=== PATIENT | female | born 1945 | race Caucasian/White ===

== ENCOUNTER 2019-07-25 13:19 | Outpatient (CLI) | payer MEDICARE, SELFPAY ==
--- NOTE | ~2019-07-25 | MR_ITS ---
EXAMINATION: MR renal wo/w con DATE: 07/25/2019 14:32 INDICATION: Left kidney mass. TECHNIQUE: Magnetic resonance imaging (MRI) of the abdomen was performed without and with 10 mL Multi Mili intravenous contrast. Sequences included coronal T2-weighted FS FSE, coronal and axial FIESTA F S, coronal LAVA-flex, axial LAVA, axial T2-weighted FSE, axial T1-weighted dual-echo FSPGR, axial STI R FSE, and axial DWI. Postcontrast sequences included coronal LAVA-flex and a time course of axial LA VA. COMPARISON: CT abdomen and pelvis 01/09/2019 FINDINGS: Again seen are airspace opacities in the lower lobes and right middle lobe, consistent with chronic i nfection. There is a 2.4 cm cyst in the liver. The gallbladder, spleen, pancreas, and adrenal glands are normal. There are simple cysts in the kidneys measuring up to 8 mm on the left. There is a 12 mm hemorrhagic cyst in left kidney. There are no dilated loops of bowel. There are no pathologically enl arged lymph nodes. There is no free intraperitoneal fluid. There is lumbar levoscoliosis and severe s pondylosis. IMPRESSION: 1. 12 mm hemorrhagic cyst in left kidney correlating with the CT abnormality. 2. Chronic airspace opacities in the lower lobes and right middle lobe of the lungs, consistent with chronic infection. Reviewed, dictated and finalized at location A. IMPRESSION: 1. 12 mm hemorrhagic cyst in left kidney correlating with the CT abnormality. 2. Chronic airspace opacities in the lower lobes and right middle lobe of the l ungs, consistent with chronic infection.
[2019-07-25 13:58] LABS: Estimated Glomerular Filt Rate > 60
== END 2019-07-25 13:20 | disposition home or self-care (01) ==
PROVIDERS: PCP Family Medicine; Visit Provider Family Medicine
DX: N28.89 Other specified disorders of kidney and ureter (principal); N28.1 Cyst of kidney, acquired; R91.8 Other nonspecific abnormal finding of lung field
CPT/HCPCS: 36415; 74183; A9577

== ENCOUNTER 2019-10-07 14:13 | Emergency (ER) | payer MEDICARE, SELFPAY ==
--- NOTE | ~2019-10-07 | CT_ITS ---
EXAMINATION: CTA brain carotid DATE: 10/07/2019 17:52 INDICATION: Headache and dizziness. Tinnitus. TECHNIQUE: Computed tomographic angiography (CTA) of the head was performed without and with 100 mL O mnipaque-350 intravenous contrast. CTA of the neck was performed with intravenous contrast. Automated exposure control and iterative reconstruction technique were employed. The dose-length product was 1 481.11 mGy-cm. Maximum intensity projection and volume rendered 3D-reconstructions were created by lyndon todd technologist on a separate workstation. COMPARISON: Head CT 03/09/2016 FINDINGS: HEAD CTA: There are scattered areas of low attenuation in the cerebral white matter. There is chronic encephalomalacia in left frontotemporal region. There is chronic encephalomalacia in right frontal l obe. There are changes of left-sided craniotomy with a aneurysm clip in the area of left posterior co mmunicating artery. The orbits are normal. There is mucosal thickening in the paranasal sinuses. Ther e is thickening and sclerosis of the buckley of the maxillary sinuses, consistent with chronic sinusiti s. The mastoid air cells are normal. Left vertebral artery is dominant. There is no significant steno sis of basilar artery or the posterior cerebral arteries. There is no significant stenosis of the int racranial internal carotid arteries or anterior or middle cerebral arteries. Anterior communicating a rtery is normal. Right posterior communicating artery is normal. There is no aneurysm. NECK CTA: There is mild scarring at the lung apices. There is a 3 mm nodule in right thyroid lobe, li airam not clinically significant. There are no pathologically enlarged lymph nodes. There is no signif icant stenosis of the vertebral arteries. There is plaque in the proximal internal carotid arteries. There is 0% stenosis of the proximal right internal carotid artery relative to normal distal artery l umen diameter (NASCET criteria). There is 0% stenosis of the proximal left internal carotid artery re lative to normal distal artery lumen diameter. There is severe cervical spondylosis. IMPRESSION: 1. Stable moderate nonspecific cerebral white matter disease, which likely represents chronic small v essel ischemic disease. 2. Chronic encephalomalacia in left frontotemporal region and right frontal lobe. 3. No aneurysm or significant intracranial arterial stenosis. 4. 0% stenosis of the proximal internal carotid arteries relative to normal distal artery lumen diame ters (NASCET criteria). Reviewed, dictated and finalized at location A. IMPRESSION: 1. Stable moderate nonspecific cerebral white matter disease, which likely repr esents chronic small vessel ischemic disease. 2. Chronic encephalomalacia in left frontotemporal region and right frontal lob e. 3. No aneurysm or significant intracranial arterial stenosis. 4. 0% stenosis of the proximal internal carotid arteries relative to normal dis simin artery lumen diameters (NASCET criteria).
--- NOTE | ~2019-10-07 | XR_ITS ---
XR chest 2V 10/07/2019 14:55 Indication: Weakness, fainting heart and fatigue Procedure: 2 view chest Comparison: 07/04/2018 Findings: There is chronic bilateral lower lobe airspace consolidation. Heart size normal. There is s coliosis. The lungs are hyperinflated which is consistent with, but not diagnostic of chronic obstruc tive pulmonary disease. Impression: 1: Chronic bilateral lower lobe airspace disease. Differential diagnosis includes atelectasis, fibros is, chronic edema and atypical pneumonia. Reviewed, dictated and finalized at location B. Impression: 1: Chronic bilateral lower lobe airspace disease. Differential diagnosis includ es atelectasis, fibrosis, chronic edema and atypical pneumonia.
[2019-10-07 14:17] VITALS: BP 137/60; PULSE 119; RESP 18; TEMP 37.3; O2SAT 98
--- NOTE | 2019-10-07 14:23 | ECG_ITS ---
Measurements Intervals [place] Rate: 125 P: 67 UT: 140 QRS: 39 QRSD: 85 T: 53 QT: 281 QTc: 406 Interpretive Statements SINUS TACHYCARDIA BORDERLINE ST ABNORMALITY- ANTEROLATERAL LEADS BASELINE ARTIFACT- I, III, AVR, AVL, AVF, V1-V3 ABNORMAL ECG Electronically Signed On 10-07-2019 15:35:20 CDT by Benito Perera D.O.
[2019-10-07 14:35] LABS: Basophils Absolute Auto 0.1 K/mm3 (0.0-0.1); Basophils Percent Auto 1.1 % (0.2-1.2); Eosinophils Absolute Auto 0.1 K/mm3 (0-0.3); Eosinophils Percent Auto 1.2 % (0-4.4); Hematocrit 41.8 % (37.0-47.0); Hemoglobin 13.6 g/dL (12.0-15.0); Immature Granulocyte Absolute 0.04 K/mm3 (0.00-0.031); Immature Granulocyte Percent A 0.4 % (0-0.5); Lymphocytes Percent Auto 30.5 % (18.3-44.2); Mean Corpuscular HGB Conc 32.5 g/dl (32-36); Mean Corpuscular Hemoglobin 30.4 pg (26-34); Mean Corpuscular Volume 93.5 fl (80-100); Mean Platelet Volume 8.6 fl (7.4-10.4); Monocytes Absolute Auto 1.1 K/mm3 (0.1-0.6); Monocytes Percent Auto 12.1 % (2.6-8.5); Neutrophils Percent Auto 54.7 % (45.5-73.1); Platelet Count Result 437 k/mm3 (150-375); Red Blood Count 4.47 M/mm3 (4.2-5.4); Red Cell Distribution Width 13.2 % (11.5-14.5); White Blood Count 9.2 K/mm3 (4.5-10.0)
[2019-10-07 14:47] LABS: Alanine Aminotransferase 36 U/L (4-35); Albumin Level 4.3 g/dL (3.5-5.1); Alkaline Phosphatase 123 U/L (38-126); Aspartate Amino Transferase 36 U/L (14-36); Bilirubin,Total 0.2 mg/dL (0.2-1.3); Blood Urea Nitrogen 30 mg/dL (7-17); Calcium 9.2 mg/dL (8.4-10.2); Carbon Dioxide 28 mmol/L (22-30); Chloride 99 mmol/L (98-107); Estimated CRCL calculation 48 ml/min; Estimated Glomerular Filt Rate > 60; Glucose 109 mg/dL (65-105); Potassium 4.3 mmol/L (3.4-5.0); Sodium 137 mmol/L (137-145)
--- NOTE | 2019-10-07 16:46 | ED.GENADULT ---
HPI - General Adult General Chief complaint: Weakness Stated complaint: palpitations Time Seen by Provider: 10/07/19 15:45 History of Present Illness HPI narrative: Patient is a 74 y/o female complaining moderate generalized weakness for 1 week. There is no alleviating or exacerbating factor. She also had an episode of dizziness/light-headedness 1 week ago. She feel whooshing sound when she turns her head. She denies any fever, chill, chest pain or abdominal pain. She is able to move all 4 extremities without difficulty. She was seen by PCP earlier today and sent to ED for further evaluation. Related Data Home Medications Medication Instructions Recorded Confirmed sumatriptan succinate 100 mg tablet See Rx Instructions .ROUTE .COMPLEX 04/02/19 10/07/19 albuterol sulfate 90 mcg/actuation 2 inhalation INHALATION Q4-6H PRN 04/03/19 10/07/19 aerosol inhaler gm amitriptyline 10 mg tablet 10 mg PO .daily at bedtime tablet 04/03/19 10/07/19 cetirizine 10 mg tablet 5 mg PO DAILY PRN 04/03/19 10/07/19 multivitamin 1 cap PO DAILY 04/03/19 10/07/19 polyethylene glycol 3350 17 17 gm PO DAILY 04/03/19 10/07/19 gram/dose oral powder amoxicillin 250 mg-potassium 1 tablet PO BID tablet 07/30/19 10/07/19 clavulanate 125 mg tablet cyclobenzaprine 5 mg tablet 5 mg PO TID PRN 07/30/19 10/07/19 fluticasone propionate 50 1 spray NASAL DAILY PRN 07/30/19 10/07/19 mcg/actuation nasal spray,suspension brexpiprazole 2 mg tablet 2 mg PO DAILY 09/05/19 10/07/19 Allergies Allergy/AdvReac Type Severity Reaction Status Date / Time levofloxacin Allergy Mild Muscle Verified 10/07/19 15:42 Spasms ciprofloxacin Allergy Unknown reaction Verified 10/07/19 15:42 clarithromycin Allergy Unknown reaction Verified 10/07/19 15:42 codeine Allergy Unknown reaction Verified 10/07/19 15:42 Review of Systems Constitutional: Constitutional: Denies chills, Denies fever(s), Reports headache(s) and Reports weakness Eyes: Eyes: Denies blurry vision ENT: Denies headache(s) and Denies neck pain Cardiovascular: Cardiovascular: Denies chest pain and Denies dyspnea Respiratory: Respiratory: Denies cough and Denies dyspnea Gastrointestinal: Gastrointestinal: Denies abdominal pain, Denies diarrhea, Denies nausea and Denies vomiting Genitourinary: Genitourinary: Denies hematuria and Denies dysuria Musculoskeletal: Musculoskeletal: Denies back pain and Denies neck pain Neurologic: Denies headache(s) and Denies weakness PMFSH Past Medical History Medical History Advance care planning Anxiety disorder, unspecified Bronchiectasis Depression Encounter for counseling regarding immunization Essential (primary) hypertension History of fractured rib Iron deficiency Lumbar spondylosis Macular degeneration Macular degeneration, age related (~2015) Migraines Osteoporosis Vitamin D deficiency, unspecified Surgical History Surgical History H/O cerebral aneurysm repair H/O right wrist surgery Family History Family History Mother Acute myocardial infarction Cerebrovascular accident Social History Social History Smoking status: Former smoker Second hand tobacco smoke exposure: No Smoking end date: 03/27/88 Alcohol intake: current Substance use: never Gender identity (if verbalized by the patient): Female Exam Const: General: no acute distress and well developed Orientation/consciousness: oriented to person, oriented to place, oriented to time and patient oriented x3 HENMT: Head: normocephalic Ears: external ears normal General nose exam: Normal external nose present Eyes: General: appearance normal, both eyes and all related structures Conjunctivae: conjunctivae normal Neck: Neck: normal visual inspection and full ROM Monie
[2019-10-07 17:00] VITALS: BP 168/94; PULSE 121; RESP 18; O2SAT 96
[2019-10-07 17:06] LABS: Add Urine Microscopic? YES; Appearance Urine Clear (Clear); Bilirubin Urine Negative (Negative); Blood Urine Negative (Negative); Color Urine Straw (Yellow); Glucose Urine UA Negative (Negative); Ketones Urine Negative (Negative); Leukocyte Esterase Ur Negative LEU/UL (Negative); Mucus Urine Rare /lpf; Nitrate Urine Negative (Negative); Protein Urine Negative (Negative); Specific Grav Ur 1.017 (1.001-1.035); Squamous Epithelial Cell Urine Rare /hpf (Few); Urobilinogen Urine Negative mg/dL (<2.0); WBC Urine 0-3 /hpf
[2019-10-07 19:06] VITALS: BP 155/71; PULSE 121; RESP 19; O2SAT 97
--- NOTE | 2019-10-07 19:18 | PC.NURSE ---
assumed care of pt from EDILMA Luke.
[2019-10-07 19:46] LABS: Troponin I < 0.012 ng/mL (0.000-0.034)
[2019-10-07 20:18] VITALS: BP 128/80; PULSE 88; RESP 20; TEMP 36.6; O2SAT 99
== END 2019-10-07 20:19 | disposition home or self-care (01) ==
PROVIDERS: Emergency Medicine; Emergency Provider Emergency Medicine; PCP Family Medicine
DX: R53.1 Weakness (principal); R00.0 Tachycardia, unspecified; Z87.891 Personal history of nicotine dependence; F41.9 Anxiety disorder, unspecified; F32.9 Major depressive disorder, single episode, unspecified; I10 Essential (primary) hypertension
CPT/HCPCS: 36415; 70496; 70498; 71046; 80053; 81001; 84443; 84484; 85025; 93005; 99284; Q9967

== ENCOUNTER 2019-10-18 09:14 | Outpatient (CLI) | payer MEDICARE, SELFPAY ==
--- NOTE | 2019-10-22 07:45 | WPDHOLTEREM ---
Holter/Event Monitor Holter/Event Monitor Date of procedure: 10/18/19 Procedure Type: 48 hour holter monitor Indications: Tachycardia Conclusion: 1. 48 hour holter monitor on 10/18/19. 2. Predominant rhythm is sinus rhythm. HR range 72-143 bpm; average HR 101 bpm. 3. There are 420 premature supraventricular complexes and 5 supraventricular couplets. There are 3 short runs of atrial tachycardia, fastest at 171 bpm and longest is 4 beats. 4. There are 220 premature ventricular complexes. No ventricular tachycardia. 5. No sinoatrial or atrioventricular blocks. No significant pauses greater than 2 seconds. 6. Patient reports episodes of lightheadedness and headaches which demonstrate sinus rhythm, HR range 85-133 bpm.
== END 2019-10-18 09:15 | disposition home or self-care (01) ==
PROVIDERS: Visit Provider Internal Medicine Cardiovascular Disease
DX: R00.0 Tachycardia, unspecified (principal)
CPT/HCPCS: 93225; 93226

== ENCOUNTER 2019-10-21 08:33 | Outpatient (CLI) | payer MEDICARE, SELFPAY ==
[2019-10-21 09:13] LABS: Cholesterol 174 mg/dL (0-200); HDL Direct 46 mg/dL; Triglycerides 93 mg/dL (<150)
[2019-10-21 09:23] LABS: LDL Cholesterol Direct 106 mg/dL
== END 2019-10-21 08:34 | disposition home or self-care (01) ==
LOC: ANHLAB 08:40
PROVIDERS: Visit Provider Internal Medicine Cardiovascular Disease
DX: I10 Essential (primary) hypertension (principal)
CPT/HCPCS: 36415; 80061

== ENCOUNTER 2019-11-05 14:29 | Outpatient (CLI) | payer MEDICARE, SELFPAY ==
--- NOTE | ~2019-11-05 | MM_ITS ---
EXAMINATION: MM screening [facility] BI w mera HISTORY: Screening TECHNIQUE: Craniocaudal and mediolateral oblique 3-D tomosynthesis images were obtained and synthetic 2-D images were generated. CAD analysis was submitted and interpreted. COMPARISON: Comparison to multiple prior studies sequentially, with oldest reviewed study dated 02/24. BREAST PARENCHYMAL COMPOSITION: Breast composed of scattered areas of fibroglandular density. FINDINGS: There is no evidence of suspicious mass, calcification, or architectural distortion to sugg est malignancy in either breast. There has been no suspicious interval change. IMPRESSION: 1. No mammographic evidence of malignancy. 2. Recommend routine screening mammography in one year. BI-RADS Category 1: Negative Reviewed, dictated and finalized at location A.
== END 2019-11-05 14:30 | disposition home or self-care (01) ==
PROVIDERS: PCP Family Medicine; Visit Provider Obstetrics & Gynecology
DX: Z12.31 Encounter for screening mammogram for malignant neoplasm of breast (principal)
CPT/HCPCS: 77063; 77067

== ENCOUNTER 2019-11-24 12:47 | Outpatient (CLI) | payer MEDICARE, SELFPAY ==
--- NOTE | ~2019-11-24 | MR_ITS ---
EXAMINATION: MR brain IAC wo/w con DATE: 11/24/2019 14:26 INDICATION: Dizziness and lightheadedness. TECHNIQUE: Magnetic resonance imaging (MRI) of the brain, brainstem, and internal auditory canals was performed without and with 9 mL MultiHance intravenous contrast. Sequences included sagittal and axi al T1-weighted FSE, axial diffusion-weighted FS EPI, axial T2*-weighted GRE, axial T2-weighted FLAIR Propeller, axial T2-weighted Propeller, small moucz-lq-krht coronal FIESTA, small pmwnu-oj-rnvy coron al T1-weighted FSE, and small orbwi-hv-hrpn axial T1-weighted SPGR. Postcontrast sequences included a xial T1-weighted FSE, small bcyph-wt-qmia coronal T1-weighted FSE, and small upkpl-uz-wula axial T1-w eighted SPGR. Apparent diffusion coefficient (ADC) maps were created. COMPARISON: Head CTA 10/07/2019 FINDINGS: There is an aneurysm clip in left suprasellar cistern. There are changes of left-sided cran iotomy. There is chronic encephalomalacia in left frontotemporal region. There is an old ventriculost ritika tract in right frontal lobe with chronic encephalomalacia. There are scattered areas of nonspecif ic increased T2-weighted signal intensity in the cerebral white matter. There is a prominent perivasc ular space in the right basal ganglia. There is no intracranial hemorrhage, acute infarction, or abno rmal intracranial mass lesion. The ventricles are normal in size. The orbits are normal. There is muc osal thickening in the paranasal sinuses. IMPRESSION: 1. Chronic encephalomalacia in the left frontotemporal region and right frontal lobe. 2. Moderate nonspecific cerebral white matter disease, which likely represents chronic small vessel i schemic disease. Reviewed, dictated and finalized at location A. IMPRESSION: 1. Chronic encephalomalacia in the left frontotemporal region and right frontal lobe. 2. Moderate nonspecific cerebral white matter disease, which likely represents chronic small vessel ischemic disease.
[2019-11-24 13:35] LABS: Estimated Glomerular Filt Rate > 60
== END 2019-11-24 12:48 | disposition home or self-care (01) ==
PROVIDERS: PCP Family Medicine; Visit Provider Otolaryngology
DX: R42 Dizziness and giddiness (principal); R93.0 Abnormal findings on diagnostic imaging of skull and head, not elsewhere classified
CPT/HCPCS: 70553; A9577

== ENCOUNTER 2020-02-13 13:36 | Outpatient (CLI) | payer MEDICARE, SELFPAY ==
--- NOTE | 2020-02-13 15:00 | NEURO_ITS ---
Impression: # Complains of paresthesia of legs. # Normal motor and sensory nerve conduction study including F-waves. # Normal needle/EMG exam without any fibs, myotonia or cramps. # Clinical correlation recommended. Nerve Conduction Studies Anti Sensory Summary Table Stim Site NR Peak (ms) P-T Amp (?V) Site1 Site2 Delta-P (ms) Dist (cm) Nick (m/s) Left Sup Fibular Anti Sensory (Ant Lat Mall) 14 cm 3.9 7.9 14 cm Ant Lat Mall 3.9 16.0 41 Right Sup Fibular Anti Sensory (Ant Lat Mall) 14 cm 3.7 8.7 14 cm Ant Lat Mall 3.7 16.0 43 Left Sural Anti Sensory (Lat Mall) Calf 3.8 9.7 Calf Lat Mall 3.8 16.0 42 Right Sural Anti Sensory (Lat Mall) Calf 3.5 16.4 Calf Lat Mall 3.5 16.0 46 Motor Summary Table Stim Site NR Onset (ms) O-P Amp (mV) Site1 Site2 Delta-0 (ms) Dist (cm) Nick (m/s) Left Peroneal Motor (Vastus Med) Ankle 4.5 1.9 Popit Ankle 8.4 38.0 45 Popit 12.9 1.5 Right Peroneal Motor (Vastus Med) Ankle 4.1 2.4 Popit Ankle 9.2 38.0 41 Popit 13.3 1.6 Left Tibial Motor (Abd Alvarado Brev) Ankle 4.5 9.1 Knee Ankle 10.0 41.0 41 Knee 14.5 6.3 Right Tibial Motor (Abd Alvarado Brev) Ankle 4.8 7.1 Knee Ankle 9.5 41.0 43 Knee 14.3 4.7 F Wave Studies NR F-Lat (ms) L-R F-Lat (ms) Left Peroneal (Mrkrs) (EDB) 52.54 0.36 Right Peroneal (Mrkrs) (EDB) 52.19 0.36 Left Tibial (Mrkrs) (Abd Hallucis) 53.02 0.44 Right Tibial (Mrkrs) (Abd Hallucis) 52.58 0.44 EMG Side Muscle Nerve Root Ins Act Fibs Amp Dur Recrt Comment Right AntTibialis Dp Br Fibular L4-5 Nml Nml Nml Nml Nml Right Gastroc Tibial S1-2 Nml Nml Nml Nml Nml Right Fibularis Long Sup Br Fibular L5-S1 Nml Nml Nml Nml Nml Right Flex Dig Long Tibial L5-S2 Nml Nml Nml Nml Nml Right Ext Dig Brev Dp Br Fibular L5, S1 Nml Nml Nml Nml Nml Left AntTibialis Dp Br Fibular L4-5 Nml Nml Nml Nml Nml Left Gastroc Tibial S1-2 Nml Nml Nml Nml Nml Left Fibularis Long Sup Br Fibular L5-S1 Nml Nml Nml Nml Nml Left Flex Dig Long Tibial L5-S2 Nml Nml Nml Nml Nml Left Ext Dig Brev Dp Br Fibular L5, S1 Nml Nml Nml Nml Nml MTDD
== END 2020-02-13 13:37 | disposition home or self-care (01) ==
LOC: ANHNEURO 13:38
PROVIDERS: PCP Family Medicine; Visit Provider Psychiatry & Neurology Neurology
DX: R20.2 Paresthesia of skin (principal)
CPT/HCPCS: 95886; 95910

== ENCOUNTER 2020-02-19 14:18 | Outpatient (CLI) | payer MEDICARE, SELFPAY ==
--- NOTE | ~2020-02-19 | CT_ITS ---
EXAMINATION:CT chest high resolution wo id DATE: 02/19/2020 14:42 INDICATION: Bronchiectasis, uncomplicated. TECHNIQUE: Computed tomography (CT) of the chest was performed without intravenous contrast. Automate d exposure control and iterative reconstruction technique were employed. The dose-length product (DLP ) was 131.46 mGy-cm. COMPARISON: Chest CT 05/07/2010, CT abdomen and pelvis 01/09/2019, chest CT 08/13/2019, neck CT 10/07/19 FINDINGS: There is symmetric scarring at the lung apices. There is bronchiectasis in the inferior ciera gs. There is mucous plugging in all lobes with a lower lung predominance. There are airspace opacitie s in the lower lobes and right middle lobe with volume loss. There are tree-in-bud opacities and cent rilobular nodules in all lobes with a lower lung predominance, which is present to some degree on mul tiple previous CTs. There is a 7 mm nodule in right upper lobe, new from 10/07/19. A calcified left heidi ng nodule is consistent with old granulomatous disease. No pleural effusion. There is a tracheal dive rticulum in the superior mediastinum. There is mild mediastinal lymphadenopathy. There are old healed right rib fractures. There is thoracolumbar dextroscoliosis and severe spondylosis. IMPRESSION: 1. Chronic diffuse lung disease with a lower lung predominance, consistent with chronic pneumonia. 2. Chronic mild mesenteric lymphadenopathy, likely reactive. Reviewed, dictated and finalized at location A. SCIENTIST
== END 2020-02-19 14:19 | disposition home or self-care (01) ==
PROVIDERS: PCP Family Medicine; Visit Provider Internal Medicine Critical Care Medicine
DX: J47.9 Bronchiectasis, uncomplicated (principal); R91.8 Other nonspecific abnormal finding of lung field; R59.0 Localized enlarged lymph nodes
CPT/HCPCS: 71250

== ENCOUNTER 2020-03-19 13:30 | Outpatient (CLI) | payer MEDICARE, SELFPAY ==
--- NOTE | 2020-03-23 12:12 | WPDPFTINT ---
PFT Interpretation PFT Interpretation: Full pulmonary function testing 03/19/2020 -abnormal. 1. Mild obstruction is seen in the slight reduction of FEV1 relative to FVC. Following inhaled bronchodilator, there is little objective change. 2. Maximal mid-expiratory flows appear reduced disproportionately. 3. TLC and other lung volume measurements appear satisfactory. 4. Diffusing capacity appears satisfactory. In summary, this data suggests very mild airway obstruction, especially of the small airways . Abhijeet Edouard MD MSc FACP FCCP
--- NOTE | 2020-03-23 12:19 | WPDSIXMINUTE ---
Six Minute Walk 6 minutes walk 03/19/2020 Patient walked 13 laps with total distance 396.24m. SaO2 remained at or above 93%. Abhijeet Stephenson MD MSc FACP FCCP
== END 2020-03-19 13:31 | disposition home or self-care (01) ==
PROVIDERS: PCP Family Medicine; Visit Provider Internal Medicine Critical Care Medicine
DX: J47.9 Bronchiectasis, uncomplicated (principal)
CPT/HCPCS: 94060; 94726; 94729

== ENCOUNTER → 2020-07-31 11:10 | Outpatient (CLI) | payer MEDICARE, SELFPAY ==
--- NOTE | ~2020-07-31 | XR_ITS ---
EXAMINATION: XR hand LT min 3V, XR wrist LT min 3V DATE: 07/31/2020 11:26 INDICATION: Left hand and wrist pain post fall 4 days prior TECHNIQUE: 1. Posteroanterior, ulnar deviation, oblique, and lateral views of the left wrist were obtained. 2. Dorsal palmar, oblique and lateral views of the left hand were obtained. COMPARISON: None. FINDINGS: Nondisplaced transverse fracture of the distal left radial metaphysis with mild dorsal impaction resu lting in 5 degrees dorsal tilt of the distal articular surface. No evident intra-articular extension. No other fractures identified. Otherwise normal alignment of the left hand and wrist. 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 Mild osteoarthritis at a few of the interphalangeal joints. Diffuse o steopenia. Mild soft tissue swelling about the left wrist. IMPRESSION: 1. Mild dorsal impaction of a nondisplaced extra articular fracture of the distal left radial metaphy sis. Reviewed, dictated and finalized at location A. IMPRESSION: 1. Mild dorsal impaction of a nondisplaced extra articular fracture of the dist al left radial metaphysis.
== END ==
PROVIDERS: PCP Nurse Practitioner; Visit Provider Nurse Practitioner
DX: S52.552A Other extraarticular fracture of lower end of left radius, initial encounter for closed fracture (principal); X58.XXXA Exposure to other specified factors, initial encounter
CPT/HCPCS: 73110; 73130

== ENCOUNTER → 2020-09-15 10:09 | Outpatient (CLI) | payer MEDICARE, SELFPAY ==
--- NOTE | ~2020-09-15 | XR_ITS ---
XR ankle RT min 3V 09/15/2020 10:20 INDICATION: Right ankle pain PROCEDURE: 4 views right ankle COMPARISON: No prior studies for comparison. FINDINGS: Fracture, dislocation or subluxation is not identified. Small degenerative calcaneal and th mickey findings at the plantar surface. Ankle mortise intact. Talar dome within normal limits. The soft tissues appear within normal limits. No foreign bodies are identified. IMPRESSION: 1: NO ACUTE BONE OR JOINT ABNORMALITY IDENTIFIED. Reviewed, dictated and finalized at location B.
== END ==
PROVIDERS: PCP Nurse Practitioner; Visit Provider Nurse Practitioner
DX: M25.471 Effusion, right ankle (principal)
CPT/HCPCS: 73610

== ENCOUNTER → 2020-10-20 17:46 | Outpatient (CLI) | payer MEDICARE, SELFPAY ==
--- NOTE | ~2020-10-20 | DEXA_ITS ---
Bone Density Report Name: Bebe Rosas Age: 75 Sex: Female Ethnicity: White Date of : 1945 Indication: postmenopausal; screening for osteoporosis; height loss; Referring Provider: Sadaf Elaine Study: Bone densitometry was performed. Exam Date: October 20, 2020 Accession number: [id number] Bone Density: Region BMD T-score Z-score Classification AP Spine (L1, L2) 0.816 -1.5 0.9 Osteopenia Femoral Neck (Left) 0.531 -2.9 -0.7 Osteoporosis Total Hip (Left) 0.599 -2.8 -0.9 Osteoporosis Femoral Neck (Right) 0.584 -2.4 -0.2 Osteopenia Total Hip (Right) 0.600 -2.8 -0.9 Osteoporosis Total Hip Mean 0.600 -2.8 -0.9 Osteoporosis World Health Organization criteria for BMD impression classify patients as: Normal (T-score at or above -1.0), Osteopenia (T-score between -1.0 and -2.5), or Osteoporosis (T-score at or below -2.5). 10-year Fracture Risk: FRAX not reported because: Some T-score for Spine Total or Hip Total or Femoral Neck at or below -2.5 Clinical Information Provided by Patient: Has used the following medications: Vitamin D, Calcium Patient maximum height was 66 Menopause Age: 50 No regular weight bearing exercise Drinks caffeinated beverages Onset of menses at age 11 Number of children 1 Impression: The patient has osteoporosis, based on the Left Femoral Neck T-score. Discussion: INCREASED RISK OF FRACTURE. BONE DENSITY IS UNDESIRABLY LOW AT ONE OR MORE SKELETAL SITES, CONSISTENT WITH POSTMENOPAUSAL OSTEOPOROSIS. This patient's lowest T-score meets the World Health Organization's (WHO) criteria for osteoporosis at one or more sites (T-score -2.5 or below). In untreated patients, the risk of osteoporotic fracture increases approximately two-fold for each 1.0 SD decrease in T-score. Low bone density is not the only risk factor for fracture; also consider factors such as patient's age, frailty or poor health, risk of falling, risk of injury, previous osteoporotic fracture, family history of osteoporosis, cigarette smoking, low body weight, etc. Not everyone with low bone mineral density has osteoporosis; osteomalacia and other metabolic bone disorders should also be considered. Patients who have osteoporosis should be evaluated for specific diseases and conditions (secondary causes) that may cause or contribute to bone loss. The [employer]ocrinologists (AACE) and National Osteoporosis Foundation (NOF) recommend pharmacologic intervention for all postmenopausal women whose T-score is in this range. The patient should follow a healthful lifestyle (good nutrition with adequate calcium and vitamin D, and appropriate weight-bearing exercise). Follow-Up: Consider a repeat BMD and Vertebral Fracture Assessment (VFA) exam in 2 years or sooner if medically necessary, to reassess this pa
== END ==
PROVIDERS: PCP Family Medicine; Visit Provider Nurse Practitioner
DX: M81.0 Age-related osteoporosis without current pathological fracture (principal); M85.88 Other specified disorders of bone density and structure, other site; M85.851 Other specified disorders of bone density and structure, right thigh
CPT/HCPCS: 77080

== ENCOUNTER 2020-11-06 14:27 | Outpatient (CLI) | payer MEDICARE, SELFPAY ==
--- NOTE | ~2020-11-06 | MM_ITS ---
EXAMINATION: MM screening rcistin BI w mera HISTORY: Screening TECHNIQUE: Craniocaudal and mediolateral oblique 3-D tomosynthesis images were obtained and synthetic 2-D images were generated. CAD analysis was submitted and interpreted. COMPARISON: Comparison to multiple prior studies sequentially, with oldest reviewed study dated 04/2014. BREAST PARENCHYMAL COMPOSITION: The breasts are heterogeneously dense, which may obscure small masses . FINDINGS: There is no evidence of suspicious mass, calcification, or architectural distortion to sugg est malignancy in either breast. There has been no suspicious interval change. IMPRESSION: 1. No mammographic evidence of malignancy. 2. Recommend routine screening mammography in one year. BI-RADS Category 1: Negative Reviewed, dictated and finalized at location A.
== END 2020-11-06 14:28 | disposition home or self-care (01) ==
LOC: ANHIMG 14:28
PROVIDERS: PCP Family Medicine; Visit Provider Obstetrics & Gynecology
DX: Z12.31 Encounter for screening mammogram for malignant neoplasm of breast (principal)
CPT/HCPCS: 77063; 77067

== ENCOUNTER 2020-11-06 14:29 | Outpatient (CLI) | payer MEDICARE, SELFPAY ==
--- NOTE | ~2020-11-06 | CT_ITS ---
EXAMINATION: CT diagnostic chest wo con DATE: 11/06/2020 15:13 INDICATION: R91.8 - Other nonspecific abnormal finding of lung field TECHNIQUE: Computed tomography (CT) of the chest was performed without intravenous contrast. Addition al 3D reconstructions utilizing coronal maximum intensity projection (MIP) were performed. Automated exposure control and iterative reconstruction technique were employed. The dose-length product was 58 .87 mGy-cm. COMPARISON: 02/19/2020 FINDINGS: Chronic moderate biapical pleural-parenchymal scarring. Diffuse bronchiectasis with mild dilation of the bronchi throughout both lungs and with progressively increasing basilar predominant bronchial wal l thickening along with scattered mucous plugging in the mid and lower lungs. No significant interval change in consolidation with associated volume loss in the right middle and bilateral lower lobes, l eft greater than right consistent with atelectasis. Relatively stable appearance of diffuse tree-in-b ud pattern and multiple tiny centrilobular nodules most prominent in the bilateral lower lobes and an terior segment of the right upper lobe. The larger ill-defined 7 mm nodule in the right upper lobe wh ich was new on the most recent prior study has resolved consistent with an infectious/inflammatory et iology. Small calcified nodules in the lingula consistent with old granulomatous disease. No pulmonar y edema or pleural effusion. Heart size is normal. Thoracic aorta is normal in caliber. Unchanged lik tona reactive mild mediastinal lymphadenopathy. Small tracheal diverticulum along the right posterior wall of the trachea near the thoracic inlet. Thoracic dextroscoliosis with mild to moderate thoracic and severe lower cervical and upper lumbar spondylosis. Partially visualized at least 2.6 similar hep atic cyst. IMPRESSION: 1. No significant interval change in chronic diffuse lung disease with lower lung predominance consis tent with chronic pneumonia including atypical pneumonia such as Mycobacterium avium intracellular (M AI). 2. Unchanged mild likely reactive mesenteric lymphadenopathy. Reviewed, dictated and finalized at location A. IMPRESSION: 1. No significant interval change in chronic diffuse lung disease with lower heidi ng predominance consistent with chronic pneumonia including atypical pneumonia such as Mycobacterium avium intracellular (JESSICA). 2. Unchanged mild likely reactive mesenteric lymphadenopathy.
== END 2020-11-06 14:30 | disposition home or self-care (01) ==
LOC: ANHIMG 14:31
PROVIDERS: PCP Family Medicine; Visit Provider Internal Medicine Pulmonary Disease
DX: Z12.31 Encounter for screening mammogram for malignant neoplasm of breast (principal); R91.8 Other nonspecific abnormal finding of lung field
CPT/HCPCS: 71250; 77063; 77067

== ENCOUNTER 2020-11-16 07:53 | Outpatient (RCR) | payer MEDICARE, SELFPAY ==
[2020-11-16 08:54] LABS: Immunoglobulin A 506 mg/dL (70-400); Immunoglobulin G 1694 mg/dL (700-1600); Immunoglobulin M 46 mg/dL (40-230)
[2020-11-20 22:17] LABS: Immunoglobulin E 98 kU/L (<=114)
== END 2021-02-14 23:59 | disposition home or self-care (01) ==
LOC: ANHLAB 07:53
PROVIDERS: PCP Family Medicine; Visit Provider Internal Medicine Pulmonary Disease
DX: J47.9 Bronchiectasis, uncomplicated (principal)
CPT/HCPCS: 36415; 82784; 82785; 87015; 87116; 87206

== ENCOUNTER 2020-11-18 10:07 | Outpatient (CLI) | payer MEDICARE, SELFPAY | END 2020-11-18 10:08 | disposition home or self-care (01) | PROVIDERS: PCP Family Medicine; Visit Provider Internal Medicine Pulmonary Disease | DX: J47.9 Bronchiectasis, uncomplicated (principal) | CPT/HCPCS: 87015; 87116; 87206 ==

== ENCOUNTER 2020-11-23 12:44 | Outpatient (CLI) | payer MEDICARE, SELFPAY ==
[2020-11-26 11:30] LABS: NIL 0.03 IU/mL; Quantiferon TB Plus, 1T NEGATIVE (NEGATIVE); TB1-NIL <0.00 IU/mL; TB2-NIL <0.00 IU/mL
== END 2020-11-23 12:45 | disposition home or self-care (01) ==
PROVIDERS: PCP Family Medicine; Visit Provider Internal Medicine Pulmonary Disease
DX: J47.9 Bronchiectasis, uncomplicated (principal); A31.0 Pulmonary mycobacterial infection
CPT/HCPCS: 36415; 86480; 87015; 87116; 87206

== ENCOUNTER 2021-01-22 14:07 | Outpatient (CLI) | payer MEDICARE, SELFPAY | END 2021-01-22 14:08 | disposition home or self-care (01) | PROVIDERS: PCP Family Medicine; Visit Provider Internal Medicine Pulmonary Disease | DX: J47.9 Bronchiectasis, uncomplicated (principal) | CPT/HCPCS: 87015; 87116; 87206 ==

== ENCOUNTER 2021-03-09 13:28 | Outpatient (CLI) | payer MEDICARE, SELFPAY | END 2021-03-09 13:29 | disposition home or self-care (01) | PROVIDERS: PCP Family Medicine; Visit Provider Internal Medicine Pulmonary Disease | DX: J47.9 Bronchiectasis, uncomplicated (principal) | CPT/HCPCS: 87070; 87077; 87186; 87205 ==

== ENCOUNTER → 2021-07-06 13:12 | Outpatient (CLI) | payer OTHER, SELFPAY ==
--- NOTE | ~2021-07-06 | MR_ITS ---
EXAMINATION: MR lumbar spine wo con EXAM DATE: 07/06/2021 13:50 INDICATION: M54.50 - Low back pain, unspecified . TECHNIQUE: Multi-sequential, multiplanar MR images of the lumbar spine were obtained without contrast . Sagittal T1, T2, T2 fat saturation images. Axial T2 weighted images. Comparison is made to prior examination from 01/25/2018. FINDINGS: Moderate to severe disc disease from L1 through L5. There is 4 mm retrolisthesis L1 on L2 a nd L2 on L3. There is 5 mm retrolisthesis L3 on L4. 4 mm retrolisthesis L4 on L5. The conus medullari s terminates at the L1/2 level and has normal signal intensity and morphology. Mild diffuse loss of lumbar vertebral body heights. No spondylolysis suspected. Moderate thoracolumbar scoliosis, levoscol iosis of the lumbar spine. Paraspinal soft tissue is unremarkable. Level by level evaluation: T12-L1: There is a mild diffuse disc bulge. Facet arthropathy: Mild. Neural foraminal stenosis: No stenosis. Central canal stenosis: No stenosis. L1-L2: There is a mild to moderate diffuse disc bulge. Facet arthropathy: Mild. Neural foraminal stenosis: No stenosis. Central canal stenosis: No stenosis. L2-L3: There is a moderate diffuse disc bulge. Facet arthropathy: Moderate. Neural foraminal stenosis: Mild to moderate right. Central canal stenosis: Mild. L3-L4: There is a mild to moderate diffuse disc bulge. Facet arthropathy: Mild to moderate. Neural foraminal stenosis: Moderate right. Central canal stenosis: Mild. L4-L5: There is a mild to moderate diffuse disc bulge. Facet arthropathy: Mild to moderate right, mild left. Neural foraminal stenosis: Mild to moderate right, mild left. Central canal stenosis: Mild. L5-S1: Disc does not extend beyond the endplate margin. Facet arthropathy: Mild to moderate left. Neural foraminal stenosis: Mild to moderate left. Central canal stenosis: Mild. Mild progression spondylosis compared to 2018. IMPRESSION: 1. Moderate to severe disc disease L1-L5. 2. Thoracolumbar scoliosis. Reviewed, dictated and finalized at location B.
== END ==
PROVIDERS: PCP Family Medicine; Visit Provider Nurse Practitioner
DX: M47.27 Other spondylosis with radiculopathy, lumbosacral region (principal); M48.07 Spinal stenosis, lumbosacral region; M47.25 Other spondylosis with radiculopathy, thoracolumbar region; M48.05 Spinal stenosis, thoracolumbar region
CPT/HCPCS: 72148

== ENCOUNTER 2021-08-13 14:03 | Emergency (ER) | payer OTHER, SELFPAY ==
--- NOTE | ~2021-08-13 | XR_ITS ---
EXAMINATION: XR lumbar spine 2-3V DATE: 08/13/2021 14:30 INDICATION: Low back pain. Fall. TECHNIQUE: 3 views of lumbar spine were obtained. COMPARISON: Lumbar spine radiographs 03/28/2018 FINDINGS: There is 22 degrees levoscoliosis of lumbar spine. There is 5 mm retrolisthesis of L1 on L2 , 8 mm retrolisthesis of L2 on L3, and 5 mm retrolisthesis of L3 on L4. Vertebral body heights are no rmal. There is severely decreased disc height from L1-L2 through L4-L5 and mildly decreased disc heig ht at L5-S1 with endplate remodeling. There is multilevel mild to moderate facet joint osteoarthritis . IMPRESSION: 1. Severe lumbar spondylosis. 2. Lumbar levoscoliosis. Reviewed, dictated and finalized at location A.
--- NOTE | ~2021-08-13 | XR_ITS ---
EXAMINATION: [id number] DATE: 08/13/2021 14:30 INDICATION: Left posterior rib pain. Fall. TECHNIQUE: A frontal view of the chest and 2 views on 3 radiographs of the left ribs were obtained. COMPARISON: Chest 2 views 10/07/2019, chest CT 02/19/2020 FINDINGS: There is mild scarring at the lung apices. There are airspace opacities at the lung bases. There is a small left pleural effusion. No pneumothorax. The heart size is normal. IMPRESSION: 1. No rib fracture. 2. Stable airspace opacities at the lung bases, consistent with atelectasis/scarring versus pneumonia . 3. Small left pleural effusion. 4. Stable mild scarring at the lung apices. Reviewed, dictated and finalized at location A. IMPRESSION: 1. No rib fracture. 2. Stable airspace opacities at the lung bases, consistent with atelectasis/sca rring versus pneumonia. 3. Small left pleural effusion. 4. Stable mild scarring at the lung apices.
[2021-08-13 14:12] VITALS: BP 144/70; PULSE 112; RESP 16; O2SAT 99
--- NOTE | 2021-08-13 14:17 | ED.BACK ---
HPI - Back Pain/Injury General Chief Complaint: Back Pain/Injury Stated Complaint: fall/back injury Time Seen by Provider: 08/13/21 14:30 Source: patient Mode of arrival: ambulatory Limitations: no limitations History of Present Illness HPI Narrative: 76-year-old female presented for complaint of left lower back pain after fall this morning. She states around 0600 she slipped on her cat's vomit, landing on her buttocks in the puddle and striking the left lower back on the corner of a wall. She denies hitting her head or loss of consciousness. She denies any neck pain. Endorses a history of bulging disks for which she receives injections. She is ambulatory with out complaints of numbness, tingling, weakness to the lower extremities. States pain is minimal but worse with ambulation. She took half of a cyclobenzaprine for pain. Related Data Home Medications Medication Instructions Recorded Confirmed polyethylene glycol 3350 17 17 gm PO DAILY 04/03/19 07/09/21 gram/dose oral powder escitalopram oxalate 20 mg tablet 20 mg PO DAILY 11/14/19 07/09/21 acetaminophen 500 mg tablet 500 mg PO Q6H PRN 08/04/20 07/09/21 ascorbate calcium (vitamin C) 500 500 mg PO DAILY 08/04/20 07/09/21 mg tablet cyclosporine 0.05 % eye drops in a 1 drp EACH EYE Q12H 08/04/20 07/09/21 dropperette vit C 250 mg-vit E 200 unit-zinc tablet PO 08/04/20 07/09/21 12.5 mg-mass spectroscopist 1 mg-lut-zeax chew tablet cholecalciferol (vitamin D3) 10 2,000 unit PO DAILY cap 03/08/21 07/09/21 mcg (400 unit) capsule alprazolam 0.25 mg PO PRN PRN 08/13/21 08/13/21 Allergies Allergy/AdvReac Type Severity Reaction Status Date / Time levofloxacin Allergy Mild Muscle Verified 08/13/21 14:18 Spasms ciprofloxacin Allergy Unknown reaction Verified 08/13/21 14:18 clarithromycin Allergy Unknown reaction Verified 08/13/21 14:18 codeine Allergy Unknown reaction Verified 08/13/21 14:18 Review of Systems Review of Systems: CONSTITUTIONAL: Denies body aches, fever, chills, or sweats. EYES: Denies visual changes, redness, or discharge. ENT: Denies rhinorrhea, congestion, sore throat, or otalgia. CARDIOVASCULAR: Denies chest pain, palpitations, or edema. RESPIRATORY: Denies cough or dyspnea. GASTROINTESTINAL: Denies abdominal pain, nausea, vomiting, or diarrhea. GENITOURINARY: Denies dysuria or hematuria. SKIN: Denies rash, itching, or wounds. MUSCULOSKELETAL: Denies back pain, joint pain, or myalgia. NEUROLOGIC: Denies headache, numbness, tingling, or weakness. PSYCH: Denies depression or anxiety. All systems reviewed & are unremarkable except as noted in HPI and below PMFSH Past Medical History Medical History Anxiety disorder, unspecified Bronchiectasis Chronic low back pain Cyst of left kidney Depression Fracture of distal end of left radius 07/2020 History of fractured rib Iron deficiency Liver cyst Lumbar spondylosis Macular degeneration, age related (~2015) Migraines Multiple nodules of lung Osteoarthritis Osteoporosis Tachycardia Vitamin D deficiency, unspecified Surgical History Surgical History H/O cerebral aneurysm repair (~03/28/08) H/O right wrist surgery (~08/2003) Family History Family History Mother Acute myocardial infarction Cerebrovascular accident Social History Social History Smoking packs per day: 1 Smoking cigarettes per day: 20.0 Years smoked: 5 Smoking pack-years: 5.00 Smoking status: Never smoker Second hand tobacco smoke exposure: Yes Smoking end date: 03/27/91 Alcohol intake: current Substance use: never Gender identity (if verbalized by the patient): Female Comments At time of signature, I have reviewed and agree with nursing past medical, surgical, social and family hi
== END 2021-08-13 14:55 | disposition home or self-care (01) ==
PROVIDERS: Emergency Provider Nurse Practitioner Family; PCP Family Medicine
DX: S30.0XXA Contusion of lower back and pelvis, initial encounter (principal); W01.0XXA Fall on same level from slipping, tripping and stumbling without subsequent striking against object, initial encounter; F41.9 Anxiety disorder, unspecified; F32.A Depression, unspecified; M47.816 Spondylosis without myelopathy or radiculopathy, lumbar region; H35.30 Unspecified macular degeneration; M19.90 Unspecified osteoarthritis, unspecified site; M81.0 Age-related osteoporosis without current pathological fracture; E55.9 Vitamin D deficiency, unspecified
CPT/HCPCS: 71101; 72100; 99214; G0463

== ENCOUNTER → 2021-10-14 09:39 | Outpatient (CLI) | payer SELFPAY ==
--- NOTE | ~2021-10-14 | CT_ITS ---
EXAMINATION:CT chest high resolution wo de DATE: 10/14/2021 09:56 INDICATION: Lung nodule. Bronchiectasis. TECHNIQUE: Computed tomography (CT) of the chest was performed without intravenous contrast. Automate d exposure control and iterative reconstruction technique were employed. The dose-length product (DLP ) was 124.42 mGy-cm. COMPARISON: Chest CT 11/06/2020 FINDINGS: There is mild bronchiectasis in the lungs with a lower lung predominance. There is bronchia l wall thickening and mucous plugging in the inferior lungs. There is mild scarring at the lung apice s. There are centrilobular nodules and tree-in-bud opacities in all lobes with a lower lung predomina nce. There are airspace opacities in right middle lobe and the lower lobes with volume loss of right middle lobe. No pleural effusion. The heart size is normal. No pericardial effusion. There is chronic mild mediastinal lymphadenopathy, likely reactive. There is thoracic dextroscoliosis and moderate sp ondylosis. There is severe lumbar spondylosis. IMPRESSION: 1. Stable diffuse lung disease with a lower lung predominance, consistent with chronic pneumonia. 2. Stable mild mediastinal lymphadenopathy, likely reactive. Reviewed, dictated and finalized at location A.
== END ==
PROVIDERS: PCP Family Medicine; Visit Provider Internal Medicine Pulmonary Disease
DX: J47.9 Bronchiectasis, uncomplicated (principal); R91.8 Other nonspecific abnormal finding of lung field
CPT/HCPCS: 71250

== ENCOUNTER → 2021-11-05 18:02 | Outpatient (CLI) | payer OTHER, SELFPAY ==
--- NOTE | ~2021-11-05 | XR_ITS ---
XR chest 2V 11/05/2021 18:15 Indication: Bronchiectasis Procedure: 2 view chest Comparison: Comparison to multiple prior studies sequentially, with oldest reviewed study dated 05/13. Findings: There is bilateral lower lobe airspace disease. There is bronchiectasis of the right lower lobe. Heart size normal. No edema. Small pleural effusions. No pneumothorax. There is chronic apical pleural thickening/scarring. Impression: 1: Chronic bibasilar airspace disease which may represent atelectasis/scarring and/or atypical pneumo homero. 2: Right lower lobe bronchiectasis. Reviewed, dictated and finalized at location A. Impression: 1: Chronic bibasilar airspace disease which may represent atelectasis/scarring and/or atypical pneumonia. 2: Right lower lobe bronchiectasis.
== END ==
DX: J47.9 Bronchiectasis, uncomplicated (principal); R91.8 Other nonspecific abnormal finding of lung field
CPT/HCPCS: 71046

== ENCOUNTER 2021-12-17 14:36 | Outpatient (CLI) | payer OTHER, SELFPAY ==
--- NOTE | ~2021-12-17 | MM_ITS ---
EXAMINATION: MM screening [facility] BI w mera HISTORY: Screening mammogram TECHNIQUE: Craniocaudal and mediolateral oblique 3-D tomosynthesis images were obtained and synthetic 2-D images were generated. CAD analysis was submitted and interpreted. COMPARISON: 11/06/2020, 11/05/2019, 08/29/2018 BREAST PARENCHYMAL COMPOSITION: The breasts are heterogeneously dense, which may obscure small masses . FINDINGS: RIGHT BREAST: There is a possible mass in the middle third of the slightly inner right breast. LEFT BREAST: There is no suspicious mass, calcification, or architectural distortion to suggest malig rajeev. There has been no significant interval change. IMPRESSION: 1. Possible right breast mass. 2. Additional mammographic views and possible breast ultrasound are recommended. BI-RADS Category 0: Incomplete: Needs additional imaging evaluation. Reviewed, dictated and finalized at location A. IMPRESSION: 1. Possible right breast mass. 2. Additional mammographic views and possible breast ultrasound are recommended . BI-RADS Category 0: Incomplete: Needs additional imaging evaluation.
== END 2021-12-17 14:37 | disposition home or self-care (01) ==
LOC: ANHIMG 14:38
PROVIDERS: PCP Family Medicine; Visit Provider Obstetrics & Gynecology
DX: Z12.31 Encounter for screening mammogram for malignant neoplasm of breast (principal); R92.8 Other abnormal and inconclusive findings on diagnostic imaging of breast
CPT/HCPCS: 77063; 77067

== ENCOUNTER → 2021-12-24 14:53 | Outpatient (CLI) | payer OTHER, SELFPAY ==
--- NOTE | ~2021-12-24 | XR_ITS ---
XR knee RT 2V 12/24/2021 15:08 Indication: Right knee pain Procedure: 2 views right knee Comparison: 11/21/2014 Findings: No fracture or traumatic malalignment. No significant joint space narrowing. No joint effus ion. Osteopenia. Impression: 1: No significant bone or joint abnormality. Reviewed, dictated and finalized at location B. Impression: 1: No significant bone or joint abnormality.
== END ==
PROVIDERS: PCP Nurse Practitioner Family; Visit Provider Nurse Practitioner Family
DX: S89.91XA Unspecified injury of right lower leg, initial encounter (principal)
CPT/HCPCS: 73560

== ENCOUNTER 2021-12-31 12:02 | Outpatient (CLI) | payer OTHER, SELFPAY ==
--- NOTE | ~2021-12-31 | MMUS_ITS ---
EXAMINATION: MM diagnostic cristin RT w mera, US breast RT limited HISTORY: Possible right breast mass on screening mammogram TECHNIQUE: Additional 3-D tomosynthesis images of the right breast were performed and synthetic 2-D i mages were generated. CAD analysis was submitted and interpreted. High resolution limited right breas t ultrasound was performed. COMPARISON: 12/17/2021, 11/06/2020, 11/05/2019 FINDINGS: MAMMOGRAPHIC FINDINGS: There is a return to baseline fibroglandular appearance with spot compression of the right breast in the area questioned on screening mammogram. ULTRASOUND: There is no evidence of focal abnormal solid or cystic mass in the vicinity of the mammographic findi ng in question. IMPRESSION: 1. No mammographic or sonographic evidence of malignancy. 2. Recommend routine screening mammography in one year. BI-RADS Category 1: Negative Reviewed, dictated and finalized at location A. IMPRESSION: 1. No mammographic or sonographic evidence of malignancy. 2. Recommend routine screening mammography in one year. BI-RADS Category 1: Negative
== END 2021-12-31 12:03 | disposition home or self-care (01) ==
PROVIDERS: PCP Nurse Practitioner Family; Visit Provider Nurse Practitioner
DX: R92.8 Other abnormal and inconclusive findings on diagnostic imaging of breast (principal)
CPT/HCPCS: 76641; 76642; 77061; 77065; G0279

== ENCOUNTER 2022-02-15 08:50 | Outpatient (CLI) | payer OTHER, SELFPAY ==
[2022-02-15 19:34] LABS: Basophils Absolute Auto 0.2 K/mm3 (0.0-0.1); Basophils Percent Auto 2.9 % (0.2-1.2); Eosinophils Absolute Auto 0.3 K/mm3 (0-0.3); Eosinophils Percent Auto 5.9 % (0-4.4); Hematocrit 38.5 % (37.0-47.0); Hemoglobin 12.1 g/dL (12.0-15.0); Immature Granulocyte Absolute 0.01 K/mm3 (0.00-0.031); Immature Granulocyte Percent A 0.2 % (0-0.5); Lymphocytes Absolute Auto 1.72 K/mm3 (0.9-3.2); Lymphocytes Percent Auto 30.8 % (18.3-44.2); Mean Corpuscular HGB Conc 31.4 g/dl (32-36); Mean Corpuscular Hemoglobin 29.3 pg (26-34); Mean Corpuscular Volume 93.2 fl (80-100); Mean Platelet Volume 9.8 fl (7.4-10.4); Monocytes Absolute Auto 0.5 K/mm3 (0.1-0.6); Neutrophils Absolute Auto 2.9 K/mm3 (1.3-6.7); Neutrophils Percent Auto 51.2 % (45.5-73.1); Platelet Count Result 347 k/mm3 (150-375); Red Blood Count 4.13 M/mm3 (4.2-5.4); Red Cell Distribution Width 12.7 % (11.5-14.5); White Blood Count 5.6 K/mm3 (4.5-10.0)
[2022-02-15 20:09] LABS: Alanine Aminotransferase 19 U/L (6-35); Albumin Level 4.4 g/dL (3.5-5.1); Alkaline Phosphatase 98 U/L (38-126); Anion Gap 8 mmol/L (8-16); Aspartate Amino Transferase 41 U/L (14-36); Bilirubin,Total 0.4 mg/dL (0.2-1.3); Blood Urea Nitrogen 24 mg/dL (7-17); CRP 0.6 mg/dL (<1.0); Carbon Dioxide 31 mmol/L (22-30); Chloride 102 mmol/L (98-107); Cholesterol 209 mg/dL (0-200); Estimated Glomerular Filt Rate > 60; Glucose 82 mg/dL (65-110); HDL Direct 66 mg/dL; Potassium 4.2 mmol/L (3.4-5.0); Sodium 141 mmol/L (137-145); Triglycerides 51 mg/dL (<150)
[2022-02-15 20:31] LABS: Vitamin D 25 Hydroxy 40.1 ng/mL
[2022-02-15 20:38] LABS: Erythrocyte Sedimentation Rate 37 mm/hr (0-20)
[2022-02-15 21:03] LABS: Rheumatoid Factor < 12.0 IU/ML (<12)
[2022-02-15 22:03] LABS: LDL Cholesterol Direct 103 mg/dL
[2022-02-20 13:40] LABS: Anti Cyclic Citrullinated Pept <16 Units (<20)
== END 2022-02-15 08:51 | disposition home or self-care (01) ==
PROVIDERS: PCP Nurse Practitioner Family; Visit Provider Family Medicine
DX: Z00.00 Encounter for general adult medical examination without abnormal findings (principal); F32.9 Major depressive disorder, single episode, unspecified; F41.9 Anxiety disorder, unspecified; R03.0 Elevated blood-pressure reading, without diagnosis of hypertension; Z13.29 Encounter for screening for other suspected endocrine disorder; E55.9 Vitamin D deficiency, unspecified; M25.50 Pain in unspecified joint; I10 Essential (primary) hypertension; E53.8 Deficiency of other specified B group vitamins; Z13.220 Encounter for screening for lipoid disorders
CPT/HCPCS: 36415; 80053; 80061; 82306; 82607; 84443; 85025; 85652; 86038; 86140; 86200; 86430

== ENCOUNTER 2022-05-09 08:44 | Observation (INO) | payer OTHER, SELFPAY ==
[2022-05-09] VITALS (17 sets, daily range): BP systolic 114–143; BP diastolic 48–104; PULSE 69–122; RESP 12–19; TEMP 36.3–37.1; O2SAT 94–100; BMI 17.6
--- NOTE | 2022-05-09 | ECHO_ITS ---
Patient Info Name: Bebe Rosas Age: 77 years : 1945 Gender: Female Ht: 63 in Wt: 125 lbs BSA: 1.59 m2 HR: 75 bpm BP: 117 / 59 mmHg Technical Quality: Good Exam Date: 05/09/2022 1:41 PM Exam Location: [facility] Pulmonary Patient Status: Outpatient Admit Date: 05/09/2022 Staff Ordering Physician: Benito Perera DO Gate Supervisor: Beti Fonseca RDCS Attending Provider: Katherine Rick DO Referring Physician: Trever SEBASTIAN; Exam Type: CA echo doppler color flow Study Info Indications - PAT Complete two-dimensional, color flow and Doppler transthoracic echocardiogram is performed. Summary 1. Complete two-dimensional, color flow and Doppler transthoracic echocardiogram is performed. 2. Left ventricular chamber dimension is normal. 3. Left ventricular systolic function is normal, estimated at 60-65%. 4. The left ventricular diastolic function is grade I diastolic dysfunction. 5. E/e' 13 is mildly elevated. 6. Global longitudinal strain is abnormal at -13.7%. 7. Left atrial chamber dimension is mildly enlarged. 8. The mitral valve has moderately calcified annulus. 9. There is mild mitral valve regurgitation. 10. There is mild tricuspid valve regurgitation. 11. No pulmonary hypertension, estimated pulmonary arterial systolic pressure is 33 mmHg. Left Ventricle E/e' 13 is mildly elevated. Global longitudinal strain is abnormal at -13.7%. Left ventricular chamber dimension is normal. Left ventricular systolic function is normal, estimated at 60-65%. The left ventricular diastolic function is grade I diastolic dysfunction. Right Ventricle Right ventricular chamber dimension is normal. Right ventricular systolic function is normal. Left Atria Left atrial chamber dimension is mildly enlarged. Right Atria Right atrial chamber dimension is normal. Aortic Valve The aortic valve is trileaflet. There is no aortic valve stenosis. There is no aortic valve regurgitation. Pulmonic Valve There is no pulmonic regurgitation. Mitral Valve The mitral valve has moderately calcified annulus. There is no mitral valve stenosis. There is mild mitral valve regurgitation. Tricuspid Valve There is mild tricuspid valve regurgitation. No pulmonary hypertension, estimated pulmonary arterial systolic pressure is 33 mmHg. Pericardium/Pleural There is no pericardial effusion. Inferior Vena Cava Normal inferior vena cava with >50% collapse upon inspiration consistent with normal right atrial pressure, 5 mmHg. Aorta The aortic root size at the sinus of Valsalva is normal. Left Ventricular Outflow Tract Name Value Normal LVOT 2D LVOT Diameter 1.9 cm LVOT Doppler LVOT Peak Gradient 3 mmHg LVOT Mean Gradient 2 mmHg LVOT VTI 17 cm LVOT VTI/AV VTI Ratio 0.8 LVOT Stroke Volume 47 ml LVOT CO 3.5 l/min LVOT CI 2.2 l/min/m2 Pulmonic Valve
--- NOTE | ~2022-05-09 | XR_ITS ---
Portable chest x-ray Comparison: 11/05/2021 Clinical History: Weakness, palpitations Findings: Probable COPD. No acute consolidation or definite pleural effusion. Cardiomediastinal héctor houette is stable. Bones and soft tissues are unremarkable. Impression: COPD. No acute airspace abnormality evident. Reviewed, dictated and finalized at [facility]. COVER INSTALLER Impression: COPD. No acute airspace abnormality evident.
--- NOTE | 2022-05-09 08:48 | ECG_ITS ---
Measurements Intervals [place] Rate: 122 P: AR: 0 QRS: 53 QRSD: 86 T: 65 QT: 311 QTc: 444 Interpretive Statements SINUS TACHYCARDIA WITH PACS ABNORMAL RHYTHM ECG COMPARED TO ECG 10/07/2019 14:26:24 ATRIAL ECTOPIC ACTIVITY IS NOTED Electronically Signed On 05-09-2022 12:12:04 WHITTLING ROOM OPERATOR by Isaac Ballard M.D.
[2022-05-09 09:18] LABS: Basophils Absolute Auto 0.2 K/mm3 (0.0-0.1); Basophils Percent Auto 1.7 % (0.2-1.2); Eosinophils Absolute Auto 0.2 K/mm3 (0-0.3); Eosinophils Percent Auto 1.6 % (0-4.4); Hematocrit 37.7 % (37.0-47.0); Hemoglobin 12.6 g/dL (12.0-15.0); Immature Granulocyte Absolute 0.07 K/mm3 (0.00-0.031); Immature Granulocyte Percent A 0.8 % (0-0.5); Lymphocytes Absolute Auto 1.16 K/mm3 (0.9-3.2); Lymphocytes Percent Auto 12.6 % (18.3-44.2); Mean Corpuscular HGB Conc 33.4 g/dl (32-36); Mean Corpuscular Hemoglobin 29.8 pg (26-34); Mean Corpuscular Volume 89.1 fl (80-100); Mean Platelet Volume 9.3 fl (7.4-10.4); Monocytes Absolute Auto 0.8 K/mm3 (0.1-0.6); Monocytes Percent Auto 9.1 % (2.6-8.5); Neutrophils Absolute Auto 6.8 K/mm3 (1.3-6.7); Neutrophils Percent Auto 74.2 % (45.5-73.1); Platelet Count Result 276 k/mm3 (150-375); Red Blood Count 4.23 M/mm3 (4.2-5.4); Red Cell Distribution Width 12.4 % (11.5-14.5); White Blood Count 9.2 K/mm3 (4.5-10.0)
--- NOTE | 2022-05-09 09:18 | ED.GENADULT ---
HPI - General Adult General Chief complaint: Arrhythmia/Palpitations Stated complaint: chest pain Time Seen by Provider: 05/09/22 08:51 History of Present Illness HPI narrative: 77-year-old female presented to the emergency department for evaluation of heart palpitations over the last few days. Patient states had a dose of Dupixent on Monday and on Monday she began having intermittent heart palpitations. Patient states approximate 3 weeks ago she had a loading dose of this medication had no issues. Patient states that over the last few days she has had intermittent episodes where she has associated lightheaded and dizziness. Patient denies any associated chest pain or shortness of breath. Patient does report a family history of coronary disease but denies any prior history of AL. Patient does follow-up with Dr. Perera. Patient did have a cardiac work-up approximately 3 years ago and had a negative Holter monitor at that time. Related Data Home Medications Medication Instructions Recorded Confirmed polyethylene glycol 3350 17 17 gm PO DAILY 04/03/19 05/09/22 gram/dose oral powder (Miralax) escitalopram oxalate 20 mg tablet 20 mg PO DAILY 11/14/19 05/09/22 (Lexapro) acetaminophen 500 mg tablet 500 mg PO Q6H PRN Pain 08/04/20 05/09/22 ascorbate calcium (vitamin C) 500 500 mg PO 3XW 08/04/20 05/09/22 mg tablet cyclosporine 0.05 % eye drops in a 1 drp EACH EYE Q12H 08/04/20 05/09/22 dropperette (Restasis) vit C 250 mg-vit E 200 unit-zinc 1 tablet PO Q12H 08/04/20 05/09/22 12.5 mg-millinery copyist 1 mg-lut-zeax chew tablet (ICaps AREDS2 (copper citrate)) cholecalciferol (vitamin D3) 10 2,000 unit PO 4XW 03/08/21 05/09/22 mcg (400 unit) capsule alprazolam 0.25 mg tablet 0.25 mg PO DAILY PRN Anxiety 08/13/21 05/09/22 albuterol sulfate 90 mcg/actuation 2 puff inhalation Q4-6H PRN 05/09/22 05/09/22 aerosol inhaler Shortness Of Breath biotin 1 mg capsule 1 mg PO BID 05/09/22 05/09/22 cetirizine 10 mg tablet (Zyrtec) 10 mg PO DAILY 05/09/22 05/09/22 dupilumab 300 mg/2 mL subcutaneous 300 mg subcut [id number] 05/09/22 05/09/22 pen injector (Dupixent) triamcinolone acetonide 0.1 % 1 applic topical DAILY PRN Itching 05/09/22 05/09/22 topical ointment Allergies Allergy/AdvReac Type Severity Reaction Status Date / Time levofloxacin Allergy Mild Muscle Verified 05/09/22 09:03 Spasms ciprofloxacin Allergy Unknown Itching Verified 05/09/22 09:03 clarithromycin Allergy Unknown Itching Verified 05/09/22 09:03 codeine Allergy Unknown Hives Verified 05/09/22 09:03 Review of Systems Review of Systems: CONSTITUTIONAL: Denies fever, chills, or sweats. EYES: Denies visual changes, redness, or discharge. ENT: Denies rhinorrhea, congestion, sore throat, or otalgia. CARDIOVASCULAR: See HPI RESPIRATORY: Denies cough or dyspnea. GASTROINTESTINAL: Denies abdominal pain, nausea, vomiting, or diarrhea. GENITOURINARY: Denies dysuria or hematuria. SKIN: Denies rash or itching. MUSCULOSKELETAL: Denies back pain, joint pain, or myalgia. NEUROLOGIC: Denies headache, numbness, or weakness. [facility] Past Medical History Medical History (Updated 05/09/22 @ 18:36 by Bradford Rajput MD) Anxiety disorder, unspecified Bronchiectasis Chronic low back pain COPD (chronic obstructive pulmonary disease) Cyst of left kidney Depression Eczema Fracture of distal end of left radius 07/2020 History of fractured rib Iron deficiency Liver cyst Lumbar spondylosis Macular degeneration, age related (~2015) Migraines Multiple nodules of lung Osteoarthritis Osteoporosis Tachycardia Vitamin D deficiency, unspecified Surgical History Surgical History (Updated 05/09/22 @ 14:01 by Rhonda Rivero NP) H/O cataract extraction H/O cerebral aneurysm repair (~03/28/08) H/O right wrist surgery (~08/2003) History of ear surgery History of tonsillectomy S/P ORIF (open reduction internal fixation) fracture Right wrist with hardware removed later and lef
[2022-05-09] MEDS: dilTIAZem HCl INJ 25 MG/5 ML VIAL 10 MG IV PUSH (09:25)
[2022-05-09 09:29] LABS: INR 1.1
[2022-05-09] MEDS: dilTIAZem 100 MG/100 ML 100 MG/100 ML BAG IV CONT (09:29)
[2022-05-09 09:30] LABS: Partial Thromboplastin Time 25.7 SECONDS (22.3-36.8)
[2022-05-09 09:31] LABS: Alanine Aminotransferase 18 U/L (6-35); Alkaline Phosphatase 91 U/L (38-126); Anion Gap 7 mmol/L (8-16); Aspartate Amino Transferase 26 U/L (14-36); Bilirubin,Total 0.5 mg/dL (0.2-1.3); Blood Urea Nitrogen 17 mg/dL (7-17); Calcium 8.5 mg/dL (8.4-10.2); Carbon Dioxide 26 mmol/L (22-30); Chloride 103 mmol/L (98-107); Estimated CRCL calculation 53 ml/min; Estimated Glomerular Filt Rate > 60; Glucose 131 mg/dL (65-110); Lipase 80 U/L (23-300); Potassium 3.5 mmol/L (3.4-5.0); Sodium 136 mmol/L (137-145)
[2022-05-09 09:43] LABS: Troponin I 0.019 ng/mL (0.000-0.034)
--- NOTE | 2022-05-09 09:49 | ECG_ITS ---
Measurements Intervals [place] Rate: 101 P: 42 MN: 146 QRS: 28 QRSD: 89 T: 64 QT: 328 QTc: 427 Interpretive Statements SINUS TACHYCARDIA ABNORMAL RHYTHM ECG COMPARED TO ECG 05/09/2022 08:54:38 PACS ARE NOT SEEN CURRENTLY Electronically Signed On 05-09-2022 12:14:33 BIOFUELS ENGINEERING MANAGER by Isaac Ballard M.D.
--- NOTE | 2022-05-09 10:02 | PC.NURSE ---
pt in SVT on monitor in the 180's. AIDE Rajput at bedside. pt able to bear down and HR now 106 sinus tachycardia.
[2022-05-09 10:14] LABS: Influenza A QL RT-PCR Negative (Negative); Influenza B QL RT-PCR Negative (Negative); RSV RNA, RT-PCR Negative (Negative); SARS-CoV-2 RNA PCR Negative
--- NOTE | 2022-05-09 11:56 | PM.CNCAR ---
Assessment and Plan Assessment and plan (1) PAT (paroxysmal atrial tachycardia): Code(s): I47.1 - Supraventricular tachycardia Status: Acute (2) PAF (paroxysmal atrial fibrillation): Code(s): I48.0 - Paroxysmal atrial fibrillation Status: Acute Assessment and Plan: On Diltiazem drip for rate control. Start Sotalol 80 mg PO every 12 hours. Check EKG 1-2 hours after each dose to monitor QT interval. Obtain echo. Anticipate 2 nights stay. History of Present Illness History of Present Illness Consult date/time: 05/09/22 11:56 Reason For Visit: Atrial Fib/SVT Narrative: 77 yr old woman who is my regular cardiology patient presents to ER for lightheadedness and palpitations. She has a history of family history of CAD (her father in his 60's), bronchiectasis/pseudomonas, PAT. States in last 1-2 days she had intermittent palpitations and lightheadedness. She came in to ER and on monitor she had SVT, and with a cough she went into PAF at 120 bpm, and currently in sinus rhythm at 95 bpm. She is under a lot of stress/anxiety.? She is doing better drinking 5 glasses of water a day.? Reports ENGLISH walking up a flight of stairs or walking leisurely at 1/2 mile.? Denies chest pain, sob, orthopnea, PND, edema. She did not tolerate Metoprolol or Diltiazem to slow her HR due to worsening dizziness on them. CARDIOVASCULAR PROCEDURES ECHO/MUGA: Echo (EF 65-70%, grade I diastolic dysfunction (E/E'? 11), mod MAC, mild M, mild-mod TR, RVSP 41 mmHg.) - 12/20/2017 ELECTROPHYSIOLOGY: 10/18/19 Holter: Sinus rhythm, HR range 72-143 bpm; average 101; 420 PAC's, 3 atrial tachycardia, fastest at 171 bpm and longest 4 beats; 22 PVC's. 10/07/19 EKG: Sinus tachycardia at 125 bpm, borderline ST abnormality in anterolateral leads EKG (Sinus rhythm, borderline st abnormality- inferior leads.) - 10/31/2017 STRESS TESTS: 11/06/20 CT chest: Chronic diffuse lung disease c/w chronic pneumonia or atypical pneumonia. 03/19/20 PFT: Mild obstruction. 11/25/19 MRI brain: Chronic small vessel ischemic disease. 10/07/19 CTA neck: No ICA stenosis. CXR on 10/07/19: Chronic bilateral lower lobe airspace disease. SEH (Negative for ischemia; exercised for 3 min, 32 seconds.) - 12/14/2017 Review of Systems Review of Systems: All systems reviewed & are unremarkable except as noted in HPI and below Cardiovascular: Cardiovascular: Reports as per HPI, Denies chest pain and Reports irregular heart rhythm Respiratory: Respiratory: Reports as per HPI and Reports dyspnea on exertion Gastrointestinal: Gastrointestinal: Reports as per HPI and Denies abdominal pain Genitourinary: Genitourinary: Reports as per HPI and Denies dysuria Musculoskeletal: Musculoskeletal: Reports as per HPI Neurologic: Reports as per HPI, Reports dizziness and Denies syncope [facility] Past Medical History Medical History Anxiety disorder, unspecified Bronchiectasis Chronic low back pain Cyst of left kidney Depression Fracture of distal end of left radius 07/2020 History of fractured rib Iron deficiency Liver cyst Lumbar spondylosis Macular degeneration, age related (~2015) Migraines Multiple nodules of lung Osteoarthritis Osteoporosis Tachycardia Vitamin D deficiency, unspecified Surgical History Surgical History H/O cerebral aneurysm repair (~03/28/08) H/O right wrist surgery (~08/2003) Family History Family History Mother Acute myocardial infarction Cerebrovascular accident Social History Social History Smoking packs per day: 1 Smoking cigarettes per day: 20.0 Years smoked: 5 Smoking pack-years: 5.00 Smoking status: Former smoker Second hand tobacco smoke exposure: Yes Smoking end date: 03/27/91 Alcohol intake: current Alcoho
[2022-05-09 12:06] LABS: Troponin I 0.014 ng/mL (0.000-0.034)
[2022-05-09] MEDS: SOTALOL HCL 80 MG TABLET PO ×2 (12:22→23:32)
--- NOTE | 2022-05-09 12:35 | PM.IMHP ---
H&P: HPI History of Present Illness Date/Time: 05/09/22 12:35 Chief Complaint: Palpitation Narrative: This is a 77-year-old female patient who has had a history of diastolic dysfunction and tachycardia in the past. The patient stated that she started having palpitations last night. She started Dupixent on Monday and she thought that maybe this medication had caused her to have palpitations. The patient previously had an injection 3 weeks ago and had no issues. The patient has also had intermittent lightheadedness and dizziness. She denied any chest pain or any fever chills. 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 Perera. On the initial exam in ER patient was found to be in AFib with RVR. The patient had symptoms of heart palpitations and it was noticed that her heart rate jumped up to 180s. She also had some lightheadedness with this. She was found to have narrow complex tachycardia. The patient was asked to do the Valsalva maneuver by coughing and this brought her heart rate down in the 1 teens. Cardiology has been consulted. The patient was on Cardizem drip. The patient also received a loading dose of sotalol. She is now in sinus rhythm. No further symptoms. She was found to be negative for influenza A/B RSV and COVID. The patient is being admitted to observation on the date of service of 05/09/2022 Review of Systems Review of Systems: See HPI All systems reviewed & are unremarkable except as noted in HPI and below Constitutional: Constitutional: Reports as per HPI and Reports no additional constitutional complaints Eyes: Eyes: Reports as per HPI and Reports no additional eye complaints ENT: Reports system reviewed and no additional complaints, except as documented and Reports Normal hearing present Cardiovascular: Cardiovascular: Reports no additional cardiovascular complaints Respiratory: Respiratory: Reports no additional respiratory complaints and Reports no additional respiratory complaints Gastrointestinal: Gastrointestinal: Reports as per HPI and Reports no additional gastrointestinal complaints Musculoskeletal: Musculoskeletal: Reports no additional musculoskeletal complaints Integumentary/Breasts: Skin/Breast: Reports system reviewed and no additional complaints, except as docu and Reports as per HPI Neurologic: Reports system reviewed and no additional complaints, except as documented, Reports as per HPI and Reports Normal hearing present Psychiatric: Psychiatric: Reports no additional psychiatric complaints and Reports as per HPI Endocrine: Endocrine: Reports no additional endocrine complaints Hematologic/Lymphatic: Hematologic/Lymphatic: Reports no additional hematologic/lymphatic complaints Allergic/Immunologic: Allergic/Immunologic: Reports no additional allergic/immunologic complaints [facility] Past Medical History Medical History (Updated 05/09/22 @ 14:26 by Rhonda Rivero NP) Anxiety disorder, unspecified Bronchiectasis Chronic low back pain COPD (chronic obstructive pulmonary disease) Cyst of left kidney Depression Eczema Fracture of distal end of left radius 07/2020 History of fractured rib Iron deficiency Liver cyst Lumbar spondylosis Macular degeneration, age related (~2015) Migraines Multiple nodules of lung Osteoarthritis Osteoporosis Tachycardia Vitamin D deficiency, unspecified Surgical History Surgical History (Updated 05/09/22 @ 14:01 by Rhonda Rivero NP) H/O cataract extraction H/O cerebral aneurysm repair (~03/28/08) H/O right wrist surgery (~08/2003) History of ear surgery History of tonsillectomy S/P ORIF (open reduction internal fixation) fracture Right wrist with hardware removed later and left ankle Family History Family History Mother Acute myocardial infarction Cerebrovascular accident Social History Social History (Updated 05/09/22 @ 14:16 by Rhonda Rivero NP) Social History: The patient is a
--- NOTE | 2022-05-09 14:16 | ECG_ITS ---
Measurements Intervals [place] Rate: 83 P: 64 DC: 173 QRS: 46 QRSD: 88 T: 71 QT: 408 QTc: 480 Interpretive Statements SINUS RHYTHM COMPARED TO ECG 05/09/2022 09:54:42 SINUS RHYTHM NOW PRESENT Electronically Signed On 05-10-2022 11:24:19 TUTORING CLINICIAN by Kirsten Quezada M.D.
[2022-05-09 15:18] LABS: Troponin I 0.015 ng/mL (0.000-0.034)
--- NOTE | 2022-05-09 15:27 | ADMGEN ---
This patient, Bebe Rosas, was admitted to IMU Room 206-01. Patient/family oriented to hospital policies and general routines including ID bracelet, bed and alarms, visiting hours, pain management, procedures, bathroom and other care routines, personal items, smoking policy, room service/diet, and visiting hours. Information on how to activate the Rapid Response Team has been discussed. Patient/Family are encouraged to report perceived risks to care and to ask questions if they do not understand what they are told or what they should do.
[2022-05-09] MEDS: SUMAtriptan SUCCINATE 25 MG TABLET 100 MG PO (18:02)
[2022-05-10] VITALS (16 sets, daily range): BP systolic 99–119; BP diastolic 54–83; PULSE 74–92; RESP 14–18; TEMP 36.2–37; O2SAT 96–100; BMI 17.6
[2022-05-10] MEDS: cycloSPORINE 0.4 ML OPHTH SOLUTION 1 DROP EACH EYE ×3 (00:27→20:53)
--- NOTE | 2022-05-10 00:30 | ECG_ITS ---
Measurements Intervals [place] Rate: 79 P: 54 [place]: 165 QRS: 48 QRSD: 94 T: 68 QT: 389 QTc: 448 Interpretive Statements SINUS RHYTHM COMPARED TO ECG 05/09/2022 14:29:47 NO SIGNIFICANT CHANGES Electronically Signed On 05-10-2022 16:18:10 FRAME STRIPPER AND CRUSHER by Alejandro Menendez M.D.
[2022-05-10 05:28] LABS: Basophils Absolute Auto 0.2 K/mm3 (0.0-0.1); Basophils Percent Auto 2.8 % (0.2-1.2); Eosinophils Absolute Auto 0.5 K/mm3 (0-0.3); Hematocrit 36.8 % (37.0-47.0); Hemoglobin 12.3 g/dL (12.0-15.0); Immature Granulocyte Absolute 0.04 K/mm3 (0.00-0.031); Immature Granulocyte Percent A 0.5 % (0-0.5); Lymphocytes Absolute Auto 1.63 K/mm3 (0.9-3.2); Lymphocytes Percent Auto 20.9 % (18.3-44.2); Mean Corpuscular HGB Conc 33.4 g/dl (32-36); Mean Corpuscular Hemoglobin 30.1 pg (26-34); Mean Corpuscular Volume 90.2 fl (80-100); Mean Platelet Volume 9.2 fl (7.4-10.4); Monocytes Absolute Auto 0.9 K/mm3 (0.1-0.6); Monocytes Percent Auto 11.1 % (2.6-8.5); Neutrophils Absolute Auto 4.6 K/mm3 (1.3-6.7); Neutrophils Percent Auto 58.7 % (45.5-73.1); Platelet Count Result 298 k/mm3 (150-375); Red Blood Count 4.08 M/mm3 (4.2-5.4); Red Cell Distribution Width 12.4 % (11.5-14.5); White Blood Count 7.8 K/mm3 (4.5-10.0)
[2022-05-10 05:39] LABS: Alanine Aminotransferase 16 U/L (6-35); Albumin Level 3.8 g/dL (3.5-5.1); Alkaline Phosphatase 82 U/L (38-126); Anion Gap 5 mmol/L (8-16); Aspartate Amino Transferase 27 U/L (14-36); Bilirubin,Total 0.5 mg/dL (0.2-1.3); Blood Urea Nitrogen 16 mg/dL (7-17); Calcium 8.3 mg/dL (8.4-10.2); Carbon Dioxide 27 mmol/L (22-30); Chloride 101 mmol/L (98-107); Estimated CRCL calculation 50 ml/min; Estimated Glomerular Filt Rate > 60; Glucose 103 mg/dL (65-110); Magnesium 2.2 mg/dL (1.6-2.3); Potassium 3.6 mmol/L (3.4-5.0); Sodium 133 mmol/L (137-145)
--- NOTE | 2022-05-10 07:53 | PM.PNCARD ---
Progress Note: A&P Assessment and Plan (1) PAT (paroxysmal atrial tachycardia): Code(s): I47.1 - Supraventricular tachycardia Status: Acute Assessment and Plan: No evidence of atrial fibrillation on EKG on telemetry. Sounds like she had PAT/SVT in ER that converted to sinus tachycardia with PAC's. Started Sotalol 80 mg PO every 12 hours on 05/09/22. Check EKG 1-2 hours after each dose to monitor QT interval. 05/09/22 Echo shows normal EF, grade I diastolic dysfunction (E/e' 13), mild MR/TR. Anticipate 1 more night stay. Subjective Date/time seen: 05/10/22 07:53 Interval history: Denies any more palpitations since admission. No chest pain or sob. Exam Const: General: cooperative, healthy appearing and comfortable Orientation/consciousness: oriented to person, oriented to place and oriented to time Resp: Auscultation: crackles, no rales, no rhonchi, no wheezes and diminished lung sounds Cardio: Rate: regular rate Rhythm: regular rhythm Heart sounds: no murmurs Peripheral pulses: dorsalis pedis present Neuro: General: oriented to person, oriented to place and oriented to time Extrem: Right lower extremity: no edema Left lower extremity: no edema Objective Data Vital Signs Vital Signs: Vital Signs - 24 hr 05/09/22 08:48 05/09/22 09:29 05/09/22 09:32 Temperature 98.8 F Pulse Rate 118 H 112 H 104 H Respiratory Rate 18 19 Blood Pressure 117/104 H 121/73 121/73 Pulse Oximetry 99 98 Oxygen Delivery Room Air 05/09/22 09:43 05/09/22 08:55 05/09/22 09:47 Temperature Pulse Rate 108 H 122 H 105 H Respiratory Rate 12 Blood Pressure 114/97 H Pulse Oximetry 98 Oxygen Delivery 05/09/22 11:05 05/09/22 12:22 05/09/22 13:13 Temperature 98.4 F Pulse Rate 97 97 92 Respiratory Rate 18 16 Blood Pressure 117/59 L 124/66 Pulse Oximetry 97 98 Oxygen Delivery 05/09/22 15:46 05/09/22 16:00 05/09/22 14:00 Temperature 98.2 F Pulse Rate 69 84 Respiratory Rate 16 Blood Pressure 126/48 L Pulse Oximetry 94 Oxygen Delivery Room Air 05/09/22 16:00 05/09/22 16:00 05/09/22 18:00 Temperature Pulse Rate 78 79 Respiratory Rate Blood Pressure Pulse Oximetry Oxygen Delivery Room Air 05/09/22 20:00 05/09/22 20:00 05/09/22 20:00 Temperature 97.8 F Pulse Rate 80 76 Respiratory Rate 16 Blood Pressure 127/58 L Pulse Oximetry 98 Oxygen Delivery Room Air 05/09/22 23:07 05/09/22 23:32 05/10/22 00:00 Temperature 97.3 F L Pulse Rate 87 83 Respiratory Rate 18 Blood Pressure 143/65 H Pulse Oximetry 100 Oxygen Delivery Room Air 05/09/22 22:00 05/10/22 00:00 05/10/22 02:00 Temperature Pulse Rate 80 80 77 Respiratory Rate Blood Pressure Pulse Oximetry Oxygen Delivery 05/10/22 04:00 05/10/22 04:00 05/10/22 04:00 Temperature 97.9 F Pulse Rate 75 74 Respiratory Rate 18 Blood Pressure 119/54 L Pulse Oximetry 97 Oxygen Delivery Room Air 05/10/22 06:00 05/09/22 18:03 Temperature 98.2 F Pulse Rate 78 69 Respiratory Rate Blood Pressure 126/48 L Pulse Oximetry 94 Oxygen Delivery Intake/Output Intake/Output: Intake & Output 05/07/22 05/08/22 05/09/22 05/10/22 23:59 23:59 23:59 23:59 Intake Total 240 Output Total 700 Balance -460 Meds/Results Medications: Active Medications Generic Name Dose Route Start Last Admin Trade Name Freq PRN Reason Stop Dose Admin Acetaminophen 500 mg 05/09/22 21:00 Acetaminophen 500 Mg Tablet PO Q6H PRN Pain Rated 1-3 Albuterol 2 puff 05/09/22 21:00 Albuterol Sulfate (*Sp) Aerosol 1 Puff INHALATION Q4-6H PRN Shortness Of Breath Alendronate Sodium 70 mg 05/22/22 06:30 Alendronate Sodium 70 Mg Tablet PO Galeana@0630 TATY Alprazolam 0.25 mg 05/09/22 21:00 Alprazolam (*Crx) 0.25 Mg Tablet PO DAILY PRN Anxiety Ascorbic Acid 500 mg 05/11/22 09:00 Ascorbic Acid
[2022-05-10] MEDS: CHOLECALCIFEROL 1,000 UNITS TABLET 2000 UNITS PO (09:50)
[2022-05-10] MEDS: ESCITALOPRAM OXALATE 10 MG TABLET 20 MG PO (09:50)
[2022-05-10] MEDS: FERROUS SULFATE 324 MG TABLET PO (09:51)
[2022-05-10] MEDS: ENOXAPARIN 40 MG/0.4 ML SYRINGE SUB-Q (09:51)
[2022-05-10] MEDS: LORATADINE 10 MG TABLET PO (09:52)
[2022-05-10] MEDS: SOTALOL HCL 80 MG TABLET PO ×2 (09:53→20:53)
[2022-05-10] MEDS: TRIAMCINOLONE ACET 0.1% OINT 15 GM TUBE 1 APPLIC TOPICAL (10:57)
--- NOTE | 2022-05-10 12:00 | ECG_ITS ---
Measurements Intervals [place] Rate: 74 P: 53 [place]: 159 QRS: 43 QRSD: 94 T: 64 QT: 421 QTc: 467 Interpretive Statements SINUS RHYTHM NONSPECIFIC T-WAVE CHANGES ANTERIORLY COMPARED TO ECG 05/10/2022 00:34:41 THE ANTERIOR T-WAVE CHANGES ARE NEW Electronically Signed On 05-10-2022 16:28:43 RESIDENTIAL AIDE by Kirsten Quezada M.D.
--- NOTE | 2022-05-10 15:39 | PM.IMPN ---
Progress Note: A&P Assessment and Plan (1) PAF (paroxysmal atrial fibrillation): Code(s): I48.0 - Paroxysmal atrial fibrillation Status: Acute Assessment and Plan: Initially on a Cardizem drip, converted to normal sinus rhythm, not clear afib--likely PAT/SVT, now being loaded with sotalol, anticipate discharge home tomorrow Her Temo Vasc score 4 however the patient has a history of aneurysmal cerebral clips and I did not start any anticoagulation on the patient. Further recommendation per Cardiology for anticoagulation. Echo from May 09 showed an EF of 60-65% with grade 1 diastolic dysfunction, no pulmonary hypertension or significant valvular abnormalities noted (2) Depression: Qualifiers: Depression Type: unspecified Qualified Code(s): F32.9 - Major depressive disorder, single episode, unspecified Code(s): F32.9 - Major depressive disorder, single episode, unspecified Status: Acute Assessment and Plan: Continue with Lexapro (3) Anxiety disorder, unspecified: Qualifiers: Anxiety disorder type: unspecified anxiety disorder Qualified Code(s): F41.9 - Anxiety disorder, unspecified Code(s): F41.9 - Anxiety disorder, unspecified Status: Acute Assessment and Plan: Continue with alprazolam (4) Macular degeneration, age related: Onset Date: ~2015 Code(s): H35.30 - Unspecified macular degeneration Status: Acute Assessment and Plan: The patient stated that she has had laser treatments and takes eyedrops. (5) Eczema: Code(s): L30.9 - Dermatitis, unspecified Status: Acute Assessment and Plan: The patient stated that she takes Dupixent injection (6) Osteoporosis: Qualifiers: Osteoporosis type: unspecified Presence of current pathological fracture: without current pathological fracture Qualified Code(s): M81.0 - Age-related osteoporosis without current pathological fracture Code(s): M81.0 - Age-related osteoporosis without current pathological fracture Status: Acute Assessment and Plan: Continue with Fosamax (7) COPD (chronic obstructive pulmonary disease): Code(s): J44.9 - Chronic obstructive pulmonary disease, unspecified Status: Acute Assessment and Plan: Continue with home inhalers. Plan DVT prophylaxis with SCDs GI prophylaxis not indicated Code status full code Subjective Date/time seen: 05/10/22 15:39 Interval history: No overnight events noted. No chest pain or shortness of breath. No nausea, vomiting or diarrhea. No fevers or chills. No more palpitations. Patient is eager to go home. Review of Systems Review of Systems: 12 point review of systems was assessed and was negative except as noted in the HPI Exam Narrative: General: No acute distress, alert and oriented per baseline HEENT: Atraumatic, normocephalic, mucous membranes moist CV: Regular rate and rhythm, S1, S2 Lungs: Clear to auscultation bilaterally, no rales or crackles noted, no wheezes, good air entry Abdomen: Soft, nontender, nondistended Extremities: Normal to inspection Skin: No rashes noted, no lesions or wounds seen Psych: Euthymic, normal affect Objective Data Vital Signs Vital Signs: Vital Signs - 24 hr 05/09/22 15:46 05/09/22 16:00 05/09/22 16:00 Temperature 98.2 F Pulse Rate 69 Respiratory Rate 16 Blood Pressure 126/48 L Pulse Oximetry 94 Oxygen Delivery Room Air Room Air 05/09/22 16:00 05/09/22 18:00 05/09/22 20:00 Temperature 97.8 F Pulse Rate 78 79 80 Respiratory Rate 16 Blood Pressure 127/58 L Pulse Oximetry 98 Oxygen Delivery 05/09/22 20:00 05/09/22 20:00 05/09/22 23:07 Temperature 97.3 F L Pulse Rate 76 87 Respiratory Rate 18 Blood Pressure 143/65 H Pulse Oximetry 100 Oxygen Delivery Room Air 05/09/22 23:32 05/10/22 00:00 05/09/22 22
--- NOTE | 2022-05-10 23:07 | ECG_ITS ---
Measurements Intervals [place] Rate: 79 P: 47 [place]: 156 QRS: 46 QRSD: 93 T: 61 QT: 380 QTc: 438 Interpretive Statements SINUS RHYTHM COMPARED TO ECG 05/10/2022 13:04:56 NO SIGNIFICANT CHANGES Electronically Signed On 05-11-2022 12:53:44 COMBATANT DIVER QUALIFIED by Kirsten Quezada M.D.
[2022-05-11] VITALS (9 sets, daily range): BP systolic 116–137; BP diastolic 49–63; PULSE 71–91; RESP 12–20; TEMP 36.3–36.8; O2SAT 96–98
--- NOTE | 2022-05-11 08:00 | PM.PNCARD ---
Progress Note: A&P Assessment and Plan (1) PAT (paroxysmal atrial tachycardia): Code(s): I47.1 - Supraventricular tachycardia Status: Acute Assessment and Plan: No evidence of atrial fibrillation on EKG on telemetry. Sounds like she had PAT/SVT in ER that converted to sinus tachycardia with PAC's. Started Sotalol 80 mg PO every 12 hours on 05/09/22. Check EKG 1-2 hours after each dose to monitor QT interval. 05/09/22 Echo shows normal EF, grade I diastolic dysfunction (E/e' 13), mild MR/TR. May d/c home from cardiology standpoint and f/u with me in 1 week. Continue Sotalol 80 mg PO every 12 hours. Subjective Date/time seen: 05/11/22 08:00 Interval history: Denies any more palpitations since admission. No chest pain or sob. Exam Const: General: cooperative, healthy appearing and comfortable Orientation/consciousness: oriented to person, oriented to place and oriented to time Resp: Auscultation: no rales, no wheezes and diminished lung sounds Cardio: Rate: regular rate Rhythm: regular rhythm Heart sounds: no murmurs Peripheral pulses: dorsalis pedis present Neuro: General: oriented to person, oriented to place and oriented to time Extrem: Right lower extremity: no edema Left lower extremity: no edema Objective Data Vital Signs Vital Signs: Vital Signs - 24 hr 05/10/22 09:53 05/10/22 12:00 05/10/22 10:00 Temperature 97.1 F L Pulse Rate 79 76 92 Respiratory Rate 14 Blood Pressure 103/82 Pulse Oximetry 98 Oxygen Delivery 05/10/22 12:00 05/10/22 16:00 05/10/22 12:00 Temperature 98 F Pulse Rate 77 74 Respiratory Rate 14 Blood Pressure 99/83 L Pulse Oximetry 98 Oxygen Delivery Room Air 05/10/22 14:00 05/10/22 16:00 05/10/22 18:00 Temperature Pulse Rate 81 87 80 Respiratory Rate Blood Pressure Pulse Oximetry Oxygen Delivery 05/10/22 16:00 05/10/22 20:00 05/10/22 20:53 Temperature 98.6 F Pulse Rate 82 86 Respiratory Rate 18 Blood Pressure 108/56 L Pulse Oximetry 96 Oxygen Delivery Room Air 05/10/22 23:26 05/10/22 20:00 05/10/22 22:00 Temperature Pulse Rate 79 77 75 Respiratory Rate Blood Pressure Pulse Oximetry Oxygen Delivery 05/11/22 00:00 05/11/22 00:00 05/11/22 02:00 Temperature 97.4 F L Pulse Rate 79 91 77 Respiratory Rate 20 Blood Pressure 137/61 Pulse Oximetry 98 Oxygen Delivery 05/11/22 03:24 05/11/22 03:37 Temperature 98.3 F Pulse Rate 86 78 Respiratory Rate 20 Blood Pressure 120/58 L Pulse Oximetry 98 Oxygen Delivery Intake/Output Intake/Output: Intake & Output 05/08/22 05/09/22 05/10/22 05/11/22 23:59 23:59 23:59 23:59 Intake Total 240 1150 Output Total 700 250 Balance -460 900 Meds/Results Medications: Active Medications Generic Name Dose Route Start Last Admin Trade Name Freq PRN Reason Stop Dose Admin Acetaminophen 500 mg 05/09/22 21:00 Acetaminophen 500 Mg Tablet PO Q6H PRN Pain Rated 1-3 Albuterol 2 puff 05/09/22 21:00 Albuterol Sulfate (*Sp) Aerosol 1 Puff INHALATION Q4-6H PRN Shortness Of Breath Alendronate Sodium 70 mg 05/22/22 06:30 Alendronate Sodium 70 Mg Tablet PO Galeana@0630 [facility] Alprazolam 0.25 mg 05/09/22 21:00 Alprazolam (*Crx) 0.25 Mg Tablet PO DAILY PRN Anxiety Ascorbic Acid 500 mg 05/11/22 09:00 Ascorbic Acid 500 Mg Tablet PO MoWeFr@0900 TATY Cyclosporine 1 drop 05/09/22 21:00 05/10/22 20:53 Cyclosporine 0.4 Ml Ophth Solution EACH EYE 1 drop Q12H TATY Administration Enoxaparin Sodium 40 mg 05/10/22 09:00 05/10/22 09:51 Enoxaparin 40 Mg/0.4 Ml Syringe SUB-Q 40 mg DAILY TATY Administration Escitalopram Oxalate 20 mg 05/10/22 09:00 05/10/22 09:50 Escitalopram Oxalate 10 Mg Tablet PO 20 mg DAILY TATY Administration Ferrous Sulfate 324 mg 05/10/22 09:00 05/10/22 09:51 Ferrous Sulfate 324 Mg Tablet PO 32
[2022-05-11] MEDS: FERROUS SULFATE 324 MG TABLET PO (08:29)
[2022-05-11] MEDS: ESCITALOPRAM OXALATE 10 MG TABLET 20 MG PO (08:30)
[2022-05-11] MEDS: ASCORBIC ACID 500 MG TABLET PO (08:30)
[2022-05-11] MEDS: SOTALOL HCL 80 MG TABLET PO (08:30)
[2022-05-11] MEDS: cycloSPORINE 0.4 ML OPHTH SOLUTION 1 DROP EACH EYE (08:31)
[2022-05-11] MEDS: LORATADINE 10 MG TABLET PO (08:31)
--- NOTE | 2022-05-11 08:37 | PC.NURSE ---
patient refuses lovenox this morning. Educated on purpose of injection and risks associated with not taking. Patient verbalized understanding.
--- NOTE | 2022-05-11 10:39 | ECG_ITS ---
Measurements Intervals [place] Rate: 72 P: 57 [place]: 161 QRS: 41 QRSD: 93 T: 54 QT: 402 QTc: 442 Interpretive Statements SINUS RHYTHM COMPARED TO ECG 05/10/2022 23:15:08 NO SIGNIFICANT CHANGES Electronically Signed On 05-11-2022 15:29:46 WATCH TECHNICIAN by Alejandro Menendez M.D.
--- NOTE | 2022-05-11 13:59 | PM.DS ---
DS: Admitting Diagnosis Discharge Date 05/11/22 Admitting Diagnosis Palpitation DS: Discharge Diagnosis Discharge Diagnosis (1) PAF (paroxysmal atrial fibrillation): Code(s): I48.0 - Paroxysmal atrial fibrillation Status: Acute (2) Depression: Qualifiers: Depression Type: unspecified Qualified Code(s): F32.9 - Major depressive disorder, single episode, unspecified Code(s): F32.9 - Major depressive disorder, single episode, unspecified Status: Acute (3) Anxiety disorder, unspecified: Qualifiers: Anxiety disorder type: unspecified anxiety disorder Qualified Code(s): F41.9 - Anxiety disorder, unspecified Code(s): F41.9 - Anxiety disorder, unspecified Status: Acute (4) Macular degeneration, age related: Onset Date: Code(s): H35.30 - Unspecified macular degeneration Status: Acute (5) Eczema: Code(s): L30.9 - Dermatitis, unspecified Status: Acute (6) Osteoporosis: Qualifiers: Osteoporosis type: unspecified Presence of current pathological fracture: without current pathological fracture Qualified Code(s): M81.0 - Age-related osteoporosis without current pathological fracture Code(s): M81.0 - Age-related osteoporosis without current pathological fracture Status: Acute (7) COPD (chronic obstructive pulmonary disease): Code(s): J44.9 - Chronic obstructive pulmonary disease, unspecified Status: Acute DS: Summary Hospital Course Reason for hospitalization: 77yo female with hx of diastolic dysfunction here for palpitations. Please see H&P for details. Hospital Course: The patient was having palpitations the night before admission.?Her field map technician is Dr. Perera.? On the initial exam in ER patient was found to be in AFib with RVR vs SVT.? The patient had symptoms of heart palpitations and it was noticed that her heart rate increased to 180s.? She also had some lightheadedness with this.? She was found to have narrow complex tachycardia.? The patient was asked to do the Valsalva maneuver by coughing and this brought her heart rate down in the 110 range. EKG showing sinus tachycardia with PACs.? Cardiology was consulted.? The patient was placed on a Cardizem drip.? The patient also received a loading dose of sotalol.? No anticoagulation since may be SVT. Her [id number] was 3 (female, age). She converted to normal sinus rhythm.? No further symptoms.? She was found to be negative for influenza A/B RSV and COVID.? The patient was admitted to IMU. CXR was clear. Labs unrevealing. Troponin negative. TSH normal. Echo showing EF 60-65% with Grade I diastolic dysfunction. She was monitored on telemetry while on Sotalol. No issues occured., She overall did well and was able to be discharged home on 05/11/22 Status at Discharge Cognitive/behavioral status at discharge: stable Time Spent with Patient Time attestation: Total time spent providing and/or coordinating discharge services:35 minutes Time spent: Greater than 30 minutes Exam Narrative: AF 116/49 83 12 96% ra Gen - NARD Chest - scattered inspiratory and expiratory rhonchi CV - RRR S1/S2. Tele showing no significant dysrhythmias Abd - Soft, NT/ND, Positive BS Ext - No pedal edema Psych - Nml mood and affect Skin - Warm and dry Discharge Plan Discharge Attending physician on discharge: Bryan Mesa Consulting providers: Benito Perera Discharging Clinician: Bryan Mesa Anticipated Discharge Date/Time: 05/11/22 14:07 Patient Disposition: Home, Self-Care Activity: no straining and as tolerated Diet: regular Discharge Instructions: Take precautions to avoid falls. Rise slowly from a lying or sitting position. Pause before standing or walking. Contact your doctor or call 911 and come to the Emergency Room if you have recurrent palpitations or other worrisome symptoms. Follow-up with your primary car
== END 2022-05-11 15:18 | disposition home or self-care (01) ==
LOC: ANHED 09:47 → ANHIMU 12:27
PROVIDERS: Nurse Practitioner; Admitting Provider Student in an Organized Health Care Education/Training Program; Emergency Provider Emergency Medicine; PCP Nurse Practitioner Family; Visit Provider Internal Medicine
DX: I47.1 Supraventricular tachycardia (principal); I48.0 Paroxysmal atrial fibrillation; R00.2 Palpitations; R42 Dizziness and giddiness; I25.10 Atherosclerotic heart disease of native coronary artery without angina pectoris; R06.02 Shortness of breath; F41.9 Anxiety disorder, unspecified; G89.29 Other chronic pain; M54.50 Low back pain, unspecified; J44.9 Chronic obstructive pulmonary disease, unspecified; Z20.822 Contact with and (suspected) exposure to COVID-19; F32.9 Major depressive disorder, single episode, unspecified; L30.9 Dermatitis, unspecified; M47.816 Spondylosis without myelopathy or radiculopathy, lumbar region; H35.30 Unspecified macular degeneration; M81.0 Age-related osteoporosis without current pathological fracture; I11.9 Hypertensive heart disease without heart failure; I08.1 Rheumatic disorders of both mitral and tricuspid valves; G43.909 Migraine, unspecified, not intractable, without status migrainosus; M19.90 Unspecified osteoarthritis, unspecified site; F10.90 Alcohol use, unspecified, uncomplicated; R94.31 Abnormal electrocardiogram [ECG] [EKG]; R91.8 Other nonspecific abnormal finding of lung field; E55.9 Vitamin D deficiency, unspecified; Z87.891 Personal history of nicotine dependence; Z79.1 Long term (current) use of non-steroidal anti-inflammatories (NSAID); Z79.51 Long term (current) use of inhaled steroids; Z79.52 Long term (current) use of systemic steroids; Z79.899 Other long term (current) drug therapy
CPT/HCPCS: 36415; 71045; 80053; 83690; 83735; 84443; 84484; 85025; 85610; 85730; 87637; 93005; 93306; 96372; 96374; 99285; A9270; G0378; J1650

== ENCOUNTER 2022-05-19 10:35 | Emergency (ER) | payer OTHER, SELFPAY ==
[2022-05-19 10:52] VITALS: BP 140/61; PULSE 75; RESP 16; TEMP 36.4; O2SAT 97
--- NOTE | 2022-05-19 11:02 | ED.GENADULT ---
HPI - General Adult General Chief complaint: Urogenital-Female Stated complaint: lower back pain, urine test, flu test Time Seen by Provider: 05/19/22 11:03 Source: patient and RN notes reviewed Mode of arrival: ambulatory Limitations: no limitations History of Present Illness HPI narrative: 77-year-old female presented for complaint of ?not feeling well? for about 5 days. She endorses feeling fatigued and increased chronic lower back pain as well as fever between 99-101 degrees. Also reports an increasing nonproductive cough for which she is already taking Augmentin, and endorses dx bronchiectasis. Three days ago she was seen in the emergency room for elevated heart rate, Dx paroxysmal afib; she was admitted and has been compliant with sotalol since discharge. She denies significant change in her fatigue since diagnosis or starting the medication. She tested negative for covid in the ER and again yesterday at home. She wants to make sure she doesn't have flu. She denies shortness of breath, wheezing, chest pain, palpitations, nausea, vomiting, diarrhea. She has not taking anything else for symptoms. Related Data Home Medications Medication Instructions Recorded Confirmed polyethylene glycol 3350 17 17 gm PO DAILY 04/03/19 05/19/22 gram/dose oral powder (Miralax) escitalopram oxalate 20 mg tablet 20 mg PO DAILY 11/14/19 05/19/22 (Lexapro) acetaminophen 500 mg tablet 500 mg PO Q6H PRN Pain 08/04/20 05/19/22 ascorbate calcium (vitamin C) 500 500 mg PO 3XW 08/04/20 05/19/22 mg tablet cyclosporine 0.05 % eye drops in a 1 drp EACH EYE Q12H 08/04/20 05/19/22 dropperette (Restasis) vit C 250 mg-vit E 200 unit-zinc 1 tablet PO Q12H 08/04/20 05/19/22 12.5 mg-stroboscope operator 1 mg-lut-zeax chew tablet (ICaps AREDS2 (copper citrate)) cholecalciferol (vitamin D3) 10 2,000 unit PO 4XW 03/08/21 05/19/22 mcg (400 unit) capsule alprazolam 0.25 mg tablet 0.25 mg PO DAILY PRN Anxiety 08/13/21 05/19/22 biotin 1 mg capsule 1 mg PO BID 05/09/22 05/19/22 cetirizine 10 mg tablet (Zyrtec) 10 mg PO DAILY 05/09/22 05/19/22 dupilumab 300 mg/2 mL subcutaneous 300 mg subcut [id number] 05/09/22 05/19/22 pen injector (Dupixent) ferrous sulfate 325 mg (65 mg 325 mg PO DAILY 05/09/22 05/19/22 iron) tablet triamcinolone acetonide 0.1 % 1 applic topical DAILY PRN Itching 05/09/22 05/19/22 topical ointment amoxicillin 875 mg-potassium tablet 05/19/22 clavulanate 125 mg tablet Allergies Allergy/AdvReac Type Severity Reaction Status Date / Time levofloxacin Allergy Mild Muscle Verified 05/19/22 11:00 Spasms ciprofloxacin Allergy Unknown Itching Verified 05/19/22 11:00 clarithromycin Allergy Unknown Itching Verified 05/19/22 11:00 codeine Allergy Unknown Hives Verified 05/19/22 11:00 Review of Systems Review of Systems: CONSTITUTIONAL: reports malaise, fever EYES: Denies visual changes, redness, or discharge ENT: Denies rhinorrhea, congestion, sinus pain, otalgia, sore throat CARDIOVASCULAR: Denies chest pain, palpitations, edema RESPIRATORY: Reports cough Denies dyspnea GASTROINTESTINAL: Denies abdominal pain, nausea, vomiting, diarrhea SKIN: Denies rash or itching MUSCULOSKELETAL: Endorses low back pain NEUROLOGIC: Denies headache PMFSH Past Medical History Medical History Anxiety disorder, unspecified Bronchiectasis Chronic low back pain COPD (chronic obstructive pulmonary disease) Cyst of left kidney Depression Eczema Fracture of distal end of left radius 07/2020 History of fractured rib Iron deficiency Liver cyst Lumbar spondylosis Macular degeneration, age related (~2015) Migraines Multiple nodules of lung Osteoarthritis Osteoporosis Tachycardia Vitamin D deficiency, unspecified Surgical History Surgical History H/O cataract extraction H/O cerebral aneurysm repair (~03/28/08) H/O right wrist thomas
== END 2022-05-19 11:37 | disposition home or self-care (01) ==
PROVIDERS: Emergency Provider Nurse Practitioner Family; PCP Family Medicine
DX: R53.83 Other fatigue (principal); I48.0 Paroxysmal atrial fibrillation; Z87.891 Personal history of nicotine dependence; J44.9 Chronic obstructive pulmonary disease, unspecified; M19.90 Unspecified osteoarthritis, unspecified site; M81.0 Age-related osteoporosis without current pathological fracture; F41.9 Anxiety disorder, unspecified; F32.A Depression, unspecified; E55.9 Vitamin D deficiency, unspecified; D50.9 Iron deficiency anemia, unspecified; M47.816 Spondylosis without myelopathy or radiculopathy, lumbar region; H35.30 Unspecified macular degeneration
CPT/HCPCS: 81003; 87804; 99213; G0463

== ENCOUNTER 2022-06-11 12:14 | Outpatient (CLI) | payer OTHER, SELFPAY ==
--- NOTE | ~2022-06-11 | MR_ITS ---
MRI of the lumbar spine Clinical History: Chronic pain Technique: Axial T2-weighted images, and sagittal T1-weighted, T2-weighted, and T2 fat-sat images wer e acquired. COMPARISON: 07/06/2021 Findings: There is no acute fracture in the lumbar spine. Osseous alignment appears similar to prior exam. Minimal grade 1 retrolisthesis of L1 over L2 is present. 3 mm retrolisthesis of L2 over L3 pres ent. 6 mm retrolisthesis of L3 over L4 present. Probable minimal grade 1 retrolisthesis of L4 over L5 present. There is advanced degenerative disc narrowing throughout the lumbar spine. No suspicious radha ne marrow signal abnormality seen. At L1-L2, there is mild disc bulge and minimal facet arthropathy. No spinal canal stenosis. There is probable moderate bilateral neural foraminal narrowing. At L2-L3, there is disc osteophyte complex and moderate facet arthropathy. There is right lateral rec ess stenosis. There is moderate to severe right neural foraminal narrowing. Left neural foramen proba nadine preserved. At L4-L5, there is disc bulge and facet arthropathy. No spinal canal stenosis. There is severe right neural foraminal narrowing. Left neural foramen preserved. At L4-L5, there is disc bulge and facet arthropathy. No sheila spinal canal stenosis. There is moderat e right neural foraminal narrowing. Left neural foramen preserved. At L5-S1, there is disc bulge and minimal facet arthropathy. No spinal canal stenosis. No definite ne ural foraminal narrowing. Paravertebral soft tissues are unremarkable. Impression: Moderate degenerative spondylosis, as detailed above, similar to prior exam. Multiple retrolistheses in the lumbar spine, with osseous alignment is essentially stable from prior exam. Reviewed, dictated and finalized at [facility]. Impression: Moderate degenerative spondylosis, as detailed above, similar to prior exam. Multiple retrolistheses in the lumbar spine, with osseous alignment is essentia lly stable from prior exam.
== END 2022-06-11 12:15 | disposition home or self-care (01) ==
PROVIDERS: PCP Family Medicine; Visit Provider Nurse Practitioner Family
DX: M47.816 Spondylosis without myelopathy or radiculopathy, lumbar region (principal)
CPT/HCPCS: 72148

== ENCOUNTER → 2022-06-20 13:38 | Outpatient (CLI) | payer OTHER, SELFPAY ==
--- NOTE | ~2022-06-20 | XR_ITS ---
Clinical Indication: Cough PA and lateral views of the chest: Comparison: 05/09/2022 Findings: Suspected minimal pleural effusions with bibasilar pulmonary/atelectatic change. There is u nderlying probable COPD or other bibasilar chronic interstitial disease.. Cardiomediastinal silhouet te is within normal limits. Bones and soft tissues are unremarkable. Impression: COPD and/or other bibasilar chronic interstitial disease. Suspected superimposed minimal pleural effusions and possible minimal bibasilar pulmonary edema. Reviewed, dictated and finalized at location [facility]. Impression: COPD and/or other bibasilar chronic interstitial disease. Suspected superimposed minimal pleural effusions and possible minimal bibasilar pulmonary edema.
== END ==
PROVIDERS: PCP Family Medicine; Visit Provider Family Medicine
DX: R05.9 Cough, unspecified (principal); J44.9 Chronic obstructive pulmonary disease, unspecified
CPT/HCPCS: 71046

== ENCOUNTER 2022-06-20 15:10 | Outpatient (CLI) | payer OTHER, SELFPAY ==
[2022-06-20 16:20] LABS: Influenza A QL RT-PCR Negative (Negative); Influenza B QL RT-PCR Negative (Negative); RSV RNA, RT-PCR Negative (Negative); SARS-CoV-2 RNA PCR Negative
== END 2022-06-20 15:11 | disposition home or self-care (01) ==
PROVIDERS: PCP Family Medicine; Visit Provider Family Medicine
DX: R05.9 Cough, unspecified (principal); Z20.822 Contact with and (suspected) exposure to COVID-19
CPT/HCPCS: 87637

== ENCOUNTER 2022-06-23 13:45 | Outpatient (CLI) | payer OTHER, SELFPAY ==
[2022-06-23 18:39] LABS: Alanine Aminotransferase 15 U/L (6-35); Albumin Level 3.7 g/dL (3.5-5.1); Alkaline Phosphatase 108 U/L (38-126); Anion Gap 3 mmol/L (8-16); Aspartate Amino Transferase 29 U/L (14-36); Bilirubin,Total 0.3 mg/dL (0.2-1.3); Blood Urea Nitrogen 25 mg/dL (7-17); Calcium 8.5 mg/dL (8.4-10.2); Carbon Dioxide 34 mmol/L (22-30); Chloride 97 mmol/L (98-107); Estimated Glomerular Filt Rate > 60; Glucose 86 mg/dL (65-110); Potassium 4.7 mmol/L (3.4-5.0); Sodium 134 mmol/L (137-145)
[2022-06-23 19:29] LABS: Basophils Absolute Auto 0.2 K/mm3 (0.0-0.1); Basophils Percent Auto 1.9 % (0.2-1.2); Eosinophils Absolute Auto 0.3 K/mm3 (0-0.3); Eosinophils Percent Auto 3.1 % (0-4.4); Hemoglobin 12.5 g/dL (12.0-15.0); Immature Granulocyte Absolute 0.15 K/mm3 (0.00-0.031); Immature Granulocyte Percent A 1.4 % (0-0.5); Lymphocytes Absolute Auto 3.17 K/mm3 (0.9-3.2); Lymphocytes Percent Auto 30.6 % (18.3-44.2); Mean Corpuscular HGB Conc 31.3 g/dl (32-36); Mean Corpuscular Hemoglobin 29.9 pg (26-34); Mean Corpuscular Volume 95.7 fl (80-100); Monocytes Absolute Auto 1.1 K/mm3 (0.1-0.6); Monocytes Percent Auto 10.6 % (2.6-8.5); Neutrophils Absolute Auto 5.4 K/mm3 (1.3-6.7); Neutrophils Percent Auto 52.4 % (45.5-73.1); Platelet Count Result 444 k/mm3 (150-375); Red Blood Count 4.18 M/mm3 (4.2-5.4); Red Cell Distribution Width 12.7 % (11.5-14.5); White Blood Count 10.4 K/mm3 (4.5-10.0)
== END 2022-06-23 13:46 | disposition home or self-care (01) ==
LOC: ANHGOSHLAB 13:47
PROVIDERS: PCP Family Medicine; Visit Provider Family Medicine
DX: R50.9 Fever, unspecified (principal)
CPT/HCPCS: 36415; 80053; 85025

== ENCOUNTER → 2022-08-01 12:10 | Outpatient (CLI) | payer OTHER, SELFPAY ==
--- NOTE | ~2022-08-01 | XR_ITS ---
AP and oblique views of the right ribs, and PA and lateral chest radiographs Clinical History: Pain COMPARISON: 06/20/2022 Findings: No rib fracture is seen. Osseous alignment is anatomic. Lungs are clear, without focal cons olidation or pleural effusion. Probable COPD. Cardiomediastinal contour is within normal limits. Soft tissues are unremarkable. Impression: No rib fracture is seen. COPD. Reviewed, dictated and finalized at location . Impression: No rib fracture is seen. COPD.
== END ==
PROVIDERS: PCP Family Medicine; Visit Provider Family Medicine
DX: J44.9 Chronic obstructive pulmonary disease, unspecified (principal); R07.81 Pleurodynia
CPT/HCPCS: 71046; 71100

== ENCOUNTER → 2022-08-11 10:24 | Outpatient (CLI) | payer OTHER, SELFPAY ==
--- NOTE | ~2022-08-11 | MR_ITS ---
MRI of the cervical spine Clinical History: Cervical radiculopathy Technique: Axial T2-weighted and gradient images, and sagittal T1-weighted, T2-weighted, and STIR paz ges were acquired. Findings: No fracture identified. Minimal grade 1 anterolisthesis of C2 over C3 noted. There is advan juan antonio degenerative disc narrowing throughout the cervical spine, worst at C4-C5 and C5-C6. No suspiciou s bone marrow signal reality seen. At C2-C3, there is central disc protrusion. No spinal canal stenosis or cord compression. Probable mi ld right neural foraminal narrowing. Left neural foramen probably preserved. At C3-C4, there is small disc osteophyte complex. No spinal canal stenosis or cord compression. There is probable mild bilateral neural foraminal narrowing with mild bilateral facet arthropathy. At C4-C5, there is minimal disc osteophyte complex. There is mild facet arthropathy bilaterally. No c entral canal stenosis or cord compression. Probable mild bilateral neural foraminal narrowing. At C5-C6, there is mild disc osteophyte complex. There is mild facet arthropathy with probable bilate ral neural foraminal narrowing, right worse than left. No sheila central canal stenosis or cord compre ssion. At C6-C7, there is small disc osteophyte complex. No spinal canal stenosis or cord compression. There is probable bilateral neural foraminal narrowing. No abnormal signal seen in the spinal cord. Paravertebral soft tissues are unremarkable. Impression: Moderate degenerative spondylosis of the cervical spine, with multilevel neural foraminal narrowing. No sheila spinal canal stenosis or cord compression. Minimal grade 1 anterolisthesis of C2 over C3. Reviewed, dictated and finalized at [facility]. Impression: Moderate degenerative spondylosis of the cervical spine, with multilevel neural foraminal narrowing. No sheila spinal canal stenosis or cord compression. Minimal grade 1 anterolisthesis of C2 over C3.
== END ==
PROVIDERS: PCP Family Medicine; Visit Provider Pain Medicine Pain Medicine
DX: M47.22 Other spondylosis with radiculopathy, cervical region (principal)
CPT/HCPCS: 72141

== ENCOUNTER 2022-08-13 08:27 | Outpatient (CLI) | payer OTHER, SELFPAY | END 2022-08-13 08:28 | disposition home or self-care (01) | LOC: ANHLAB 08:33 | PROVIDERS: PCP Family Medicine | DX: J47.9 Bronchiectasis, uncomplicated (principal) | CPT/HCPCS: 87070; 87077; 87186; 87205 ==

== ENCOUNTER → 2022-10-10 14:39 | Outpatient (CLI) | payer OTHER, SELFPAY ==
--- NOTE | ~2022-10-10 | XR_ITS ---
XR elbow RT min 3V DATE: 10/10/2022 15:21 INDICATION: Medial right elbow pain after fall onto concrete 7 months ago TECHNIQUE: 4 views COMPARISON: 12/02/2009 right elbow FINDINGS: No fracture or dislocation or joint effusion. No periosteal reaction or bone destruction. IMPRESSION: Negative Reviewed, dictated and finalized at location [facility]. IMPRESSION: Negative
== END ==
PROVIDERS: PCP Family Medicine; Visit Provider Nurse Practitioner Family
DX: M25.521 Pain in right elbow (principal)
CPT/HCPCS: 73080

== ENCOUNTER → 2022-10-10 14:43 | Outpatient (CLI) | payer OTHER, SELFPAY ==
--- NOTE | ~2022-10-10 | XR_ITS ---
EXAMINATION: XR chest 2V Exam Date/Time: 10/10/2022 14:56 CDT HISTORY: Bronchiectasis,uncomplicated Comparison: 08/01/2022. RESULT: Lines, tubes, and devices: None. Lungs and pleura: Biapical pleural scarring. Hyperinflation with architectural distortion. Chronic l eft basilar scar/consolidation. Focal area of increased tree-in-bud opacities in the right lower lung , possibly right middle lobe. Cardiomediastinal silhouette: Stable. Other: No acute osseous or upper abdominal finding. IMPRESSION: Right lower lung, possibly right middle lobe opacities may represent atypical infection in the [facility] clinical context. Chronic left basilar scar/consolidation. Severe emphysematous change. Reviewed, dictated and finalized at location [facility]. IMPRESSION: Right lower lung, possibly right middle lobe opacities may represent atypical i nfection in the appropriate clinical context. Chronic left basilar scar/consoli dation. Severe emphysematous change.
== END ==
PROVIDERS: PCP Family Medicine
DX: J47.9 Bronchiectasis, uncomplicated (principal)
CPT/HCPCS: 71046

== ENCOUNTER 2022-10-20 17:35 | Inpatient (IN) | payer OTHER, SELFPAY ==
[2022-10-20] VITALS (13 sets, daily range): BP systolic 142–150; BP diastolic 61–78; PULSE 82–94; RESP 16–18; TEMP 36.4–37.6; O2SAT 95–100; BMI 18.3
--- NOTE | ~2022-10-20 | XR_ITS ---
XR chest 1V portable 10/20/2022 20:12 Indication: Cough and weakness Procedure: AP portable chest Comparison: Comparison to multiple prior studies sequentially, with oldest reviewed study dated 05/09. Findings: Heart size normal. Bibasilar airspace disease. Small pleural effusions. No edema or pneumot horax. The lungs are hyperinflated which is consistent with, but not diagnostic of chronic obstructiv e pulmonary disease. There is scoliosis. Impression: 1: Bibasilar airspace disease may represent atelectasis and/or pneumonia. Reviewed, dictated and finalized at location A. Impression: 1: Bibasilar airspace disease may represent atelectasis and/or pneumonia.
--- NOTE | ~2022-10-20 | CT_ITS ---
EXAMINATION: CT abdomen pelvis w con DATE: 10/20/2022 20:42 INDICATION: Abdomen pain. TECHNIQUE: Computed tomography (CT) of the abdomen and pelvis was performed with 100 cc Omnipaque 350 intravenous contrast. The dose-length product was 180.35 mGy-cm. Automated exposure control and iter ative reconstruction technique were employed. COMPARISON: CT dated 01/09/2019. FINDINGS: There is chronic bilateral lower lobe consolidation with abnormal soft tissue contained thr oughout the bronchi which may represent inspissated secretions. No significant pleural or pericardial effusion. The liver contains a 3 cm cyst. Gallbladder is present. The spleen, pancreas, adrenal glands and righ t kidney are unremarkable. There are small subcentimeter hypodensities of the left kidney, most likel y benign. There is abnormal mucosal enhancement of lower abdominal small bowel with bowel wall thicke bear. There are multiple dilated loops of small bowel with air-fluid levels. No significant free air or free fluid. No significant vascular abnormality. Severe lumbar spondylosis with scoliosis. IMPRESSION: 1. Abnormal small bowel wall thickening and mucosal enhancement in the lower abdomen, suspicious for enteritis. Small bowel loops proximal to this location are dilated and fluid-filled which may reflect ileus or partial obstruction. 2: Chronic bilateral lower lobe consolidation with abnormal fluid/debris in the associated bronchi, suspicious for chronic or atypical infection. Reviewed, dictated and finalized at location A. IMPRESSION: 1. Abnormal small bowel wall thickening and mucosal enhancement in the lower ab domen, suspicious for enteritis. Small bowel loops proximal to this location ar e dilated and fluid-filled which may reflect ileus or partial obstruction. 2: Chronic bilateral lower lobe consolidation with abnormal fluid/debris in th e associated bronchi, suspicious for chronic or atypical infection.
[2022-10-20 20:09] LABS: Basophils Absolute Auto 0.1 K/mm3 (0.0-0.1); Eosinophils Absolute Auto 0.1 K/mm3 (0-0.3); Eosinophils Percent Auto 0.9 % (0-4.4); Hematocrit 35.8 % (37.0-47.0); Hemoglobin 11.6 g/dL (12.0-15.0); Immature Granulocyte Absolute 0.08 K/mm3 (0.00-0.031); Immature Granulocyte Percent A 0.7 % (0-0.5); Lymphocytes Percent Auto 13.9 % (18.3-44.2); Mean Corpuscular HGB Conc 32.4 g/dl (32-36); Mean Corpuscular Hemoglobin 29.7 pg (26-34); Mean Corpuscular Volume 91.6 fl (80-100); Mean Platelet Volume 9.3 fl (7.4-10.4); Monocytes Absolute Auto 1.2 K/mm3 (0.1-0.6); Monocytes Percent Auto 9.9 % (2.6-8.5); Neutrophils Percent Auto 73.6 % (45.5-73.1); Platelet Count Result 500 k/mm3 (150-375); Red Blood Count 3.91 M/mm3 (4.2-5.4); Red Cell Distribution Width 12.5 % (11.5-14.5); White Blood Count 12.3 K/mm3 (4.5-10.0)
--- NOTE | 2022-10-20 20:10 | PC.NURSE ---
went to imaging
[2022-10-20 20:20] LABS: Lactic Acid Reflex 0.9 mmol/L (0.7-2.0)
[2022-10-20 20:20] LABS: Alanine Aminotransferase 14 U/L (6-35); Albumin Level 3.9 g/dL (3.5-5.1); Alkaline Phosphatase 95 U/L (38-126); Anion Gap 10 mmol/L (8-16); Aspartate Amino Transferase 27 U/L (14-36); Bilirubin,Total 0.3 mg/dL (0.2-1.3); Blood Urea Nitrogen 27 mg/dL (7-17); Calcium 8.8 mg/dL (8.4-10.2); Carbon Dioxide 25 mmol/L (22-30); Chloride 93 mmol/L (98-107); Estimated Glomerular Filt Rate > 60; Glucose 106 mg/dL (65-110); Lipase 104 U/L (23-300); Potassium 4.1 mmol/L (3.4-5.0); Sodium 128 mmol/L (137-145)
[2022-10-20] MEDS: PANTOPRAZOLE SODIUM IV 40 MG VIAL IV PUSH (21:23)
[2022-10-20] MEDS: SODIUM CHLORIDE 0.9% IV 1,000 ML 999 ML IV CONT (21:23)
[2022-10-20] MEDS: FAMOTIDINE 20 MG/2 ML VIAL IV PUSH (21:23)
[2022-10-20 21:35] LABS: Appearance Urine Clear (Clear); Bacteria Urine None Seen /hpf; Bilirubin Urine Negative (Negative); Color Urine Yellow (Yellow); Glucose Urine UA Negative (Negative); Ketones Urine Trace mg/dL (Negative); Leukocyte Esterase Ur Trace LEU/UL (Negative); Nitrate Urine Negative (Negative); Non Pathogenic Casts 0-2; Protein Urine 1+ mg/dL (Negative); RBC Urine 21-50 /hpf (0-2); Specific Grav Ur 1.021 (1.001-1.035); Squamous Epithelial Cell Urine None seen /hpf (Few); Urobilinogen Urine 0.2 mg/dL (<2.0); WBC Urine 0-5 /hpf
--- NOTE | 2022-10-20 21:36 | PM.IMHP ---
H&P: HPI History of Present Illness Date/Time: 10/20/22 21:36 Chief Complaint: Abdominal pain Narrative: This is a 77-year-old female with past medical history significant for bronch in tensions, migraine headache, anxiety disorder, COPD, chronic low back pain, GERD, macular degeneration, osteoarthritis, osteoporosis. Patient comes in due to abdominal discomfort, diarrhea, poor appetite, low-grade fevers for the last several months patient has been on cefdinir for pseudomonal colonization has had increased production of grayish sputum, weight loss, generalized malaise. Patient has been admitted for further evaluation management and treatment. EXAMINATION: CT abdomen pelvis w con DATE: 10/20/2022 20:42 INDICATION: Abdomen pain. TECHNIQUE: Computed tomography (CT) of the abdomen and pelvis was performed with 100 cc Omnipaque 350 intravenous contrast. The dose-length product was 180.35 mGy-cm. Automated exposure control and iterative reconstruction technique were employed. COMPARISON: CT dated 01/09/2019. FINDINGS: There is chronic bilateral lower lobe consolidation with abnormal soft tissue contained throughout the bronchi which may represent inspissated secretions. No significant pleural or pericardial effusion. The liver contains a 3 cm cyst. Gallbladder is present. The spleen, pancreas, adrenal glands and right kidney are unremarkable. There are small subcentimeter hypodensities of the left kidney, most likely benign. There is abnormal mucosal enhancement of lower abdominal small bowel with bowel wall thickening. There are multiple dilated loops of small bowel with air-fluid levels. No significant free air or free fluid. No significant vascular abnormality. Severe lumbar spondylosis with scoliosis. IMPRESSION: 1. Abnormal small bowel wall thickening and mucosal enhancement in the lower abdomen, suspicious for enteritis. Small bowel loops proximal to this location are dilated and fluid-filled which may reflect ileus or partial obstruction. 2:? Chronic bilateral lower lobe consolidation with abnormal fluid/debris in the associated bronchi, suspicious for chronic or atypical infection. XR chest 1V portable 10/20/2022 20:12 Indication: Cough and weakness Procedure: AP portable chest Comparison: Comparison to multiple prior studies sequentially, with oldest reviewed study dated? 05/09/2022. Findings: Heart size normal. Bibasilar airspace disease. Small pleural effusions. No edema or pneumothorax. The lungs are hyperinflated which is consistent with, but not diagnostic of chronic obstructive pulmonary disease. There is scoliosis. Impression: 1: Bibasilar airspace disease may represent atelectasis and/or pneumonia. Review of Systems Review of Systems: Abdominal discomfort, diarrhea, low-grade fevers for the last 6+ months, grayish sputum production, weight loss. Constitutional: Constitutional: Denies chills, Reports fever(s), Reports lethargy, Reports malaise, Reports night sweats, Reports poor appetite and Reports weight loss Eyes: Eyes: Denies change in vision ENT: Denies dysphagia, Denies vertigo, Denies dizziness, Denies nasal congestion, Denies nasal obstruction and Denies odynophagia Cardiovascular: Cardiovascular: Denies chest pain, Denies chest pain at rest, Denies radiating jaw, neck or arm pain, Denies palpitations and Denies dyspnea Respiratory: Respiratory: Denies chest congestion, Denies cough and Reports excessive phlegm production Gastrointestinal: Gastrointestinal: Reports abdominal pain, Denies dyspepsia, Denies heartburn, Reports diarrhea, Denies nausea and Denies vomiting Genitourinary: Genitourinary: Denies dysuria Musculoskeletal: Musculoskeletal: Denies back pain, Denies myalgias and Denies joint swelling Integumentary/Breasts: Skin/Breast: Denies rash Neurologic: Denies focal weakness and Denies Sensory deficit (Neuro) Psychiatric: Psyc
[2022-10-20 21:37] LABS: Add Urine Microscopic? YES
--- NOTE | 2022-10-20 21:46 | ED.GENADULT ---
HPI - General Adult General Chief complaint: Abdominal Pain Stated complaint: abdominal pain/fever/diarrhea Time Seen by Provider: 10/20/22 19:44 History of Present Illness HPI narrative: Patient 77-year-old female who presents to Emergency Department with a chief complaint of abdominal pain. The patient reports that she recently transitioned off of tramadol to Celebrex and started having pain in the epigastric area. Patient reports she has had a low-grade fever since March or April and has history of bronchiectasis and has had a chronic productive cough. Patient reports she is currently on cefdinir and does a rotating course of antibiotics the patient states that several days ago she started having diarrhea and has had multiple bouts of diarrhea since she started having epigastric discomfort. The patient reports no prior abdominal surgery. Related Data Home Medications Medication Instructions Recorded Confirmed escitalopram oxalate 20 mg tablet 20 mg PO DAILY 11/14/19 08/18/22 (Lexapro) acetaminophen 500 mg tablet 500 mg PO Q6H PRN Pain 08/04/20 08/18/22 ascorbate calcium (vitamin C) 500 500 mg PO 3XW 08/04/20 08/18/22 mg tablet cyclosporine 0.05 % eye drops in a 1 drp EACH EYE Q12H 08/04/20 08/18/22 dropperette (Restasis) vit C 250 mg-vit E 200 unit-zinc 1 tablet PO Q12H 08/04/20 08/18/22 12.5 mg-microscopist 1 mg-lut-zeax chew tablet (ICaps AREDS2 (copper citrate)) cholecalciferol (vitamin D3) 10 2,000 unit PO 4XW 03/08/21 08/18/22 mcg (400 unit) capsule biotin 1 mg capsule 1 mg PO BID 05/09/22 08/18/22 cetirizine 10 mg tablet (Zyrtec) 10 mg PO DAILY 05/09/22 08/18/22 ferrous sulfate 325 mg (65 mg 325 mg PO DAILY 05/09/22 08/18/22 iron) tablet triamcinolone acetonide 0.1 % 1 applic topical DAILY PRN Itching 05/09/22 08/18/22 topical ointment tiotropium 2.5 mcg-olodaterol 2.5 2 inh inhalation DAILY 06/20/22 08/18/22 mcg/actuation mist for inhalation (Stiolto Respimat) albuterol sulfate 90 mcg/actuation 1 puff inhalation Q4H PRN 07/12/22 08/18/22 aerosol inhaler Allergies Allergy/AdvReac Type Severity Reaction Status Date / Time levofloxacin Allergy Mild Muscle Verified 10/10/22 14:08 Spasms ciprofloxacin Allergy Unknown Itching Verified 10/10/22 14:08 clarithromycin Allergy Unknown Itching Verified 10/10/22 14:08 codeine Allergy Unknown Hives Verified 10/10/22 14:08 Review of Systems Review of Systems: A 10 system review of systems was completed on the patient and is negative except for what is stated in the HPI. Nursing and ancillary documentation was reviewed. [facility] Past Medical History Medical History Anxiety Anxiety disorder, unspecified Arthritis Bronchiectasis Chronic low back pain COPD (chronic obstructive pulmonary disease) Cyst of left kidney Depression Eczema Fracture of distal end of left radius 07/2020 GERD (gastroesophageal reflux disease) Headache History of fractured rib Iron deficiency Liver cyst Lumbar spondylosis Macular degeneration, age related (~2015) Migraines Multiple nodules of lung Osteoarthritis Osteoporosis Stress incontinence in female Tachycardia Vitamin D deficiency, unspecified Surgical History Surgical History H/O cataract extraction H/O cerebral aneurysm repair (~03/28/08) H/O right wrist surgery (~08/2003) History of ear surgery History of tonsillectomy S/P ORIF (open reduction internal fixation) fracture Right wrist with hardware removed later and left ankle Family History Family History Mother Acute myocardial infarction Cerebrovascular accident Hypertension Depression Anxiety Heart problem Grandparent Colon cancer Hypertension Social History Social History So
[2022-10-20] MEDS: SODIUM CHLORIDE 0.9% IV 1,000 ML 125 ML IV CONT (22:59)
--- NOTE | 2022-10-20 23:04 | PC.NURSE ---
please have hospitalist call Deysi her daughter
--- NOTE | 2022-10-20 23:09 | PC.NURSE ---
report given to Ellis
--- NOTE | 2022-10-20 23:40 | ADMGEN ---
This patient, Bebe Rosas, was admitted to Medical Room 253-01. Patient/family oriented to hospital policies and general routines including ID bracelet, bed and alarms, visiting hours, pain management, procedures, bathroom and other care routines, personal items, smoking policy, room service/diet, and visiting hours. Information on how to activate the Rapid Response Team has been discussed. Patient/Family are encouraged to report perceived risks to care and to ask questions if they do not understand what they are told or what they should do.
[2022-10-21 03:30] VITALS: BP 135/67; PULSE 92; RESP 18; TEMP 37; O2SAT 93
[2022-10-21] MEDS: CEFDINIR 300 MG CAPSULE PO (08:56)
[2022-10-21] MEDS: cycloSPORINE 0.4 ML OPHTH SOLUTION 1 DROP EACH EYE ×2 (08:56→20:13)
[2022-10-21] MEDS: ESCITALOPRAM OXALATE 10 MG TABLET 20 MG PO (08:56)
[2022-10-21] MEDS: FAMOTIDINE 20 MG TABLET PO (08:56)
[2022-10-21] MEDS: OPTI-GEN TAB 1 TABLET PO ×2 (08:57→20:13)
[2022-10-21] MEDS: CHOLECALCIFEROL 1,000 UNITS TABLET 2000 UNITS PO (08:57)
[2022-10-21] MEDS: ASCORBIC ACID 500 MG TABLET PO (08:57)
[2022-10-21] MEDS: PANTOPRAZOLE SODIUM IV 40 MG VIAL IV PUSH (08:57)
[2022-10-21] MEDS: FERROUS SULFATE 325 MG TABLET DR PO (08:57)
--- NOTE | 2022-10-21 11:04 | PM.IMPN ---
Progress Note: A&P Assessment and Plan (1) Adult failure to thrive: Code(s): R62.7 - Adult failure to thrive Status: Acute Assessment and Plan: Admit to regular medical floor PT OT (2) Bronchiectasis: Code(s): J47.9 - Bronchiectasis, uncomplicated Status: Acute Assessment and Plan: Change in sputum amount Pulmonary consult. Patient was on a rotation of antibiotics as an outpatient. Now having fevers. Question significance. (3) Ileus: Code(s): K56.7 - Ileus, unspecified Status: Acute Assessment and Plan: NPO Gentle hydration Continue to monitor Replace electrolytes (4) GERD (gastroesophageal reflux disease): Code(s): K21.9 - Gastro-esophageal reflux disease without esophagitis Status: Acute Assessment and Plan: PPI (5) Mycobacterial disease, pulmonary: Code(s): A31.0 - Pulmonary mycobacterial infection Status: Acute Assessment and Plan: Follow-up in outpatient setting (6) Chronic low back pain: Qualifiers: Back pain laterality: unspecified Sciatica presence: unspecified whether sciatica present Qualified Code(s): M54.50 - Low back pain, unspecified; G89.29 - Other chronic pain Code(s): M54.50 - Low back pain, unspecified; G89.29 - Other chronic pain Status: Acute Assessment and Plan: Tylenol p.r.n. (7) PAT (paroxysmal atrial tachycardia): Code(s): I47.1 - Supraventricular tachycardia Status: Acute Assessment and Plan: Rate controlled (8) COPD (chronic obstructive pulmonary disease): Code(s): J44.9 - Chronic obstructive pulmonary disease, unspecified Status: Acute Assessment and Plan: Not actively wheezing Continue home meds Subjective Date/time seen: 10/21/22 11:04 Interval history: No complaints Exam Narrative: lying in the stretcher Const: General: comfortable, no acute distress, well developed, alert, awake, average body habitus and underweight Nutritional Appearance: average body habitus and underweight Orientation/consciousness: patient oriented x3 HENMT: Head: normal to inspection, normocephalic and atraumatic Ears: hearing grossly normal bilaterally Face/Nose/Sinus: normal facial exam Face and sinus: normal facial exam Eyes: General: appearance normal, both eyes and all related structures Pupils: Equal, round and reactive pupils present EOM: EOMs intact bilaterally Neck: Neck: full ROM, no lymphadenopathy and no JVD Thyroid: thyroid normal Lymphatic: no lymphadenopathy noted Resp: Effort & Inspection: normal respiratory effort and able to speak in complete sentences Auscultation: clear to auscultation bilaterally Cardio: Jugular venous distension: no JVD Rate: regular rate Rhythm: regular rhythm Heart sounds: S1 normal heart sound present and S2 normal heart sound present : General: Yes deferred Skin: Rashes: no rashes Wounds: no wounds Neuro: General: patient oriented x3, CN's II-XI intact bilaterally and Unable to assess gait Cranial nerves: Yes CN's II-XII intact bilaterally and Yes Equal, round and reactive pupils present Cognition (Neuro): normal cognition Speech: normal speech Gait exam (Neuro): Unable to assess gait Motor exam (neuro): 5/5 motor strength present throughout Sensory Exam: No Sensory deficit (Neuro) Extrem: General: normal to inspection, full ROM, no joint enlargement and no pedal edema Objective Data Vital Signs Vital Signs: Vital Signs - 24 hr 10/20/22 18:04 10/20/22 19:39 10/20/22 20:54 Temperature 97.5 F L Pulse Rate 92 88 Respiratory Rate 16 16 Blood Pressure 149/65 H 145/69 H Pulse Oximetry 98 97 98 Oxygen Delivery Room Air 10/20/22 21:00 10/20/22 21:24 10/20/22 21:30 Temperature Pulse Rate 82 Respiratory Rate 18 Blood Pressure 142/74 H Pulse Oximetry 95 98 97 Oxygen Delivery 10/20/22 22:09 10/20/22 22:20 10/20/22 22:31 Tempera
--- NOTE | 2022-10-21 11:58 | PM.CNPUL ---
Assessment and Plan Assessment and plan (1) Bronchiectasis: Code(s): J47.9 - Bronchiectasis, uncomplicated Status: Acute Assessment and Plan: Patient with bronchiectasis since age 1 worked up previously? and told she did not have cystic fibrosis, with a? mild obstructive abnormality on her PFTs.? Patient is currently guaifenesin 400 mg p.o. t.i.d., arobeka flutter valve once a day, bevespi at 2 puffs BID, and postural drainage once a day. ? She has had for exacerbations in 2020 requiring antibiotics the last of which was 01/14.? The antibiotics clear her phlegm for the 10 day she takes them but after 4-5 days she is back to her baseline.? She has failed azithromycin 250 mg 3 times a week in the past and she has failed multiple inhalers most recently she states that of bevespi and rescue albuterol do nothing for her symptoms.? ? Vibratory vest is not provided her with any benefit.? She also has a history of sputum demonstrating AFB smear positive x1 that? did not grow any AFB on culture and 3 other negative AFB smears. ? Immunoglobulin levels were normal. ? She saw infectious disease specialist and given her history of Pseudomonas colonization he recommended inhaled tobramycin but this was denied by her insurance in their clinic refused to appeal this process. Patient still states that she has coughing in the morning until she can bring up all her phlegm. Our staff previously spent large amount of time trying to initiate inhaled antibiotics but these were too expensive. Patient is currently followed at an outside manager file, Dr. Jens Tse, and he initiated rotating antibiotics the 1st week of every month with amoxicillin, doxycycline and azithromycin in . Patient initially improved but then went back to her baseline and the azithromycin was changed to cefdinir. On 10/16 patient initiated her monthly cefdinir early, she was supposed to start this on 10/25/2022 because of increased respiratory issues. She improved after 3 days and then took Celebrex and developed abdominal pain and has an enteritis on her CT scan. Currently her symptoms are near her baseline, room air saturations 97%. At this time I would discontinue the cefdinir she has received approximately 6 days out of her scheduled 7 days as it is unclear if the cefdinir is related to her enteritis directly or indirectly through C diff or another infection. Plan: DC cefdinir. Continue Anoro Ellipta. I talked to the patient about her increased secretions on her CT scan at this time she does not want to escalate any therapy such as a flutter valve, vest therapy or additional mucolytics. The patient will follow-up with her outpatient manager file. In addition the patient and the family have told me that they will look in to a specialist at [facility], Dr. Batista, regarding any additional treatment options for her bronchiectasis. I spoke to the daughter on speaker phone. Discussed with Dr. Pena, will sign off. Call with questions. History of Present Illness History of Present Illness Consult date: 10/21/22 Chief complaint: Failure to Thrive,Bronchiectasis,Ileus,Enteritis Narrative: 10/21/2022: This is a new pulmonary encounter for bronchiectasis 77-year-old with a history of bronchiectasis, chronic low back pain, osteoarthritis, eczematous dermatitis, PAT/AFIB, who presented to the emergency department on 10/20/2022 with abdominal pain, diarrhea, decreased appetite, low-grade fevers. Patient was followed in the pulmonary clinic and last seen on 10/12/2021: Impression: Patient with bronchiectasis since age 1 worked up previously? and told she did not have cystic fibrosis, with a? mild obstructive abnormality on her PFTs.? Patient is currently guaifenesin 400 mg p.o. t.i.d., arobeka flutter valve once a day, bevespi at 2 puffs BID, and postural drainage once a day. ? She has had for exacerbations in 2020 requiring antibiotics the last of which was 12/26
[2022-10-21 12:21] VITALS: PULSE 89
[2022-10-21] MEDS: SOTALOL HCL 80 MG TABLET BY MOUTH ×2 (12:21→20:12)
[2022-10-21] MEDS: ONDANSETRON INJ 4 MG/2 ML VIAL IV PUSH (12:25)
[2022-10-21 12:30] VITALS: BP 147/75; PULSE 89
[2022-10-21 14:00] VITALS: BP 134/65; PULSE 79; RESP 18; TEMP 36.9; O2SAT 94
[2022-10-21 14:30] VITALS: BMI 18.3
[2022-10-21] MEDS: SODIUM CHLORIDE 0.9% IV 1,000 ML 125 ML IV CONT (15:59)
[2022-10-21 20:12] VITALS: PULSE 80
[2022-10-21] MEDS: ACETAMINOPHEN 500 MG TABLET PO (20:12)
[2022-10-21] MEDS: diphenhydrAMINE HCl CAP 25 MG CAPSULE PO (20:12)
[2022-10-21] MEDS: LORATADINE 10 MG TABLET PO (20:13)
[2022-10-21 21:26] LABS: Toxigenic C. Diff NEGATIVE (NEGATIVE)
[2022-10-21 22:09] VITALS: BP 136/55; PULSE 78; RESP 18; TEMP 36.5; O2SAT 97
[2022-10-22] MEDS: SODIUM CHLORIDE 0.9% IV 1,000 ML 125 ML IV CONT (01:47)
[2022-10-22] MEDS: SUMAtriptan SUCCINATE 25 MG TABLET 100 MG PO (03:59)
[2022-10-22 06:00] VITALS: BP 147/61; PULSE 77; RESP 18; TEMP 36.4; O2SAT 97
[2022-10-22] MEDS: ESCITALOPRAM OXALATE 10 MG TABLET 20 MG PO (08:56)
[2022-10-22 08:57] VITALS: PULSE 88
[2022-10-22] MEDS: CELECOXIB 100 MG CAPSULE PO (08:57)
[2022-10-22] MEDS: SOTALOL HCL 80 MG TABLET BY MOUTH (08:57)
[2022-10-22] MEDS: FAMOTIDINE 20 MG TABLET PO (08:57)
[2022-10-22] MEDS: FERROUS SULFATE 325 MG TABLET DR PO (08:57)
[2022-10-22] MEDS: OPTI-GEN TAB 1 TABLET PO (08:57)
[2022-10-22] MEDS: cycloSPORINE 0.4 ML OPHTH SOLUTION 1 DROP EACH EYE (08:58)
[2022-10-22] MEDS: PANTOPRAZOLE SODIUM IV 40 MG VIAL IV PUSH (08:58)
[2022-10-22] MEDS: UMECLIDINIUM/VILANTEROL 62.5-25 MCG ELLIPTA 1 PUFF INHALATION (10:42)
--- NOTE | 2022-10-22 10:42 | PM.DS ---
DS: Admitting Diagnosis Discharge Date October 22, 2022 Admitting Diagnosis Bronchiectasis DS: Discharge Diagnosis Discharge Diagnosis (1) Adult failure to thrive: Code(s): R62.7 - Adult failure to thrive Status: Acute Assessment and Plan: Admit to regular medical floor PT OT (2) Bronchiectasis: Code(s): J47.9 - Bronchiectasis, uncomplicated Status: Acute Assessment and Plan: Change in sputum amount Pulmonary consult. Patient was on a rotation of antibiotics as an outpatient. Now having fevers. Question significance. (3) Ileus: Code(s): K56.7 - Ileus, unspecified Status: Acute Assessment and Plan: NPO Gentle hydration Continue to monitor Replace electrolytes (4) GERD (gastroesophageal reflux disease): Code(s): K21.9 - Gastro-esophageal reflux disease without esophagitis Status: Acute Assessment and Plan: PPI (5) Mycobacterial disease, pulmonary: Code(s): A31.0 - Pulmonary mycobacterial infection Status: Acute Assessment and Plan: Follow-up in outpatient setting (6) Chronic low back pain: Qualifiers: Back pain laterality: unspecified Sciatica presence: unspecified whether sciatica present Qualified Code(s): M54.50 - Low back pain, unspecified; G89.29 - Other chronic pain Code(s): M54.50 - Low back pain, unspecified; G89.29 - Other chronic pain Status: Acute Assessment and Plan: Tylenol p.r.n. (7) PAT (paroxysmal atrial tachycardia): Code(s): I47.1 - Supraventricular tachycardia Status: Acute Assessment and Plan: Rate controlled (8) COPD (chronic obstructive pulmonary disease): Code(s): J44.9 - Chronic obstructive pulmonary disease, unspecified Status: Acute Assessment and Plan: Not actively wheezing Continue home meds DS: Summary Hospital Course Hospital Course: Patient was admitted for fever and his history of bronchiectasis. She follows with skin fitter in [place]. She also had some diarrhea. This was likely caused by her cefdinir. We stopped her cefdinir and she can follow-up with her skin fitter. Time Spent with Patient Time attestation: Total time spent providing and/or coordinating discharge services: Exam Narrative: lying in the stretcher Const: General: comfortable, no acute distress, well developed, alert, awake, average body habitus and underweight Nutritional Appearance: average body habitus and underweight Orientation/consciousness: patient oriented x3 HENMT: Head: normal to inspection, normocephalic and atraumatic Ears: hearing grossly normal bilaterally Face/Nose/Sinus: normal facial exam Face and sinus: normal facial exam Eyes: General: appearance normal, both eyes and all related structures Pupils: Equal, round and reactive pupils present EOM: EOMs intact bilaterally Neck: Neck: full ROM, no lymphadenopathy and no JVD Thyroid: thyroid normal Lymphatic: no lymphadenopathy noted Resp: Effort & Inspection: normal respiratory effort and able to speak in complete sentences Auscultation: clear to auscultation bilaterally Cardio: Jugular venous distension: no JVD Rate: regular rate Rhythm: regular rhythm Heart sounds: S1 normal heart sound present and S2 normal heart sound present : General: Yes deferred Skin: Rashes: no rashes Wounds: no wounds Neuro: General: patient oriented x3, CN's II-XI intact bilaterally and Unable to assess gait Cranial nerves: Yes CN's II-XII intact bilaterally and Yes Equal, round and reactive pupils present Cognition (Neuro): normal cognition Speech: normal speech Gait exam (Neuro): Unable to assess gait Motor exam (neuro): 5/5 motor strength present throughout Sensory Exam: No Sensory deficit (Neuro) Extrem: General: normal to inspection, full ROM, no joint enlargement and no pedal edema DS: Data Data Completed and Pending Labs on day of discharge: Labs fro
[2022-10-22 10:44] VITALS: PULSE 69; RESP 20; O2SAT 97
--- NOTE | 2022-10-22 11:36 | PC.NURSE ---
Patient states her primary care physician stopped her tramadol and changed her script to celebrex for arthritis pain. She states her pain started two hours after taking celebrex. Patient educated regarding potential side effects and adverse reactions related to celebrex, handout given. Education printed with discharge medications.
== END 2022-10-22 12:50 | disposition home or self-care (01) | DRG 191 ==
LOC: ANHED 21:54 → ANH2MED 10-21 14:09
PROVIDERS: Physician Assistant; Admitting Provider Internal Medicine; Emergency Provider Emergency Medicine; PCP Family Medicine; Visit Provider Chiropractor
DX: J47.9 Bronchiectasis, uncomplicated (principal); I47.1 Supraventricular tachycardia; K56.7 Ileus, unspecified; K52.1 Toxic gastroenteritis and colitis; T36.1X5A Adverse effect of cephalosporins and other beta-lactam antibiotics, initial encounter; R62.7 Adult failure to thrive; K21.9 Gastro-esophageal reflux disease without esophagitis; A31.0 Pulmonary mycobacterial infection; M54.50 Low back pain, unspecified; G89.29 Other chronic pain; M19.90 Unspecified osteoarthritis, unspecified site; H35.30 Unspecified macular degeneration; M81.0 Age-related osteoporosis without current pathological fracture; F41.9 Anxiety disorder, unspecified; R91.8 Other nonspecific abnormal finding of lung field; M47.896 Other spondylosis, lumbar region; Z87.891 Personal history of nicotine dependence
CPT/HCPCS: 36415; 71045; 74177; 80053; 81001; 83605; 83690; 85025; 87040; 87493; 94640; 96374; 96375; 99285; A9270; C9113; J2405; J7030; Q9967

== ENCOUNTER 2022-10-27 10:23 | Outpatient (CLI) | payer OTHER, SELFPAY ==
[2022-10-27 13:07] LABS: Basophils Absolute Auto 0.2 K/mm3 (0.0-0.1); Basophils Percent Auto 1.5 % (0.2-1.2); Eosinophils Absolute Auto 0.4 K/mm3 (0-0.3); Eosinophils Percent Auto 2.3 % (0-4.4); Hematocrit 40.3 % (37.0-47.0); Hemoglobin 12.6 g/dL (12.0-15.0); Immature Granulocyte Absolute 0.44 K/mm3 (0.00-0.031); Immature Granulocyte Percent A 2.8 % (0-0.5); Lymphocytes Absolute Auto 3.22 K/mm3 (0.9-3.2); Lymphocytes Percent Auto 20.7 % (18.3-44.2); Mean Corpuscular HGB Conc 31.3 g/dl (32-36); Mean Corpuscular Hemoglobin 29.2 pg (26-34); Mean Corpuscular Volume 93.5 fl (80-100); Monocytes Absolute Auto 1.4 K/mm3 (0.1-0.6); Monocytes Percent Auto 8.7 % (2.6-8.5); Platelet Count Result 619 k/mm3 (150-375); Red Blood Count 4.31 M/mm3 (4.2-5.4); Red Cell Distribution Width 12.8 % (11.5-14.5); White Blood Count 15.6 K/mm3 (4.5-10.0)
[2022-10-27 13:25] LABS: Alanine Aminotransferase 19 U/L (6-35); Albumin Level 4.2 g/dL (3.5-5.1); Alkaline Phosphatase 102 U/L (38-126); Anion Gap 7 mmol/L (8-16); Aspartate Amino Transferase 36 U/L (14-36); Bilirubin,Total 0.3 mg/dL (0.2-1.3); Blood Urea Nitrogen 24 mg/dL (7-17); Calcium 9.4 mg/dL (8.4-10.2); Carbon Dioxide 31 mmol/L (22-30); Chloride 96 mmol/L (98-107); Estimated Glomerular Filt Rate > 60; Glucose 103 mg/dL (65-110); Potassium 4.3 mmol/L (3.4-5.0); Sodium 134 mmol/L (137-145)
== END 2022-10-27 10:24 | disposition home or self-care (01) ==
LOC: ANHGOSHLAB 10:24
PROVIDERS: PCP Family Medicine; Visit Provider Family Medicine
DX: R62.7 Adult failure to thrive (principal); J47.9 Bronchiectasis, uncomplicated; D64.9 Anemia, unspecified; I48.0 Paroxysmal atrial fibrillation; E87.1 Hypo-osmolality and hyponatremia; A31.0 Pulmonary mycobacterial infection
CPT/HCPCS: 36415; 80053; 85025

== ENCOUNTER → 2022-11-02 11:30 | Outpatient (CLI) | payer OTHER, SELFPAY ==
--- NOTE | ~2022-11-02 | MR_ITS ---
EXAMINATION: MR thoracic spine wo con DATE: 11/02/2022 12:54 INDICATION: Low back pain. TECHNIQUE: Magnetic resonance imaging (MRI) of the thoracic spine was performed without intravenous c ontrast. COMPARISON: None FINDINGS: There is 28 degrees dextroscoliosis of thoracolumbar spine. There is mild chronic anterior wedging of L1 vertebral body. There is moderately decreased disc height at T1-T2, severely decreased disc height at T2-T3, and moderately decreased disc height at T4-T5. At T1-T2, the disc is bulging wi th mild central canal stenosis. At T2-T3, there is a central extrusion with mild central canal stenos is. At T3-T4, there is a central extrusion with mild central canal stenosis. At T4-T5, there is a paul tral extrusion with mild central canal stenosis. At T5-T6, there is a central protrusion with mild ce ntral canal stenosis. At T6-T7, there is a right central extrusion with mild central canal stenosis. At T7-T8, there is a central protrusion with mild central canal stenosis. There is multilevel mild to moderate facet joint osteoarthritis. There is mild neural foraminal stenosis at multiple levels bila terally. The spinal cord signal intensity is normal. The conus medullaris is at L1. IMPRESSION: 1. Severe upper thoracic spondylosis. 2. Thoracolumbar dextroscoliosis. Reviewed, dictated and finalized at location A.
== END ==
PROVIDERS: PCP Family Medicine; Visit Provider Nurse Practitioner Family
DX: M47.894 Other spondylosis, thoracic region (principal)
CPT/HCPCS: 72146

== ENCOUNTER → 2022-11-09 12:36 | Outpatient (CLI) | payer OTHER, SELFPAY ==
--- NOTE | ~2022-11-09 | MR_ITS ---
EXAMINATION: MR lumbar spine wo con DATE: 11/09/2022 13:41 INDICATION: Lumbar nephropathy. TECHNIQUE: Magnetic resonance imaging (MRI) of the lumbar spine was performed without intravenous con trast. COMPARISON: Lumbar spine MRI 06/11/2022 FINDINGS: There is 25 degrees levoscoliosis of lumbar spine. There is 4 mm retrolisthesis of L2 on L3 , 6 mm retrolisthesis of L3 on L4, and 3 mm retrolisthesis of L4 on L5. There is mild chronic anterio r wedging of L1 and L2 vertebral bodies. There is severely decreased disc height from L1-L2 through L 4-L5 and mildly decreased disc height at L5-S1 with endplate remodeling. The distal spinal cord signa l intensity is normal. The conus medullaris is at L1. The following disc levels are specifically disc ussed: L1-L2: The disc is bulging. There is no facet joint osteoarthritis. There is mild bilateral neural fo raminal stenosis. There is mild central canal stenosis. L2-L3: The disc is bulging. There is mild bilateral facet joint osteoarthritis. There is mild bilater al neural foraminal stenosis. There is mild central canal stenosis. L3-L4: The disc is bulging. There is mild bilateral facet joint osteoarthritis. There is mild bilater al neural foraminal stenosis. There is mild central canal stenosis. L4-L5: The disc is bulging. There is mild bilateral facet joint osteoarthritis. There is mild bilater al neural foraminal stenosis. There is mild central canal stenosis. L5-S1: The disc is bulging. There is mild right and moderate left facet joint osteoarthritis. There i s mild bilateral neural foraminal stenosis. There is mild central canal stenosis. IMPRESSION: 1. Severe lumbar spondylosis, stable from 06/11/2022. 2. Lumbar levoscoliosis. Reviewed, dictated and finalized at location A.
== END ==
PROVIDERS: PCP Family Medicine; Visit Provider Nurse Practitioner Family
DX: M47.26 Other spondylosis with radiculopathy, lumbar region (principal); M41.9 Scoliosis, unspecified
CPT/HCPCS: 72148

== ENCOUNTER 2023-02-21 15:19 | Outpatient (CLI) | payer OTHER, SELFPAY ==
[2023-02-21 15:34] LABS: Basophils Absolute Auto 0.2 K/mm3 (0.0-0.1); Basophils Percent Auto 1.7 % (0.2-1.2); Eosinophils Absolute Auto 0.6 K/mm3 (0-0.3); Eosinophils Percent Auto 7.3 % (0-4.4); Hematocrit 37.3 % (37.0-47.0); Immature Granulocyte Absolute 0.07 K/mm3 (0.00-0.031); Immature Granulocyte Percent A 0.8 % (0-0.5); Lymphocytes Percent Auto 31.1 % (18.3-44.2); Mean Corpuscular HGB Conc 32.2 g/dl (32-36); Mean Corpuscular Hemoglobin 29.5 pg (26-34); Mean Corpuscular Volume 91.6 fl (80-100); Mean Platelet Volume 8.4 fl (7.4-10.4); Monocytes Absolute Auto 0.9 K/mm3 (0.1-0.6); Monocytes Percent Auto 10.4 % (2.6-8.5); Neutrophils Absolute Auto 4.2 K/mm3 (1.3-6.7); Neutrophils Percent Auto 48.7 % (45.5-73.1); Platelet Count Result 463 k/mm3 (150-375); Red Blood Count 4.07 M/mm3 (4.2-5.4); Red Cell Distribution Width 13.3 % (11.5-14.5); White Blood Count 8.7 K/mm3 (4.5-10.0)
[2023-02-21 16:37] LABS: Alanine Aminotransferase 12 U/L (6-35); Alkaline Phosphatase 116 U/L (38-126); Anion Gap 9 mmol/L (8-16); Aspartate Amino Transferase 26 U/L (14-36); Bilirubin,Total 0.4 mg/dL (0.2-1.3); Blood Urea Nitrogen 29 mg/dL (7-17); CRP 3.4 mg/dL (<1.0); Calcium 9.4 mg/dL (8.4-10.2); Carbon Dioxide 29 mmol/L (22-30); Chloride 99 mmol/L (98-107); Estimated Glomerular Filt Rate > 60; Glucose 105 mg/dL (65-110); Potassium 4.4 mmol/L (3.4-5.0); Sodium 137 mmol/L (137-145)
[2023-02-21 16:58] LABS: Erythrocyte Sedimentation Rate 25 mm/hr (0-20)
== END 2023-02-21 15:20 | disposition home or self-care (01) ==
LOC: ANHLAB 15:21
PROVIDERS: PCP Family Medicine; Visit Provider Internal Medicine Hematology & Oncology
DX: D72.829 Elevated white blood cell count, unspecified (principal)
CPT/HCPCS: 36415; 80053; 85025; 85652; 86140

== ENCOUNTER 2023-03-09 10:46 | Outpatient (CLI) | payer OTHER, SELFPAY ==
[2023-03-09 17:01] LABS: Vitamin D 25 Hydroxy 31.1 ng/mL
[2023-03-09 18:06] LABS: Cholesterol 189 mg/dL (0-200); HDL Direct 31 mg/dL; Triglycerides 144 mg/dL (<150)
[2023-03-09 18:14] LABS: Immunoglobulin A 482 mg/dL (70-400); Immunoglobulin G 1709 mg/dL (700-1600); Immunoglobulin M 54 mg/dL (40-230)
[2023-03-09 18:21] LABS: LDL Cholesterol Direct 109 mg/dL
== END 2023-03-09 10:47 | disposition home or self-care (01) ==
LOC: ANHLAB 10:48
PROVIDERS: PCP Family Medicine; Visit Provider Internal Medicine Hematology & Oncology
DX: E78.5 Hyperlipidemia, unspecified (principal); E53.8 Deficiency of other specified B group vitamins; E55.9 Vitamin D deficiency, unspecified; F32.9 Major depressive disorder, single episode, unspecified; R62.7 Adult failure to thrive; R79.89 Other specified abnormal findings of blood chemistry
CPT/HCPCS: 36415; 80061; 82306; 82607; 82784; 84443; 88184

== ENCOUNTER 2023-03-17 12:32 | Outpatient (CLI) | payer OTHER, SELFPAY ==
[2023-03-17 15:02] LABS: Basophils Absolute Auto 0.2 K/mm3 (0.0-0.1); Eosinophils Absolute Auto 0.9 K/mm3 (0-0.3); Eosinophils Percent Auto 8.2 % (0-4.4); Hematocrit 37.7 % (37.0-47.0); Hemoglobin 11.5 g/dL (12.0-15.0); Immature Granulocyte Absolute 0.05 K/mm3 (0.00-0.031); Immature Granulocyte Percent A 0.4 % (0-0.5); Lymphocytes Absolute Auto 3.13 K/mm3 (0.9-3.2); Lymphocytes Percent Auto 27.7 % (18.3-44.2); Mean Corpuscular HGB Conc 30.5 g/dl (32-36); Mean Corpuscular Hemoglobin 28.9 pg (26-34); Mean Corpuscular Volume 94.7 fl (80-100); Mean Platelet Volume 9.1 fl (7.4-10.4); Monocytes Absolute Auto 1.1 K/mm3 (0.1-0.6); Monocytes Percent Auto 9.8 % (2.6-8.5); Neutrophils Absolute Auto 5.8 K/mm3 (1.3-6.7); Neutrophils Percent Auto 51.9 % (45.5-73.1); Platelet Count Result 490 k/mm3 (150-375); Red Blood Count 3.98 M/mm3 (4.2-5.4); Red Cell Distribution Width 13.9 % (11.5-14.5); White Blood Count 11.3 K/mm3 (4.5-10.0)
[2023-03-17 15:59] LABS: Erythrocyte Sedimentation Rate 60 mm/hr (0-20)
[2023-03-17 18:12] LABS: Immunoglobulin A 478 mg/dL (70-400); Immunoglobulin G 1802 mg/dL (700-1600); Immunoglobulin M 57 mg/dL (40-230)
[2023-03-17 18:29] LABS: Alanine Aminotransferase 15 U/L (6-35); Albumin Level 3.9 g/dL (3.5-5.1); Alkaline Phosphatase 126 U/L (38-126); Anion Gap 10 mmol/L (8-16); Aspartate Amino Transferase 36 U/L (14-36); Bilirubin,Total 0.3 mg/dL (0.2-1.3); Blood Urea Nitrogen 27 mg/dL (7-17); CRP 1.9 mg/dL (<1.0); Calcium 9.4 mg/dL (8.4-10.2); Carbon Dioxide 27 mmol/L (22-30); Chloride 100 mmol/L (98-107); Estimated Glomerular Filt Rate > 60; Glucose 77 mg/dL (65-110); Potassium 4.3 mmol/L (3.4-5.0); Sodium 137 mmol/L (137-145)
[2023-03-25 16:08] LABS: Block/Specimen ID Not Given; CALR Exon 9 Mutation Not Detected (Not Detected); CSF3R Exon 14/17 Mutation Not Detected (Not Detected); Clinical Indication Not Given; JAK2 Exon 12 Mutation Not Detected (Not Detected); JAK2 V617F Mutation Not Detected (Not Detected); MPL Exon 10 Mutation Not Detected (Not Detected); Specimen Source Blood
== END 2023-03-17 12:33 | disposition home or self-care (01) ==
LOC: ANHGOSHLAB 12:35
PROVIDERS: PCP Family Medicine; Visit Provider Internal Medicine Hematology & Oncology
DX: D83.9 Common variable immunodeficiency, unspecified (principal); D47.3 Essential (hemorrhagic) thrombocythemia
CPT/HCPCS: 36415; 80053; 81219; 81270; 81279; 81339; 81479; 82784; 85025; 85652; 86140; 88184; 88185; 88189

== ENCOUNTER → 2023-04-10 12:48 | Outpatient (CLI) | payer OTHER, SELFPAY ==
--- NOTE | ~2023-04-10 | MM_ITS ---
EXAMINATION: MM screening cristin BI w mera HISTORY: Screening TECHNIQUE: Craniocaudal and mediolateral oblique 3-D tomosynthesis images were obtained and synthetic 2-D images were generated. CAD analysis was submitted and interpreted. COMPARISON: Comparison to multiple prior studies sequentially, with oldest reviewed study dated 08/16. BREAST PARENCHYMAL COMPOSITION: The breasts are heterogeneously dense, which may obscure small masses FINDINGS: There is no evidence of suspicious mass, calcification, or architectural distortion to sugg est malignancy in either breast. There has been no suspicious interval change. IMPRESSION: 1. No mammographic evidence of malignancy. 2. Recommend routine screening mammography in one year. BI-RADS Category 1: Negative Reviewed, dictated and finalized at location A. [employer]ATION SOLUTION ARCHITECT
== END ==
PROVIDERS: PCP Obstetrics & Gynecology; Visit Provider Family Medicine
DX: Z12.31 Encounter for screening mammogram for malignant neoplasm of breast (principal)
CPT/HCPCS: 77063; 77067

== ENCOUNTER 2023-04-14 07:55 | Inpatient (IN) | payer OTHER, MEDICAID, SELFPAY ==
[2023-04-14] VITALS (23 sets, daily range): BP systolic 122–152; BP diastolic 56–100; PULSE 82–90; RESP 14–28; TEMP 36.5–36.9; O2SAT 90–95; BMI 17.9
--- NOTE | ~2023-04-14 | CT_ITS ---
EXAMINATION: CT abdomen pelvis w con DATE: 04/14/2023 11:12 INDICATION: Abdominal pain. Nausea. Elevated lipase. TECHNIQUE: Computed tomography (CT) of the abdomen and pelvis was performed with 100 mL Omnipaque 350 intravenous contrast. Automated exposure control and iterative reconstruction technique were employe d. The dose-length product was 180.08 mGy-cm. COMPARISON: CT abdomen and pelvis 10/20/2022 FINDINGS: The visualized portions of the lung bases demonstrate widespread centrilobular nodules and tree-in-bud opacities. There is mucous plugging in the lower lobes and right middle lobe and lingula. There are airspace opacities in the lower lobes and right middle lobe with volume loss. There is a s mall right pleural effusion. The heart size is normal. No pericardial effusion. There is a 3.1 cm cys t in the liver. The spleen, pancreas, and adrenal glands are normal. There are cysts in the kidneys m easuring up to 5 mm on the left. There is diverticulosis of the colon without evidence of diverticuli tis. There is a large volume of stool in the colon. The appendix is not visualized. There are no path ologically enlarged lymph nodes. There is no free intraperitoneal fluid. There is lumbar levoscoliosi s and severe spondylosis. IMPRESSION: 1. Bilateral mucous plugging and pneumonia. 2. Small right pleural effusion. 3. Normal pancreas. 4. Large volume of stool in the colon. Reviewed, dictated and finalized at location E. RIGGER
--- NOTE | ~2023-04-14 | XR_ITS ---
XR chest 1V portable DATE: 04/14/2023 12:30 INDICATION: Cough. TECHNIQUE: Portable upright AP chest on 04/14/2023 1225 hours COMPARISON: 10/20/2022 portable AP chest FINDINGS: Bilateral hyperinflation. There are prominent bibasilar infiltrates and/or atelectasis. Consider bibasilar pneumonia, aspiratio n pneumonitis. Normal heart size. Aortic calcification and mild unfolding. Bilateral apical capping. Small left pleural effusion is suggested. Diffuse osteopenia. IMPRESSION: Prominent bibasilar atelectasis//or infiltrate; consider bibasilar pneumonia, aspiration pneumonitis Bilateral hyperinflation suggesting COPD Aortic atherosclerosis Osteopenia Reviewed, dictated and finalized at location B. WARE PROJECT LEAD
--- NOTE | ~2023-04-14 | XR_ITS ---
XR chest 2V 04/17/2023 08:36 Indication: Pneumonia. Procedure: PA and lateral views of the chest Comparison: Comparison to multiple prior studies sequentially, with oldest reviewed study dated 10/2022. Findings: Heart size normal. Bibasilar airspace disease. Small pleural effusions. No pneumothorax. Th ere is apical pleural thickening. There is advanced degenerative change of the spine with dextroscoli osis. Impression: 1: Bibasilar airspace disease which may represent atelectasis or pneumonia. 2: Small pleural effusions. Reviewed, dictated and finalized at location B. STOS CEMENT SHEET SUPERVISOR Impression: 1: Bibasilar airspace disease which may represent atelectasis or pneumonia. 2: Small pleural effusions.
--- NOTE | 2023-04-14 09:05 | ECG_ITS ---
Measurements Intervals [place] Rate: 82 P: 57 SC: 148 QRS: 53 QRSD: 81 T: 68 QT: 363 QTc: 425 Interpretive Statements SINUS RHYTHM BASELINE ARTIFACT- I, II, V6 NORMAL ECG COMPARED TO ECG 05/11/2022 11:10:51 NO SIGNIFICANT CHANGES Electronically Signed On 04-14-2023 10:04:21 SPECIAL EFFECTS DESIGNER by Benito Perera D.O.
[2023-04-14] MEDS: ONDANSETRON INJ 4 MG/2 ML VIAL IV PUSH (09:21)
--- NOTE | 2023-04-14 09:30 | ED.GENADULT ---
HPI - General Adult General Chief complaint: Nausea/Vomiting/Diarrhea Stated complaint: nausea Time Seen by Provider: 04/14/23 09:03 History of Present Illness HPI narrative: Patient is a 77-year-old female who presents to the emergency department this morning complaining of persistent nausea. Patient states that her PCP prescribed her Zofran but despite taking it she has still been nauseous. Patient recently finished a course of Augmentin for a throat infection and is now on doxycycline which she states that her doctor put her on. She states that both of these antibiotics are not new to her and she has had them both in the past without any adverse effects. Patient states that within the past 2 weeks she has had no appetite and secondary to this has been feeling very weak. Patient denies any additional symptoms including chest pain, shortness of breath, abdominal pain, dysuria, hematuria, constipation, diarrhea, melena, hematochezia, fevers or chills. Patient also denies any headaches, dizziness, lightheadedness, blurry visions, focal weakness, numbness and or tingling. There are no other modifying, alleviating, or precipitating factors at this time. Related Data Home Medications Medication Instructions Recorded Confirmed escitalopram oxalate 20 mg tablet 20 mg PO DAILY 11/14/19 03/31/23 (Lexapro) acetaminophen 500 mg tablet 500 mg PO Q6H PRN Pain 08/04/20 03/31/23 ascorbate calcium (vitamin C) 500 500 mg PO 3XW 08/04/20 03/31/23 mg tablet cyclosporine 0.05 % eye drops in a 1 drp EACH EYE Q12H 08/04/20 03/31/23 dropperette (Restasis) vit C 250 mg-vit E 200 unit-zinc 1 tablet PO Q12H 08/04/20 03/31/23 12.5 mg-copy messenger 1 mg-lut-zeax chew tablet (ICaps AREDS2 (copper citrate)) cholecalciferol (vitamin D3) 10 2,000 unit PO 4XW 03/08/21 03/31/23 mcg (400 unit) capsule cetirizine 10 mg tablet (Zyrtec) 10 mg PO HS 05/09/22 03/31/23 tiotropium 2.5 mcg-olodaterol 2.5 2 inh inhalation DAILY 06/20/22 03/31/23 mcg/actuation mist for inhalation (Stiolto Respimat) albuterol sulfate 90 mcg/actuation 1 puff inhalation Q4H PRN 07/12/22 03/31/23 aerosol inhaler Shortness Of Breath Or Wheezing Tylenol PM Extra Strength 220 mg PO HS PRN Pain (Scale Score 10/21/22 03/31/23 1-3) sotalol 80 mg tablet 80 mg PO Q12H 10/27/22 03/31/23 amoxicillin 500 mg capsule 500 mg PO Q12H 02/22/23 03/31/23 cefdinir 300 mg capsule 300 mg PO BID 02/22/23 03/31/23 doxycycline hyclate 100 mg capsule 100 mg PO DAILY 02/22/23 03/31/23 ferrous sulfate 325 mg (65 mg 325 mg PO .every other day 03/31/23 03/31/23 iron) tablet olanzapine 2.5 mg tablet 2.5 mg PO QHS 03/31/23 03/31/23 Allergies Allergy/AdvReac Type Severity Reaction Status Date / Time levofloxacin Allergy Mild Muscle Verified 04/14/23 08:06 Spasms ciprofloxacin Allergy Unknown Itching Verified 04/14/23 08:06 clarithromycin Allergy Unknown Itching Verified 04/14/23 08:06 codeine Allergy Unknown Hives Verified 04/14/23 08:06 celecoxib [From Celebrex] AdvReac Severe Diarrhea Verified 04/14/23 08:06 Review of Systems Review of Systems: All systems are reviewed and are negative unless stated otherwise in the HPI. [facility] Past Medical History Medical History Anxiety disorder, unspecified Arthritis Bronchiectasis Chronic low back pain COPD (chronic obstructive pulmonary disease) Cyst of left kidney Depression Eczema Fracture of distal end of left radius 07/2020 Headache History of fractured rib Ileus (~09/2022) Iron deficiency Liver cyst Lumbar spondylosis Macular degeneration, age related (~2015) Migraines Multiple nodules of lung Osteoarthritis Osteoporosis PAT (paroxysmal atrial tachycardia) Stress incontinence in female Tachycardia Vitamin D deficiency, unspecified Surgical History Surgical History H/O cataract extraction H/O cerebral aneurysm repa
[2023-04-14 09:45] LABS: Basophils Absolute Auto 0.1 K/mm3 (0.0-0.1); Basophils Percent Auto 1.4 % (0.2-1.2); Eosinophils Absolute Auto 0.2 K/mm3 (0-0.3); Hematocrit 39.5 % (37.0-47.0); Hemoglobin 12.2 g/dL (12.0-15.0); Immature Granulocyte Absolute 0.04 K/mm3 (0.00-0.031); Immature Granulocyte Percent A 0.4 % (0-0.5); Lymphocytes Absolute Auto 1.82 K/mm3 (0.9-3.2); Lymphocytes Percent Auto 18.7 % (18.3-44.2); Mean Corpuscular HGB Conc 30.9 g/dl (32-36); Mean Corpuscular Hemoglobin 29.3 pg (26-34); Mean Corpuscular Volume 94.7 fl (80-100); Mean Platelet Volume 9.5 fl (7.4-10.4); Monocytes Percent Auto 10.2 % (2.6-8.5); Neutrophils Absolute Auto 6.6 K/mm3 (1.3-6.7); Neutrophils Percent Auto 67.3 % (45.5-73.1); Platelet Count Result 464 k/mm3 (150-375); Red Blood Count 4.17 M/mm3 (4.2-5.4); Red Cell Distribution Width 13.8 % (11.5-14.5); White Blood Count 9.7 K/mm3 (4.5-10.0)
[2023-04-14 09:56] LABS: Alanine Aminotransferase 13 U/L (6-35); Albumin Level 3.8 g/dL (3.5-5.1); Alkaline Phosphatase 91 U/L (38-126); Anion Gap 8 mmol/L (8-16); Aspartate Amino Transferase 26 U/L (14-36); Bilirubin,Total 0.3 mg/dL (0.2-1.3); Blood Urea Nitrogen 22 mg/dL (7-17); Calcium 9.3 mg/dL (8.4-10.2); Carbon Dioxide 31 mmol/L (22-30); Chloride 98 mmol/L (98-107); Estimated CRCL calculation 43 ml/min; Estimated Glomerular Filt Rate > 60; Glucose 111 mg/dL (65-110); Lipase 397 U/L (23-300); Potassium 4.4 mmol/L (3.4-5.0); Sodium 137 mmol/L (137-145)
[2023-04-14 10:21] LABS: Influenza A QL RT-PCR Negative (Negative); Influenza B QL RT-PCR Negative (Negative); SARS-CoV-2 RNA PCR Negative (Negative)
[2023-04-14 10:56] LABS: Appearance Urine Clear (Clear); Bilirubin Urine Negative (Negative); Blood Urine Negative (Negative); Color Urine Yellow (Yellow); Glucose Urine UA Negative (Negative); Ketones Urine Negative (Negative); Leukocyte Esterase Ur Negative LEU/UL (Negative); Nitrate Urine Negative (Negative); Protein Urine Negative (Negative); Specific Grav Ur 1.012 (1.001-1.035); Urobilinogen Urine 0.2 mg/dL (<2.0)
[2023-04-14 11:06] LABS: Add Urine Microscopic? NO
[2023-04-14] MEDS: SODIUM CHLORIDE 0.9% IV 1,000 ML 100 ML IV CONT (11:17)
--- NOTE | 2023-04-14 14:02 | PM.IMHP ---
H&P: HPI History of Present Illness Date/Time: 04/14/23 14:02 Chief Complaint: Fatigue, Cough, Decreased Appetite Narrative: 77 y/o F presents here with cry cough, fatigue, and decreased appetite with PMH of bronchiectasis, COPD, depression/anxiety, eczema, VALDEZ, iron deficiency, osteoarthritis, osteoporosis, pAtrial Tachycardia, stress incontinence and vitamin D deficiency. Patient has PMH of bronchiectasis and COPD, sees pulmonology at [facility]. Per patient, she is prescribed doxycycline, amoxicillin, and cefdinir at the beginning of each month as a preventative. Recently completed a 10 day course of Augmentin and was not feeling improved. Started doxycycline and took approx 3-4 doses. Reports that she has been experiencing a cough that was previously productive but has become more dry and has found it more difficult to bring up the sputum. Also developed severe fatigue and lack of appetite in the last 2 days. Due to the severity of the fatigue, patient called EMS and was transported to the ED from home. Upon arrival, patient's vital were stable with HR of 85, RR of 20, and O2 sat of 93% on RA. Workup revealed a normal WBC at 9.7, H/H WNL, no electrolyte derangements, and a lipase of 397. CT of chest showed bilateral mucous plugging and pneumonia, right-sided pleural effusion, no evidence of pancreatitis, and large volume of stool in the colon. Review of Systems Review of Systems: All systems reviewed & are unremarkable except as noted in HPI and below PMFSH Past Medical History Medical History Anxiety disorder, unspecified Arthritis Bronchiectasis Chronic low back pain COPD (chronic obstructive pulmonary disease) Cyst of left kidney Depression Eczema Fracture of distal end of left radius 07/2020 Headache History of fractured rib Ileus (~09/2022) Iron deficiency Liver cyst Lumbar spondylosis Macular degeneration, age related (~2015) Migraines Multiple nodules of lung Osteoarthritis Osteoporosis PAT (paroxysmal atrial tachycardia) Stress incontinence in female Tachycardia Vitamin D deficiency, unspecified Surgical History Surgical History H/O cataract extraction H/O cerebral aneurysm repair (~03/28/08) H/O right wrist surgery (~08/2003) History of ear surgery History of tonsillectomy S/P ORIF (open reduction internal fixation) fracture Right wrist with hardware removed later and left ankle Family History Family History Mother Acute myocardial infarction Cerebrovascular accident Hypertension Depression Anxiety Heart problem Grandparent Colon cancer Hypertension Social History Social History Social History: The patient is and she lives with her 2 cats. She has 1 daughter Deysi Flores who is a durable power traffic law attorney for healthcare. The patient is retired from [employer]. O positive blood. Code status full code Smoking packs per day: 1 Smoking cigarettes per day: 20.0 Years smoked: 5 Smoking pack-years: 5.00 Smoking status: Never smoker Tobacco type: cigarettes Second hand tobacco smoke exposure: Yes Smoking end date: 03/27/91 Alcohol intake: never Alcohol use details: rarely Substance use: never Substance use type: does not use Lack of Transportation: No Lack of Food: Never True Current Housing: I Have Housing Concerned About Future Housing: No Difficulty Paying Gas/Electric Bills: YES Difficulty Paying for Meds: No Currently Unemployed: No Education: High School Diploma/GED Difficulty w/ Childcare or Family Care: No Living arrangements: alone Occupation/Education: retired Gender identity (if verbalized by the patient): Female Sexual Orientation (if Verbalized by the Patient): Straight or Heteros
[2023-04-14] MEDS: SUMAtriptan SUCCINATE 25 MG TABLET 100 MG PO (16:42)
--- NOTE | 2023-04-14 16:45 | PC.NURSE ---
Spoke with Devang in pharmacy, ER pyxis out of Cefepime at this time.
[2023-04-14] MEDS: DOXYCYCLINE 100 MG/NS 100 ML 100 MG/100 ML BAG IVPB (17:48)
--- NOTE | 2023-04-14 18:14 | ADMGEN ---
This patient, Bebe Rosas, was admitted to 3 Med Surg Room 304-02. Patient/family oriented to hospital policies and general routines including ID bracelet, bed and alarms, visiting hours, pain management, procedures, bathroom and other care routines, personal items, smoking policy, room service/diet, and visiting hours. Information on how to activate the Rapid Response Team has been discussed. Patient/Family are encouraged to report perceived risks to care and to ask questions if they do not understand what they are told or what they should do.
--- NOTE | 2023-04-14 19:02 | PM.IMHP ---
H&P: HPI History of Present Illness Date/Time: 04/14/23 19:02 Chief Complaint: Cough, Fatigue, Decreased Appetite Narrative: 77 y/o F presents here with cry cough, fatigue, and decreased appetite with PMH of bronchiectasis, COPD, depression/anxiety, eczema, VALDEZ, iron deficiency, osteoarthritis, osteoporosis, pAtrial Tachycardia, stress incontinence and vitamin D deficiency. Patient has PMH of bronchiectasis and COPD, sees pulmonology at [facility]. Per patient, she is prescribed doxycycline, amoxicillin, and cefdinir at the beginning of each month as a preventative. Recently completed a 10 day course of Augmentin and was not feeling improved. Started doxycycline and took approx 3-4 doses. 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 Also developed severe fatigue and lack of appetite in the last 2 days. Due to the severity of the fatigue, patient called EMS and was transported to the ED from home. Upon arrival, patient's vital were stable with HR of 85, RR of 20, and O2 sat of 93% on RA. Workup revealed a normal WBC at 9.7, H/H WNL, no electrolyte derangements, and a lipase of 397. CT of chest showed bilateral mucous plugging and pneumonia, right-sided pleural effusion, no evidence of pancreatitis, and large volume of stool in the colon. Review of Systems Review of Systems: All systems reviewed & are unremarkable except as noted in HPI and below PMFSH Past Medical History Medical History Anxiety disorder, unspecified Arthritis Bronchiectasis Chronic low back pain COPD (chronic obstructive pulmonary disease) Cyst of left kidney Depression Eczema Fracture of distal end of left radius 07/2020 Headache History of fractured rib Ileus (~09/2022) Iron deficiency Liver cyst Lumbar spondylosis Macular degeneration, age related (~2015) Migraines Multiple nodules of lung Osteoarthritis Osteoporosis PAT (paroxysmal atrial tachycardia) Stress incontinence in female Tachycardia Vitamin D deficiency, unspecified Surgical History Surgical History H/O cataract extraction H/O cerebral aneurysm repair (~03/28/08) H/O right wrist surgery (~08/2003) History of ear surgery History of tonsillectomy S/P ORIF (open reduction internal fixation) fracture Right wrist with hardware removed later and left ankle Family History Family History Mother Acute myocardial infarction Cerebrovascular accident Hypertension Depression Anxiety Heart problem Grandparent Colon cancer Hypertension Social History Social History Social History: The patient is and she lives with her 2 cats. She has 1 daughter Deysi Flores who is a durable power claim attorney for healthcare. The patient is retired from [employer]. O positive blood. Code status full code Smoking packs per day: 1 Smoking cigarettes per day: 20.0 Years smoked: 5 Smoking pack-years: 5.00 Smoking status: Former smoker Tobacco type: cigarettes Second hand tobacco smoke exposure: Yes Smoking end date: 03/27/91 Alcohol intake: former Alcohol use details: rarely Substance use: never Substance use type: does not use Do You Feel Safe in your Home?: Yes Lack of Transportation: No Lack of Food: Never True Current Housing: I Have Housing Concerned About Future Housing: No Difficulty Paying Gas/Electric Bills: No Difficulty Paying for Meds: No Currently Unemployed: No Education: Decline to Answer Difficulty w/ Childcare or Family Care: No Living arrangements: alone Occupation/Education: retired Gender identity (if verbalized by the patient): Female Sexual Orientation (if Verbalized by the Maria L
--- NOTE | 2023-04-14 19:12 | PM.IMHP ---
H&P: HPI History of Present Illness Date/Time: 04/14/23 19:12 Chief Complaint: cough, fatigue, lack of appetite PMFSH Past Medical History Medical History Anxiety disorder, unspecified Arthritis Bronchiectasis Chronic low back pain COPD (chronic obstructive pulmonary disease) Cyst of left kidney Depression Eczema Fracture of distal end of left radius 07/2020 Headache History of fractured rib Ileus (~09/2022) Iron deficiency Liver cyst Lumbar spondylosis Macular degeneration, age related (~2015) Migraines Multiple nodules of lung Osteoarthritis Osteoporosis PAT (paroxysmal atrial tachycardia) Stress incontinence in female Tachycardia Vitamin D deficiency, unspecified Surgical History Surgical History H/O cataract extraction H/O cerebral aneurysm repair (~03/28/08) H/O right wrist surgery (~08/2003) History of ear surgery History of tonsillectomy S/P ORIF (open reduction internal fixation) fracture Right wrist with hardware removed later and left ankle Family History Family History Mother Acute myocardial infarction Cerebrovascular accident Hypertension Depression Anxiety Heart problem Grandparent Colon cancer Hypertension Social History Social History Social History: The patient is and she lives with her 2 cats. She has 1 daughter Deysi Flores who is a durable power plateman for healthcare. The patient is retired from [employer]. O positive blood. Code status full code Smoking packs per day: 1 Smoking cigarettes per day: 20.0 Years smoked: 5 Smoking pack-years: 5.00 Smoking status: Former smoker Tobacco type: cigarettes Second hand tobacco smoke exposure: Yes Smoking end date: 03/27/91 Alcohol intake: former Alcohol use details: rarely Substance use: never Substance use type: does not use Do You Feel Safe in your Home?: Yes Lack of Transportation: No Lack of Food: Never True Current Housing: I Have Housing Concerned About Future Housing: No Difficulty Paying Gas/Electric Bills: No Difficulty Paying for Meds: No Currently Unemployed: No Education: Decline to Answer Difficulty w/ Childcare or Family Care: No Living arrangements: alone Occupation/Education: retired Gender identity (if verbalized by the patient): Female Sexual Orientation (if Verbalized by the Patient): Straight or Heterosexual Spiritual care concerns: No Agree to blood products: Yes Meds Home Medications and Allergies Home Medications Medication Instructions Recorded Confirmed Type escitalopram oxalate 20 mg tablet 20 mg PO DAILY 11/14/19 04/14/23 History (Lexapro) acetaminophen 500 mg tablet 500 mg PO Q6H PRN Pain 08/04/20 04/14/23 History ascorbate calcium (vitamin C) 500 500 mg PO 3XW 08/04/20 04/14/23 History mg tablet cyclosporine 0.05 % eye drops in a 1 drp EACH EYE Q12H 08/04/20 04/14/23 History dropperette (Restasis) vit C 250 mg-vit E 200 unit-zinc 1 tablet PO Q12H 08/04/20 04/14/23 History 12.5 mg-copper roller handler printing 1 mg-lut-zeax chew tablet (ICaps AREDS2 (copper citrate)) cholecalciferol (vitamin D3) 10 2,000 unit PO 4XW 03/08/21 04/14/23 History mcg (400 unit) capsule cetirizine 10 mg tablet (Zyrtec) 10 mg PO HS 05/09/22 04/14/23 History tiotropium 2.5 mcg-olodaterol 2.5 2 inh inhalation DAILY 06/20/22 04/14/23 History mcg/actuation mist for inhalation (Stiolto Respimat) albuterol sulfate 90 mcg/actuation 1 puff inhalation Q4H PRN 07/12/22 04/14/23 History aerosol inhaler Shortness Of Breath Or Wheezing alendronate 70 mg tablet (Fosamax) 70 mg PO WEEKLY #12 tabs 09/15/22 04/14/23 Rx Tylenol PM Extra Strength 220 mg PO HS PRN Pain (Scale Score 10/21/22 04/14/23 History 1-3)
--- NOTE | 2023-04-14 19:14 | PM.IMHP ---
H&P: HPI History of Present Illness Date/Time: 04/14/23 19:14 Chief Complaint: cough, fatigue PMFSH Past Medical History Medical History Anxiety disorder, unspecified Arthritis Bronchiectasis Chronic low back pain COPD (chronic obstructive pulmonary disease) Cyst of left kidney Depression Eczema Fracture of distal end of left radius 07/2020 Headache History of fractured rib Ileus (~09/2022) Iron deficiency Liver cyst Lumbar spondylosis Macular degeneration, age related (~2015) Migraines Multiple nodules of lung Osteoarthritis Osteoporosis PAT (paroxysmal atrial tachycardia) Stress incontinence in female Tachycardia Vitamin D deficiency, unspecified Surgical History Surgical History H/O cataract extraction H/O cerebral aneurysm repair (~03/28/08) H/O right wrist surgery (~08/2003) History of ear surgery History of tonsillectomy S/P ORIF (open reduction internal fixation) fracture Right wrist with hardware removed later and left ankle Family History Family History Mother Acute myocardial infarction Cerebrovascular accident Hypertension Depression Anxiety Heart problem Grandparent Colon cancer Hypertension Social History Social History Social History: The patient is and she lives with her 2 cats. She has 1 daughter Deysi Flores who is a durable power litigation attorney for healthcare. The patient is retired from [employer]. O positive blood. Code status full code Smoking packs per day: 1 Smoking cigarettes per day: 20.0 Years smoked: 5 Smoking pack-years: 5.00 Smoking status: Former smoker Tobacco type: cigarettes Second hand tobacco smoke exposure: Yes Smoking end date: 03/27/91 Alcohol intake: former Alcohol use details: rarely Substance use: never Substance use type: does not use Do You Feel Safe in your Home?: Yes Lack of Transportation: No Lack of Food: Never True Current Housing: I Have Housing Concerned About Future Housing: No Difficulty Paying Gas/Electric Bills: No Difficulty Paying for Meds: No Currently Unemployed: No Education: Decline to Answer Difficulty w/ Childcare or Family Care: No Living arrangements: alone Occupation/Education: retired Gender identity (if verbalized by the patient): Female Sexual Orientation (if Verbalized by the Patient): Straight or Heterosexual Spiritual care concerns: No Agree to blood products: Yes Meds Home Medications and Allergies Home Medications Medication Instructions Recorded Confirmed Type escitalopram oxalate 20 mg tablet 20 mg PO DAILY 11/14/19 04/14/23 History (Lexapro) acetaminophen 500 mg tablet 500 mg PO Q6H PRN Pain 08/04/20 04/14/23 History ascorbate calcium (vitamin C) 500 500 mg PO 3XW 08/04/20 04/14/23 History mg tablet cyclosporine 0.05 % eye drops in a 1 drp EACH EYE Q12H 08/04/20 04/14/23 History dropperette (Restasis) vit C 250 mg-vit E 200 unit-zinc 1 tablet PO Q12H 08/04/20 04/14/23 History 12.5 mg-telescope operator 1 mg-lut-zeax chew tablet (ICaps AREDS2 (copper citrate)) cholecalciferol (vitamin D3) 10 2,000 unit PO 4XW 03/08/21 04/14/23 History mcg (400 unit) capsule cetirizine 10 mg tablet (Zyrtec) 10 mg PO HS 05/09/22 04/14/23 History tiotropium 2.5 mcg-olodaterol 2.5 2 inh inhalation DAILY 06/20/22 04/14/23 History mcg/actuation mist for inhalation (Stiolto Respimat) albuterol sulfate 90 mcg/actuation 1 puff inhalation Q4H PRN 07/12/22 04/14/23 History aerosol inhaler Shortness Of Breath Or Wheezing alendronate 70 mg tablet (Fosamax) 70 mg PO WEEKLY #12 tabs 09/15/22 04/14/23 Rx Tylenol PM Extra Strength 220 mg PO HS PRN Pain (Scale Score 10/21/22 04/14/23 History 1-3) sotalol 80 mg t
--- NOTE | 2023-04-14 19:18 | PM.IMHP ---
H&P: HPI History of Present Illness Date/Time: 04/14/23 19:18 Chief Complaint: Fatigue, Cough PMFSH Past Medical History Medical History Anxiety disorder, unspecified Arthritis Bronchiectasis Chronic low back pain COPD (chronic obstructive pulmonary disease) Cyst of left kidney Depression Eczema Fracture of distal end of left radius 07/2020 Headache History of fractured rib Ileus (~09/2022) Iron deficiency Liver cyst Lumbar spondylosis Macular degeneration, age related (~2015) Migraines Multiple nodules of lung Osteoarthritis Osteoporosis PAT (paroxysmal atrial tachycardia) Stress incontinence in female Tachycardia Vitamin D deficiency, unspecified Surgical History Surgical History H/O cataract extraction H/O cerebral aneurysm repair (~03/28/08) H/O right wrist surgery (~08/2003) History of ear surgery History of tonsillectomy S/P ORIF (open reduction internal fixation) fracture Right wrist with hardware removed later and left ankle Family History Family History Mother Acute myocardial infarction Cerebrovascular accident Hypertension Depression Anxiety Heart problem Grandparent Colon cancer Hypertension Social History Social History Social History: The patient is and she lives with her 2 cats. She has 1 daughter Deysi Flores who is a durable power divorce attorney for healthcare. The patient is retired from [employer]. O positive blood. Code status full code Smoking packs per day: 1 Smoking cigarettes per day: 20.0 Years smoked: 5 Smoking pack-years: 5.00 Smoking status: Former smoker Tobacco type: cigarettes Second hand tobacco smoke exposure: Yes Smoking end date: 03/27/91 Alcohol intake: former Alcohol use details: rarely Substance use: never Substance use type: does not use Do You Feel Safe in your Home?: Yes Lack of Transportation: No Lack of Food: Never True Current Housing: I Have Housing Concerned About Future Housing: No Difficulty Paying Gas/Electric Bills: No Difficulty Paying for Meds: No Currently Unemployed: No Education: Decline to Answer Difficulty w/ Childcare or Family Care: No Living arrangements: alone Occupation/Education: retired Gender identity (if verbalized by the patient): Female Sexual Orientation (if Verbalized by the Patient): Straight or Heterosexual Spiritual care concerns: No Agree to blood products: Yes Meds Home Medications and Allergies Home Medications Medication Instructions Recorded Confirmed Type escitalopram oxalate 20 mg tablet 20 mg PO DAILY 11/14/19 04/14/23 History (Lexapro) acetaminophen 500 mg tablet 500 mg PO Q6H PRN Pain 08/04/20 04/14/23 History ascorbate calcium (vitamin C) 500 500 mg PO 3XW 08/04/20 04/14/23 History mg tablet cyclosporine 0.05 % eye drops in a 1 drp EACH EYE Q12H 08/04/20 04/14/23 History dropperette (Restasis) vit C 250 mg-vit E 200 unit-zinc 1 tablet PO Q12H 08/04/20 04/14/23 History 12.5 mg-certified endoscopy technician 1 mg-lut-zeax chew tablet (ICaps AREDS2 (copper citrate)) cholecalciferol (vitamin D3) 10 2,000 unit PO 4XW 03/08/21 04/14/23 History mcg (400 unit) capsule cetirizine 10 mg tablet (Zyrtec) 10 mg PO HS 05/09/22 04/14/23 History tiotropium 2.5 mcg-olodaterol 2.5 2 inh inhalation DAILY 06/20/22 04/14/23 History mcg/actuation mist for inhalation (Stiolto Respimat) albuterol sulfate 90 mcg/actuation 1 puff inhalation Q4H PRN 07/12/22 04/14/23 History aerosol inhaler Shortness Of Breath Or Wheezing alendronate 70 mg tablet (Fosamax) 70 mg PO WEEKLY #12 tabs 09/15/22 04/14/23 Rx Tylenol PM Extra Strength 220 mg PO HS PRN Pain (Scale Score 10/21/22 04/14/23 History 1-3) sotalol 80 mg t
--- NOTE | 2023-04-14 19:19 | PM.IMHP ---
H&P: HPI History of Present Illness Date/Time: 04/14/23 19:19 Chief Complaint: Cough, Fatigue Narrative: 77 y/o F presents here with cry cough, fatigue, and decreased appetite with PMH of bronchiectasis, COPD, depression/anxiety, eczema, VALDEZ, iron deficiency, osteoarthritis, osteoporosis, pAtrial Tachycardia, stress incontinence and vitamin D deficiency. Patient has PMH of bronchiectasis and COPD, sees pulmonology at [facility]. Per patient, she is prescribed doxycycline, amoxicillin, and cefdinir at the beginning of each month as a preventative. Recently completed a 10 day course of Augmentin and was not feeling improved. Started doxycycline and took approx 3-4 doses. Reports that she has been experiencing a cough that was previously productive but has become sock drier and has found it more difficult to bring up the sputum. Also developed severe fatigue and lack of appetite in the last 2 days. Due to the severity of the fatigue, patient called EMS and was transported to the ED from home. Upon arrival, patient's vital were stable with HR of 85, RR of 20, and O2 sat of 93% on RA. Workup revealed a normal WBC at 9.7, H/H WNL, no electrolyte derangements, and a lipase of 397. CT of chest showed bilateral mucous plugging and pneumonia, right-sided pleural effusion, no evidence of pancreatitis, and large volume of stool in the colon. Review of Systems Review of Systems: All systems reviewed & are unremarkable except as noted in HPI and below PMFSH Past Medical History Medical History Anxiety disorder, unspecified Arthritis Bronchiectasis Chronic low back pain COPD (chronic obstructive pulmonary disease) Cyst of left kidney Depression Eczema Fracture of distal end of left radius 07/2020 Headache History of fractured rib Ileus (~09/2022) Iron deficiency Liver cyst Lumbar spondylosis Macular degeneration, age related (~2015) Migraines Multiple nodules of lung Osteoarthritis Osteoporosis PAT (paroxysmal atrial tachycardia) Stress incontinence in female Tachycardia Vitamin D deficiency, unspecified Surgical History Surgical History H/O cataract extraction H/O cerebral aneurysm repair (~03/28/08) H/O right wrist surgery (~08/2003) History of ear surgery History of tonsillectomy S/P ORIF (open reduction internal fixation) fracture Right wrist with hardware removed later and left ankle Family History Family History Mother Acute myocardial infarction Cerebrovascular accident Hypertension Depression Anxiety Heart problem Grandparent Colon cancer Hypertension Social History Social History Social History: The patient is and she lives with her 2 cats. She has 1 daughter Deysi Flores who is a durable power commonwealth attorney for healthcare. The patient is retired from [employer]. O positive blood. Code status full code Smoking packs per day: 1 Smoking cigarettes per day: 20.0 Years smoked: 5 Smoking pack-years: 5.00 Smoking status: Former smoker Tobacco type: cigarettes Second hand tobacco smoke exposure: Yes Smoking end date: 03/27/91 Alcohol intake: former Alcohol use details: rarely Substance use: never Substance use type: does not use Do You Feel Safe in your Home?: Yes Lack of Transportation: No Lack of Food: Never True Current Housing: I Have Housing Concerned About Future Housing: No Difficulty Paying Gas/Electric Bills: No Difficulty Paying for Meds: No Currently Unemployed: No Education: Decline to Answer Difficulty w/ Childcare or Family Care: No Living arrangements: alone Occupation/Education: retired Gender identity (if verbalized by the patient): Female Sexual Orientation (if Verbalized by the Patient): Straight or
--- NOTE | 2023-04-14 19:35 | PM.IMHP ---
H&P: HPI History of Present Illness Date/Time: 04/14/23 19:35 Chief Complaint: cough Narrative: 77 y/o F presents here with cry cough, fatigue, and decreased appetite with PMH of bronchiectasis, COPD, depression/anxiety, eczema, VALDEZ, iron deficiency, osteoarthritis, osteoporosis, pAtrial Tachycardia, stress incontinence and vitamin D deficiency. Patient has PMH of bronchiectasis and COPD, sees pulmonology at [facility]. Per patient, she is prescribed doxycycline, amoxicillin, and cefdinir at the beginning of each month as a preventative. Recently completed a 10 day course of Augmentin and was not feeling improved. Started doxycycline and took approx 3-4 doses. Reports that she has been experiencing a cough that was previously productive but has become ore storage drier and has found it more difficult to bring up the sputum. Also developed severe fatigue and lack of appetite in the last 2 days. Due to the severity of the fatigue, patient called EMS and was transported to the ED from home. Upon arrival, patient's vital were stable with HR of 85, RR of 20, and O2 sat of 93% on RA. Workup revealed a normal WBC at 9.7, H/H WNL, no electrolyte derangements, and a lipase of 397. CT of chest showed bilateral mucous plugging and pneumonia, right-sided pleural effusion, no evidence of pancreatitis, and large volume of stool in the colon. Review of Systems Review of Systems: All systems reviewed & are unremarkable except as noted in HPI and below PMFSH Past Medical History Medical History Anxiety disorder, unspecified Arthritis Bronchiectasis Chronic low back pain COPD (chronic obstructive pulmonary disease) Cyst of left kidney Depression Eczema Fracture of distal end of left radius 07/2020 Headache History of fractured rib Ileus (~09/2022) Iron deficiency Liver cyst Lumbar spondylosis Macular degeneration, age related (~2015) Migraines Multiple nodules of lung Osteoarthritis Osteoporosis PAT (paroxysmal atrial tachycardia) Stress incontinence in female Tachycardia Vitamin D deficiency, unspecified Surgical History Surgical History H/O cataract extraction H/O cerebral aneurysm repair (~03/28/08) H/O right wrist surgery (~08/2003) History of ear surgery History of tonsillectomy S/P ORIF (open reduction internal fixation) fracture Right wrist with hardware removed later and left ankle Family History Family History Mother Acute myocardial infarction Cerebrovascular accident Hypertension Depression Anxiety Heart problem Grandparent Colon cancer Hypertension Social History Social History Social History: The patient is and she lives with her 2 cats. She has 1 daughter Deysi Flores who is a durable power transactional attorney for healthcare. The patient is retired from [employer]. O positive blood. Code status full code Smoking packs per day: 1 Smoking cigarettes per day: 20.0 Years smoked: 5 Smoking pack-years: 5.00 Smoking status: Former smoker Tobacco type: cigarettes Second hand tobacco smoke exposure: Yes Smoking end date: 03/27/91 Alcohol intake: former Alcohol use details: rarely Substance use: never Substance use type: does not use Do You Feel Safe in your Home?: Yes Lack of Transportation: No Lack of Food: Never True Current Housing: I Have Housing Concerned About Future Housing: No Difficulty Paying Gas/Electric Bills: No Difficulty Paying for Meds: No Currently Unemployed: No Education: Decline to Answer Difficulty w/ Childcare or Family Care: No Living arrangements: alone Occupation/Education: retired Gender identity (if verbalized by the patient): Female Sexual Orientation (if Verbalized by the Patient): Straight or Heterosex
[2023-04-14] MEDS: OPTI-GEN TAB 1 TABLET PO (21:19)
[2023-04-14] MEDS: LORATADINE 10 MG TABLET PO (21:19)
[2023-04-14] MEDS: guaiFENesin 12 HR 600 MG TABCR PO (21:19)
[2023-04-14] MEDS: OLANZapine 2.5 MG TABLET PO (21:19)
[2023-04-14] MEDS: ACETAMINOPHEN 500 MG TABLET PO (21:19)
[2023-04-14] MEDS: SOTALOL HCL 80 MG TABLET PO (21:19)
[2023-04-14] MEDS: cycloSPORINE 0.4 ML OPHTH SOLUTION 1 DROP EACH EYE (21:19)
--- NOTE | 2023-04-14 22:01 | PCRCNOTE ---
Pt refused her vest therapy this evening, stating she would like to begin the therapy in the morning, 0800 on 04/15/23. Vest is in pt room.
[2023-04-15] VITALS (7 sets, daily range): BP systolic 132–148; BP diastolic 58–69; PULSE 79–102; RESP 16–17; TEMP 35.8–36.7; O2SAT 91–95
[2023-04-15] MEDS: CEFEPIME 2 GM/NS 50 ML 2 GM/50 ML BAG IVPB ×2 (04:46→16:45)
[2023-04-15] MEDS: DOXYCYCLINE 100 MG/NS 100 ML 100 MG/100 ML BAG IVPB ×2 (05:34→18:35)
[2023-04-15 07:42] LABS: Basophils Absolute Auto 0.1 K/mm3 (0.0-0.1); Basophils Percent Auto 1.5 % (0.2-1.2); Eosinophils Absolute Auto 0.3 K/mm3 (0-0.3); Eosinophils Percent Auto 4.2 % (0-4.4); Hematocrit 36.7 % (37.0-47.0); Hemoglobin 11.2 g/dL (12.0-15.0); Immature Granulocyte Absolute 0.04 K/mm3 (0.00-0.031); Immature Granulocyte Percent A 0.6 % (0-0.5); Lymphocytes Absolute Auto 1.56 K/mm3 (0.9-3.2); Lymphocytes Percent Auto 25.2 % (18.3-44.2); Mean Corpuscular HGB Conc 30.5 g/dl (32-36); Mean Corpuscular Hemoglobin 28.9 pg (26-34); Mean Corpuscular Volume 94.6 fl (80-100); Mean Platelet Volume 8.6 fl (7.4-10.4); Monocytes Absolute Auto 0.6 K/mm3 (0.1-0.6); Monocytes Percent Auto 10.2 % (2.6-8.5); Neutrophils Absolute Auto 3.6 K/mm3 (1.3-6.7); Neutrophils Percent Auto 58.3 % (45.5-73.1); Platelet Count Result 363 k/mm3 (150-375); Red Blood Count 3.88 M/mm3 (4.2-5.4); Red Cell Distribution Width 13.8 % (11.5-14.5); White Blood Count 6.2 K/mm3 (4.5-10.0)
[2023-04-15 08:00] LABS: Anion Gap 7 mmol/L (8-16); Blood Urea Nitrogen 15 mg/dL (7-17); Calcium 8.7 mg/dL (8.4-10.2); Carbon Dioxide 28 mmol/L (22-30); Chloride 100 mmol/L (98-107); Estimated CRCL calculation 50 ml/min; Estimated Glomerular Filt Rate > 60; Glucose 96 mg/dL (65-110); Potassium 4.3 mmol/L (3.4-5.0); Sodium 135 mmol/L (137-145)
[2023-04-15] MEDS: SOTALOL HCL 80 MG TABLET PO ×2 (08:20→21:25)
[2023-04-15] MEDS: CHOLECALCIFEROL 1,000 UNITS TABLET 2000 UNITS PO (08:20)
[2023-04-15] MEDS: ACETAMINOPHEN 500 MG TABLET PO ×2 (08:24→21:26)
[2023-04-15] MEDS: cycloSPORINE 0.4 ML OPHTH SOLUTION 1 DROP EACH EYE ×2 (08:24→21:26)
[2023-04-15] MEDS: ENOXAPARIN 40 MG/0.4 ML SYRINGE SUB-Q (08:24)
[2023-04-15] MEDS: SUMAtriptan SUCCINATE 25 MG TABLET 100 MG PO (08:24)
[2023-04-15] MEDS: OPTI-GEN TAB 1 TABLET PO ×2 (08:25→21:25)
[2023-04-15] MEDS: ESCITALOPRAM OXALATE 10 MG TABLET 20 MG PO (08:25)
[2023-04-15] MEDS: guaiFENesin 12 HR 600 MG TABCR PO ×2 (08:25→21:25)
[2023-04-15] MEDS: FERROUS SULFATE 325 MG TABLET DR PO (08:25)
[2023-04-15] MEDS: UMECLIDINIUM/VILANTEROL 62.5-25 MCG ELLIPTA 1 PUFF INHALATION (10:03)
[2023-04-15] MEDS: ASPIRIN 81 MG ENTERIC TABLET PO (11:54)
--- NOTE | 2023-04-15 13:19 | ECG_ITS ---
Measurements Intervals [place] Rate: 87 P: 41 KS: 145 QRS: 39 QRSD: 98 T: 58 QT: 360 QTc: 434 Interpretive Statements SINUS RHYTHM BORDERLINE ST ABNORMALITY- ANTERIOR LEADS BASELINE ARTIFACT- III, V6 BORDERLINE ECG COMPARED TO ECG 04/14/2023 09:22:57 NO SIGNIFICANT CHANGES Electronically Signed On 04-15-2023 15:19:55 ADMISSION DISCHARGE RN by Benito Perera D.O.
[2023-04-15 14:09] LABS: Troponin I < 0.012 ng/mL (0.000-0.034)
--- NOTE | 2023-04-15 15:13 | PM.IMPN ---
Progress Note: A&P Assessment and Plan (1) Pneumonia: Qualifiers: Laterality: bilateral Lung location: lower lobe of lung Pneumonia type: due to unspecified organism Qualified Code(s): J18.9 - Pneumonia, unspecified organism Code(s): J18.9 - Pneumonia, unspecified organism Status: Acute Assessment and Plan: complicated by bronchiectasis and COPD, sees Pulm at [facility]. does not meet SIRS criteria. no elevation in WBC. no supplemental O2 requirement. started on ceftriaxone. has history of pseudomonas, will continue with cefepime and doxycycline. sputum culture, and MRSA PCR pending trend WBC mucus plugging seen on CT, Mucinex and CPT (vest, BID). consider consultation to pulmonology if patient does not improve (2) COPD (chronic obstructive pulmonary disease): Qualifiers: COPD type: unspecified COPD Qualified Code(s): J44.9 - Chronic obstructive pulmonary disease, unspecified Code(s): J44.9 - Chronic obstructive pulmonary disease, unspecified Status: Chronic Assessment and Plan: continue home inhaler:Stiolto. continue home Albuterol as neb prn and add Atrovent neb prn. monitor O2 sat. (3) Migraines: Qualifiers: Migraine type: without aura Status migrainosus presence: without status migrainosus Intractability: intractable Qualified Code(s): G43.019 - Migraine without aura, intractable, without status migrainosus Code(s): G43.909 - Migraine, unspecified, not intractable, without status migrainosus Status: Chronic Assessment and Plan: continue home sumatriptan PRN (4) PAT (paroxysmal atrial tachycardia): Code(s): I47.1 - Supraventricular tachycardia Status: Chronic Assessment and Plan: EKG, initial: sinus rhythm, normal EKG, and when compared to prior there were no significant changes. continue home sotalol TSH normal trop x1 normal Subjective Date/time seen: 04/15/23 15:13 Interval history: Patient feeling somewhat better this morning. She is not requiring oxygen at this time. Denies SOB or chest pain. Would like to get her appetite back. She is on prophylactic AB therapy from her loader magazine grinder which we are continuing with addition of Rocephin pending . She is not in any distress. Will order ensure TID to encourage caloric intake. Continue to monitor response to AB. Review of Systems Review of Systems: All systems reviewed & are unremarkable except as noted in HPI and below Exam Narrative: General: Underweight, otherwise well appearing female in no acute distress. HEENT: PERRLA, EOMI Neck: supple. Cardiovascular: RRR. Respiratory: no respiratory distress. Mildly diminished at lower lobes, mild expiratory wheezes at upper lobes. Abdomen: Soft, nontender, nondistended, BS present. Musculoskeletal: No joint swelling or deformity. Skin: No wounds, rashes. Normal color. Psychiatric: Normal behavior and judgment. Pleasant and cooperative. Neurological: A&O x3, No focal deficits, speech is normal. Objective Data Vital Signs Vital Signs: Vital Signs - 24 hr 04/14/23 15:31 04/14/23 16:01 04/14/23 16:33 Temperature Pulse Rate 87 86 90 Respiratory Rate 23 H 27 H 25 H Blood Pressure 141/74 H 143/69 H 149/85 H Pulse Oximetry 95 94 93 Oxygen Delivery 04/14/23 20:00 04/14/23 21:36 04/15/23 01:05 Temperature 97.7 F Pulse Rate 85 79 Respiratory Rate 20 Blood Pressure 139/56 L Pulse Oximetry 90 92 Oxygen Delivery Room Air 04/15/23 05:35 04/15/23 09:52 04/15/23 08:20 Temperature 96.5 F L Pulse Rate 82 80 Respiratory Rate 16 Blood Pressure 135/58 L Pulse Oximetry 91 94 Oxygen Delivery Room Air 04/15/23 14:00 Temperature 98.1 F Pulse Rate 88 Respiratory Rate 16 Blood Pressure 148/69 H Pulse Oximetry 95 Oxygen Delivery Intake/Output Intake/Output: Intake & Output 04/12/23 04/13/23 04/14/23 04/15/23 23:59 23:59 23:5
[2023-04-15 16:55] LABS: Glucose Point of Care 93 mg/dl (65-105)
[2023-04-15 18:45] LABS: MRSA (PCR) NOT DETECTED (NOT DETECTE)
[2023-04-15] MEDS: diphenhydrAMINE HCl CAP 25 MG CAPSULE PO (21:25)
[2023-04-15] MEDS: LORATADINE 10 MG TABLET PO (21:25)
[2023-04-15] MEDS: OLANZapine 2.5 MG TABLET PO (21:25)
[2023-04-16] MEDS: DOXYCYCLINE 100 MG/NS 100 ML 100 MG/100 ML BAG IVPB ×2 (04:52→16:12)
[2023-04-16] MEDS: ALENDRONATE SODIUM 70 MG TABLET PO (04:52)
[2023-04-16] MEDS: CEFEPIME 2 GM/NS 50 ML 2 GM/50 ML BAG IVPB ×2 (04:52→15:38)
[2023-04-16 04:55] VITALS: BP 142/59; PULSE 91; RESP 20; TEMP 36.6; O2SAT 94
[2023-04-16 06:08] LABS: Basophils Absolute Auto 0.1 K/mm3 (0.0-0.1); Basophils Percent Auto 0.6 % (0.2-1.2); Eosinophils Absolute Auto 0.3 K/mm3 (0-0.3); Hematocrit 34.2 % (37.0-47.0); Hemoglobin 10.8 g/dL (12.0-15.0); Immature Granulocyte Absolute 0.05 K/mm3 (0.00-0.031); Immature Granulocyte Percent A 0.5 % (0-0.5); Lymphocytes Absolute Auto 0.75 K/mm3 (0.9-3.2); Mean Corpuscular HGB Conc 31.6 g/dl (32-36); Mean Corpuscular Hemoglobin 29.4 pg (26-34); Mean Corpuscular Volume 93.2 fl (80-100); Mean Platelet Volume 9.2 fl (7.4-10.4); Monocytes Absolute Auto 0.5 K/mm3 (0.1-0.6); Monocytes Percent Auto 5.6 % (2.6-8.5); Neutrophils Absolute Auto 7.7 K/mm3 (1.3-6.7); Neutrophils Percent Auto 82.3 % (45.5-73.1); Platelet Count Result 374 k/mm3 (150-375); Red Blood Count 3.67 M/mm3 (4.2-5.4); Red Cell Distribution Width 13.9 % (11.5-14.5); White Blood Count 9.4 K/mm3 (4.5-10.0)
[2023-04-16 06:26] LABS: Anion Gap 11 mmol/L (8-16); Blood Urea Nitrogen 26 mg/dL (7-17); Calcium 8.7 mg/dL (8.4-10.2); Carbon Dioxide 25 mmol/L (22-30); Chloride 98 mmol/L (98-107); Estimated CRCL calculation 43 ml/min; Estimated Glomerular Filt Rate > 60; Glucose 97 mg/dL (65-110); Potassium 3.5 mmol/L (3.4-5.0); Sodium 134 mmol/L (137-145)
[2023-04-16 08:18] VITALS: PULSE 70
[2023-04-16] MEDS: guaiFENesin 12 HR 600 MG TABCR PO ×2 (08:18→21:15)
[2023-04-16] MEDS: ENOXAPARIN 40 MG/0.4 ML SYRINGE SUB-Q (08:18)
[2023-04-16] MEDS: cycloSPORINE 0.4 ML OPHTH SOLUTION 1 DROP EACH EYE ×2 (08:18→21:15)
[2023-04-16] MEDS: SOTALOL HCL 80 MG TABLET PO ×2 (08:18→21:15)
[2023-04-16] MEDS: OPTI-GEN TAB 1 TABLET PO ×2 (08:18→21:15)
[2023-04-16] MEDS: ASPIRIN 81 MG ENTERIC TABLET PO (08:18)
[2023-04-16] MEDS: ESCITALOPRAM OXALATE 10 MG TABLET 20 MG PO (08:19)
[2023-04-16] MEDS: CHOLECALCIFEROL 1,000 UNITS TABLET 2000 UNITS PO (08:22)
[2023-04-16] MEDS: SUMAtriptan SUCCINATE 25 MG TABLET 100 MG PO (08:23)
[2023-04-16 08:26] VITALS: PULSE 99; RESP 20
[2023-04-16] MEDS: UMECLIDINIUM/VILANTEROL 62.5-25 MCG ELLIPTA 1 PUFF INHALATION (08:26)
--- NOTE | 2023-04-16 09:50 | PC.NURSE ---
Addendum entered by Jessie Bruce RN 04/16/23 16:23: 1600 Spoke with MARY and she tried to find promethazine prescription in the Family Practice resource. She was unable to locate it. She asks that the family brings the prescription in so we can verify dose and frequency in order to start patient on it while in the hospital. Addendum entered by Jessie Bruce RN 04/16/23 11:17: 1115 daughter called. She states the patient told her she is going home today. Patient is still on three IV abx. Daughter is very concerned about patients decreased appetite/nausea at the sight/smell of food. Daughter would like SNF or for patient to come home with her until patient is able to tolerate more food. Daughter also wants Promethazine started for her mother. She states patient has a brand new prescription for it and has not begun to take it yet. Daughter wants her to begin here. Original Note: Patient in bed resting at morning rounds/medication pass. She was given her phone as she wanted to order breakfast. Patient very cooperative and compliant. Took her medication with water. She would like to clean herself up after breakfast and requested a new gown and hygiene supplies.
[2023-04-16 14:00] VITALS: BP 92/42; PULSE 91; RESP 18; TEMP 36.2; O2SAT 95
[2023-04-16] MEDS: ONDANSETRON INJ 4 MG/2 ML VIAL IV PUSH (14:01)
--- NOTE | 2023-04-16 15:05 | PM.IMPN ---
Progress Note: A&P Assessment and Plan (1) Pneumonia: Qualifiers: Laterality: bilateral Lung location: lower lobe of lung Pneumonia type: due to unspecified organism Qualified Code(s): J18.9 - Pneumonia, unspecified organism Code(s): J18.9 - Pneumonia, unspecified organism Status: Acute Assessment and Plan: complicated by bronchiectasis and COPD, sees Pulm at [facility]. no elevation in WBC. no supplemental O2 requirement. continue ceftriaxone. has history of pseudomonas, will continue with cefepime and doxycycline. sputum culture pending MRSA PCR negative mucus plugging seen on CT, Mucinex and CPT (vest, BID). consider consultation to pulmonology if patient does not improve (2) COPD (chronic obstructive pulmonary disease): Qualifiers: COPD type: unspecified COPD Qualified Code(s): J44.9 - Chronic obstructive pulmonary disease, unspecified Code(s): J44.9 - Chronic obstructive pulmonary disease, unspecified Status: Chronic Assessment and Plan: continue home inhaler: Stiolto. continue home Albuterol as neb prn and add Atrovent neb prn. monitor O2 sat. (3) Migraines: Qualifiers: Migraine type: without aura Status migrainosus presence: without status migrainosus Intractability: intractable Qualified Code(s): G43.019 - Migraine without aura, intractable, without status migrainosus Code(s): G43.909 - Migraine, unspecified, not intractable, without status migrainosus Status: Chronic Assessment and Plan: continue home sumatriptan PRN (4) PAT (paroxysmal atrial tachycardia): Code(s): I47.1 - Supraventricular tachycardia Status: Chronic Assessment and Plan: EKG, initial: sinus rhythm, normal EKG, and when compared to prior there were no significant changes. continue home sotalol TSH normal trop x1 normal Subjective Date/time seen: 04/16/23 15:05 Interval history: Patient feeling somewhat better this morning. She is not requiring oxygen. Denies SOB or chest pain. Reports feeling very full after eating her small breakfast. She is on prophylactic AB therapy from her engineer geophysical laboratory which we are continuing with addition of Rocephin, pending . She is not in any distress. Continue to monitor response to AB and plan for d/c tomorrow as long as she remains stable. Review of Systems Review of Systems: All systems reviewed & are unremarkable except as noted in HPI and below Exam Narrative: General: Underweight, otherwise well appearing female in no acute distress. HEENT: PERRLA, EOMI Neck: supple. Cardiovascular: RRR. Respiratory: no respiratory distress. Mildly diminished at lower lobes, mild expiratory wheezes at upper lobes. Abdomen: Soft, nontender, nondistended, BS present. Musculoskeletal: No joint swelling or deformity. Skin: No wounds, rashes. Normal color. Psychiatric: Normal behavior and judgment. Pleasant and cooperative. Neurological: A&O x3, No focal deficits, speech is normal. Objective Data Vital Signs Vital Signs: Vital Signs - 24 hr 04/15/23 21:18 04/15/23 20:00 04/16/23 04:55 Temperature 97.5 F L 98 F Pulse Rate 102 H 98 91 Respiratory Rate 16 17 20 Blood Pressure 132/59 L 142/59 H Pulse Oximetry 93 94 94 Oxygen Delivery Room Air 04/16/23 08:18 04/16/23 08:26 04/16/23 13:34 Temperature Pulse Rate 70 99 Respiratory Rate 20 Blood Pressure Pulse Oximetry Oxygen Delivery Room Air 04/16/23 14:00 Temperature 97.2 F L Pulse Rate 91 Respiratory Rate 18 Blood Pressure 92/42 L Pulse Oximetry 95 Oxygen Delivery Intake/Output Intake/Output: Intake & Output 04/13/23 04/14/23 04/15/23 04/16/23 23:59 23:59 23:59 23:59 Intake Total 1050 1236 780 Balance 1050 1236 780 Meds/Results Medications: Active Medications Generic Name Dose Route Start Last Admin Trade Name Freq PRN Reason Stop Dose Admin Acetaminophen 500 mg
[2023-04-16 21:15] VITALS: PULSE 92
[2023-04-16] MEDS: LORATADINE 10 MG TABLET PO (21:15)
[2023-04-16] MEDS: ACETAMINOPHEN 500 MG TABLET PO (21:15)
[2023-04-16] MEDS: OLANZapine 2.5 MG TABLET PO (21:15)
[2023-04-16] MEDS: diphenhydrAMINE HCl CAP 25 MG CAPSULE PO (21:15)
[2023-04-16 21:45] VITALS: BP 126/64; PULSE 94; RESP 18; TEMP 36.4; O2SAT 96
[2023-04-17] MEDS: CEFEPIME 2 GM/NS 50 ML 2 GM/50 ML BAG IVPB (04:28)
[2023-04-17] MEDS: DOXYCYCLINE 100 MG/NS 100 ML 100 MG/100 ML BAG IVPB (04:58)
[2023-04-17 05:35] VITALS: BP 116/54; PULSE 83; RESP 18; TEMP 36.6; O2SAT 95
[2023-04-17 06:17] LABS: Anion Gap 7 mmol/L (8-16); Blood Urea Nitrogen 26 mg/dL (7-17); Calcium 8.3 mg/dL (8.4-10.2); Carbon Dioxide 23 mmol/L (22-30); Chloride 102 mmol/L (98-107); Estimated CRCL calculation 59 ml/min; Estimated Glomerular Filt Rate > 60; Glucose 90 mg/dL (65-110); Potassium 3.5 mmol/L (3.4-5.0); Sodium 132 mmol/L (137-145)
[2023-04-17 08:15] LABS: Hematocrit 33.7 % (37.0-47.0); Hemoglobin 10.6 g/dL (12.0-15.0); Mean Corpuscular HGB Conc 31.5 g/dl (32-36); Mean Corpuscular Hemoglobin 29.4 pg (26-34); Mean Corpuscular Volume 93.6 fl (80-100); Mean Platelet Volume 8.9 fl (7.4-10.4); Platelet Count Result 328 k/mm3 (150-375); White Blood Count 7.3 K/mm3 (4.5-10.0)
[2023-04-17] MEDS: UMECLIDINIUM/VILANTEROL 62.5-25 MCG ELLIPTA 1 PUFF INHALATION (08:52)
[2023-04-17 08:54] VITALS: O2SAT 95
[2023-04-17 10:18] VITALS: PULSE 84
[2023-04-17] MEDS: guaiFENesin 12 HR 600 MG TABCR PO (10:18)
[2023-04-17] MEDS: OPTI-GEN TAB 1 TABLET PO (10:18)
[2023-04-17] MEDS: ESCITALOPRAM OXALATE 10 MG TABLET 20 MG PO (10:18)
[2023-04-17] MEDS: SOTALOL HCL 80 MG TABLET PO (10:18)
[2023-04-17] MEDS: FERROUS SULFATE 325 MG TABLET DR PO (10:18)
[2023-04-17] MEDS: cycloSPORINE 0.4 ML OPHTH SOLUTION 1 DROP EACH EYE (10:19)
[2023-04-17] MEDS: ASPIRIN 81 MG ENTERIC TABLET PO (10:19)
[2023-04-17] MEDS: ENOXAPARIN 40 MG/0.4 ML SYRINGE SUB-Q (10:20)
[2023-04-17 12:01] VITALS: BMI 16.9
--- NOTE | 2023-04-17 13:40 | PM.DS ---
DS: Admitting Diagnosis Discharge Date 04/17/23 Admitting Diagnosis cough, fatigue DS: Discharge Diagnosis Discharge Diagnosis (1) Pneumonia: Qualifiers: Laterality: bilateral Lung location: lower lobe of lung Pneumonia type: due to unspecified organism Qualified Code(s): J18.9 - Pneumonia, unspecified organism Code(s): J18.9 - Pneumonia, unspecified organism Status: Acute Assessment and Plan: complicated by bronchiectasis and COPD, sees Pulm at [facility]. no elevation in WBC. no supplemental O2 requirement. will continue with cefepime and doxycycline as previously prescribed sputum culture negative thus far for pseudomonas MRSA PCR negative (2) COPD (chronic obstructive pulmonary disease): Qualifiers: COPD type: unspecified COPD Qualified Code(s): J44.9 - Chronic obstructive pulmonary disease, unspecified Code(s): J44.9 - Chronic obstructive pulmonary disease, unspecified Status: Chronic Assessment and Plan: resume home regimen (3) Migraines: Qualifiers: Intractability: intractable Migraine type: without aura Status migrainosus presence: without status migrainosus Qualified Code(s): G43.019 - Migraine without aura, intractable, without status migrainosus Code(s): G43.909 - Migraine, unspecified, not intractable, without status migrainosus Status: Chronic Assessment and Plan: continue home sumatriptan PRN (4) PAT (paroxysmal atrial tachycardia): Code(s): I47.1 - Supraventricular tachycardia Status: Chronic Assessment and Plan: EKG, initial: sinus rhythm, normal EKG, and when compared to prior there were no significant changes. continue home sotalol TSH normal trop x1 normal DS: Summary Hospital Course Hospital Course: Patient is a 77 YO F admitted for cough, fatigue, and decreased appetite with PMH of bronchiectasis, COPD, depression/anxiety, eczema, VALDEZ, iron deficiency, osteoarthritis, osteoporosis, stress incontinence and vitamin D deficiency. Patient has PMH of bronchiectasis and COPD, sees pulmonology at [facility]. Per patient, she is prescribed doxycycline, amoxicillin, and cefdinir at the beginning of each month as a preventative. Recently completed a 10 day course of Augmentin and was not feeling improved. Started doxycycline and took approx 3-4 doses. Reported that she had been experiencing a cough that was previously productive but had become yolk spray drier. Also developed severe fatigue and lack of appetite, although per patient daughter this has been an ongoing issue for some time. She was prescribed promethezine, but had not started taking it. Workup revealed a normal WBC at 9.7, H/H WNL, no electrolyte derangements, and a lipase of 397. CT of chest showed bilateral mucous plugging and pneumonia, right-sided pleural effusion, no evidence of pancreatitis, and large volume of stool in the colon. Patient has remained stable on room air. Treated with rocephin in addition to cefepime and doxycycline IV while inpatient. Sputum culture and BC show NGTD. Repeat CXR this morning showed some improvement and patient feels her cough and energy are improving. Slowly working on the appetite and increasing caloric intake. PT cleared, OT recommended home health evaluation as she lives alone. Ordered for outpatient. Due to improving condition and lack of growth on cultures, will d/c on PO doxy and cefdinir, she is to follow up with her PCP and barrel charrer helper. Status at Discharge Functional status at discharge: independent ambulation Overall status at discharge: patient is progressing back to baseline Time Spent with Patient Time attestation: Total time spent providing and/or coordinating discharge services: Exam Narrative: General: Underweight, otherwise well appearing female in no acute distress. HEENT: PERRLA, EOMI Neck: supple. Cardiovascular: RRR. Respiratory: no respiratory distress. Mildly diminished at
[2023-04-17 14:00] VITALS: BP 116/49; PULSE 85; RESP 16; TEMP 36.8; O2SAT 95
[2023-04-17] MEDS: DOXYCYCLINE HYCLATE 100 MG TABLET PO (15:08)
[2023-04-17] MEDS: CEFDINIR 300 MG CAPSULE PO (15:08)
--- NOTE | 2023-04-26 10:01 | PC.NURSE ---
Blood cx are negative
== END 2023-04-17 18:10 | disposition home or self-care (01) | DRG 194 ==
LOC: ANHED 12:45 → ANH3MEDSUR 16:36
PROVIDERS: Student in an Organized Health Care Education/Training Program; Admitting Provider Internal Medicine; Emergency Provider Emergency Medicine; PCP Family Medicine; Visit Provider Nurse Practitioner
DX: J18.9 Pneumonia, unspecified organism (principal); I47.10 Supraventricular tachycardia, unspecified; J44.0 Chronic obstructive pulmonary disease with (acute) lower respiratory infection; Z20.822 Contact with and (suspected) exposure to COVID-19; H35.30 Unspecified macular degeneration; M19.90 Unspecified osteoarthritis, unspecified site; M81.0 Age-related osteoporosis without current pathological fracture; M47.816 Spondylosis without myelopathy or radiculopathy, lumbar region; L30.9 Dermatitis, unspecified; F41.8 Other specified anxiety disorders; G43.909 Migraine, unspecified, not intractable, without status migrainosus; N39.3 Stress incontinence (female) (male); E55.9 Vitamin D deficiency, unspecified; Z98.49 Cataract extraction status, unspecified eye; Z87.891 Personal history of nicotine dependence
CPT/HCPCS: 36415; 71045; 71046; 74177; 80048; 80053; 81003; 82248; 82948; 83605; 83690; 84443; 84484; 85025; 85027; 87040; 87070; 87077; 87184; 87186; 87205; 87636; 87641; 93005; 94640; 94669; 96374; 97165; 99285; A9270; J0692; J0696; J1650; J2405; J7030; Q9967

== ENCOUNTER → 2023-05-03 13:01 | Outpatient (CLI) | payer OTHER, SELFPAY ==
--- NOTE | ~2023-05-03 | XR_ITS ---
Clinical Indication: Pneumonia PA and lateral views of the chest: Comparison: 04/17/2023 Findings: Stable bibasilar airspace disease noted. Questionable subtle nodule right midlung, also pro bably unchanged given differences in imaging technique.. Cardiomediastinal silhouette is within norm al limits. Bones and soft tissues are unremarkable. Impression: Stable bibasilar airspace consolidation. Correlate for atelectasis/scarring versus pneumonia. Questionable nodular opacity right midlung versus compensation shadows. Continued follow-up advised. CT could be considered. Reviewed, dictated and finalized at location . ESSOR [employer] P[employer] SCIENCE Impression: Stable bibasilar airspace consolidation. Correlate for atelectasis/scarring lisa irene pneumonia. Questionable nodular opacity right midlung versus compensation shadows. Continu ed follow-up advised. CT could be considered.
== END ==
PROVIDERS: PCP Family Medicine; Visit Provider Family Medicine
DX: R91.8 Other nonspecific abnormal finding of lung field (principal); J18.9 Pneumonia, unspecified organism; R05.9 Cough, unspecified; J44.9 Chronic obstructive pulmonary disease, unspecified; Z87.891 Personal history of nicotine dependence
CPT/HCPCS: 71046

== ENCOUNTER 2023-05-12 10:38 | Outpatient (CLI) | payer OTHER, MEDICAID, SELFPAY ==
--- NOTE | ~2023-05-12 | CT_ITS ---
Clinical Indication: Pneumonia CT Scan of the Chest with Contrast: Technique: Contiguous sections were acquired throughout the chest after intravenous administration of 75 cc of Omnipaque 350. Dose reduction technique was used on this scan by utilizing automated exposu re control and iterative reconstruction technique. The dose-length product (DLP) was 136.08 mGy-cm. COMPARISON: 10/14/2021 Findings: Mildly prominent mediastinal lymph nodes are stable from prior exam.. There is pulmonary embolus invo lving segmental branches in the left upper lobe (axial image 65-66).. There is no evidence of aortic dissection or aneurysm. There are chronic areas of consolidation the lung bases, most prominent at the left lower lobe, but a lso in the right lower lobe and right middle lobe. There are scattered focal areas of [place]-in[place]bud [place]. There is mild bronchial wall thickening at the lung base regions. There is stable biapical scarring. Images through the upper abdomen reveal no abnormalities. Impression: Pulmonary embolus within a segmental branch in the left upper lobe. Chronic areas of bibasilar consolidation with associated scattered areas of tree-in-bud opacity and b ronchial wall thickening. Findings are compatible with chronic pneumonia/infectious process, and are essentially stable from prior exam. Findings relayed to Dr. Cobb's staff at the time of this reading. Reviewed, dictated and finalized at location . K COUNTER Impression: Pulmonary embolus within a segmental branch in the left upper lobe. Chronic areas of bibasilar consolidation with associated scattered areas of zarina e-in-bud opacity and bronchial wall thickening. Findings are compatible with ch ronic pneumonia/infectious process, and are essentially stable from prior exam. Findings relayed to Dr. Cobb's staff at the time of this reading.
== END 2023-05-12 10:39 ==
LOC: MICIMG 10:39
PROVIDERS: PCP Family Medicine; Visit Provider Family Medicine
DX: I26.99 Other pulmonary embolism without acute cor pulmonale (principal); J18.9 Pneumonia, unspecified organism; J44.9 Chronic obstructive pulmonary disease, unspecified; J47.9 Bronchiectasis, uncomplicated; R62.7 Adult failure to thrive
CPT/HCPCS: 71260; Q9967

== ENCOUNTER 2023-05-12 12:49 | Observation (INO) | payer OTHER, MEDICAID, SELFPAY ==
[2023-05-12] VITALS (15 sets, daily range): BP systolic 128–181; BP diastolic 61–96; PULSE 84–99; RESP 16–25; TEMP 36.4–36.9; O2SAT 91–98; BMI 19.0
--- NOTE | ~2023-05-12 | US_ITS ---
US venous doppler [facility] DATE: 05/12/2023 14:41 INDICATION: Acute pulmonary embolism TECHNIQUE: Real-time and color flow imaging and Doppler analysis of the veins of both lower extremiti es COMPARISON: None FINDINGS: Thrombus is identified in the right peroneal vein. Otherwise there is spontaneous and phasic flow and normal augmentation and color flow signal and norm al compression of the veins of both lower extremities. The great saphenous veins are patent. IMPRESSION: Deep venous thrombosis of right peroneal vein Reviewed, dictated and finalized at Location A. Reviewed, dictated and finalized at location B. TRIMMER
--- NOTE | 2023-05-12 13:06 | ECG_ITS ---
Measurements Intervals [place] Rate: 93 P: 52 KS: 170 QRS: 46 QRSD: 77 T: 55 QT: 351 QTc: 437 Interpretive Statements SINUS RHYTHM WITHIN NORMAL LIMITS COMPARED TO ECG 04/15/2023 13:48:09 NO SIGNIFICANT CHANGES Electronically Signed On 05-12-2023 15:28:13 SECURITY EXPERT by Isaac Ballard M.D.
[2023-05-12 13:16] LABS: Basophils Absolute Auto 0.2 K/mm3 (0.0-0.1); Basophils Percent Auto 1.4 % (0.2-1.2); Eosinophils Absolute Auto 0.1 K/mm3 (0-0.3); Eosinophils Percent Auto 0.8 % (0-4.4); Hematocrit 39.8 % (37.0-47.0); Hemoglobin 12.4 g/dL (12.0-15.0); Immature Granulocyte Absolute 0.16 K/mm3 (0.00-0.031); Immature Granulocyte Percent A 1.5 % (0-0.5); Lymphocytes Absolute Auto 2.52 K/mm3 (0.9-3.2); Lymphocytes Percent Auto 23.5 % (18.3-44.2); Mean Corpuscular HGB Conc 31.2 g/dl (32-36); Mean Corpuscular Hemoglobin 29.5 pg (26-34); Mean Corpuscular Volume 94.5 fl (80-100); Mean Platelet Volume 8.5 fl (7.4-10.4); Monocytes Absolute Auto 1.1 K/mm3 (0.1-0.6); Monocytes Percent Auto 10.4 % (2.6-8.5); Neutrophils Absolute Auto 6.7 K/mm3 (1.3-6.7); Neutrophils Percent Auto 62.4 % (45.5-73.1); Platelet Count Result 396 k/mm3 (150-375); Red Blood Count 4.21 M/mm3 (4.2-5.4); Red Cell Distribution Width 15.2 % (11.5-14.5); White Blood Count 10.7 K/mm3 (4.5-10.0)
[2023-05-12 13:26] LABS: Alanine Aminotransferase 16 U/L (6-35); Albumin Level 4.1 g/dL (3.5-5.1); Alkaline Phosphatase 81 U/L (38-126); Anion Gap 10 mmol/L (8-16); Aspartate Amino Transferase 29 U/L (14-36); Bilirubin,Total 0.4 mg/dL (0.2-1.3); Blood Urea Nitrogen 28 mg/dL (7-17); Calcium 9.3 mg/dL (8.4-10.2); Carbon Dioxide 23 mmol/L (22-30); Chloride 103 mmol/L (98-107); Estimated CRCL calculation 53 ml/min; Estimated Glomerular Filt Rate > 60; Glucose 101 mg/dL (65-110); Potassium 3.7 mmol/L (3.4-5.0); Sodium 136 mmol/L (137-145)
[2023-05-12 13:37] LABS: Troponin I < 0.012 ng/mL (0.000-0.034)
--- NOTE | 2023-05-12 14:09 | ED.SOB ---
HPI - SOB/Dyspnea General Chief Complaint: Shortness of Breath/Dyspnea Stated Complaint: pe on ct scan Time Seen by Provider: 05/12/23 13:24 History of Present Illness HPI Narrative: Patient is an 78-year-old female who presents ER after having a PE found on an outpatient CT scan. Patient was recently hospitalized for pneumonia then developed COVID-19. She has been having persistent dyspnea since then. She has no chest pain. No hemoptysis. No calf pain or leg swelling. She does have chronic bronchiectasis and has pseudomonal colonization. Related Data Home Medications Medication Instructions Recorded Confirmed escitalopram oxalate 20 mg tablet 20 mg PO DAILY 11/14/19 05/12/23 (Lexapro) acetaminophen 500 mg tablet 500 mg PO Q6H PRN Pain 08/04/20 05/12/23 ascorbate calcium (vitamin C) 500 500 mg PO 3XW 08/04/20 05/12/23 mg tablet cyclosporine 0.05 % eye drops in a 1 drp EACH EYE Q12H 08/04/20 05/12/23 dropperette (Restasis) vit C 250 mg-vit E 200 unit-zinc 1 tablet PO Q12H 08/04/20 05/12/23 12.5 mg-endoscopy specialty technician 1 mg-lut-zeax chew tablet (ICaps AREDS2 (copper citrate)) cholecalciferol (vitamin D3) 10 2,000 unit PO 4XW 03/08/21 05/12/23 mcg (400 unit) capsule cetirizine 10 mg tablet (Zyrtec) 10 mg PO HS 05/09/22 05/12/23 tiotropium 2.5 mcg-olodaterol 2.5 2 inh inhalation DAILY 06/20/22 05/12/23 mcg/actuation mist for inhalation (Stiolto Respimat) albuterol sulfate 90 mcg/actuation 1 puff inhalation Q4H PRN 07/12/22 05/12/23 aerosol inhaler Shortness Of Breath Or Wheezing Tylenol PM Extra Strength 220 mg PO HS PRN Pain (Scale Score 10/21/22 05/12/23 1-3) ferrous sulfate 325 mg (65 mg 325 mg PO .every other day 03/31/23 05/12/23 iron) tablet olanzapine 2.5 mg tablet 2.5 mg PO QHS 03/31/23 05/12/23 amoxicillin 500 mg capsule 500 mg PO TID 04/19/23 05/12/23 cefdinir 300 mg capsule 300 mg PO BID 04/19/23 05/12/23 Allergies Allergy/AdvReac Type Severity Reaction Status Date / Time levofloxacin Allergy Mild Muscle Verified 04/19/23 13:19 Spasms ciprofloxacin Allergy Unknown Itching Verified 04/19/23 13:19 clarithromycin Allergy Unknown Itching Verified 04/19/23 13:19 codeine Allergy Unknown Hives Verified 04/19/23 13:19 celecoxib [From Celebrex] AdvReac Severe Diarrhea Verified 04/19/23 13:19 Review of Systems Review of Systems: All systems reviewed & are unremarkable except as noted in HPI and below Constitutional: Constitutional: Reports no additional constitutional complaints ENT: Reports system reviewed and no additional complaints, except as documented Cardiovascular: Cardiovascular: Reports no additional cardiovascular complaints Respiratory: Respiratory: Reports cough, Reports dyspnea and Denies wheezing Gastrointestinal: Gastrointestinal: Reports no additional gastrointestinal complaints Genitourinary: Genitourinary: Reports no additional female genitourinary complaints [facility] Past Medical History Medical History (Updated 05/12/23 @ 20:27 by Weston Gill MD) Anxiety Arthritis Bronchiectasis Diagnosis at age 1; previously worked up and she was told she did not have cystic fibrosis. Chronic low back pain Cyst of left kidney Depression Eczema Fracture of distal end of left radius (07/2020) Headache Ileus (09/2022) Iron deficiency Liver cyst Lumbar spondylosis Macular degeneration, age related (2015) Migraines Multiple nodules of lung Obstructive lung disease Mild obstructive abnormality on PFTs. Osteoarthritis Osteoporosis Paroxysmal atrial tachycardia Pseudomonas aeruginosa colonization Stress incontinence in female Vitamin D deficiency Surgical History Surgical History (Updated 05/12/23 @ 16:19 by Marisol Gaines PA-C) History of cataract extraction History of cerebral aneurysm repair (03/28/08) History of ear surgery History of surgery on right wrist (08/2003) Open reduction internal fixation with subsequent hardware removal. History of tonsillecto
[2023-05-12] MEDS: IPRATROPIUM 0.5 MG/ALBUTEROL SULFATE 2.5 MG AMPUL.NEB 3 ML INHALATION (14:15)
--- NOTE | 2023-05-12 14:41 | PC.NURSE ---
Chemistry notified of lab order for PT/INR PTT. Blue top sent
[2023-05-12 14:55] LABS: Prothrombin Time 13.9 Seconds (11.1-14.7)
[2023-05-12 14:56] LABS: Partial Thromboplastin Time 24.8 SECONDS (22.3-36.8)
[2023-05-12] MEDS: ENOXAPARIN 60 MG/0.6 ML SYRINGE 50 MG SUB-Q (15:58)
--- NOTE | 2023-05-12 16:02 | PC.NURSE ---
ordered pt heart healthy meal tray @1600
--- NOTE | 2023-05-12 16:12 | PM.IMHP ---
H&P: HPI History of Present Illness Date/Time: 05/12/23 18:00 Chief Complaint: Pulmonary embolism noted on chest CTA today. Narrative: This is a pleasant 78-year-old female with history of bronchiectasis since the age of 1, Pseudomonas colonization, obstructive lung disease, paroxysmal atrial tachycardia, chronic low back pain, iron deficiency anemia, depression, and anxiety who presented to the emergency department for evaluation after she was found to have pulmonary embolism on chest CTA which was obtained earlier today. The patient provides the following history. She was recently admitted to the hospital with pneumonia and COVID. Chest CT was ordered by her primary care provider to document resolution. It is not unusual for her to have shortness of breath but she does report that she seems to be having hard time catching her breath the last several days. She has a chronic cough for years related to her bronchiectasis for which she uses a smart vest at least once if not twice a day. Her cough is productive of thick, clear sputum and that is unchanged. She has not had fever, chills, or sweats. She denies chest and pleuritic pain. No lower extremity edema, calf pain, or tenderness. No syncope or near syncope. She has no prior history of venous thromboembolism. In the ED: She was afebrile on arrival. SpO2 has been in the mid 90s on room air. Blood pressures have been stable. Labs were significant for WBC count of 10.7, platelet 396, sodium 136, BUN 28, creatinine 0.50, troponin less than 0.012, proBNP 2150. Bilateral lower extremity venous Doppler ultrasounds were positive for DVT in the right peroneal vein. She was given a dose of Lovenox 1 milligram/kilogram and she is being admitted in this setting for closer monitoring. Review of Systems Review of Systems: Twelve systems were reviewed and are negative except for as per HPI. [facility] Past Medical History Medical History Anxiety Arthritis Bronchiectasis Diagnosis at age 1; previously worked up and she was told she did not have cystic fibrosis. Chronic low back pain Cyst of left kidney Depression Eczema Fracture of distal end of left radius (07/2020) Headache Ileus (09/2022) Iron deficiency Liver cyst Lumbar spondylosis Macular degeneration, age related (2015) Migraines Multiple nodules of lung Obstructive lung disease Mild obstructive abnormality on PFTs. Osteoarthritis Osteoporosis Paroxysmal atrial tachycardia Pseudomonas aeruginosa colonization Stress incontinence in female Vitamin D deficiency Surgical History Surgical History History of cataract extraction History of cerebral aneurysm repair (03/28/08) History of ear surgery History of surgery on right wrist (08/2003) Open reduction internal fixation with subsequent hardware removal. History of tonsillectomy Family History Family History Mother Acute myocardial infarction Cerebrovascular accident Hypertension Depression Anxiety Heart problem Grandparent Colon cancer Hypertension Social History Social History (Updated 05/12/23 @ 22:00 by Marisol Gaines PA-C) Social History: Surrogate medical decision maker: Deysi Flores, daughter. Code status: Do not resuscitate. Smoking packs per day: 1 Smoking cigarettes per day: 20.0 Years smoked: 5 Smoking pack-years: 5.00 Smoking status: Former smoker Second hand tobacco smoke exposure: Yes Alcohol intake: former Alcohol use details: rarely Substance use: never Substance use type: does not use Do You Feel Safe in your Home?: Yes Lack of Transportation: No Lack of Food: Never True Current Housing: I Have Housing Concerned About Future Housing: No Difficulty Paying Gas/Electric Bills: No Difficulty Paying for Meds: No Currently Unemployed: No Ed
[2023-05-12 17:07] LABS: NT Pro B Type Natriuretic Pept 2150 pg/mL (19.9-100)
--- NOTE | 2023-05-12 17:45 | ADMGEN ---
This patient, Bebe Rosas, was admitted to 3 Med Surg Room 315-01 @ 1745. Patient/family oriented to hospital policies and general routines including ID bracelet, bed and alarms, visiting hours, pain management, procedures, bathroom and other care routines, personal items, smoking policy, room service/diet, and visiting hours. Information on how to activate the Rapid Response Team has been discussed. Patient/Family are encouraged to report perceived risks to care and to ask questions if they do not understand what they are told or what they should do.
[2023-05-12] MEDS: OPTI-GEN TAB 1 TABLET PO (23:17)
[2023-05-12] MEDS: cycloSPORINE 0.4 ML OPHTH SOLUTION 1 DROP EACH EYE (23:17)
[2023-05-12] MEDS: SOTALOL HCL 80 MG TABLET BY MOUTH (23:17)
[2023-05-12] MEDS: LORATADINE 10 MG TABLET PO (23:17)
[2023-05-13] VITALS (9 sets, daily range): BP systolic 130–157; BP diastolic 80–84; PULSE 72–841; RESP 6–20; TEMP 36.4–36.9; O2SAT 90–98
[2023-05-13] MEDS: ENOXAPARIN 60 MG/0.6 ML SYRINGE 45 MG SUB-Q (05:36)
[2023-05-13 07:00] LABS: Basophils Absolute Auto 0.1 K/mm3 (0.0-0.1); Basophils Percent Auto 1.1 % (0.2-1.2); Eosinophils Absolute Auto 0.1 K/mm3 (0-0.3); Eosinophils Percent Auto 0.7 % (0-4.4); Hematocrit 35.9 % (37.0-47.0); Hemoglobin 11.6 g/dL (12.0-15.0); Immature Granulocyte Absolute 0.15 K/mm3 (0.00-0.031); Immature Granulocyte Percent A 1.2 % (0-0.5); Lymphocytes Absolute Auto 3.03 K/mm3 (0.9-3.2); Lymphocytes Percent Auto 23.4 % (18.3-44.2); Mean Corpuscular HGB Conc 32.3 g/dl (32-36); Mean Corpuscular Hemoglobin 29.5 pg (26-34); Mean Corpuscular Volume 91.3 fl (80-100); Mean Platelet Volume 8.5 fl (7.4-10.4); Monocytes Absolute Auto 1.4 K/mm3 (0.1-0.6); Monocytes Percent Auto 10.6 % (2.6-8.5); Neutrophils Absolute Auto 8.2 K/mm3 (1.3-6.7); Platelet Count Result 424 k/mm3 (150-375); Red Blood Count 3.93 M/mm3 (4.2-5.4); Red Cell Distribution Width 15.3 % (11.5-14.5)
[2023-05-13 07:10] LABS: Anion Gap 8 mmol/L (8-16); Blood Urea Nitrogen 26 mg/dL (7-17); Calcium 9.2 mg/dL (8.4-10.2); Carbon Dioxide 23 mmol/L (22-30); Chloride 102 mmol/L (98-107); Estimated CRCL calculation 52 ml/min; Estimated Glomerular Filt Rate > 60; Glucose 99 mg/dL (65-110); Magnesium 2.2 mg/dL (1.6-2.3); Sodium 133 mmol/L (137-145)
[2023-05-13] MEDS: UMECLIDINIUM/VILANTEROL 62.5-25 MCG ELLIPTA 1 PUFF INHALATION (08:04)
[2023-05-13] MEDS: OPTI-GEN TAB 1 TABLET PO (09:31)
[2023-05-13] MEDS: FERROUS SULFATE 325 MG TABLET DR PO (09:32)
[2023-05-13] MEDS: ESCITALOPRAM OXALATE 10 MG TABLET 20 MG PO (09:32)
[2023-05-13] MEDS: cycloSPORINE 0.4 ML OPHTH SOLUTION 1 DROP EACH EYE (09:32)
[2023-05-13] MEDS: SOTALOL HCL 80 MG TABLET BY MOUTH (09:37)
[2023-05-13] MEDS: CHOLECALCIFEROL 1,000 UNITS TABLET 2000 UNITS PO (09:38)
--- NOTE | 2023-05-13 14:44 | PM.DS ---
DS: Admitting Diagnosis Discharge Date 05/13/23 Admitting Diagnosis PE DS: Discharge Diagnosis Discharge Diagnosis (1) Pulmonary embolism on left: Code(s): I26.99 - Other pulmonary embolism without acute cor pulmonale Status: Acute (2) Thrombosis of right peroneal vein: Code(s): I82.451 - Acute embolism and thrombosis of right peroneal vein Status: Acute (3) Bronchiectasis: Qualifiers: Bronchiectasis type: uncomplicated Qualified Code(s): J47.9 - Bronchiectasis, uncomplicated Code(s): J47.9 - Bronchiectasis, uncomplicated Status: Acute (4) Pseudomonas aeruginosa colonization: Code(s): Z22.39 - Carrier of other specified bacterial diseases Status: Acute (5) Elevated blood pressure reading: Code(s): R03.0 - Elevated blood-pressure reading, without diagnosis of hypertension Status: Acute (6) Paroxysmal atrial tachycardia: Code(s): I47.19 - Other supraventricular tachycardia Status: Acute DS: Summary Hospital Course Hospital Course: his is a pleasant 78-year-old female with history of bronchiectasis since the age of 1, Pseudomonas colonization, obstructive lung disease, paroxysmal atrial tachycardia, chronic low back pain, iron deficiency anemia, depression, and anxiety who presented to the emergency department for evaluation after she was found to have pulmonary embolism on chest CTA which was obtained due to the history of pneumonia. Patient was hospitalized for pneumonia 1 month ago and they were rechecking if patient still had an active infection. Patient was found to have a PE on CTA imaging. She was told to go to the hospital. She has a chronic cough for years related to her bronchiectasis for which she uses a smart vest at least once if not twice a day. Her cough is productive of thick, clear sputum and that is unchanged. She has not had fever, chills, or sweats. She denies chest and pleuritic pain. No lower extremity edema, calf pain, or tenderness. No syncope or near syncope. She has no prior history of venous thromboembolism. Patient was started on Lovenox 1 milligram/kilogram. Bilateral lower extremity ultrasounds revealed a DVT in the right peroneal vein. Patient was transition to p.o. Eliquis. Patient did not require any oxygen supplementation during her hospitalization. Patient has chronic lung problems and states that she has been a little bit more fatigued and short of breath since having COVID pneumonia 1 month ago but is following up with her rv repairer soon. She states that she is short of breath at baseline and is not feeling out of the normal. Her labs and vital signs are stable and she is medically clear for discharge at this time. Time Spent with Patient Time attestation: Total time spent providing and/or coordinating discharge services: Exam Narrative: GENERAL: Comfortable, no acute distress HENMT: moist mucous membranes EYES: EOM intact b/l NECK: no lymphadenopathy RESPIRATORY: Adventitious breath sounds, audible breathing (baseline) CARDIO: RRR GI: soft, nontender, bowel sounds present SKIN: no rashes EXTREMITIES: no edema, redness or tenderness DS: Data Data Completed and Pending Labs on day of discharge: Labs from last 24 hours 05/13/23 05/13/23 05/12/23 06:43 06:42 13:09 WBC 13.0 H RBC 3.93 L Hgb 11.6 L Hct 35.9 L MCV 91.3 MCH 29.5 MCHC 32.3 RDW 15.3 H Plt Count 424 H MPV 8.5 Immature Gran % (Auto) 1.2 H Neut % (Auto) 63.0 Lymph % (Auto) 23.4 [place] % (Auto) 10.6 H Eos % (Auto) 0.7 Baso % (Auto) 1.1 Lymph # (Auto) 3.03 [place] # (Auto) 1.4 H Eos # (Auto) 0.1 Baso # (Auto) 0.1 Abs Immat Gran (auto) 0.15 H Absolute Neuts (auto) 8.2 H Absolute Nucleated RBC 0.0 Nucleated RBC % 0.0 PT 13.9 INR 1.0 APTT 24.8 Sodium 133 L Potassium 4.0 Chloride 102 Carbon Dioxide 23 Anion Gap 8 BUN 26 H
[2023-05-13] MEDS: APIXABAN 5 MG TABLET 10 MG PO (17:05)
== END 2023-05-13 19:06 | disposition home or self-care (01) ==
LOC: ANHED 14:07 → ANH3MEDSUR 18:40
PROVIDERS: Physician Assistant; Admitting Provider Hospitalist; Emergency Provider Emergency Medicine; PCP Family Medicine; Visit Provider Internal Medicine
DX: I26.99 Other pulmonary embolism without acute cor pulmonale (principal); I82.451 Acute embolism and thrombosis of right peroneal vein; Z22.39 Carrier of other specified bacterial diseases; J47.9 Bronchiectasis, uncomplicated; J44.9 Chronic obstructive pulmonary disease, unspecified; I47.19 Other supraventricular tachycardia; G89.29 Other chronic pain; M54.50 Low back pain, unspecified; F32.A Depression, unspecified; F41.9 Anxiety disorder, unspecified; M81.0 Age-related osteoporosis without current pathological fracture; D50.9 Iron deficiency anemia, unspecified; E55.9 Vitamin D deficiency, unspecified; Z66 Do not resuscitate; Z86.16 Personal history of COVID-19; Z87.891 Personal history of nicotine dependence; Z87.01 Personal history of pneumonia (recurrent); Z79.1 Long term (current) use of non-steroidal anti-inflammatories (NSAID); Z79.2 Long term (current) use of antibiotics; Z79.51 Long term (current) use of inhaled steroids; Z79.899 Other long term (current) drug therapy; Z81.8 Family history of other mental and behavioral disorders
CPT/HCPCS: 36415; 80048; 80053; 83735; 83880; 84484; 85025; 85610; 85730; 93005; 93970; 94640; 96372; 99285; A9270; G0378; J1650

== ENCOUNTER 2023-05-19 09:21 | Outpatient (CLI) | payer OTHER, MEDICAID, SELFPAY ==
--- NOTE | 2023-05-19 | ECHO_ITS ---
Patient Info Name: Bebe Rosas Age: 78 years : 1945 Gender: Female Ht: 65 in Wt: 106 lbs BSA: 1.47 m2 HR: 78 bpm BP: 140 / 84 mmHg Technical Quality: Good Exam Date: 05/19/2023 9:50 AM Exam Location: Echo Lab Patient Status: Outpatient Admit Date: 05/19/2023 Staff Ordering Physician: Abril Cobb MD Rail Walker: Beti Fonseca RDCS Attending Provider: Abril Cobb MD Exam Type: CA echo doppler color flow Study Info Indications I26.99 - Other pulmonary embolism without acute cor pulmonale Complete two-dimensional, color flow and Doppler transthoracic echocardiogram is performed. Summary 1. Complete two-dimensional, color flow and Doppler transthoracic echocardiogram is performed. 2. Left ventricular chamber dimension is normal. 3. Left ventricular systolic function is normal, estimated at 60-65%. 4. The left ventricular diastolic function is grade I diastolic dysfunction. 5. E/e' 13 is mildly elevated. 6. Global longitudinal strain is abnormal at -14.8%. 7. The mitral valve has mildly calcified leaflets and moderately calcified annulus. 8. There is mild mitral valve regurgitation. 9. There is mild to moderate tricuspid valve regurgitation. 10. Mild pulmonary hypertension, estimated pulmonary arterial systolic pressure is 40 mmHg. Left Ventricle E/e' 13 is mildly elevated. Global longitudinal strain is abnormal at -14.8%. Left ventricular chamber dimension is normal. Left ventricular systolic function is normal, estimated at 60-65%. The left ventricular diastolic function is grade I diastolic dysfunction. Right Ventricle Right ventricular systolic function is normal and with normal TAPSE 1.9 cm. Right ventricular chamber dimension is normal. Left Atria Left atrial chamber dimension is normal. Right Atria Right atrial chamber dimension is normal. Aortic Valve The aortic valve is trileaflet. There is no aortic valve stenosis. There is no aortic valve regurgitation. Pulmonic Valve There is no pulmonic regurgitation. Mitral Valve The mitral valve has mildly calcified leaflets and moderately calcified annulus. There is no mitral valve stenosis. There is mild mitral valve regurgitation. Tricuspid Valve There is mild to moderate tricuspid valve regurgitation. Mild pulmonary hypertension, estimated pulmonary arterial systolic pressure is 40 mmHg. Pericardium/Pleural There is no pericardial effusion. Inferior Vena Cava Normal inferior vena cava with >50% collapse upon inspiration consistent with normal right atrial pressure, 5 mmHg. Aorta The aortic root size at the sinus of Valsalva is normal. Left Ventricular Outflow Tract Name Value Normal LVOT 2D LVOT Diameter 1.9 cm LVOT Doppler LVOT Peak Gradient 3 mmHg LVOT Mean Gradient 2 mmHg LVOT VTI 17 cm LVOT VTI/AV VTI Ratio 0.9 LVOT Stroke Volume 45 ml LVOT CO 3.4 l/min LVOT CI 2.3 l/min/m2 Pulmonic Valve Name
== END 2023-05-19 09:22 | disposition home or self-care (01) ==
PROVIDERS: PCP Family Medicine; Visit Provider Family Medicine
DX: I26.99 Other pulmonary embolism without acute cor pulmonale (principal); R93.1 Abnormal findings on diagnostic imaging of heart and coronary circulation; I34.81 Nonrheumatic mitral (valve) annulus calcification; I34.0 Nonrheumatic mitral (valve) insufficiency; I07.1 Rheumatic tricuspid insufficiency; I27.20 Pulmonary hypertension, unspecified
CPT/HCPCS: 93306

== ENCOUNTER 2023-06-08 09:21 | Outpatient (CLI) | payer OTHER, MEDICAID, SELFPAY ==
[2023-06-08 12:54] LABS: Basophils Absolute Auto 0.1 K/mm3 (0.0-0.1); Basophils Percent Auto 1.3 % (0.2-1.2); Eosinophils Absolute Auto 0.3 K/mm3 (0-0.3); Eosinophils Percent Auto 3.2 % (0-4.4); Hematocrit 39.3 % (37.0-47.0); Hemoglobin 12.3 g/dL (12.0-15.0); Immature Granulocyte Percent A 0.9 % (0-0.5); Lymphocytes Absolute Auto 2.47 K/mm3 (0.9-3.2); Lymphocytes Percent Auto 23.3 % (18.3-44.2); Mean Corpuscular HGB Conc 31.3 g/dl (32-36); Mean Corpuscular Hemoglobin 29.8 pg (26-34); Mean Corpuscular Volume 95.2 fl (80-100); Mean Platelet Volume 9.2 fl (7.4-10.4); Monocytes Percent Auto 9.4 % (2.6-8.5); Neutrophils Absolute Auto 6.6 K/mm3 (1.3-6.7); Neutrophils Percent Auto 61.9 % (45.5-73.1); Platelet Count Result 467 k/mm3 (150-375); Red Blood Count 4.13 M/mm3 (4.2-5.4); Red Cell Distribution Width 14.6 % (11.5-14.5); White Blood Count 10.6 K/mm3 (4.5-10.0)
[2023-06-08 12:59] LABS: CRP 0.8 mg/dL (<1.0)
[2023-06-08 13:17] LABS: Immunoglobulin A 444 mg/dL (70-400); Immunoglobulin G 1826 mg/dL (700-1600); Immunoglobulin M 81 mg/dL (40-230)
[2023-06-08 13:36] LABS: Erythrocyte Sedimentation Rate 73 mm/hr (0-20)
== END 2023-06-08 09:22 | disposition home or self-care (01) ==
LOC: ANHGOSHLAB 09:24
PROVIDERS: PCP Family Medicine; Visit Provider Internal Medicine Hematology & Oncology
DX: D72.829 Elevated white blood cell count, unspecified (principal)
CPT/HCPCS: 36415; 82784; 85025; 85652; 86140

== ENCOUNTER 2023-09-04 12:12 | Outpatient (CLI) | payer OTHER, MEDICAID, SELFPAY ==
--- NOTE | ~2023-09-04 | US_ITS ---
EXAMINATION:US venous doppler LE RT INDICATION:Acute DVT TECHNIQUE: Multiple grayscale, color flow and Doppler images of the right lower extremity deep venous systems were obtained and reviewed. COMPARISON:No prior studies for comparison. FINDINGS: The common femoral, superficial femoral and popliteal veins demonstrate normal respiratory variation, augmentation and compressibility. Color flow is also seen within the posterior tibial, pe roneal, greater saphenous and profunda veins. IMPRESSION: 1: No lower extremity deep venous thrombosis. Reviewed, dictated and finalized at location B.
== END 2023-09-04 12:13 | disposition home or self-care (01) ==
LOC: ANHIMG 12:16
PROVIDERS: PCP Family Medicine; Visit Provider Internal Medicine Hematology & Oncology
DX: I82.4Y1 Acute embolism and thrombosis of unspecified deep veins of right proximal lower extremity (principal)
CPT/HCPCS: 36415; 80048; 85025; 93971

== ENCOUNTER 2023-09-04 13:11 | Outpatient (CLI) | payer OTHER, MEDICAID, SELFPAY ==
[2023-09-04 14:37] LABS: Basophils Absolute Auto 0.2 K/mm3 (0.0-0.1); Basophils Percent Auto 1.8 % (0.2-1.2); Eosinophils Absolute Auto 0.3 K/mm3 (0-0.3); Hematocrit 40.1 % (37.0-47.0); Hemoglobin 12.7 g/dL (12.0-15.0); Immature Granulocyte Absolute 0.05 K/mm3 (0.00-0.031); Immature Granulocyte Percent A 0.5 % (0-0.5); Lymphocytes Absolute Auto 2.71 K/mm3 (0.9-3.2); Lymphocytes Percent Auto 29.7 % (18.3-44.2); Mean Corpuscular HGB Conc 31.7 g/dl (32-36); Mean Corpuscular Hemoglobin 29.6 pg (26-34); Mean Corpuscular Volume 93.5 fl (80-100); Mean Platelet Volume 9.4 fl (7.4-10.4); Monocytes Absolute Auto 0.8 K/mm3 (0.1-0.6); Monocytes Percent Auto 9.1 % (2.6-8.5); Neutrophils Absolute Auto 5.1 K/mm3 (1.3-6.7); Neutrophils Percent Auto 55.9 % (45.5-73.1); Platelet Count Result 437 k/mm3 (150-375); Red Blood Count 4.29 M/mm3 (4.2-5.4); Red Cell Distribution Width 12.9 % (11.5-14.5); White Blood Count 9.1 K/mm3 (4.5-10.0)
[2023-09-04 14:50] LABS: Anion Gap 6 mmol/L (4-12); Blood Urea Nitrogen 33 mg/dL (7-17); Carbon Dioxide 28 mmol/L (22-30); Chloride 99 mmol/L (98-107); Estimated Glomerular Filt Rate > 60; Glucose 93 mg/dL (65-110); Potassium 4.4 mmol/L (3.4-5.0); Sodium 133 mmol/L (137-145)
== END 2023-09-04 13:12 | disposition home or self-care (01) ==
PROVIDERS: PCP Family Medicine; Visit Provider Internal Medicine Hematology & Oncology
DX: I82.4Y1 Acute embolism and thrombosis of unspecified deep veins of right proximal lower extremity (principal)
CPT/HCPCS: 36415; 80048; 85025

== ENCOUNTER 2023-09-07 13:12 | Outpatient (CLI) | payer OTHER, MEDICAID, SELFPAY ==
--- NOTE | ~2023-09-07 | XR_ITS ---
XR lumbar spine 2-3V 09/07/2023 14:08 Indication: Low back pain Procedure: 3 views lumbar spine Comparison: 08/13/2021 Findings: There is severe disc narrowing at all lumbar levels. There is right lateral listhesis at L2 -3. There is chronic wedge shaped appearance to L2. There is degenerative retrolisthesis at L2-3-4 an d L4-5. There is multilevel facet degenerative change. There is levoscoliosis centered at L3-4. Impression: 1: Severe lumbar spondylosis with levoscoliosis. Reviewed, dictated and finalized at location B. Impression: 1: Severe lumbar spondylosis with levoscoliosis.
--- NOTE | ~2023-09-07 | XR_ITS ---
AP and lateral views of the left hip Clinical history: Pain Findings: No acute fracture or dislocation is seen. Osseous alignment is anatomic. Left hip joint is preserved. Soft tissues are unremarkable. Impression: No significant abnormality is seen. Reviewed, dictated and finalized at location M. Impression: No significant abnormality is seen.
== END 2023-09-07 13:13 ==
PROVIDERS: PCP Family Medicine; Visit Provider Nurse Practitioner
DX: M47.816 Spondylosis without myelopathy or radiculopathy, lumbar region (principal); M41.9 Scoliosis, unspecified; M25.552 Pain in left hip
CPT/HCPCS: 72100; 73502

== ENCOUNTER 2023-09-13 14:56 | Outpatient (CLI) | payer OTHER, MEDICAID, SELFPAY ==
[2023-09-13 19:31] LABS: Folic Acid > 20.0 ng/mL (2.76->20)
== END 2023-09-13 14:57 | disposition home or self-care (01) ==
LOC: ANHLAB 14:59
PROVIDERS: PCP Family Medicine; Visit Provider Internal Medicine Hematology & Oncology
DX: D64.9 Anemia, unspecified (principal); I10 Essential (primary) hypertension
CPT/HCPCS: 36415; 82607; 82746; 84443

== ENCOUNTER 2023-11-10 11:17 | Outpatient (CLI) | payer OTHER, MEDICAID, SELFPAY ==
[2023-11-10 11:45] LABS: Basophils Absolute Auto 0.1 K/mm3 (0.0-0.1); Basophils Percent Auto 1.2 % (0.2-1.2); Eosinophils Absolute Auto 0.3 K/mm3 (0-0.3); Eosinophils Percent Auto 2.8 % (0-4.4); Hematocrit 39.5 % (37.0-47.0); Hemoglobin 12.9 g/dL (12.0-15.0); Immature Granulocyte Absolute 0.04 K/mm3 (0.00-0.031); Immature Granulocyte Percent A 0.4 % (0-0.5); Lymphocytes Absolute Auto 2.05 K/mm3 (0.9-3.2); Mean Corpuscular HGB Conc 32.7 g/dl (32-36); Mean Corpuscular Hemoglobin 30.1 pg (26-34); Mean Corpuscular Volume 92.1 fl (80-100); Mean Platelet Volume 8.7 fl (7.4-10.4); Monocytes Percent Auto 10.1 % (2.6-8.5); Neutrophils Absolute Auto 6.3 K/mm3 (1.3-6.7); Neutrophils Percent Auto 64.5 % (45.5-73.1); Platelet Count Result 462 k/mm3 (150-375); Red Blood Count 4.29 M/mm3 (4.2-5.4); Red Cell Distribution Width 13.1 % (11.5-14.5); White Blood Count 9.7 K/mm3 (4.5-10.0)
[2023-11-13 11:43] LABS: Homocysteine 12.3 umol/L (<10.4)
[2023-11-13 14:38] LABS: Lupus dRVVT Screen 35 sec (< OR = 45); PTT-LA Screen 30 sec (< OR = 40)
[2023-11-14 13:25] LABS: PTT-LA Additional Testing Not Indicated
[2023-11-15 10:43] LABS: Protein S Antigen, Free 102 % normal (50-147)
[2023-11-16 06:18] LABS: Antithrombin III Activity 125 % normal (80-135)
== END 2023-11-10 11:18 | disposition home or self-care (01) ==
LOC: ANHLAB 11:22
PROVIDERS: PCP Family Medicine; Visit Provider Internal Medicine Hematology & Oncology
DX: D64.9 Anemia, unspecified (principal); I82.4Y1 Acute embolism and thrombosis of unspecified deep veins of right proximal lower extremity
CPT/HCPCS: 36415; 83090; 85025; 85300; 85303; 85306; 85613; 85730; 86146

== ENCOUNTER 2023-12-17 10:29 | Emergency (ER) | payer OTHER, MEDICAID, SELFPAY ==
--- NOTE | ~2023-12-17 | CT_ITS ---
EXAMINATION: CT brain wo con DATE: 12/17/2023 11:26 INDICATION: Dizziness. TECHNIQUE: Computed tomography (CT) of the head was performed without intravenous contrast. The mA wa s adjusted according to patient size. Iterative reconstruction technique was employed. The dose-lengt h product was 529.67 mGy-cm. COMPARISON: Head CT 10/07/2019 FINDINGS: There is chronic encephalomalacia in left frontal temporal region. There are scattered area s of low attenuation in the cerebral white matter. 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 The re is no intracranial hemorrhage, acute infarction, or abnormal intracranial mass lesion. The ventric les are normal in size. 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 There are changes of l eft-sided craniotomy. There is mucosal thickening in the paranasal sinuses. There are likely changes of ocular lens replacement surgeries. There is a trace right mastoid effusion. IMPRESSION: 1. Chronic encephalomalacia in left frontal temporal region and right frontal lobe. 2. Extensive nonspecific cerebral white matter disease, which likely represents chronic small vessel ischemic disease. Reviewed, dictated and finalized at location A. IMPRESSION: 1. Chronic encephalomalacia in left frontal temporal region and right frontal l obe. 2. Extensive nonspecific cerebral white matter disease, which likely represents chronic small vessel ischemic disease.
--- NOTE | ~2023-12-17 | XR_ITS ---
EXAMINATION: XR chest 2V DATE: 12/17/2023 11:33 INDICATION: Dizziness. TECHNIQUE: Frontal and lateral views of the chest were obtained. COMPARISON: Chest 2 views 05/03/2023, chest CT 05/12/2023 FINDINGS: There is mild scarring at the lung apices. There are airspace opacities in the lower lung z ones. No pleural effusion or pneumothorax. The heart size is normal. IMPRESSION: 1. Airspace opacities in the lower lung zones, consistent with atelectasis versus pneumonia. Reviewed, dictated and finalized at location A. IMPRESSION: 1. Airspace opacities in the lower lung zones, consistent with atelectasis vers us pneumonia.
--- NOTE | 2023-12-17 10:32 | ECG_ITS ---
Test Date: 2023-12-17 10:36:03 Measurements Intervals [place] Rate: 88 P: 64 SC: 151 QRS: 49 QRSD: 89 T: 69 QT: 357 QTc: 433 Interpretive Statements SINUS RHYTHM BORDERLINE ST-T WAVE ABNORMALITY- LAT/HIGH LAT LEADS BASELINE ARTIFACT- I, II, III, AVR, AVL, AVF BORDERLINE ECG No previous ECG available for comparison Electronically Signed On 12-17-2023 12:21:46 CDT by Benito Perera D.O.
[2023-12-17 10:34] VITALS: BP 122/50; PULSE 83; RESP 17; TEMP 36.8; O2SAT 95
[2023-12-17 10:56] VITALS: BP 143/72; PULSE 83; PULSE 84; RESP 16; O2SAT 96
[2023-12-17 10:57] LABS: Basophils Absolute Auto 0.1 K/mm3 (0.0-0.1); Basophils Percent Auto 1.5 % (0.2-1.2); Eosinophils Absolute Auto 0.2 K/mm3 (0-0.3); Eosinophils Percent Auto 2.7 % (0-4.4); Hematocrit 38.3 % (37.0-47.0); Hemoglobin 12.5 g/dL (12.0-15.0); Immature Granulocyte Absolute 0.04 K/mm3 (0.00-0.031); Immature Granulocyte Percent A 0.5 % (0-0.5); Lymphocytes Absolute Auto 1.44 K/mm3 (0.9-3.2); Lymphocytes Percent Auto 16.5 % (18.3-44.2); Mean Corpuscular HGB Conc 32.6 g/dl (32-36); Mean Corpuscular Hemoglobin 29.8 pg (26-34); Mean Corpuscular Volume 91.2 fl (80-100); Mean Platelet Volume 8.6 fl (7.4-10.4); Monocytes Absolute Auto 0.9 K/mm3 (0.1-0.6); Monocytes Percent Auto 10.2 % (2.6-8.5); Neutrophils Percent Auto 68.6 % (45.5-73.1); Platelet Count Result 403 k/mm3 (150-375); White Blood Count 8.7 K/mm3 (4.5-10.0)
[2023-12-17 11:07] LABS: Alanine Aminotransferase 11 U/L (6-35); Alkaline Phosphatase 79 U/L (38-126); Anion Gap 6 mmol/L (4-12); Aspartate Amino Transferase 23 U/L (14-36); Bilirubin,Total 0.3 mg/dL (0.2-1.3); Blood Urea Nitrogen 23 mg/dL (7-17); Calcium 8.8 mg/dL (8.4-10.2); Carbon Dioxide 27 mmol/L (22-30); Chloride 97 mmol/L (98-107); Estimated CRCL calculation 42 ml/min; Estimated Glomerular Filt Rate > 60; Glucose 106 mg/dL (65-110); Potassium 3.9 mmol/L (3.4-5.0); Sodium 130 mmol/L (137-145)
--- NOTE | 2023-12-17 11:12 | ED.DIZZY ---
HPI - Dizziness General Chief Complaint: Dizziness Stated Complaint: dizzy Time Seen by Provider: 12/17/23 10:49 History of Present Illness HPI Narrative: Patient is an 78-year-old female who presents to the emergency department this morning complaining of dizziness which started yesterday around 9:00 p.m. while patient was getting ready to go to sleep. Patient states that she also felt dizzy when she woke up this morning and decided to come in for further evaluation. Patient currently denies any dizziness at this, denying any room spinning sensation, denies any lightheadedness or near syncopal episodes. She admits to history of atrial fibrillation and states that her wrist monitor was picking up an irregular heartbeat Patient admits that this is the main reason that she came to the emergency department. She is currently on sotalol but does not take any blood thinners only baby aspirin. She sees 1 of our front end alignment specialist, Dr. Perera regularly. Patient also states that she has been having decreased appetite recently. She is currently denying any chest pain or shortness of breath, any nausea, vomiting, abdominal pain, any headaches, blurry visions, focal weakness, numbness and tingling. Patient also denies any fevers or chills at home. No additional symptoms or concerns at this time. Related Data Home Medications Medication Instructions Recorded Confirmed escitalopram oxalate 20 mg tablet 20 mg PO DAILY 11/14/19 06/09/23 (Lexapro) acetaminophen 500 mg tablet 500 mg PO Q6H PRN Pain 08/04/20 06/09/23 ascorbate calcium (vitamin C) 500 500 mg PO 3XW 08/04/20 06/09/23 mg tablet cyclosporine 0.05 % eye drops in a 1 drp EACH EYE Q12H 08/04/20 06/09/23 dropperette (Restasis) vit C 250 mg-vit E 200 unit-zinc 1 tablet PO Q12H 08/04/20 06/09/23 12.5 mg-cop examiner 1 mg-lut-zeax chew tablet (ICaps AREDS2 (copper citrate)) cholecalciferol (vitamin D3) 10 2,000 unit PO 4XW 03/08/21 06/09/23 mcg (400 unit) capsule cetirizine 10 mg tablet (Zyrtec) 10 mg PO HS 05/09/22 06/09/23 tiotropium 2.5 mcg-olodaterol 2.5 2 inh inhalation DAILY 06/20/22 06/09/23 mcg/actuation mist for inhalation (Stiolto Respimat) Tylenol PM Extra Strength 220 mg PO HS PRN Pain (Scale Score 10/21/22 06/09/23 1-3) ferrous sulfate 325 mg (65 mg 325 mg PO .every other day 03/31/23 06/09/23 iron) tablet olanzapine 2.5 mg tablet 2.5 mg PO QHS 03/31/23 06/09/23 amoxicillin 500 mg capsule 500 mg PO TID 04/19/23 06/09/23 cefdinir 300 mg capsule 300 mg PO BID 04/19/23 06/09/23 albuterol sulfate 1.25 mg/3 mL mg inhalation ONCE PRN 05/25/23 06/09/23 solution for nebulization Allergies Allergy/AdvReac Type Severity Reaction Status Date / Time levofloxacin Allergy Mild Muscle Verified 12/17/23 10:56 Spasms ciprofloxacin Allergy Unknown Itching Verified 12/17/23 10:56 clarithromycin Allergy Unknown Itching Verified 12/17/23 10:56 codeine Allergy Unknown Hives Verified 12/17/23 10:56 celecoxib [From Celebrex] AdvReac Severe Diarrhea Verified 12/17/23 10:56 Review of Systems Review of Systems: All systems are reviewed and are negative unless stated otherwise in the HPI. [facility] Past Medical History Medical History Anxiety Arthritis Bronchiectasis Diagnosis at age 1; previously worked up and she was told she did not have cystic fibrosis. Chronic low back pain Cyst of left kidney Depression Eczema Fracture of distal end of left radius (07/2020) Headache Ileus (09/2022) Iron deficiency Liver cyst Lumbar spondylosis Macular degeneration, age related (2015) Migraines Multiple nodules of lung Obstructive lung disease Mild obstructive abnormality on PFTs. Osteoarthritis Osteoporosis Paroxysmal atrial tachycardia Pseudomonas aeruginosa colonization Stress incontinence in female Vitamin D deficiency Surgical History Surgical History Hi
[2023-12-17 12:32] LABS: Add Urine Microscopic? NO; Appearance Urine Clear (Clear); Bilirubin Urine Negative (Negative); Blood Urine Negative (Negative); Color Urine Yellow (Yellow); Glucose Urine UA Negative (Negative); Ketones Urine Negative (Negative); Leukocyte Esterase Ur Negative LEU/UL (Negative); Nitrate Urine Negative (Negative); Protein Urine Negative (Negative); Specific Grav Ur 1.009 (1.001-1.035); Urobilinogen Urine 0.2 mg/dL (<2.0); pH Urine 6.5 (5.0-9.0)
[2023-12-17] MEDS: SODIUM CHLORIDE 0.9% IV 1,000 ML 999 ML IV CONT (13:15)
[2023-12-17 13:16] VITALS: BP 147/67; PULSE 79; RESP 19; O2SAT 94
[2023-12-17 14:28] VITALS: BP 135/64; PULSE 80; RESP 21; TEMP 36.6; O2SAT 96
== END 2023-12-17 14:35 | disposition home or self-care (01) ==
PROVIDERS: Emergency Medicine; Emergency Provider Emergency Medicine; PCP Family Medicine
DX: J18.9 Pneumonia, unspecified organism (principal); R42 Dizziness and giddiness; I48.91 Unspecified atrial fibrillation; J44.9 Chronic obstructive pulmonary disease, unspecified; E61.1 Iron deficiency; E55.9 Vitamin D deficiency, unspecified; H35.30 Unspecified macular degeneration; M19.90 Unspecified osteoarthritis, unspecified site; M81.0 Age-related osteoporosis without current pathological fracture; F41.9 Anxiety disorder, unspecified; F32.A Depression, unspecified; R94.31 Abnormal electrocardiogram [ECG] [EKG]; G93.89 Other specified disorders of brain; R90.82 White matter disease, unspecified
CPT/HCPCS: 36415; 70450; 71046; 80053; 81003; 85025; 93005; 96360; 99284; J7030

== ENCOUNTER 2024-01-26 10:53 | Outpatient (CLI) | payer OTHER, MEDICAID, SELFPAY ==
--- NOTE | ~2024-01-26 | MR_ITS ---
Procedure: MR lumbar spine wo con Ordering provider: Erin Chambers MD History: . M47.816 - Spondylosis without myelopathy or radiculopathy... . Comparison: None. Technique: MRI lumbar spine without contrast. FINDINGS: SPINAL CORD: Normal.Cord ends at the level of L1. VERTEBRAL BODIES: Levoscoliosis. Normal height and alignment. No compression fracture. Normal marrow signal. DISK SPACES: Narrowing of the disc spaces L1-L2, L2-L3, L3-L4, L4-L5 and L5-S1. T2 hyperintense signa l seen in the endplates at the level of L2-3.. T12-L1: No stenosis. Annulus tear is noted. Slight thickening of the ligamenta flava. L1-L2: No stenosis. Slight thickening of the ligamenta flava. L2-L3: No stenosis.Osteophyte formation with diffuse disc bulge. Narrowing of the left foramina with root compression. Thickening of the ligamenta flava. L3-L4:No stenosis.Osteophyte formation with diffuse disc bulge. L4-L5: Mild spinal canal stenosis. Diffuse disc bulge. Thickening of the ligamenta flava. Right kimberly inal narrowing and the root compression. L5-S1: No stenosis Mild diffuse disc bulge. Narrowing of the left foramen with root compression. PARASPINOUS SOFT TISSUES: Normal. IMPRESSION: No compression fracture. Multilevel degenerative disc disease with variable degrees of spinal canal stenosis, intervertebral f oraminal narrowing and with nerve root compression. Reviewed, dictated and finalized at location A. IMPRESSION: No compression fracture. Multilevel degenerative disc disease with variable degrees of spinal canal sten osis, intervertebral foraminal narrowing and with nerve root compression.
== END 2024-01-26 10:54 | disposition home or self-care (01) ==
LOC: MICIMG 10:53
PROVIDERS: PCP Family Medicine; Visit Provider Neurological Surgery
DX: M47.816 Spondylosis without myelopathy or radiculopathy, lumbar region (principal); M51.369 Other intervertebral disc degeneration, lumbar region without mention of lumbar back pain or lower extremity pain
CPT/HCPCS: 72148

== ENCOUNTER 2024-03-01 12:55 | Outpatient (CLI) | payer OTHER, MEDICAID, SELFPAY ==
--- NOTE | ~2024-03-01 | DEXA_ITS ---
Bone Density Report Name: JESSICA RAYMOND Age: 78 Sex: Female Ethnicity: White Date of : 1945 Indication: postmenopausal; screening for osteoporosis; height loss; anorexia or bulimia; Referring Provider: JUMA POOLE Study: Bone densitometry was performed. Exam Date: March 01, 2024 Accession number: [id number] Bone Density: Region BMD T-score Z-score Classification AP Spine(L1-L4) 0.932 -1.0 1.7 Normal Femoral Neck (Left) 0.505 -3.1 -0.8 Osteoporosis Total Hip (Left) 0.610 -2.7 -0.6 Osteoporosis Femoral Neck (Right) 0.576 -2.5 -0.1 Osteoporosis Total Hip (Right) 0.638 -2.5 -0.4 Osteoporosis Total Hip Mean 0.624 -2.6 -0.5 Osteoporosis World Health Organization criteria for BMD impression classify patients as: Normal (T-score at or above -1.0), Osteopenia (T-score between -1.0 and -2.5), or Osteoporosis (T-score at or below -2.5). 10-year Fracture Risk: FRAX not reported because: Some T-score for Spine Total or Hip Total or Femoral Neck at or below -2.5 Treated for osteoporosis Clinical Information Provided by Patient: Is being treated for osteoporosis Has used the following medications: Vitamin D, Calcium Has the following medical conditions: Anorexia or Bulimia Patient maximum height was 66 Menopause Age: 56 No regular weight bearing exercise Does not regularly consume dairy products Onset of menses at age 10 Number of children 1 Impression: The patient has osteoporosis, based on the Left Femoral Neck T-score. Discussion: It is important to ask patients whether they are taking their medications and to encourage continued and appropriate compliance with their osteoporosis therapies to reduce fracture risk. It is also important to review their risk factors and encourage appropriate calcium and vitamin D intakes, exercise, fall prevention and other lifestyle measures. Follow-Up: Consider a repeat BMD and Vertebral Fracture Assessment (VFA) exam in 2 years or sooner if medically necessary, to reassess this patient's status. Reported by: HENRY on 03/01/2024 1:44:00 PM. Reviewed, dictated and finalized at location AShahram PASTOR
== END 2024-03-01 12:56 | disposition home or self-care (01) ==
LOC: ANHIMG 12:56
PROVIDERS: PCP Family Medicine; Visit Provider Family Medicine
DX: M81.0 Age-related osteoporosis without current pathological fracture (principal); Z78.0 Asymptomatic menopausal state
CPT/HCPCS: 77080

== ENCOUNTER 2024-03-01 13:33 | Outpatient (CLI) | payer OTHER, MEDICAID, SELFPAY ==
[2024-03-01 13:51] LABS: Basophils Absolute Auto 0.1 K/mm3 (0.0-0.1); Basophils Percent Auto 0.9 % (0.2-1.2); Eosinophils Absolute Auto 0.7 K/mm3 (0-0.3); Eosinophils Percent Auto 7.8 % (0-4.4); Hematocrit 41.1 % (37.0-47.0); Hemoglobin 13.3 g/dL (12.0-15.0); Immature Granulocyte Absolute 0.02 K/mm3 (0.00-0.031); Immature Granulocyte Percent A 0.2 % (0-0.5); Lymphocytes Absolute Auto 2.13 K/mm3 (0.9-3.2); Lymphocytes Percent Auto 24.1 % (18.3-44.2); Mean Corpuscular HGB Conc 32.4 g/dl (32-36); Mean Corpuscular Hemoglobin 29.6 pg (26-34); Mean Corpuscular Volume 91.3 fl (80-100); Mean Platelet Volume 8.5 fl (7.4-10.4); Monocytes Absolute Auto 0.8 K/mm3 (0.1-0.6); Monocytes Percent Auto 9.2 % (2.6-8.5); Neutrophils Absolute Auto 5.1 K/mm3 (1.3-6.7); Neutrophils Percent Auto 57.8 % (45.5-73.1); Platelet Count Result 411 k/mm3 (150-375); White Blood Count 8.8 K/mm3 (4.5-10.0)
[2024-03-01 15:08] LABS: Alanine Aminotransferase 13 U/L (6-35); Albumin Level 4.3 g/dL (3.5-5.1); Alkaline Phosphatase 104 U/L (38-126); Anion Gap 5 mmol/L (4-12); Aspartate Amino Transferase 29 U/L (14-36); Bilirubin,Total 0.5 mg/dL (0.2-1.3); Blood Urea Nitrogen 21 mg/dL (7-17); Calcium 9.3 mg/dL (8.4-10.2); Carbon Dioxide 33 mmol/L (22-30); Chloride 97 mmol/L (98-107); Cholesterol 197 mg/dL (0-200); Estimated Glomerular Filt Rate > 60; Glucose 97 mg/dL (65-110); HDL Direct 47 mg/dL; Potassium 4.5 mmol/L (3.4-5.0); Sodium 135 mmol/L (137-145); Triglycerides 91 mg/dL (<150)
[2024-03-01 15:19] LABS: LDL Cholesterol Direct 108 mg/dL
[2024-03-01 15:25] LABS: Vitamin D 25 Hydroxy 28.8 ng/mL
[2024-03-01 15:46] LABS: Hemoglobin A1C 5.5 % (<5.7)
== END 2024-03-01 13:34 | disposition home or self-care (01) ==
LOC: ANHLAB 13:35
PROVIDERS: PCP Family Medicine; Visit Provider Family Medicine
DX: G43.909 Migraine, unspecified, not intractable, without status migrainosus (principal); R73.9 Hyperglycemia, unspecified; I10 Essential (primary) hypertension; I47.19 Other supraventricular tachycardia; F32.9 Major depressive disorder, single episode, unspecified; E53.8 Deficiency of other specified B group vitamins; E55.9 Vitamin D deficiency, unspecified
CPT/HCPCS: 36415; 80053; 80061; 82306; 82607; 83036; 84443; 85025

== ENCOUNTER 2024-04-17 13:54 | Outpatient (CLI) | payer OTHER, MEDICAID, SELFPAY ==
--- NOTE | ~2024-04-17 | XR_ITS ---
CHEST RADIOGRAPH, PA AND LATERAL CLINICAL HISTORY: J47.9 - Bronchiectasis, uncomplicated . COMPARISON: 12/17/2023 TECHNIQUE: PA and lateral views of the chest. FINDINGS The cardiomediastinal silhouette is unremarkable. Improved aeration of the bilateral lung evans when compared with previous examination. Peribronchial thickening and traction bronchiectasis persist. The lungs are otherwise clear. IMPRESSION: Peribronchial thickening and traction bronchiectasis with improved aeration when compared with previo us examination. Reviewed, dictated and finalized at location A. OR LEAD SOFTWARE ENGINEER IMPRESSION: Peribronchial thickening and traction bronchiectasis with improved aeration whe n compared with previous examination.
== END 2024-04-17 13:55 | disposition home or self-care (01) ==
LOC: GOSHIMG 13:55
PROVIDERS: PCP Family Medicine; Visit Provider Nurse Practitioner Family
DX: J47.9 Bronchiectasis, uncomplicated (principal); R05.9 Cough, unspecified
CPT/HCPCS: 71046

== ENCOUNTER 2024-04-27 08:32 | Outpatient (CLI) | payer OTHER, MEDICAID, SELFPAY ==
--- OUTSIDE RECORDS SUMMARY | 2024-04-27 08:38 | XMS_ITS | Encounter Summary ---
Author Organization [facility] Address [address] [place] [address] Phone Care Team Providers Care Marketing Producer Name Role Phone Carlitos Ruiz MD Unavailable Pedro Luis Andrews MD Primary Care Provider [phone] Reason for Visit * Reason Comments Medication Refill Encounter Details Date Type Department Care Team (Late st Contact Info) Description 10/09/2019 Refill [facility] [address] [place] [id number] Carlitos Ruiz MD [address] [place] [phone] Medication Refill Social History Tobacco Use Types Packs/Day Years Used Date Smoking Tobacco: Former Cigarettes 2002 Smokeless Tobacco: Never Alcohol Use Standard Drinks/Week Comments Yes 0 (1 standard drink = 0.6 oz pur e alcohol) OCCASIOINAL Comments No Sex and Gender Information Value Date Recorded Sex Assigned at Not on file Legal Sex Female 9:44 PM CDT Gender Identity Not on file Sexual Orientation Not on file documented as of this encounter Plan of Treatment Not on file documented as of this encounter Visit Diagnoses Not on filedocumented in this encounter Care Teams Marketing Producer Relationship Specialty Start Date End Date Pedro Luis Andrews MD [address] [place] [address] PCP - General Family Medicine 10/09/17 Carlitos Ruiz MD Consulting Physician Pulmonary Disease 09/10/15 3 documented as of this encounter
--- OUTSIDE RECORDS SUMMARY | 2024-04-27 08:38 | XMS_ITS | Clinical Summary ---
Author Organization [facility] Address [address] [facility], [place] [address] Phone Care Team Providers Care Want Ad Receiver Name Role Phone Pedro Luis Andrews MD Primary Care Provider [phone] Allergies Active Allergy Reactions Criticality Noted Date Comments Acer Negundo Allergy Skin Test Unknown 04/11 [place] Extract Allergy Skin Test Unknown 03/27 Aspergillus Allergy Skin Test Unknown 2016 Clarithromycin Unknown Nicardipine Unknown Mineral Unknown 04/11/2016 Ciprofloxacin Hives,Itching,Rash Cladosporium Sphaerospermum Unknown 04/11/19 17 Cladosporium Sphaerospermum Allergy Skin Test Unknown 04/11/2016 Codeine Unknown Codeine Sulfate Unknown Horse Epithelium Unknown 04/11/2016 Kj Grass Allergy Skin Test Unknown 03/27 Mite (D. Farinae) Unknown 04/11/2016 Other Unknown Cipro Plantain Unknown 04/11/2016 Rumex Acetosella ([place]) Unknown Sulfamethoxazole-Trimethoprim Unknown [place] Species Unknown 04/11/2016 Medications azelastine (ASTELIN) 0.1 % Solution 1-2 Sprays by Nasal route 2 times daily. Use in each nostril Active fluticasone (FLONASE) 50 MCG/ACT Suspension 2 Sprays by Nasal route daily. Use in each nostril Active cyclobenzaprine (FLEXERIL) 10 MG Tablet Take 10 mg by mouth 3 times daily as needed for Muscle spasms. Active escitalopram (LEXAPRO) 20 MG Tablet Take 30 mg by mouth daily. Active ALPRAZolam (XANAX) 0.5 MG Tablet Take 0.25 mg by mouth as needed for Anxiety. Active cetirizine (ZYRTEC) 10 MG Tablet Take 10 mg by mouth daily. Active acetaminophen (TYLENOL) 325 MG Tablet take 1 tablet by oral route every 4 hours as needed 5 Active aspirin buffered (BUFFERIN) 325 MG Tablet 325 mg. 6 Active Butalbital-APAP- Caffeine 50-300-40 MG Capsule 7 Active RESTASIS 0.05 % Emulsion 5 7 Active EPINEPHrine (EPIPEN 2-FAISAL) 0.3 MG/0.3ML Solution Auto-injector 7 Active escitalopram (LEXAPRO) 10 MG TabletIndication s:Major Depressive Disorder Take 30 mg by mouth daily. 0 7 Active Probiotic Product (PROBIOTIC MATURE ADULT) Capsule 6 Active Magnesium Oxide 400 MG Capsule Activ e naproxen (NAPROSYN) 500 MG Tablet take 1 tablet by oral route every day with food 5 Active ALPRAZolam (XANAX) 1 MG Tablet take 1 tablet by oral route 3 times every day prn 4 Active Multiple Vitamins-Mineral s (PRESERVISION AREDS 2) Capsule Take 1 Cap by mouth 2 times daily. Active meloxicam (MOBIC) 7.5 MG Tablet TK 1 T PO BID WF 2 7 Active SUMAtriptan (IMITREX) 100 MG Tablet Take by mouth. 7 Active tiZANidine (ZANAFLEX) 4 MG Tablet TK 1 T PO BID PRN 3 7 Active pantoprazole (PROTONIX) 40 MG Tablet Delayed ResponseIndicati ons:Gastroesopha geal reflux disease without esophagitis TAKE 1 TABLET BY MOUTH DAILY 90 Tab 2 8 Active Additional Information Patient not taking.Reported on 05/26/2020 albuterol (PROAIR HFA) 108 (90 Base) MCG/ACT Aerosol SolutionIndicati ons:Simple chronic bronchitis (HCC) take 2 Puffs by inhalation every 4 hours as needed (inhale 2 puff by inhalation route every 4 - 6 hours as needed). 8.5 g 8 Active gabapentin (NEURONTIN) 300 MG Capsule TK 1 C PO TID 0 8 Active Brexpiprazole (REXULTI PO) Take 5 mg by mouth. Active ALBUTEROL 108 (90 Base) MCG/ACT Aerosol Solution INHALE 2 PUFFS BY MOUTH EVERY 4 HOURS NEEDED FOR WHEEZING 42.5 g 5 0 Active amoxicillin-clav ulanate (AUGMENTIN) 250-125 MG Tablet TAKE 1 TABLET BY MOUTH TWICE DAILY 28 Tab 2 0 Active Additional Information Patient not taking.Reported on 05/26/2020 Active Problems Problem Noted Date Diagnosed Date Gastroesophageal reflux disease without esophagi tis 01/17/2017 Chronic bronchitis 09/15/2015 Chronic lung disease 09/15/2015 Bronchiectasis without acute exacerbation 2015 Simple chronic bronchitis 09/15/2015 Laryngitis, chronic Laryngopharyngeal reflux Immunizations Immunization Administration Dates Next Due Covid-19, Mrna, Lnp-s, PF, 1 00 mcg/0.5 mL Dose (Moderna) 05/28/2020,04/29/2020 Influenza Vaccine greater than 3 yrs 02/29/2016 Family History Medical History Relation Name Comments Heart Attack Mother STROKE Relation Name Status Comments Father Mother STROKE Social History Tobacco Use Types Packs/Day Years Used Date Smoking Tobacco: Former Cigarettes 1 2002 Smokeless Tobacco: Never Tobacco Cessation:Counseling Given: No Alcohol Use Standard Drinks/Week Comments Yes 0 (1 standard drink = 0.6 oz pur e alcohol) OCCASIOINAL Comments No Sex and Gender Information Value Date Recorded Sex Assigned at Not on file Legal Sex Female 9:44 PM CDT Gender Identity Not on file Sexual Orientation Not on file Last Filed Vital Signs Vital Sign Reading Time Taken Comments Blood Pressure 120/58 06/12/2018 1:02 PM CDT Pulse 104 06/12/2018 1:02 PM CDT Temperature 36.6 ??C (97.8 ??F) 06/12/2018 1:02 PM CD T Respiratory Rate 18 06/12/2018 1:02 PM CDT Oxygen Saturation 98% 06/12/2018 1:02 PM CDT Inhaled Oxygen Concentration - - Weight 49.1 kg (108 lb 4.8 oz) 06/12/2018 1:02 P M CDT Height 166.4 cm (5' 5.5 ) 06/12/2018 1:02 PM CDT Body Mass Index 17.75 06/12/2018 1:02 PM CDT Plan of Treatment Health Maintenance Due Date Last Done Comments DEXA Bone Density 1945 Hepatitis C Virus (HCV) Screening 1945 Zoster Immunization (1 of 2) 1993 Respiratory Syncytial Virus (RSV) Immunization (Adult) (1 - 1-dose 75+ series) 2018 Influenza Immunization (#1) 2023 092 08/2019, 12/28/2018, 12/28/2018, Additional history exists SARS-COV-2 Immunization ( season) 2023 08/06/2021, 01/20/2021, 05/28/2020, Additional history exists DTaP/Tdap/Td Immunization Discontinued 02/19/2017 Pneumococcal Immunization (50+ years) Completed 02/19/2017, 02/06/2017, 06/14/2016 Pneumococcal Immunization Combined Discontinued 02/19/2017, 02/06/2017, 06/14/2016 TdaP Immunization Completed 02/19/2017 Hepatitis B Immunization Aged Out No longer eligible based on patient's age to complete this topic Meningococcal Immunization (ACWY) Aged Out No longer eligible based on patient's age to complete this topic Rotavirus Immunization Aged Out No lo nger eligible based on patient's age to complete this topic Insurance MEDICARE C AETNA Care Teams Want Ad Receiver Relationship Specialty Start Date End Date Darryl, Pedro Luis E, MD [address] [place] [address] PCP - General Family Medicine 10/09/17
--- OUTSIDE RECORDS SUMMARY | 2024-04-27 08:38 | XMS_ITS | Encounter Summary ---
Author Organization [facility] Address [address] [place] [address] Phone Care Team Providers Care Appeals Specialist Name Role Phone Carlitos Ruiz MD Unavailable Pedro Luis Andrews MD Primary Care Provider [phone] Reason for Visit * Reason Comments Medication Refill Encounter Details Date Type Department Care Team (Late st Contact Info) Description 06/14/2019 Refill [facility] [address] [place] [phone] Carlitos Ruiz MD [address] [place] [phone] Medication Refill Social History Tobacco Use Types [...] on filedocumented in this encounter Care Teams Appeals Specialist Relationship Specialty Start Date End Date Pedro Luis Andrews MD [address] [place] [address] PCP - General Family Medicine 10/09/17 Carlitos Ruiz MD Consulting Physician Pulmonary Disease 09/10/15 3 documented as of this encounter
--- OUTSIDE RECORDS SUMMARY | 2024-04-27 08:39 | XMS_ITS | Data Portability ---
Author Organization [facility] Address [address] [place] [id number] Assessment No assessment recorded. Plan of Treatment Reminders Order Date Submit Date Provider Last Modified By Organization Details Last Modified Time Details Appointments None record ed. Lab None record ed. Referral None record ed. Procedures None record ed. Surgeries None record ed. Imaging None record ed. Medication Orders None record ed. Patient TargetsNo targets recorded. Patient InstructionsNo instructions recorded. Reason for Referral None Reported. Medical Equipment None Reported. Vitals None Recorded Social History None recorded. Functional Status None recorded. Mental Status None recorded. Family History Nothing Reported. Medical History No medical history recorded. Gynecological HistoryNo gynecological history recorded. Obstetrics History GPAL:G 0 P 0 0 0 0 Immunizations Vaccine Type Date Status Note Provider Nam e and Address Organization Details Recorded Time COVID-19, mRNA, LNP-S, PF, 100 mcg/0.5mL dose or 50 mcg/0.25mL dose 04/29/2020 completed Clementine pike [facility] 04/29/2020 17:21:04 COVID-19, mRNA, LNP-S, PF, 100 mcg/0.5mL dose or 50 mcg/0.25mL dose 05/28/2020 completed Clementine pike [facility] 05/28/2020 11:24:58 Past Encounters Encounter ID Performer Location Encounter Start Date Encounter Closed Date Diagnosis/Indication Diagnosis SNOMED-CT Code Diagnosis ICD10 Code Diagnosis Note [id number] [place] 14 IM [address] [facility] [place] [address] 04/29/2020 15:41:44 04/29/2020 18:24:39 Administration of SARS-CoV-2 antigen vaccine [id number] Z23 [id number] G[place] 14 IM [address] [facility] [place] [address] 05/27/2020 15:30:01 05/28/2020 08:16:29 Administration of SARS-CoV-2 antigen vaccine [id number] Z23 Health Concerns Section Related Observation LastModified by Organization Detai ls LastModified Time None Recorded Concern Status LastModified by Organization Details LastModified Time None Recorded Advance Directives Directive None Recorded Payers Encounter Date Sequence Insurance Name Policy Number Policy Larsen Covered Member ID Larsen Member ID Guarantor Name 04/29/2020 1 [place] Bebe Adame Rosas [id number] Bebe Denning 04/29/2020 2 AET[employer] ([facility] [id number] Bebe Denning [id number] Bebe Denning 05/27/2020 1 [place] Bebe Adame Rosas [id number] Bebe Rosas 05/27/2020 2 [employer]ET[employer] ([facility] [id number] Bebe Denning [id number] [facility] Episode No OBEpisode recorded.
--- OUTSIDE RECORDS SUMMARY | 2024-04-27 08:39 | XMS_ITS | Referral Summary ---
Author Organization [facility] Medical Office Building B Address [address] [place] [address] Care Team Providers Care Put In Beat Adjuster Name Role Phone Laura Cobb MD Primary Care Provider Allergies Active Allergy Reactions Criticality Noted Date Comments Aspergillus Fumigatus Allerg enic Extract Unknown 04/11/2016 Ciprofloxacin Hives,Itching,Rash Medium 01/09/2017 Cladosporium Sphaerospermum Allergenic Extract Unknown 04/11/2016 Clarithromycin Unknown 01/09/2017 Codeine Unknown Codeine Sulfate Unknown Grass Pollen-Kj Unknown 04/11/2016 Nicardipine Unknown Plantain Unknown 04/11/2016 Sulfamethoxazole-Trimethoprim Unknown Tree Pollen-Black Jakob, Standard Unknown Tree Pollen-[place] Unknown 04/11/2016 Tree Pollen-Mountain [place] Unknown 7 [place] Pollen-Sheep [place] Unknown 04/11/2016 [place] Bark Unknown 04/11/2016 Medications naproxen sodium (ALEVE) 220 mg capsule 220 mg. 0 1 Active escitalopram (LEXAPRO) 20 mg tablet take 1 tablet by oral route every day 0 0 4 Active zeaxanthin, bulk, 90 % powder 90 %. 0 0 5 Active magnesium 100 mg capsule 100 mg. 0 0 5 Active lactobacillus combo no.11 (PROBIOTIC) 15 billion cell capsule, sprinkle 0 0 6 Active acetaminophen (TYLENOL) 325 mg tablet take 1 tablet by oral route every 4 hours as needed 0 0 5 Active lutein 40 mg capsule 40 mg. 0 0 5 Active multivitamin capsule take 1 capsule by oral route every day 0 0 4 Active ALPRAZolam (XANAX) 1 mg tablet take 1 tablet by oral route 3 times every day prn 0 0 4 Active cetirizine (ZyrTEC) 10 mg tablet take 1 tablet by oral route every day 0 0 4 Active naproxen (NAPROSYN) 500 mg tablet take 1 tablet by oral route every day with food 90 3 5 Active RESTASIS 0.05 % ophthalmic emulsion 7 Active escitalopram (LEXAPRO) 10 mg tablet 7 Active fluticasone (FLONASE) 50 mcg/actuation nasal spray Administer into affected nostril(s). Active azelastine (ASTELIN) 137 mcg (0.1 %) nasal spray Administer 1 spray into each nostril 2 (two) times a day. Use in each nostril as directed Active amitriptyline (ELAVIL) 25 mg tablet 7 Active REXULTI 0.5 mg tablet 8 Active BOOSTRIX TDAP 2.5-8-5 Lf-mcg-Lf/0.5mL vaccineIndication s:Diphtheria-Pert ussis-Tetanus Combined Prevention [address] (PROTONIX) 40 mg EC tablet TK 1 T PO D 5 7 Active PREVNAR 13, PF, 0.5 mL vaccine ADM 0.5ML IM UTD 0 7 Active triamcinolone (KENALOG) 0.1 % ointment 7 Active tiZANidine (ZANAFLEX) 4 mg tablet TK 1 T PO BID PRN 7 Active gabapentin (NEURONTIN) 300 mg capsule 1 capsule 8 Active roflumilast (DALIRESP) 500 mcg tabletIndications :Prevention of Bronchospasm with Chronic Bronchitis Take 1 tablet (500 mcg total) by mouth daily 30 tablet 2 9 Active SUMAtriptan (IMITREX) 100 mg tablet TAKE 1 TABLET BY MOUTH NEEDED FOR MIGRAINE HEADACHE FOR UP TO 1 DOSE DIRECTED. MAY REPEAT ONCE AFTER 2 HOURS NEEDED 9 tablet 1 Active alendronate (FOSAMAX) 70 mg tablet TAKE 1 TABLET BY MOUTH WEEKLY 1 Active Bevespi Aerosphere 9-4.8 mcg inhaler Inhale 2 puffs 2 (two) times a day 1 Active albuterol HFA (PROVENTIL HFA,VENTOLIN HFA,PROAIR HFA) 90 mcg/actuation inhaler Inhale 2 puffs every 4 (four) hours as needed 8 Active ferrous fumarate 324 mg (106 mg iron) tablet Take by mouth Takes one tab every other day Active amoxicillin-clavu lanate (AUGMENTIN) 875-125 mg per tablet Take 1 tablet by mouth 2 (two) times a day Active Active Problems Problem Noted Date Diagnosed Date Right-sided chest pain 09/17/2018 Assessment & Plan (09/17/2018 12:07 AM CDT): The patient states that she had a fall on her right-sided yesterday. Today she complains of mild right-sided chest pain. She denies any fever or hemoptysis She was advised to start Tylenol 325 mg t.i.d. If she does not improve we will consider chest x-ray. Body mass index (BMI) of 5th to less than 85th percentile for age in patient 18 years to less than 21 years of age 0609/16/2018 Assessment & Plan (09/17/2018 12:00 AM CDT): The patient states that her weight has been in the range of 105-110 for long time. She has gained 3 lb since last visit. Small airways disease 11/20/2017 Assessment & Plan (09/16/2018 11:58 PM CDT): Cathy November [id number] revealed: 1. Small airway disease with significant response to bronchodilator. 2. Normal lung volumes, 3. Mild impairment of diffusion capacity, 4. Normal airway resistance. We will continue with albuterol inhaler 2 puffs 4 times a day as needed. Assessment & Plan (01/09/2018 9:02 PM CDT): Cathy November [id number] revealed: 1. Small airway disease with significant response to bronchodilator. 2. Normal lung volumes, 3. Mild impairment of diffusion capacity, 4. Normal airway resistance. She was advised to continue with albuterol inhaler 2 puffs 4 times a day as needed. Assessment & Plan (12/11/2017 7:24 PM CDT): She was advised to continue with albuterol inhaler 2 puffs 4 times a day as needed. Assessment & Plan (11/20/2017 7:20 PM CDT): PFT has shown small airway disease with significant response to bronchodilator or. She is also known case of bronchiectasis. She was advised to continue with albuterol inhaler 2 puffs t.i.d.. Gastroesophageal reflux disease without esophagi tis 11/20/2017 Assessment & Plan (09/16/2018 11:59 PM CDT): Symptoms well controlled. We will continue with omeprazole. Assessment & Plan (01/09/2018 9:01 PM CDT): Symptoms well controlled with omeprazole. She was advised to continue with omeprazole. Assessment & Plan (12/11/2017 7:25 PM CDT): We will continue with pantoprazole as she reports significant improvement of the symptoms. Assessment & Plan (11/20/2017 7:24 PM CDT): She has a history of acid reflux disease and currently she is on pantoprazole 40 mg once a day. She was advised to increase pantoprazole to 80 mg a day on odd days and continue with 40 mg on even days. Trochanteric bursitis, right hip 10/26/2017 It band syndrome, right 10/26/2017 Allergic rhinitis 10/20/2017 Overview (10/20/2017): She has all clinical features of allergic rhinitis. We will start her on fluticasone nasal spray. Assessment & Plan (09/17/2018 12:05 AM CDT): She denies any postnasal drip or nasal congestion. She was advised to continue with combination of azelastine and fluticasone nasal sprays. Assessment & Plan (01/09/2018 9:03 PM CDT): Symptoms well controlled. She was advised to continue with combination of azelastine and fluticasone nasal spray. Assessment & Plan (10/20/2017 2:26 PM CDT): She has all clinical features of allergic rhinitis. She was advised to continue with combination of azelastine and fluticasone nasal spray. Her spray technique was reviewed and the correct technique was clearly explained and demonstrated. Mild intermittent asthma without complication Chronic maxillary sinusitis 09/18/2017 Assessment & Plan (10/20/2017 2:27 PM CDT): Stable. Currently she does not have any evidence of exacerbation. Assessment & Plan (09/18/2017 7:49 AM CDT): Based on the patient's history, review of CT imaging and my physical findings I feel the patient would benefit from bilateral maxillary sinusotomies using balloon dilation as well as culture attainment of the material within the maxillary antrum bilateral. All questions were answered to what appeared to be patient's understanding and satisfaction. After the procedure was explained in full the potential risk, complications, benefits and alternatives patient would like to proceed. Patient will be scheduled in a timely fashion. Chronic migraine without aur a without status migrainosus, not intractable 02/28/2017 Cervical stenosis of spine 02/28/2017 Bronchiectasis 11/24/2016 Assessment & Plan (09/16/2018 11:58 PM CDT): She is a known case of bronchiectasis with recurrent exacerbations. She was advised to continue with Daliresp. She has not started Aerobika Oscillating PEP System yet. Assessment & Plan (01/09/2018 9:11 PM CDT): She is on case of bronchiectasis with recurrent exacerbations. She completed a course of Augmentin about 2 weeks ago for an exacerbation. Today she was started on Daliresp 500 mcg 1 tablet once a day. We will also consider starting daily suppressive doxycycline 100 mg twice a day. She has not started Aerobika Oscillating PEP System yet. Assessment & Plan (12/11/2017 7:27 PM CDT): She is on case of chronic bronchiectasis with recurrent respiratory exacerbation. Sputum culture grew Pseudomonas aeruginosa (colonized), susceptible to ciprofloxacin. Sputum study for mycobacterial infection has shown no growth. The patient has allergies to multiple antibiotics including Cipro, clarithromycin, sulfa medications, Today she was started on a course of azithromycin for mild respiratory exacerbation. We may also consider aztreonam via nebulizer for eradication of Pseudomonas. About 3 weeks ago she was started on Oscillating Positive Expiratory Pressure (OPEP) device, but she has not received it yet. Assessment & Plan (11/20/2017 7:29 PM CDT): Today she was started on: 1. Oscillation PEP 2. Albuterol inhaler 2 puffs t.i.d. Currently the patient does not have any sign of exacerbation. She is up-to-date on pneumonia vaccine. CBC and sputum study for aerobic organisms and atypical mycobacterial infection (x3) were ordered. Will also consider pulmonary rehab in the next visit. Assessment & Plan (10/20/2017 2:25 PM CDT): She was diagnosed. Bronchiectasis at the age of 1 and since then she has had continuous respiratory symptoms including productive cough and recurrent exacerbation. She also has a history of airway hyperreactivity. Her last exacerbation was about 3 weeks ago and she completed a course of Augmentin. Pulmonary function testing was arranged and she was advised to continue with current respiratory inhalers. 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 Cerebral arterial aneurysm 05/27/2011 Immunizations Name Administration Dates Next Due Influenza, Quadrivalent, Split, Intramuscular Pneumococcal Polysaccharide PPV23 12/06/2012 Social History Tobacco Use Types Packs/Day Years Used Date Smoking Tobacco: Former Cigarettes 1 5 1 998 - 2002 Smokeless Tobacco: Never Alcohol Use Standard Drinks/Week Comments Yes 0 (1 standard drink = 0.6 oz pur e alcohol) Comments Unknown Sex and Gender Information Value Date Recorded Sex Assigned at Not on file Legal Sex Female 9:04 AM CARPENTER HELPER Gender Identity Female 07/03/2018 9:39 AM CDT Sexual Orientation Straight 07/03/2018 9: 39 AM CDT Last Filed Vital Signs Vital Sign Reading Time Taken Comments Blood Pressure 134/74 08/01/2018 1:03 PM CDT Pulse 103 08/01/2018 1:03 PM CDT Temperature 36.1 ??C (96.9 ??F) 02/04/2021 1:32 PM CS T Respiratory Rate 19 06/26/2018 12:45 PM CDT Oxygen Saturation 96% 06/26/2018 12:45 PM CDT Inhaled Oxygen Concentration - - Weight 76.7 kg (169 lb 1.6 oz) 02/04/2021 1:32 P M CARPENTER HELPER Height 165.1 cm (5' 5 ) 02/04/2021 1:32 PM CARPENTER HELPER Body Mass Index 28.14 02/04/2021 1:32 PM CARPENTER HELPER Plan of Treatment Not on file Insurance MEDICARE AETNA [facility] GOLD REF [employer] ADVANTAGE CHOICE PPO [employer] ADVANTAGE CHOICE PPO IDPA Care Teams Put In Beat Adjuster Relationship Specialty Start Date End Date Laura Cobb MD PCP - General Family Practice 02/04/21
--- OUTSIDE RECORDS SUMMARY | 2024-04-27 08:39 | XMS_ITS | Clinical Summary ---
Author Organization [facility] Address [address] [address] Care Team Providers Care Document Specialist Name Role Phone Abhijeet Francisco DO Primary Care Provider [phone] Source Comments [facility],non-owned Affiliates and Associated Physician Practices is amultiple site organization consisting of ambulatory clinics and hospital sitesin [place], [place], [place] and [place]. This disclosure is being madepursuant to the Care Everywhere program and may not contain all information available regarding this patient. Last updated 17.[facility] Allergies Active Allergy Reactions Criticality Noted Date Comments Clarithromycin 01/09/2017 Ciprofloxacin 01/09/2017 Codeine Unknown 12/28/2018 Levofloxacin Other 12/28/2018 Joint pain Immunizations Name Administration Dates Next Due INFLUENZA VACCINE, HIGH-DOSE , QUADR. (FLUZONE HIGH-DOSE QUADRIVALENT; 65Y+), 0.7 ML (HD-IIV4) 12/28/2018,01/09/2017 Social History Tobacco Use Types Packs/Day Years Used Date Smoking Tobacco: Never Assessed Sex and Gender Information Value Date Recorded Sex Assigned at Not on file Gender Identity Not on file Sexual Orientation Not on file Plan of Treatment Health Maintenance Due Date Last Done Comments BONE DENSITY TESTING 1945 MEDICARE AWV ? 12 MONTHS 1945 DTAP/TDAP/TD VACCINES (1 - Tdap) 1962 PNEUMOCOCCAL VACCINE 50+ (1 of 1 - PCV) 1993 ZOSTER VACCINE (1 of 2) 1993 Respiratory Syncytial Virus (RSV) Vaccine Pt: or over 60 yrs (1 - 1-dose 75+ series) 2018 COVID-19 VACCINE (2023- season) 2023 INFLUENZA VACCINE (#1) 2023 9, 01/09/2017, 02/29/2016, Additional history exists DEPRESSION SCREENING 03/27/2024 HEPATITIS B VACCINE Aged Out No longe r eligible based on patient's age to complete this topic HIB VACCINE Aged Out No longer eligi ble based on patient's age to complete this topic HPV VACCINE Aged Out No longer eligi ble based on patient's age to complete this topic MENINGOCOCCAL (Group B) VACCINE Aged Out No longer eligible based on patient's age to complete this topic MENINGOCOCCAL VACCINE Aged Out No axel yamilet eligible based on patient's age to complete this topic Care Teams Document Specialist Relationship Specialty Start Date End Date Abhijeet Francisco DO PCP - General Internal Medicine 01/09/17
--- OUTSIDE RECORDS SUMMARY | 2024-04-27 08:39 | XMS_ITS | Referral Summary ---
Author Organization [facility] Address [address] [place] [address] Care Team Providers Care Powerhouse Mechanic Helper Name Role Phone Abhijeet Francisco DO Primary Care Provider [phone] Source Comments [facility],non-owned Affiliates and Associated Physician Practices is amultiple site organization consisting of ambulatory clinics and hospital sitesin [place], [place] and [place]. This disclosure is being madepursuant to the Care Everywhere program and may not contain all information available regarding this patient. Last updated 17.[facility] [place] Allergies Active Allergy Reactions Criticality Noted Date [...] Orientation Not on file Plan of Treatment Not on file Care Teams Powerhouse Mechanic Helper Relationship Specialty Start Date End Date Abhijeet Francisco DO PCP - General Internal Medicine 01/09/17
--- OUTSIDE RECORDS SUMMARY | 2024-04-27 08:39 | XMS_ITS | Clinical Summary ---
Author Organization [facility] Medical Office Building [address] Address [address] [place] [address] Care Team Providers Care Event Organizer Name Role Phone Laura Cobb MD Primary Care Provider Allergies Active Allergy Reactions Criticality Noted Date Comments Aspergillus Fumigatus Allerg enic Extract Unknown 04/11/2016 Ciprofloxacin Hives,Itching,Rash Medium 01/09/2017 Cladosporium Sphaerospermum Allergenic Extract Unknown 04/11/2016 Clarithromycin Unknown 01/09/2017 Codeine Unknown Codeine Sulfate Unknown Grass Pollen-Kj Unknown 04/11/2016 Nicardipine Unknown Plantain Unknown 04/11/2016 Sulfamethoxazole-Trimethoprim Unknown Tree Pollen-Black [place], Standard Unknown Tree Pollen-[place] Unknown 04/11/2016 Tree Pollen-Mountain [place] Unknown [address] [place] Pollen-Sheep [place] Unknown 04/11/2016 White [place] Bark Unknown 04/11/2016 Medications naproxen sodium (ALEVE) [...] Post-infective bronchiectasis Pneumonia due to Klebsiella pneumoniae ([facility]) 05/27/2014 Overview (06/30/2016): Pneumonia from Klebsiella pneumoniae Headache disorder 05/09/2014 Overview (06/30/2016): Chronic headaches 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 Henao OTHER SURGICAL HISTORY Fracture wrist removed hardware Dr. Henao OTHER SURGICAL HISTORY copd: pneumonia xseveral times OTHER SURGICAL HISTORY fibromyalgia: Went away after a couple years, no reocurrance OTHER SURGICAL HISTORY fracture repair: hardware in wrist WRIST SURGERY Wrist Surgery BRAIN SURGERY Brain Surgery OTHER SURGICAL HISTORY wrist surgery TYMPANOSTOMY TUBE PLACEMENT ear tubes Medical History Medical History Date Comments Depression Depression Chronic obstructive pulmonar y disease (HCC) copd; Comments: Chronic pseu domonas treated with antibiotics Primary fibromyalgia syndrome 1989 fi bromyalgia; Outcome: resolved Anemia anemia Chronic obstructive pulmonar y disease (HCC) COPD Hx Other Medical anerusym brain Tension headache Headache, tensi on Hx Other Medical 2009 aneurysm Hx Other Medical fracture repair Hx Other Medical double vision Arthritis Arthritis Primary fibromyalgia syndrome Fi bromyalgia Hx Other Medical Fracture, upper limb Osteoporosis Osteoporosis Mumps Mumps Family History Medical History Relation Name Comments Hypertension Father Hypertension; Schizophrenia Father Schizophrenia; Hypertension Mother Hypertension; Stroke Mother Stroke; Cancer Other 1 Family history of Cancer -; Other Other 2 Family history of Colitis; Stroke Other 3 Family history of Stroke; Heart disease Other 4 Family history of heart disease; Asthma Other 5 Family history of Asthma; Bleeding Disorder Other 6 Family his tory of Bleeding disorder; Hypertension Other 7 Family history of Hypertension; Heart failure Other 8 Family history of Congestive heart failure; Heart attack Other 9 Family history of Myocardial infarction; Kidney disease Other 10 Family histor y of Renal disease; Schizophrenia Other 11 Family history of Schizophrenia; Other Other 12 Family history of supra nuclear palsy; Hypertension Other 13 Hypertension; Coronary artery disease Other 14 Fami ly history of Coronary artery disease; Other Other 15 Family history of colon, grandma; Relation Name Status Comments Father Mother Other 1 Other 2 Other 3 Other 4 Other 5 Other 6 Other 7 Other 8 Other 9 Other 10 Other 11 Other 12 Other 13 Other 14 Other 15 Social History Tobacco Use Types Packs/Day Years Used Date Smoking Tobacco: Former Cigarettes 1 5 1 998 - 2002 Smokeless Tobacco: Never Alcohol Use Standard Drinks/Week Comments Yes 0 (1 standard drink = 0.6 oz pur e alcohol) Comments Unknown Sex and Gender Information Value Date Recorded Sex Assigned at Not on file Legal Sex Female 9:04 AM TRIBAL DELEGATE Gender Identity Female 07/03/2018 9:39 AM CDT Sexual Orientation Straight 07/03/2018 9: 39 AM CDT Obstetrics History Last Filed Vital Signs Vital Sign Reading Time Taken Comments Blood Pressure 134/74 08/01/2018 1:03 PM CDT Pulse 103 08/01/2018 1:03 PM CDT Temperature 36.1 ??C (96.9 ??F) 02/04/2021 1:32 PM CS T Respiratory Rate 19 06/26/2018 12:45 PM CDT Oxygen Saturation 96% 06/26/2018 12:45 PM CDT Inhaled Oxygen Concentration - - Weight 76.7 kg (169 lb 1.6 oz) 02/04/2021 1:32 P M TRIBAL DELEGATE Height 165.1 cm (5' 5 ) 02/04/2021 1:32 PM TRIBAL DELEGATE Body Mass Index 28.14 02/04/2021 1:32 PM TRIBAL DELEGATE Plan of Treatment Health Maintenance Due Date Last Done Comments Depression Screening 1945 Fall Risk Assessment 1945 Osteoporosis Screening-Bone Density Scan 1943 Hepatitis B Screening 1961 Zoster Vaccine (1 of 2) 1993 Well Visit 65+ 2008 Covid-19 Vaccine (2023-2 5 season) 2023 01/20/2021, 05/28/2020, 04/29/2020 Influenza Vaccine (#1) 2023 , 12/21/2019, 12/28/2018, Additional history exists DTaP/Tdap/Td Vaccine (2 - Td or Tdap) 02/19/2027 02/19/2017 Pneumococcal vaccine 65+ Completed 017, 02/06/2017, 06/14/2016, Additional history exists Insurance MEDICARE AETNA [facility] ADVANTAGE CHOICE PPO [place] ADVANTAGE CHOICE PPO IDPA Care Teams Event Organizer Relationship Specialty Start Date End Date Laura Cobb MD PCP - General Family Practice 02/04/21
--- OUTSIDE RECORDS SUMMARY | 2024-04-27 08:39 | XMS_ITS | Patient Health Summary ---
Author Organization [facility] Address [address] [place] [address] Care Team Providers Care Media Relations Intern Name Role Phone Abhijeet Francisco DO Primary Care Provider [phone] Note from [facility],non-owned Affiliates and Associated Physician Practices is amultiple site organization consisting of ambulatory clinics and hospital sitesin [place], [place], [place] and [place]. This disclosure is being madepursuant to the Care Everywhere program and may not contain all information available regarding this patient. Last updated 17.[facility] Allergies * Clarithromycin * Ciprofloxacin * Codeine(Unknown) * Levofloxacin(Other) Immunizations * INFLUENZA VACCINE, HIGH-DOSE, QUADR. (FLUZONE HIGH-DOSE QUADRIVALENT; 65Y+), 0.7 ML (HD-IIV4)(Given 12/28/2018, 01/09/2017) Social History Tobacco Use Types Packs/Day Years Used Date Smoking Tobacco: Never Assessed Sex and Gender Information Value Date Recorded Sex Assigned at Not on file Gender Identity Not on file Sexual Orientation Not on file Care Teams Media Relations Intern Relationship Specialty Start Date End Date Abhijeet Francisco, PCP - General Internal Medicine 01/09/17
--- OUTSIDE RECORDS SUMMARY | 2024-04-27 08:39 | XMS_ITS | Continuity of Care Document ---
Author Organization [facility] Address [address] [place] [address] Phone Care Team Providers Care Appliance Service Representative Name Role Phone Rian PT,MPT,ATC, Dougie Unavailable Unavai lable Procedures Procedure Date PT RE-EVALUATION NEUROMUSCULAR RE-ED Mobility: Walking And Moving Limitaion- Discharge Mobility: Walking And Moving Limitation- Goal Medications Name Dose Freq Route DOC Feb THERAPEUTIC EXERCISES NEUROMUSCULAR RE-ED Theraband, per yard THERAPEUTIC EXERCISES NEUROMUSCULAR RE-ED THERAPEUTIC EXERCISES NEUROMUSCULAR RE-ED PT EVALUATION THERAPEUTIC EXERCISES NEUROMUSCULAR RE-ED Mobility: Walking And Moving Limitations -Curent Mobility: Walking And Moving Limitation- Goal Medications Name Dose Freq Route DOC Feb Pain Assess Positive DOC 2014 BMI Low F/U Plan DOC No Falls or 1 Fall w/o Injury Screened f or Fall Risk Functional Outcome Assessmen t documented, deficits identified, treatment plan es Advance Directives Directive Yes / No Effective Date File Name No Information Encounters Encounter Description Practice Location Reason(s) For Visit Diagnoses Date Provider Providers Copied on Encounter [facility], [facility] [place], [place], [id number], [place] tel:[phone] [place] No Information 5 [facility]. Referring Provider: Miki Martins, 4 [facility] [address], [place], [address]. tel:[phone] [facility] [address], [place], [place], [address], tel:[phone] [place] No Information Dec-1 5-201 5 [facility]. Referring Provider: Miki Martins, 4 [facility] [address], [place], [address]. tel:[phone], [place], [place], [address], [place] tel:[phone] [place] No Information Dec-1 0-201 5 [facility]. Referring Provider: Miki Martins, 4 [facility] [address], [place], [address]. tel:[phone] [facility] [address], [place], [place], [address], tel:[phone] [place] No Information Dec-0 8-201 5 [place], [place], . Referring Provider: Miki Martins, 4 [facility] [address], [place], [address]. tel:[phone] [facility] [address], [place], [place], [address], tel:[phone] [place] Pain in right hipMuscle weakness (generalized) Sciatica, right side Dec-0 4-201 5 [place], [place], [place]. Referring Provider: Miki Martins, 4 [facility] [address], [place], [address]. tel:[phone] Family History Family Member Type Diagnosis Age At Onset No Information Payers Payer name Insurance type Covered alliance party ID Authoriza tion(s) Medicare [place] [id number] POC [id number] Social History Type Description Quantity Date Captured Comments Sex Female Smoking Status No Information Chief Complaint And Reason For Visit No Information Reason For Referral Reason For Referral No Information History Of Present Illness Encounter Date Complaint History Of Prese nt Illness No Information Functional Status Date Functional Assessmen t No Information Instructions Date Instruction Additional Infor mation No Information Assessments Type Assessment Date No Information Patient Care Teams Name Effective Dates (start - stop) Status Members No Information
[2024-04-27 10:08] LABS: Influenza A QL RT-PCR Negative (Negative); Influenza B QL RT-PCR Negative (Negative); RSV RNA, RT-PCR Negative (Negative); SARS-CoV-2 RNA PCR Negative (Negative)
== END 2024-04-27 08:33 | disposition home or self-care (01) ==
LOC: ANHLAB 08:33
PROVIDERS: PCP Family Medicine; Visit Provider Family Medicine
DX: J06.9 Acute upper respiratory infection, unspecified (principal); Z20.822 Contact with and (suspected) exposure to COVID-19
CPT/HCPCS: 87637

== ENCOUNTER 2024-05-06 17:10 | Emergency (ER) | payer OTHER, MEDICAID, SELFPAY ==
--- NOTE | ~2024-05-06 | CT_ITS ---
History: Remote history of a fall (more than 4 days earlier). No blood thinners. Some lightheadednes s PROCEDURE: CT head without contrast. COMPARISON: None TECHNIQUE: Axial imaging of the head performed from the skull base to the vertex without IV contrast. Sagittal a nd coronal reformations obtained. DLP: 605 mGy-cm FINDINGS: The ventricles are enlarged. The dilatation of the ventricles is proportional to the degree of sulcal prominence, not uncommon in the senescent brain. Decreased attenuation is identified within the periventricular white matter, likely secondary to micr ovascular ischemic disease, in a patient of this age. Decreased attenuation within the left temporal lobe, adjacent to surgical clip. There is no mass, mass effect or midline shift. There is no abnormal extra-axial fluid collection or intracranial hemorrhage. Mucoperiosteal thickening with opacification of the sphenoid sinuses and the visualized portion of th e right maxillary sinus. Anterior ethmoid sinuses and frontal sinuses are clear. The mastoid air cells are well aerated. Postcraniotomy defect within the left temporal bone, without acute displaced fractures within the ove rlying cranium. Impression: No acute intracranial hemorrhage or suspicious mass effect. Post surgical intervention within the left temporal lobe. Inflammatory sinus disease. Reviewed, dictated and finalized at location A. TRAINER Impression: No acute intracranial hemorrhage or suspicious mass effect. Post surgical intervention within the left temporal lobe. Inflammatory sinus disease.
--- NOTE | ~2024-05-06 | CT_ITS ---
History: Remote history of a fall PROCEDURE: CT cervical spine without intravenous contrast. COMPARISON: None. Reference is made to an MRI examination of the cervical spine dated 08/11/2022 TECHNIQUE: Multiple contiguous axial images of the cervical spine were performed without the administration of i ntravenous contrast. DLP: 160 mGy-cm FINDINGS: Straightening and slight reversal of the normal curvature of the cervical spine is identified, likely muscular in origin. No acute fractures are present. Degenerative disease is identified at all levels of the cervical spine with disc space narrowing, end plate changes and cystic osseous degenerative change. Biapical scarring.. No soft tissue abnormality is present. The airway is patent Impression: Significant degenerative disease, without acute fracture Reviewed, dictated and finalized at location A. CTURES MECHANIC Impression: Significant degenerative disease, without acute fracture
--- OUTSIDE RECORDS SUMMARY | 2024-05-06 17:14 | XMS_ITS | Clinical Summary ---
Author Organization [facility] Medical Office [facility] Address [address] [place] [address] Care Team Providers Care Dye Winch Operator Name Role Phone Laura Cobb MD Primary Care Provider Allergies Active Allergy Reactions Criticality Noted Date Comments Aspergillus Fumigatus Allerg enic Extract Unknown 04/11/2016 Ciprofloxacin Hives,Itching,Rash Medium 01/09/2017 Cladosporium Sphaerospermum Allergenic Extract Unknown 04/11/2016 Clarithromycin Unknown 01/09/2017 Codeine Unknown Codeine Sulfate Unknown Grass Pollen-Kj Unknown 04/11/2016 Nicardipine Unknown Plantain Unknown 04/11/2016 Sulfamethoxazole-Trimethoprim Unknown Tree Pollen-Black Jakob, Standard Unknown Tree Pollen-[place] Unknown 04/11/2016 Tree Pollen-Mountain [place] Unknown 7 [place] Pollen-Sheep [place] Unknown 04/11/2016 White [place] Bark Unknown 04/11/2016 Medications naproxen sodium (ALEVE) [...] Post-infective bronchiectasis Pneumonia due to Klebsiella pneumoniae ([facility]) 05/27/2014 Overview (06/30/2016): Pneumonia from Klebsiella pneumoniae [...] on file Legal Sex Female 9:04 AM HAND OUTSIDE CUTTER Gender Identity Female 07/03/2018 9:39 AM CDT Sexual Orientation Straight 07/03/2018 9: 39 AM CDT Obstetrics History Last Filed Vital Signs Vital Sign Reading Time Taken Comments Blood Pressure 134/74 08/01/2018 1:03 PM CDT Pulse 103 08/01/2018 1:03 PM CDT Temperature 36.1 C (96.9 F) 02/04/2021 1:32 PM HAND OUTSIDE CUTTER Respiratory Rate 19 06/26/2018 12:45 PM CDT Oxygen Saturation 96% 06/26/2018 12:45 PM CDT Inhaled Oxygen Concentration - - Weight 76.7 kg (169 lb 1.6 oz) 02/04/2021 1:32 P M HAND OUTSIDE CUTTER Height 165.1 cm (5' 5 ) 02/04/2021 1:32 PM HAND OUTSIDE CUTTER Body Mass Index 28.14 02/04/2021 1:32 PM HAND OUTSIDE CUTTER Plan of Treatment Health Maintenance Due Date [...] 06/14/2016, Additional history exists Insurance MEDICARE AETNA [facility] [employer] ADVANTAGE CHOICE PPO [employer] ADVANTAGE CHOICE PPO IDPA Care Teams Dye Winch Operator Relationship Specialty Start Date End Date Laura Cobb MD PCP - General Family Practice 02/04/21
--- OUTSIDE RECORDS SUMMARY | 2024-05-06 17:14 | XMS_ITS | Referral Summary ---
Author Organization [facility] Address [address] [place] [address] Care Team Providers Care Civil Preparedness Coordinator Name Role Phone Abhijeet Francisco DO Primary Care Provider [phone] Source Comments [facility],non-owned Affiliates and Associated Physician Practices is amultiple site organization consisting of ambulatory clinics and hospital sitesin [place], [place], [place] and [place]. This disclosure is being madepursuant to the Care Everywhere program and may not contain all information available regarding this patient. Last updated 17.[facility] [employer] Allergies Active Allergy Reactions Criticality Noted Date [...] of Treatment Not on file Care Teams Civil Preparedness Coordinator Relationship Specialty Start Date End Date Abhijeet Francisco DO PCP - General Internal Medicine 01/09/17
--- OUTSIDE RECORDS SUMMARY | 2024-05-06 17:14 | XMS_ITS | Clinical Summary ---
Author Organization [facility] Address [address] [facility] [place] [address] Phone Care Team Providers Care Commission For The Blind Director Name Role Phone Pedro Luis Andrews MD Primary Care Provider Allergies Active Allergy Reactions Criticality Noted Date Comments Acer Negundo Allergy Skin Test Unknown 04/11 [place] Extract Allergy Skin Test Unknown 03/27 Aspergillus Allergy Skin Test Unknown 2016 Clarithromycin Unknown Nicardipine Unknown [place] Unknown 04/11/2016 Ciprofloxacin Hives,Itching,Rash Cladosporium Sphaerospermum Unknown 04/11/19 17 Cladosporium Sphaerospermum Allergy Skin Test Unknown 04/11/2016 Codeine Unknown Codeine Sulfate Unknown Horse Epithelium Unknown 04/11/2016 Kj Grass Allergy Skin Test Unknown 03/27 Mite (D. Farinae) Unknown 04/11/2016 Other Unknown Cipro Plantain Unknown 04/11/2016 Rumex Acetosella (Sheep's Dewey) Unknown Sulfamethoxazole-Trimethoprim Unknown [place] Species Unknown 04/11/2016 Medications azelastine (ASTELIN) 0.1 [...] 104 06/12/2018 1:02 PM CDT Temperature 36.6 C (97.8 F) 06/12/2018 1:02 PM CDT Respiratory Rate 18 06/12/2018 1:02 PM CDT [...] topic Insurance MEDICARE C AETNA Care Teams Commission For The Blind Director Relationship Specialty Start Date End Date Pedro Luis Andrews MD [address] [place] [address] PCP - General Family Medicine 10/09/17
--- OUTSIDE RECORDS SUMMARY | 2024-05-06 17:14 | XMS_ITS | Clinical Summary ---
Author Organization [facility] Address [address] [address] [place] [address] Care Team Providers Care Ecdis N Navigation Operator Name Role Phone Abhijeet Francisco DO Primary Care Provider [phone] Source Comments [facility],non-owned Affiliates and Associated Physician Practices is amultiple site organization consisting of ambulatory clinics and hospital sitesin [place], [place] and [place]. This disclosure is being madepursuant to the Care Everywhere program and may not contain all information available regarding this patient. Last updated 17.[facility] Allergies Active Allergy Reactions Criticality Noted Date [...] Comments BONE DENSITY TESTING 1945 MEDICARE AWV 12 MONTHS 1945 DTAP/TDAP/TD VACCINES (1 - [...] age to complete this topic Care Teams Ecdis N Navigation Operator Relationship Specialty Start Date End Date Abhijeet Francisco DO PCP - General Internal Medicine 01/09/17
--- OUTSIDE RECORDS SUMMARY | 2024-05-06 17:14 | XMS_ITS | Patient Health Summary ---
Author Organization [facility] Address [address] [place] [address] Care Team Providers Care Hoop Maker Name Role Phone Abhijeet Francisco DO Primary Care Provider [phone] Note from [facility],non-owned Affiliates and Associated Physician Practices is amultiple site organization consisting of ambulatory clinics and hospital sitesin [place], [place], [place] and [place]. This disclosure is being madepursuant to the Care Everywhere program and may not contain all information available regarding this patient. Last updated 17.[facility] Allergies * Clarithromycin * Ciprofloxacin * Codeine(Unknown) * Levofloxacin(Other) Immunizations * INFLUENZA VACCINE, HIGH-DOSE, QUADR. (FLUZONE HIGH-DOSE QUADRIVALENT; 65Y+), 0.7 ML (HD-IIV4)(Given 12/28/2018, 01/09/2017) Social History Tobacco Use Types Packs/Day Years Used Date Smoking Tobacco: Never Assessed Sex and Gender Information Value Date Recorded Sex Assigned at Not on file Gender Identity Not on file Sexual Orientation Not on file Care Teams Hoop Maker Relationship Specialty Start Date End Date Abhijeet Francisco, PCP - General Internal Medicine 01/09/17
--- OUTSIDE RECORDS SUMMARY | 2024-05-06 17:14 | XMS_ITS | Encounter Summary ---
Author Organization [facility] Address [address] [place] [address] Phone Care Team Providers Care Epidemiology Intern Name Role Phone Carlitos Ruiz MD Unavailable Pedro Luis Andrews MD Primary Care Provider [phone] Reason for Visit * Reason Comments Medication Refill Encounter Details Date Type Department Care Team (Late st Contact Info) Description 06/14/2019 Refill [facility] [address] [place] [phone] Carlitos Ruiz MD [address] [place] [phone] Medication Refill Social History Tobacco Use Types [...] on filedocumented in this encounter Care Teams Epidemiology Intern Relationship Specialty Start Date End Date Pedro Luis Andrews MD [address] [place] [address] PCP - General Family Medicine 10/09/17 Carlitos Ruiz MD Consulting Physician Pulmonary Disease 09/10/15 3 documented as of this encounter
--- OUTSIDE RECORDS SUMMARY | 2024-05-06 17:14 | XMS_ITS | Clinical Summary ---
Author Organization [facility] Darryl ortega [facility] Address [address] [address] Care Team Providers Care Senior Firewall Engineer Name Role Phone Laura Cobb MD Primary Care Provider Allergies Active Allergy Reactions Criticality Noted Date Comments Aspergillus Fumigatus Allergenic Extract Unknown 04/11/2016 Ciprofloxacin Hives,Itching,Rash High 01/09/2017 Cladosporium Sphaerospermum Allergenic Extract Unknown 04/11/2016 Clarithromycin Unknown 01/09/2017 Codeine Unknown 12/28/2018 Horse Epithelium Allergenic Extract Unknown 04/11/2016 Levofloxacin Other (See Comments) 12/28/2018 Joint pain Sulfamethoxazole-Trimethopri m Unknown 02/21/2023 Medications escitalopram oxalate (LEXAPRO) 20 mg tablet Take 30 mg by mouth daily. Active SUMAtriptan (IMITREX) 100 mg tablet TAKE 1 TABLET BY MOUTH NEEDED FOR MIGRAINE HEADACHE FOR UP TO 1 DOSE DIRECTED. MAY REPEAT ONCE AFTER 2 HOURS NEEDED 04/27/2020 Active albuterol sulfate 90 mcg/actuation metered powder inhaler Take by inhalation. Active amoxicillin (AMOXIL) 500 mg capsule Take 500 mg by mouth 2 times daily. Active cefdinir (OMNICEF) 300 mg capsule Take 300 mg by mouth every 12 hours. Active cycloSPORINE (RESTASIS) 0.05 % emulsion 1 Drop 2 times daily. Active doxycycline hyclate (VIBRAMYCIN) 100 mg capsule Take 100 mg by mouth 2 times daily. Active tiotropium Br/olodaterol HCl (STIOLTO RESPIMAT INHALATION) Take by inhalation. Active ferrous fumarate (FERROCITE,HEMO CYTE) 324 mg (106 mg iron) Tablet Take by mouth. Active cetirizine (ZyrTEC) 10 mg tablet Take 10 mg by mouth daily. Active calcium citrate-vitamin d3 (CITRACAL D MAX) 315 mg-6.25 mcg (250 unit) Tablet Take by mouth daily. Active antiox #8/om3/dha/epa/ lut/zeax (PRESERVISION AREDS 2, OMEGA-3, ORAL) Take by mouth. Active Eliquis 5 mg tablet Take 1 Tablet by mouth 2 times daily. 06/08/2023 Active alendronate (FOSAMAX) 70 mg tablet Take 70 mg by mouth every 7 days. Active Active Problems No known active problems Encounters Date Type Department Care Team Description 04/23/2024 External Device Data ST[facility] ABSTRACTION Provider, Abstract 04/17/2024 External Device Data [facility] ABSTRACTION Provider, Abstract 04/16/2024 External Device Data [facility] ABSTRACTION Provider, Abstract from Last 3 Months Family History Medical History Relation Name Comments Heart Disease Mother Relation Name Status Comments Daughter Alive Father Mother Social History Tobacco Use Types Packs/Day Years Used Date Smoking Tobacco: Former Cigarettes 1990 Smokeless Tobacco: Never Tobacco Cessation:Counseling Given: Not Answered Alcohol Use Standard Drinks/Week Comments Yes 0 (1 standard drink = 0.6 oz pur e alcohol) occasional Comments Unknown Sex and Gender Information Value Date Recorded Sex Assigned at Not on file Legal Sex Female 10:32 AM CDT Gender Identity Not on file Sexual Orientation Not on file Last Filed Vital Signs Vital Sign Reading Time Taken Comments Blood Pressure 114/80 11/10/2023 10:55 AM CDT Pulse 81 11/10/2023 10:55 AM CDT Temperature 36.7 C (98 F) 11/10/2023 10:55 AM CDT Respiratory Rate 15 11/10/2023 10:55 AM CDT Oxygen Saturation 93% 11/10/2023 10:55 AM CDT Inhaled Oxygen Concentration - - Weight 50.2 kg (110 lb 9.6 oz) 11/10/2023 10:55 AM CDT Height 165.1 cm (5' 5 ) 02/21/2023 2:28 PM EDUCATIONAL THERAPY TEACHER Body Mass Index 18.4 02/21/2023 2:28 PM EDUCATIONAL THERAPY TEACHER Plan of Treatment Upcoming Encounters Date Type Department Care Team (Late st Contact Info) Description 05/09/2024 1:15 PM EDUCATIONAL THERAPY TEACHER Office Visit [facility] Oncology and Hematology - [place] [address] [place] [address] Dat Johnson MD [address] [place] [address] Health Maintenance Due Date Last Done Comments DTAP/TDAP/TD VACCINES (1 - Tdap) 1962 ZOSTER VACCINE (1 of 2) 1993 OSTEOPOROSIS SCREENING 2008 PNEUMOCOCCAL VACCINE 65+ YEA RS (2 of 2 - PCV) 12/06/2013 12/06/2012 RSV VACCINE (60+ or ) (1 - 1-dose 75+ series) 2018 INFLUENZA VACCINE (#1) 2023 9, 01/09/2017, 02/29/2016, Additional history exists COVID-19 Vaccine (3 - 2023-2 5 season) 2023 05/28/2020, 04/29/2020 [place] Preventative Visit/Annual Wellness Visit 03/27/2024 [facility] Care Teams Senior Firewall Engineer Relationship Specialty Start Date End Date Laura Cobb MD [address] [place] [address] PCP - General Family Practice 02/21/23
--- OUTSIDE RECORDS SUMMARY | 2024-05-06 17:14 | XMS_ITS | Encounter Summary ---
Author Organization [facility] Address [address] [place] [address] Phone Care Team Providers Care Briquette Molder Name Role Phone Carlitos Ruiz MD Unavailable Pedro Luis Andrews MD Primary Care Provider [phone] Reason for Visit * Reason Comments Medication Refill Encounter Details Date Type Department Care Team (Late st Contact Info) Description 10/09/2019 Refill [facility] [address] [place] [phone] Carlitos Ruiz MD [address] [place] [phone] Medication Refill Social History Tobacco Use Types [...] on filedocumented in this encounter Care Teams Briquette Molder Relationship Specialty Start Date End Date Pedro Luis Andrews MD [address] [place] [address] PCP - General Family Medicine 10/09/17 Carlitos Ruiz MD Consulting Physician Pulmonary Disease 09/10/15 3 documented as of this encounter
--- OUTSIDE RECORDS SUMMARY | 2024-05-06 17:14 | XMS_ITS | Referral Summary ---
Author Organization [facility] Medical Office Building [address] Address [address] [place] [address] Care Team Providers Care Fuse Spooler Name Role Phone Laura Cobb MD Primary Care Provider Allergies Active Allergy Reactions Criticality Noted Date Comments Aspergillus Fumigatus Allerg enic Extract Unknown 04/11/2016 Ciprofloxacin Hives,Itching,Rash Medium 01/09/2017 Cladosporium Sphaerospermum Allergenic Extract Unknown 04/11/2016 Clarithromycin Unknown 01/09/2017 Codeine Unknown Codeine Sulfate Unknown Grass Pollen-Kj Unknown 04/11/2016 Nicardipine Unknown Plantain Unknown 04/11/2016 Sulfamethoxazole-Trimethoprim Unknown Tree Pollen-Black Jakob, Standard Unknown Tree Pollen-[place] Unknown 04/11/2016 Tree Pollen-[place] Unknown 7 [place] Pollen-Sheep [place] Unknown 04/11/[address] [place] Bark Unknown 04/11/2016 Medications naproxen sodium (ALEVE) [...] Post-infective bronchiectasis Pneumonia due to Klebsiella pneumoniae ([facility]) 05/27/2014 Overview (06/30/2016): Pneumonia from Klebsiella [...] on file Legal Sex Female 9:04 AM DWARF TREE GROWER Gender Identity Female 07/03/2018 9:39 AM CDT Sexual Orientation Straight 07/03/2018 9: 39 AM CDT Last Filed Vital Signs Vital Sign Reading Time Taken Comments Blood Pressure 134/74 08/01/2018 1:03 PM CDT Pulse 103 08/01/2018 1:03 PM CDT Temperature 36.1 C (96.9 F) 02/04/2021 1:32 PM DWARF TREE GROWER Respiratory Rate 19 06/26/2018 12:45 PM CDT Oxygen Saturation 96% 06/26/2018 12:45 PM CDT Inhaled Oxygen Concentration - - Weight 76.7 kg (169 lb 1.6 oz) 02/04/2021 1:32 P M DWARF TREE GROWER Height 165.1 cm (5' 5 ) 02/04/2021 1:32 PM DWARF TREE GROWER Body Mass Index 28.14 02/04/2021 1:32 PM DWARF TREE GROWER Plan of Treatment Not on file Insurance MEDICARE AETNA [facility] REF Wander (f. [employer]) ADVANTAGE CHOICE PPO Wander (f. [employer]) ADVANTAGE CHOICE PPO IDPA Care Teams Fuse Spooler Relationship Specialty Start Date End Date Laura Cobb MD PCP - General Family Practice 02/04/21
--- OUTSIDE RECORDS SUMMARY | 2024-05-06 17:14 | XMS_ITS | Data Portability ---
Author Organization [facility] OLINDA Wade [facility] Address [address] [place] [address] Assessment No assessment recorded. Plan of Treatment [...] 50 mcg/0.25mL dose 04/29/2020 completed Clementine pike [facility] 04/29/2020 17:21:04 COVID-19, mRNA, LNP-S, PF, 100 mcg/0.5mL dose or 50 mcg/0.25mL dose 05/28/2020 completed Clementine pike [facility] 05/28/2020 11:24:58 Past Encounters Encounter ID Performer Location Encounter Start Date Encounter Closed Date Diagnosis/Indication Diagnosis SNOMED-CT Code Diagnosis ICD10 Code Diagnosis Note [id number] [place] [place] [address] [place] [address] 04/29/2020 15:41:44 04/29/2020 18:24:39 Administration of SARS-CoV-2 antigen vaccine [id number] Z23 [id number] [place] [place] [address] IM [address] [place] [address] 05/27/2020 15:30:01 05/28/2020 08:16:29 Administration of SARS-CoV-2 antigen vaccine [id number] Z23 Health Concerns Section Related Observation LastModified by Organization Detai ls LastModified Time None Recorded Concern Status LastModified by Organization Details LastModified Time None Recorded Advance Directives Directive None Recorded Payers Encounter Date Sequence Insurance Name Policy Number Policy Larsen Covered Member ID Larsen Member ID Guarantor Name 04/29/2020 1 [place] Bebe Adame Rosas [id number] Bebe [place] 04/29/2020 2 AETNA ([facility]) [id number] Bebe Wildorado [id number] Bebe Wildorado 05/27/2020 1 [place] Bebe Adame Rosas [id number] Bebe Rosas 05/27/2020 2 AETNA ([facility]) [id number] Bebe Wildorado [id number] [facility] OBGyn Episode No OBEpisode recorded.
[2024-05-06 17:38] VITALS: BP 115/40; PULSE 83; RESP 18; TEMP 36.6; O2SAT 98
--- NOTE | 2024-05-06 17:43 | ED_ITS ---
HPI - Fall General Chief Complaint: Fall Stated Complaint: fall, r/o head injury Time Seen by Provider: 05/06/24 17:43 Focused HPI: This is a 79 year old female that presents to the ER after a fall. Reports she stood up and fell backwards. Hit her head. Did not lose consciousness. No blood thinners. This happened 4 days ago. Reports she has had some lightheadedness. No other injuries. She is concerned she may be dehydrated as she has not drank much water the last couple of days. GENERAL: Elderly, well-nourished, and in no acute distress. HEAD: Normocephalic, atraumatic. CHEST: Clear to auscultation. ?No respiratory distress. HEART: Regular rate and rhythm.? NEURO: ?Alert and oriented x3. Patient screened in triage and initial orders placed.? ?Additional care and disposition to be based upon?diagnostic testing and treatment. Related Data Home Medications ?Medication ?Instructions ?Recorded ?Confirmed ?Last Taken ?Type escitalopram oxalate 20 mg tablet 20 mg PO DAILY 11/14/19 04/17/24 05/12/23 09:00 History (Lexapro) acetaminophen 500 mg tablet 500 mg PO Q6H PRN Pain 08/04/20 04/17/24 Unknown History vit C 250 mg-vit E 200 unit-zinc 1 tablet PO Q12H 08/04/20 04/17/24 04/13/23 21:00 History 12.5 mg-animal cop 1 mg-lut-zeax chew tablet (ICaps AREDS2 (copper citrate)) cetirizine 10 mg tablet (Zyrtec) 10 mg PO HS 05/09/22 04/17/24 05/11/23 21:00 History tiotropium 2.5 mcg-olodaterol 2.5 2 inh inhalation DAILY 06/20/22 04/17/24 04/13/23 09:00 History mcg/actuation mist for inhalation (Stiolto Respimat) Tylenol PM Extra Strength 220 mg PO HS PRN Pain (Scale Score 10/21/22 04/17/24 Unknown History 1-3) ferrous sulfate 325 mg (65 mg 325 mg PO .every other day 03/31/23 04/17/24 05/12/23 09:00 History iron) tablet albuterol sulfate 1.25 mg/3 mL 1.25 mg inhalation BID 02/19/24 04/17/24 Unknown History solution for nebulization doxycycline hyclate 100 mg capsule 100 mg PO BID 02/19/24 04/17/24 Unknown History ketoconazole 2 % shampoo 1 applic topical 2XW 02/20/24 04/17/24 Unknown History ketoconazole 2 % topical cream 1 applic topical DAILY 02/20/24 04/17/24 Unknown History Allergies Allergy/AdvReac Type Severity Reaction Status Date / Time levofloxacin Allergy Mild Muscle Verified 04/17/24 13:11 Spasms ciprofloxacin Allergy Unknown Itching Verified 04/17/24 13:11 clarithromycin Allergy Unknown Itching Verified 04/17/24 13:11 codeine Allergy Unknown Hives Verified 04/17/24 13:11 celecoxib (From Celebrex) AdvReac Severe Diarrhea Verified 04/17/24 13:11 [facility] Past Medical History Medical History Seborrheic dermatitis Venous thromboembolism (~04/2023) Thrombosis of right peroneal vein (~04/2023) Pulmonary embolism on left (~04/2023) Anxiety Paroxysmal atrial tachycardia Pseudomonas aeruginosa colonization Obstructive lung disease Mild obstructive abnormality on PFTs. Ileus (09/2022) Stress incontinence in female Headache Eczema Chronic low back pain Fracture of distal end of left radius (07/2020) Multiple nodules of lung Liver cyst Cyst of left kidney Osteoarthritis Macular degeneration, age related (2016) Bronchiectasis Diagnosis at age 1; previously worked up and she was told she did not have cystic fibrosis. Iron deficiency Osteoporosis Depression Migraines Lumbar spondylosis Surgical History Surgical History History of surgery on right wrist (08/2003) Open reduction internal fixation with subsequent hardware removal. History of cerebral aneurysm repair (03/28/08) coiling History of cataract extraction History of ear surgery History of tonsillectomy Family History Family History Mother Acute myocardial infarction Cerebrovascular accident Hypertension Depression Anxiety Heart problem Grandparent Colon cancer Hypertension Social History Social History Social History: Surrogate medical decision maker: Deysi Flores, daughter. Code status: Do not resuscitate. Smoking packs per day: 1 Smoking cigarettes per day: 20.0 Years smoked: 5 Smoking pack-years: 5.00 Smoking status: Former smoker Second hand tobacco smoke exposure: Yes Alcohol intake: former Alcohol use details: rarely Substance use: never Substance use type: does not use Do You Feel Safe in your Home?: Yes Lack of Transportation: YES Lack of Food: Never True Current Housing: I Have Housing Concerned About Future Housing: No Difficulty Paying Gas/Electric Bills: YES Difficulty Paying for Meds: No Currently Unemployed: No Education: High School Diploma/GED Difficulty w/ Childcare or Family Care: No Living arrangements: alone Additional living arrangements comments: . Lives in her own home in [place]. She has 2 cats. Occupation/Education: retired Additional occupation/education comments: [email or web address]. Spiritual care concerns: No Agree to blood products: Yes Course Vital Signs Vital signs: Vital Signs Temperature 97.8 F 05/06/24 17:38 Pulse Rate 83 05/06/24 17:38 Respiratory Rate 18 05/06/24 17:38 Blood Pressure 115/40 L 05/06/24 17:38 Pulse Oximetry 98 05/06/24 17:38 Oxygen Delivery Room Air 05/06/24 17:38 Temperature 97.8 F 05/06/24 17:38 Pulse Rate 83 05/06/24 17:38 Respiratory Rate 18 05/06/24 17:38 Blood Pressure 115/40 L 05/06/24 17:38 Pulse Oximetry 98 05/06/24 17:38 Oxygen Delivery Room Air 05/06/24 17:38 MDM - Fall MDM Narrative Medical decision making narrative: patient left after medical screening exam and initial workup and before any further evaluation or management Imaging Data Radiologist's impression: ITS Impressions Head CT 05/06/24 18:20 Impression: No acute intracranial hemorrhage or suspicious mass effect. Post surgical intervention within the left temporal lobe. Inflammatory sinus disease. Cervical Spine CT 05/06/24 18:41 Impression: Significant degenerative disease, without acute fracture Discharge Plan Discharge Clinical Impression: Head injury Qualifiers: Encounter type: initial encounter Qualified Code(s): S09.90XA - Unspecified injury of head, initial encounter Patient Disposition: Elopement After Seen by Prov Condition: Stable Patient Language: Cook Islander Prescriptions: No Action escitalopram oxalate [Lexapro] 20 mg tablet 20 mg PO DAILY doxycycline hyclate 100 mg capsule 100 mg PO BID Patient Comments: for 1 week every 3 months sumatriptan succinate 100 mg tablet 100 mg PO DAILY PRN (Reason: migraine headache) Qty: 27 1RF folic acid 1 mg tablet 1 mg PO DAILY Qty: 90 1RF ketoconazole 2 % cream 1 applic topical DAILY ketoconazole 2 % shampoo 1 applic topical 2XW acetaminophen 500 mg tablet 500 mg PO Q6H PRN (Reason: Pain) ICaps AREDS2 (copper citrate) 250 mg-200 unit -12.5 mg-1 mg tablet,chewable 1 tablet PO Q12H Stiolto Respimat 2.5-2.5 mcg/actuation mist 2 inh inhalation DAILY albuterol sulfate 1.25 mg/3 mL solution for nebulization 1.25 mg inhalation BID prednisone 20 mg tablet 20 mg PO BID Qty: 10 0RF cetirizine [Zyrtec] 10 mg Tablet 10 mg PO HS ferrous sulfate 325 mg (65 mg iron) tablet 325 mg PO .every other day Tylenol PM Extra Strength 220 mg PO HS PRN (Reason: Pain (Scale Score 1-3)) ondansetron 8 mg tablet,disintegrating 8 mg PO Q8H PRN (Reason: nausea and vomiting) Qty: 30 3RF ergocalciferol (vitamin D2) 1,250 mcg (50,000 unit) capsule 1,250 mcg PO WEEKLY Qty: 12 1RF sotalol 80 mg tablet See Rx Instructions .ROUTE .COMPLEX Qty: 180 2RF Dose Instruction: TAKE 1 TABLET BY MOUTH EVERY 12 HOURS Rx Instructions: TAKE 1 TABLET BY MOUTH EVERY 12 HOURS fluticasone propionate [Flonase Allergy Relief] 50 mcg/actuation spray,suspension 2 spray intranasal DAILY Qty: 16 0RF Rx Instructions: administer into each nostril megestrol 20 mg tablet 20 mg PO BID Qty: 60 0RF Follow-up/Referrals: Abril Cobb MD [Primary Care Provider] -
--- OUTSIDE RECORDS SUMMARY | 2024-05-06 23:06 | XMS_ITS | Referral Summary ---
Author Organization [facility] Medical Office Building [address] Address [address] [place] [address] Care Team Providers Care Immunohematologist Name Role Phone Laura Cobb MD Primary Care Provider Allergies Active Allergy Reactions Criticality Noted Date Comments Aspergillus Fumigatus Allerg enic Extract Unknown 04/11/2016 Ciprofloxacin Hives,Itching,Rash Medium 01/09/2017 Cladosporium Sphaerospermum Allergenic Extract Unknown 04/11/2016 Clarithromycin Unknown 01/09/2017 Codeine Unknown Codeine Sulfate Unknown Grass Pollen-Kj Unknown 04/11/2016 Nicardipine Unknown Plantain Unknown 04/11/2016 Sulfamethoxazole-Trimethoprim Unknown Tree Pollen-Black Jakob, Standard Unknown Tree Pollen-[place] Unknown 04/11/2016 Tree Pollen-Mountain [place] Unknown 7 [place] Pollen-Sheep [place]envil Unknown 04/11/2016 White [place] Bark Unknown 04/11/2016 Medications naproxen sodium (ALEVE) [...] Post-infective bronchiectasis Pneumonia due to Klebsiella pneumoniae ([facility]) 05/27/2014 Overview (06/30/2016): Pneumonia from Klebsiella pneumoniae [...] on file Legal Sex Female 9:04 AM IMPOSER Gender Identity Female 07/03/2018 9:39 AM CDT Sexual Orientation Straight 07/03/2018 9: 39 AM CDT Last Filed Vital Signs Vital Sign Reading Time Taken Comments Blood Pressure 134/74 08/01/2018 1:03 PM CDT Pulse 103 08/01/2018 1:03 PM CDT Temperature 36.1 C (96.9 F) 02/04/2021 1:32 PM IMPOSER Respiratory Rate 19 06/26/2018 12:45 PM CDT Oxygen Saturation 96% 06/26/2018 12:45 PM CDT Inhaled Oxygen Concentration - - Weight 76.7 kg (169 lb 1.6 oz) 02/04/2021 1:32 P M IMPOSER Height 165.1 cm (5' 5 ) 02/04/2021 1:32 PM IMPOSER Body Mass Index 28.14 02/04/2021 1:32 PM IMPOSER Plan of Treatment Not on file Insurance MEDICARE AETNA [facility] REF [employer] ADVANTAGE CHOICE PPO [employer] ADVANTAGE CHOICE PPO IDPA Care Teams Immunohematologist Relationship Specialty Start Date End Date Laura Cobb MD PCP - General Family Practice 02/04/21
--- OUTSIDE RECORDS SUMMARY | 2024-05-06 23:06 | XMS_ITS | Encounter Summary ---
Author Organization [facility] Address [address] [place] [address] Phone Care Team Providers Care Pipe Covering Molder Name Role Phone Carlitos Ruiz MD Unavailable Pedro Luis Andrews MD Primary Care Provider [phone] Reason for Visit * Reason Comments Medication Refill Encounter Details Date Type Department Care Team (Late st Contact Info) Description 06/14/2019 Refill [facility] [address] [place] [phone] Carlitos Ruiz MD [address] [place] [phone] Medication Refill Social History Tobacco Use Types [...] on filedocumented in this encounter Care Teams Pipe Covering Molder Relationship Specialty Start Date End Date Pedro Luis Andrews MD [address] [place] [address] PCP - General Family Medicine 10/09/17 Carlitos Ruiz MD Consulting Physician Pulmonary Disease 09/10/15 3 documented as of this encounter
--- OUTSIDE RECORDS SUMMARY | 2024-05-06 23:06 | XMS_ITS | Encounter Summary ---
Author Organization [facility] Address [address] [place] [address] Phone Care Team Providers Care Enterprise Project Manager Name Role Phone Carlitos Ruiz MD Unavailable Pedro Luis Andrews MD Primary Care Provider [phone] Reason for Visit * Reason Comments Medication Refill Encounter Details Date Type Department Care Team (Late st Contact Info) Description 10/09/2019 Refill [facility] [address] [place] [phone] Carlitos Ruiz MD [address] [place] [phone] Medication Refill Social History Tobacco Use Types [...] on filedocumented in this encounter Care Teams Enterprise Project Manager Relationship Specialty Start Date End Date Pedro Luis Andrews MD [address] [place] [address] PCP - General Family Medicine 10/09/17 Carlitos Ruiz MD Consulting Physician Pulmonary Disease 09/10/15 3 documented as of this encounter
--- OUTSIDE RECORDS SUMMARY | 2024-05-06 23:06 | XMS_ITS | Clinical Summary ---
Author Organization [facility] Address [address] [facility] [place] [address] Phone Care Team Providers Care News Assignment Editor Name Role Phone Pedro Luis Andrews MD Primary Care Provider [phone] Allergies Active Allergy Reactions Criticality Noted Date Comments Acer Negundo Allergy Skin Test Unknown 04/11 [place] Extract Allergy Skin Test Unknown 03/27 Aspergillus Allergy Skin Test Unknown 2016 Clarithromycin Unknown Nicardipine Unknown [place] Unknown 04/11/2016 Ciprofloxacin Hives,Itching,Rash Cladosporium Sphaerospermum Unknown 04/11/19 17 Cladosporium Sphaerospermum Allergy Skin Test Unknown 04/11/2016 Codeine Unknown Codeine Sulfate Unknown Horse Epithelium Unknown 04/11/2016 Kj Grass Allergy Skin Test Unknown 03/27 Mite (D. Farinae) Unknown 04/11/2016 Other Unknown Cipro Plantain Unknown 04/11/2016 Rumex Acetosella (Sheep[place]) Unknown Sulfamethoxazole-Trimethoprim Unknown [place] Species Unknown 04/11/2016 Medications azelastine (ASTELIN) 0.1 [...] topic Insurance MEDICARE C AETNA Care Teams News Assignment Editor Relationship Specialty Start Date End Date Pedro Luis Andrews MD [address] [place] [address] PCP - General Family Medicine 10/09/17
--- OUTSIDE RECORDS SUMMARY | 2024-05-06 23:07 | XMS_ITS | Patient Health Summary ---
Author Organization [facility] Address [address] [place] [address] Care Team Providers Care Email Marketing Coordinator Name Role Phone Abhijeet Francisco DO Primary Care Provider [phone] Note from [facility],non-owned Affiliates and Associated Physician Practices is amultiple site organization consisting of ambulatory clinics and hospital sitesin [place], [place], [place] and [place]. This disclosure is being madepursuant to the Care Everywhere program and may not contain all information available regarding this patient. Last updated 17.[facility] Allergies * Clarithromycin * Ciprofloxacin * Codeine(Unknown) * Levofloxacin(Other) Immunizations * INFLUENZA VACCINE, HIGH-DOSE, QUADR. (FLUZONE HIGH-DOSE QUADRIVALENT; 65Y+), 0.7 ML (HD-IIV4)(Given 12/28/2018, 01/09/2017) Social History Tobacco Use Types Packs/Day Years Used Date Smoking Tobacco: Never Assessed Sex and Gender Information Value Date Recorded Sex Assigned at Not on file Gender Identity Not on file Sexual Orientation Not on file Care Teams Email Marketing Coordinator Relationship Specialty Start Date End Date Abhijeet Francisco, PCP - General Internal Medicine 01/09/17
--- OUTSIDE RECORDS SUMMARY | 2024-05-06 23:07 | XMS_ITS | Referral Summary ---
Author Organization [facility] Address [address] [facility] [address] Care Team Providers Care Program Aide Name Role Phone Abhijeet Francisco DO Primary Care Provider [phone] Source Comments [facility],non-owned Affiliates and Associated Physician Practices is amultiple site organization consisting of ambulatory clinics and hospital sitesin [place], [place], [place] and [place]. This disclosure is being madepursuant to the Care Everywhere program and may not contain all information available regarding this patient. Last updated 17.[facility] [email or web address] Allergies Active Allergy Reactions Criticality Noted Date [...] of Treatment Not on file Care Teams Program Aide Relationship Specialty Start Date End Date Abhijeet Francisco DO PCP - General Internal Medicine 01/09/17
--- OUTSIDE RECORDS SUMMARY | 2024-05-06 23:07 | XMS_ITS | Clinical Summary ---
Author Organization [facility] Medical Office Building [address] Address [address] [place] [address] Care Team Providers Care Online Activist Name Role Phone Laura Cobb MD Primary Care Provider Allergies Active Allergy Reactions Criticality Noted Date Comments Aspergillus Fumigatus Allerg enic Extract Unknown 04/11/2016 Ciprofloxacin Hives,Itching,Rash Medium 01/09/2017 Cladosporium Sphaerospermum Allergenic Extract Unknown 04/11/2016 Clarithromycin Unknown 01/09/2017 Codeine Unknown Codeine Sulfate Unknown Grass Pollen-Jk Unknown 04/11/2016 Nicardipine Unknown Plantain Unknown 04/11/2016 Sulfamethoxazole-Trimethoprim Unknown Tree Pollen-Black Jakob, Standard Unknown Tree Pollen-[place] Unknown 04/11/2016 Tree Pollen-Mountain [place] Unknown 7 [place] Pollen-Sheep [place] Unknown 04/11/2016 White [place] Bark Unknown 04/11/2016 Medications naproxen sodium (ALEVE) [...] Post-infective bronchiectasis Pneumonia due to Klebsiella pneumoniae ([facility]) 05/27/2014 Overview (06/30/2016): Pneumonia from Klebsiella [...] on file Legal Sex Female 9:04 AM STAFFING EXECUTIVE Gender Identity Female 07/03/2018 9:39 AM CDT Sexual Orientation Straight 07/03/2018 9: 39 AM CDT Obstetrics History Last Filed Vital Signs Vital Sign Reading Time Taken Comments Blood Pressure 134/74 08/01/2018 1:03 PM CDT Pulse 103 08/01/2018 1:03 PM CDT Temperature 36.1 C (96.9 F) 02/04/2021 1:32 PM STAFFING EXECUTIVE Respiratory Rate 19 06/26/2018 12:45 PM CDT Oxygen Saturation 96% 06/26/2018 12:45 PM CDT Inhaled Oxygen Concentration - - Weight 76.7 kg (169 lb 1.6 oz) 02/04/2021 1:32 P M STAFFING EXECUTIVE Height 165.1 cm (5' 5 ) 02/04/2021 1:32 PM STAFFING EXECUTIVE Body Mass Index 28.14 02/04/2021 1:32 PM STAFFING EXECUTIVE Plan of Treatment Health Maintenance Due Date [...] 06/14/2016, Additional history exists Insurance MEDICARE AETNA [facility] [employer] ADVANTAGE CHOICE PPO [employer] CHOICE PPO IDPA Care Teams Online Activist Relationship Specialty Start Date End Date Laura Cobb MD PCP - General Family Practice 02/04/21
--- OUTSIDE RECORDS SUMMARY | 2024-05-06 23:07 | XMS_ITS | Clinical Summary ---
Author Organization [facility] Address [address] [place] [address] Care Team Providers Care Street Light Mechanic Name Role Phone Abhijeet Francisco DO Primary Care Provider [phone] Source Comments [facility],non-owned Affiliates and Associated Physician Practices is amultiple site organization consisting of ambulatory clinics and hospital sitesin [place], [place], [place] and [place]. This disclosure is being madepursuant to the Care Everywhere program and may not contain all information available regarding this patient. Last updated 17.[facility] Allergies Active Allergy Reactions Criticality Noted Date [...] age to complete this topic Care Teams Street Light Mechanic Relationship Specialty Start Date End Date Abhijeet Francisco DO PCP - General Internal Medicine 01/09/17
--- OUTSIDE RECORDS SUMMARY | 2024-05-06 23:07 | XMS_ITS | Clinical Summary ---
Author Organization [facility] Darryl [facility]te[facility] Address [address] [address] Care Team Providers Care Technical Programs Manager Name Role Phone Laura Cobb MD Primary [...] cm (5' 5 ) 02/21/2023 2:28 PM AADC PLANS STAFF OFFICER Body Mass Index 18.4 02/21/2023 2:28 PM AADC PLANS STAFF OFFICER Plan of Treatment Upcoming Encounters Date Type Department Care Team (Late st Contact Info) Description 05/09/2024 1:15 PM AADC PLANS STAFF OFFICER Office Visit [facility] Oncology and Hematology - [place] [address] [place] [address] Dat Johnson MD [address] [facility] [address] [place] [address] Health Maintenance Due Date Last [...] 5 season) 2023 05/28/2020, 04/29/2020 Medicare Advantage (PR) Preventative Visit/Annual Wellness Visit 03/27/2024 Insurance [facility] Care Teams Technical Programs Manager Relationship Specialty Start Date End Date Laura Cobb MD [address] [place] [address] PCP - General Family Practice 02/21/23
== END 2024-05-06 23:03 | disposition left against medical advice (07) ==
LOC: ANHED 23:05
PROVIDERS: Emergency Provider Physician Assistant; PCP Family Medicine
DX: S09.90XA Unspecified injury of head, initial encounter (principal); J44.9 Chronic obstructive pulmonary disease, unspecified; E61.1 Iron deficiency; H35.30 Unspecified macular degeneration; N39.3 Stress incontinence (female) (male); M81.0 Age-related osteoporosis without current pathological fracture; M19.90 Unspecified osteoarthritis, unspecified site; F32.A Depression, unspecified; Z66 Do not resuscitate; Z86.718 Personal history of other venous thrombosis and embolism; Z87.891 Personal history of nicotine dependence; Z98.49 Cataract extraction status, unspecified eye; Z79.899 Other long term (current) drug therapy; J32.9 Chronic sinusitis, unspecified; M47.816 Spondylosis without myelopathy or radiculopathy, lumbar region; W18.39XA Other fall on same level, initial encounter
CPT/HCPCS: 70450; 72125; 99284

== ENCOUNTER 2024-05-28 00:31 | Day surgery (SDC) | payer OTHER, MEDICAID, SELFPAY ==
[2024-05-15 11:51] VITALS: BMI 17.4
[2024-05-28 08:25] VITALS: BP 176/78; PULSE 84; RESP 14; TEMP 36.2; O2SAT 99
[2024-05-28] MEDS: LACTATED RINGERS 1,000 ML 150 ML IV CONT (08:34)
--- NOTE | 2024-05-28 08:40 | WPDANESEPPF ---
Anes - Initial Pre Proc Eval Procedure: Operation Date: 05/28/24 09:30 Proposed Procedures p Screening Colonoscopy - Huber Lama MD Date/Time: 05/28/24 08:40 Surgeon: Huber Lama MD Pre Op Diagnosis: Screening for malignant neoplasm of colon Patient Data Age: 79 Gender: F Height: 1.65 m Weight: 47.4 kg Last Vital Signs Temp 36.2 C L 05/28/24 08:25 Pulse 84 05/28/24 08:25 Resp 14 05/28/24 08:25 BP 176/78 H 05/28/24 08:25 Pulse Ox 99 05/28/24 08:25 O2 Del Method Room Air 05/28/24 08:25 Allergies Allergy/AdvReac Type Severity Reaction Status Date / Time levofloxacin Allergy Mild Muscle Verified 05/28/24 08:22 Spasms ciprofloxacin Allergy Unknown Itching Verified 05/28/24 08:22 clarithromycin Allergy Unknown Itching Verified 05/28/24 08:22 codeine Allergy Unknown Hives Verified 05/28/24 08:22 celecoxib (From Celebrex) AdvReac Severe Diarrhea Verified 05/28/24 08:22 Home Medications ?Medication ?Instructions ?Recorded ?Confirmed ?Type escitalopram oxalate 20 mg tablet 20 mg PO DAILY 11/14/19 05/28/24 History (Lexapro) acetaminophen 500 mg tablet 500 mg PO Q6H PRN Pain 08/04/20 05/27/24 History vit C 250 mg-vit E 200 unit-zinc 1 tablet PO Q12H 08/04/20 05/28/24 History 12.5 mg-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 machine mechanic 1 mg-lut-zeax chew tablet (ICaps AREDS2 (copper citrate)) cetirizine 10 mg tablet (Zyrtec) 10 mg PO HS 05/09/22 05/28/24 History tiotropium 2.5 mcg-olodaterol 2.5 2 inh inhalation DAILY 06/20/22 05/28/24 History mcg/actuation mist for inhalation (Stiolto Respimat) Tylenol PM Extra Strength 220 mg PO HS PRN Pain (Scale Score 10/21/22 05/27/24 History 1-3) ferrous sulfate 325 mg (65 mg 325 mg PO .every other day 03/31/23 05/28/24 History iron) tablet ondansetron 8 mg disintegrating 8 mg PO Q8H PRN nausea and 08/23/23 05/27/24 Rx tablet vomiting #30 tabs albuterol sulfate 1.25 mg/3 mL 1.25 mg inhalation BID 02/19/24 05/28/24 History solution for nebulization doxycycline hyclate 100 mg capsule 100 mg PO BID 02/19/24 05/27/24 History sumatriptan succinate 100 mg tablet 100 mg PO DAILY PRN migraine 02/19/24 05/28/24 Rx headache #27 tabs folic acid 1 mg tablet 1 mg PO DAILY #90 tabs 02/20/24 05/28/24 Rx ketoconazole 2 % shampoo 1 applic topical 2XW 02/20/24 05/27/24 History ketoconazole 2 % topical cream 1 applic topical DAILY 02/20/24 05/27/24 History ergocalciferol (vitamin D2) 1,250 1,250 mcg PO WEEKLY #12 caps 03/04/24 05/28/24 Rx mcg (50,000 unit) capsule sotalol 80 mg tablet See Rx Instructions .Route 04/03/24 05/28/24 Rx .COMPLEX #180 tabs fluticasone propionate 50 2 spray intranasal DAILY #16 grams 04/10/24 05/28/24 Rx mcg/actuation nasal spray,suspension (Flonase Allergy Relief) megestrol 20 mg tablet 20 mg PO BID #60 tabs 04/30/24 05/28/24 Rx Patient hx anesthesia problems: none Family hx anesthesia problems: none Results Review: All pre-operative results and documents have been reviewed as part of the pre-operative evaluation. FOR[facility] Past Medical History Medical History Seborrheic dermatitis Venous thromboembolism (~04/2023) Thrombosis of right peroneal vein (~04/2023) Pulmonary embolism on left (~04/2023) Anxiety Paroxysmal atrial tachycardia Pseudomonas aeruginosa colonization Obstructive lung disease Mild obstructive abnormality on PFTs. Ileus (09/2022) Stress incontinence in female Headache Eczema Chronic low back pain Fracture of distal end of left radius (07/2020) Multiple nodules of lung Liver cyst Cyst of left kidney Osteoarthritis Macular degeneration, age related (2015) Bronchiectasis Diagnosis at age 1; previously worked up and she was told she did not have cystic fibrosis. Iron deficiency Osteoporosis Depression Migraines Lumbar spondylosis Surgical History Surgical History History of surgery on right wrist (08/2003) Open reduction internal fixation with subsequent hardware removal. History of cerebral aneurysm repair (03/28/08) coiling History of cataract extraction History of ear surgery History of tonsillectomy Family History Family History Mother Acute myocardial infarction Cerebrovascular accident Hypertension Depression Anxiety Heart problem Grandparent Colon cancer Hypertension Social History Social History Social History: Surrogate medical decision maker: Deysi Flores, daughter. Code status: Do not resuscitate. Smoking packs per day: 1 Smoking cigarettes per day: 20.0 Years smoked: 5 Smoking pack-years: 5.00 Smoking status: Former smoker Second hand tobacco smoke exposure: Yes Alcohol intake: former Alcohol use details: rarely Substance use: never Substance use type: does not use Do You Feel Safe in your Home?: Yes Lack of Transportation: YES Lack of Food: Never True Current Housing: I Have Housing Concerned About Future Housing: No Difficulty Paying Gas/Electric Bills: YES Difficulty Paying for Meds: No Currently Unemployed: No Education: High School Diploma/GED Difficulty w/ Childcare or Family Care: No Living arrangements: alone Additional living arrangements comments: . Lives in her own home in [place]. She has 2 cats. Occupation/Education: retired Additional occupation/education comments: [employer]. Spiritual care concerns: No Agree to blood products: Yes Anes - Eval Final PreProcedure Day of Procedure 05/28/24 08:40 Patient weight: thin Heart: regular rate and rhythm Lungs: clear to auscultation Airway: Mallampati scale class II Neurological: alert and oriented Last oral intake: >/= 8 hours ASA classification: III Emergent: no Anesthetic plan: proceed Anesthesia type and monitoring: general GIVS and standard monitoring Results Review: All pre-operative results and documents have been reviewed as part of the pre-operative evaluation. Informed Consent: The patient's anesthetic plan and its attendant risks and benefits were discussed with the patient/family/POA. Questions were solicited and answers provided to the satisfaction of the patient/family/POA.
--- NOTE | 2024-05-28 08:58 | PM.HPGS ---
History of Present Illness History of Present Illness Consent: Risks, benefits, and alternatives have been discussed and questions answered. Patient agrees to proceed with procedure. Chief complaint: Screening for malignant neoplasm of colon Narrative: Bebe Rosas is a 79 year old female here for screening colonoscopy, last one 2018 Review of Systems Review of Systems: All systems reviewed & are unremarkable except as noted in HPI and below PMFSH Past Medical History Medical History (Updated 05/28/24 @ 08:58 by Huber Lama MD) Colon cancer screening Seborrheic dermatitis Venous thromboembolism (~04/2023) Thrombosis of right peroneal vein (~04/2023) Pulmonary embolism on left (~04/2023) Anxiety Paroxysmal atrial tachycardia Pseudomonas aeruginosa colonization Obstructive lung disease Mild obstructive abnormality on PFTs. Ileus (09/2022) Stress incontinence in female Headache Eczema Chronic low back pain Fracture of distal end of left radius (07/2020) Multiple nodules of lung Liver cyst Cyst of left kidney Osteoarthritis Macular degeneration, age related (2015) Bronchiectasis Diagnosis at age 1; previously worked up and she was told she did not have cystic fibrosis. Iron deficiency Osteoporosis Depression Migraines Lumbar spondylosis Surgical History Surgical History History of surgery on right wrist (08/2003) Open reduction internal fixation with subsequent hardware removal. History of cerebral aneurysm repair (03/28/08) coiling History of cataract extraction History of ear surgery History of tonsillectomy Family History Family History Mother Acute myocardial infarction Cerebrovascular accident Hypertension Depression Anxiety Heart problem Grandparent Colon cancer Hypertension Social History Social History Social History: Surrogate medical decision maker: Deysi Flores, daughter. Code status: Do not resuscitate. Smoking packs per day: 1 Smoking cigarettes per day: 20.0 Years smoked: 5 Smoking pack-years: 5.00 Smoking status: Former smoker Second hand tobacco smoke exposure: Yes Alcohol intake: former Alcohol use details: rarely Substance use: never Substance use type: does not use Do You Feel Safe in your Home?: Yes Lack of Transportation: YES Lack of Food: Never True Current Housing: I Have Housing Concerned About Future Housing: No Difficulty Paying Gas/Electric Bills: YES Difficulty Paying for Meds: No Currently Unemployed: No Education: High School Diploma/GED Difficulty w/ Childcare or Family Care: No Living arrangements: alone Additional living arrangements comments: . Lives in her own home in [place]. She has 2 cats. Occupation/Education: retired Additional occupation/education comments: [employer]. Spiritual care concerns: No Agree to blood products: Yes Meds Home Medications and Allergies Home Medications ?Medication ?Instructions ?Recorded ?Confirmed ?Type escitalopram oxalate 20 mg tablet 20 mg PO DAILY 11/14/19 05/28/24 History (Lexapro) acetaminophen 500 mg tablet 500 mg PO Q6H PRN Pain 08/04/20 05/27/24 History vit C 250 mg-vit E 200 unit-zinc 1 tablet PO Q12H 08/04/20 05/28/24 History 12.5 mg-helicopter pilot instructor 1 mg-lut-zeax chew tablet (ICaps AREDS2 (copper citrate)) cetirizine 10 mg tablet (Zyrtec) 10 mg PO HS 05/09/22 05/28/24 History tiotropium 2.5 mcg-olodaterol 2.5 2 inh inhalation DAILY 06/20/22 05/28/24 History mcg/actuation mist for inhalation (Stiolto Respimat) Tylenol PM Extra Strength 220 mg PO HS PRN Pain (Scale Score 10/21/22 05/27/24 History 1-3) ferrous sulfate 325 mg (65 mg 325 mg PO .every other day 03/31/23 05/28/24 History iron) tablet ondansetron 8 mg disintegrating 8 mg PO Q8H PRN nausea and 08/23/23 05/27/24 Rx tablet vomiting #30 tabs albuterol sulfate 1.25 mg/3 mL 1.25 mg inhalation BID 02/19/24 05/28/24 History solution for nebulization doxycycline hyclate 100 mg capsule 100 mg PO BID 02/19/24 05/27/24 History sumatriptan succinate 100 mg tablet 100 mg PO DAILY PRN migraine 02/19/24 05/28/24 Rx headache #27 tabs folic acid 1 mg tablet 1 mg PO DAILY #90 tabs 02/20/24 05/28/24 Rx ketoconazole 2 % shampoo 1 applic topical 2XW 02/20/24 05/27/24 History ketoconazole 2 % topical cream 1 applic topical DAILY 02/20/24 05/27/24 History ergocalciferol (vitamin D2) 1,250 1,250 mcg PO WEEKLY #12 caps 03/04/24 05/28/24 Rx mcg (50,000 unit) capsule sotalol 80 mg tablet See Rx Instructions .Route 04/03/24 05/28/24 Rx .COMPLEX #180 tabs fluticasone propionate 50 2 spray intranasal DAILY #16 grams 04/10/24 05/28/24 Rx mcg/actuation nasal spray,suspension (Flonase Allergy Relief) megestrol 20 mg tablet 20 mg PO BID #60 tabs 04/30/24 05/28/24 Rx Allergies Allergy/AdvReac Type Severity Reaction Status Date / Time levofloxacin Allergy Mild Muscle Verified 05/28/24 08:22 Spasms ciprofloxacin Allergy Unknown Itching Verified 05/28/24 08:22 clarithromycin Allergy Unknown Itching Verified 05/28/24 08:22 codeine Allergy Unknown Hives Verified 05/28/24 08:22 celecoxib (From Celebrex) AdvReac Severe Diarrhea Verified 05/28/24 08:22 Vital Signs Vital Signs - 24 hr 05/28/24 08:25 Temperature 97.1 F L Pulse Rate 84 Respiratory Rate 14 Blood Pressure 176/78 H Pulse Oximetry 99 Oxygen Delivery Room Air Exam Const: General: comfortable and no acute distress HENMT: Face/Nose/Sinus: Normal nares present Eyes: General: appearance normal, both eyes and all related structures Neck: Neck: no JVD Resp: Auscultation: clear to auscultation bilaterally Cardio: Rate: regular rate Rhythm: regular rhythm GI: Inspection: non-distended GI Palp: Yes Soft to palpation Skin: General skin exam: normal color Neuro: Speech: normal speech Extrem: General: normal to inspection Psych: Mental Status: mental status grossly normal Assessment and Plan Assessment and plan (1) Colon cancer screening: Code(s): Z12.11 - Encounter for screening for malignant neoplasm of colon Status: Acute Assessment and Plan: colonoscopy
[2024-05-28 09:17] VITALS: BP 171/91; PULSE 83; RESP 30; O2SAT 98
[2024-05-28 09:27] VITALS: BP 174/78; PULSE 81; RESP 26; O2SAT 94
[2024-05-28 09:35] VITALS: BP 157/80; PULSE 81; RESP 20; O2SAT 99
== END 2024-05-28 10:00 | disposition home or self-care (01) ==
PROVIDERS: PCP Family Medicine; Referring Provider Family Medicine; Visit Provider Internal Medicine Gastroenterology
PROC: 0DJD8ZZ Inspection of Lower Intestinal Tract, Via Natural or Artificial Opening Endoscopic (ICD-10-PCS; CPT 45378; principal; 2024-05-28 09:30)
DX: Z12.11 Encounter for screening for malignant neoplasm of colon (principal); K64.8 Other hemorrhoids; K57.30 Diverticulosis of large intestine without perforation or abscess without bleeding; F41.9 Anxiety disorder, unspecified; J44.9 Chronic obstructive pulmonary disease, unspecified; N39.3 Stress incontinence (female) (male); E61.1 Iron deficiency; M81.0 Age-related osteoporosis without current pathological fracture; F32.A Depression, unspecified; M43.06 Spondylolysis, lumbar region; L21.9 Seborrheic dermatitis, unspecified; I47.19 Other supraventricular tachycardia; G89.29 Other chronic pain; M54.50 Low back pain, unspecified; M19.90 Unspecified osteoarthritis, unspecified site; H35.30 Unspecified macular degeneration; Z79.51 Long term (current) use of inhaled steroids; Z98.890 Other specified postprocedural states; Z87.891 Personal history of nicotine dependence; Z86.711 Personal history of pulmonary embolism; Z86.19 Personal history of other infectious and parasitic diseases; Z86.718 Personal history of other venous thrombosis and embolism; Z87.19 Personal history of other diseases of the digestive system; Z80.0 Family history of malignant neoplasm of digestive organs; Z82.49 Family history of ischemic heart disease and other diseases of the circulatory system
CPT/HCPCS: G0105; J2704; J7120

== ENCOUNTER 2024-11-21 09:28 | Outpatient (CLI) | payer OTHER, MEDICAID, SELFPAY ==
--- OUTSIDE RECORDS SUMMARY | 2024-11-21 09:39 | XMS_ITS | Clinical Summary ---
Author Organization [facility] Building [address] Address [address] [place] [address] Care Team Providers Care Application Architect Name Role Phone Laura Cobb MD Primary Care Provider Allergies Active Allergy Reactions Criticality Noted Date Comments Aspergillus Fumigatus Allerg enic Extract Unknown 04/11/2016 Ciprofloxacin Hives,Itching,Rash Medium 01/09/2017 Cladosporium Sphaerospermum Allergenic Extract Unknown 04/11/2016 Clarithromycin Unknown 01/09/2017 Codeine Unknown Codeine Sulfate Unknown Grass Pollen-Kj Unknown 04/11/2016 Nicardipine Unknown Plantain Unknown 04/11/2016 Sulfamethoxazole-Trimethoprim Unknown Tree Pollen-Black Jakob, Standard Unknown Tree Pollen-Brooks Unknown 04/11/2016 Tree Pollen-Mountain [place] Unknown 7 [place] Pollen-Sheep [place] Unknown 04/11/2016 White [place] Bark Unknown 04/11/2016 Medications naproxen sodium (ALEVE) [...] Post-infective bronchiectasis Pneumonia due to Klebsiella pneumoniae 5 Overview (06/30/2016): Pneumonia from Klebsiella pneumoniae Headache disorder 05/09/2014 Overview (06/30/2016): Chronic headaches 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 Cerebral arterial aneurysm 05/27/2011 Immunizations Immunization Administration Dates Next Due Influenza, Quadrivalent, Split, [...] on file Legal Sex Female 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 Gender Identity Female 07/03/2018 9:39 AM CDT Sexual Orientation Straight 07/03/2018 9: 39 AM CDT Obstetrics History Last Filed Vital Signs Vital Sign Reading Time Taken Comments Blood Pressure 134/74 08/01/2018 1:03 PM CDT Pulse 103 08/01/2018 1:03 PM CDT Temperature 36.1 C (96.9 F) 02/04/2021 1:32 PM TOOL DRESSER Respiratory Rate 19 06/26/2018 12:45 PM CDT Oxygen Saturation 96% 06/26/2018 12:45 PM CDT Inhaled Oxygen Concentration - - Weight 76.7 kg (169 lb 1.6 oz) 02/04/2021 1:32 P M TOOL DRESSER Height 165.1 cm (5' 5) 02/04/2021 1:32 PM TOOL DRESSER Body Mass Index 28.14 02/04/2021 1:32 PM TOOL DRESSER Plan of Treatment Health Maintenance Due Date Last Done Comments Depression Screening 1945 Fall Risk Assessment 1945 Osteoporosis Screening-Bone Density Scan 1945 Hepatitis B Screening 1961 Zoster Vaccine (1 of 2) 1993 Well Visit 65+ 2008 Covid-19 Vaccine (2023-2 5 season) 2023 01/20/2021, 05/28/2020, 04/29/2020 Influenza Vaccine (#1) 2024 , 12/21/2019, 12/28/2018, Additional history exists DTaP/Tdap/Td Vaccine (2 - Td or Tdap) 02/19/2027 02/19/2017 Pneumococcal vaccine 65+ Completed 017, 02/06/2017, 06/14/2016, Additional history exists Insurance MEDICARE [employer] [facility] [employer] PPO [employer] PPO [employer] Care Teams Application Architect Relationship Specialty Start Date End Date Laura Cobb MD PCP - General Family Practice 02/04/21
--- OUTSIDE RECORDS SUMMARY | 2024-11-21 09:39 | XMS_ITS | Clinical Summary ---
Author Organization [facility] Address [address] [facility] [place] [address] Phone Care Team Providers Care Information Services Assistant Name Role Phone Pedro Luis Andrews MD Primary Care Provider [phone] Allergies Active Allergy Reactions Criticality Noted Date Comments Acer Negundo Allergy Skin Test Unknown 04/11 Jakob Extract Allergy Skin Test Unknown 03/27 Aspergillus Allergy Skin Test Unknown 2016 Clarithromycin Unknown Nicardipine Unknown [place] Unknown 04/11/2016 Ciprofloxacin Hives,Itching,Rash Cladosporium Sphaerospermum Unknown 04/11/19 17 Cladosporium Sphaerospermum Allergy Skin Test Unknown 04/11/2016 Codeine Unknown Codeine Sulfate Unknown Horse Epithelium Unknown 04/11/2016 Kj Grass Allergy Skin Test Unknown 03/27 Mite (D. Farinae) Unknown 04/11/2016 Other Unknown Cipro Plantain Unknown 04/11/2016 Rumex Acetosella (Sheep's [place]) Unknown Sulfamethoxazole-Trimethoprim Unknown [place] Species Unknown 04/11/2016 Medications azelastine (ASTELIN) 0.1 [...] P M CDT Height 166.4 cm (5' 5.5) 06/12/2018 1:02 PM CDT Body Mass Index 17.75 06/12/2018 1:02 PM CDT Plan of Treatment Health Maintenance Due Date Last Done Comments Hepatitis C Virus (HCV) Screening 1945 Zoster Immunization (1 of 2) 1993 Respiratory Syncytial Virus (RSV) Immunization (Adult) (1 - 1-dose 75+ series) 2018 SARS-COV-2 Immunization ( season) 2023 08/06/2021, 01/20/2021, 05/28/2020, Additional history exists Influenza Immunization (#1) 11/25/202411/26, 12/28/2018, 12/28/2018, Additional history exists DTaP/Tdap/Td Immunization Discontinued 02/19/2017 Pneumococcal Immunization (50+ years) Completed 02/19/2017, 02/06/2017, 06/14/2016 Pneumococcal Immunization Combined Discontinued 02/19/2017, 02/06/2017, 06/14/2016 TdaP Immunization Completed 02/19/2017 Hepatitis B Immunization Aged Out No longer eligible based on patient's age to complete this topic Human Papillomavirus (HPV) Immunization Aged Out No longer eligible based on patient's age to complete this topic Meningococcal Immunization (ACWY) Aged Out No longer eligible based on patient's age to complete this topic Rotavirus Immunization Aged Out No lo nger eligible based on patient's age to complete this topic Insurance MEDICARE C [employer] Care Teams Information Services Assistant Relationship Specialty Start Date End Date Pedro Luis Andrews MD [address] [place] [address] PCP - General Family Medicine 10/09/17
--- OUTSIDE RECORDS SUMMARY | 2024-11-21 09:39 | XMS_ITS | Patient Health Record ---
Author Organization [facility] Address [address] [place] [address] Care Team Providers Care Belt Molder Name Role Phone Joey Benavides Unavailable [phone] Allergies Allergen (clinical drug ingredient) Drug/Non Drug Allergy documented on EMR Reaction Allergy Type Onset Date Status MACROLIDE ANTIBIOTIC S (uncoded) Unknown Allergy 06/26/2023 Active OPIUM (ANTHROPOSOPHI C) (uncoded) Unknown Allergy 06/26/2023 Active Medicinal cephalosporin and acting as antibacterial agent (FN) Cephalosporins Unknown Drug Allergy 06/26/2023 Active Medicinal quinolone and acting as antibacterial agent (FN) Quinolones Unknown Drug Allergy 06/26/2023 Active Reason For Referral No Information Medications Medication SIG (Take, Route, Frequency, Duration) Notes Start Date End Date Status Escitalopram Oxalate 20 MG Tablet 1 tablet by mouth Once a day; Duration: 90 days 06/26/2023 Active Paxlovid (300/100) 20 x 150 MG & 10 x 100MG Tablet Therapy Pack Oral *Reorder from [employer] for eRx and Interaction Alerts* 06/26/2023 Unknown Cefdinir 300 MG Capsule Oral 06/26/2023 Unknown Folic Acid 1 MG Tablet Oral; Duration: 90 Days Active Ketoconazole 2% Shampoo External 06/26/2023 Unknown predniSONE 20 MG Tablet Oral; Duration: 5 Days Not-Taking Promethazine HCl 25 MG Tablet Oral 06/26/2023 Unknown traMADol HCl 50 MG Tablet TAKE 1 TABLET BY MOUTH DAILY NEEDED FOR PAIN Oral; Duration: 7 Days Not-Taking Stiolto Respimat 2.5-2.5 MCG/ACT Aerosol Solution Inhalation 06/26/2023 Unknown Eliquis 5 MG Tablet TAKE 1 TABLET BY MOUTH TWICE DAILY Oral; Duration: 30 Days Not-Taking Sotalol HCl 80 MG Tablet Oral 06/26/2023 Unknown Mirtazapine 15 MG Tablet Disintegrating Oral; Duration: 30 Days Not-Taking Albuterol Sulfate HFA 108 (90 Base) MCG/ACT Aerosol Solution Inhalation; Duration: 16 Days Active Lidocaine 5% Patch External 06/26/2023 Unknown Megestrol Acetate 20 MG Tablet Oral; Duration: 30 Days Active Symbicort 160-4.5 MCG/ACT Aerosol Inhalation 06/26/2023 Unknown Fluticasone Propionate 50 MCG/ACT Suspension SHAKE LIQUID AND USE 2 SPRAYS IN EACH NOSTRIL DAILY Nasal; Duration: 30 Days Active Triamcinolone Acetonide 0.10% Ointment External 06/26/2023 Unknown Doxycycline Hyclate 100 MG Capsule TAKE 1 CAPSULE BY MOUTH TWICE DAILY FOR 5 DAYS Oral; Duration: 5 Days Active Spiriva Respimat 2.5 MCG/ACT Aerosol Solution Inhalation 06/26/2023 Unknown Auvelity 45-105 MG Tablet Extended Release Oral; Duration: 30 Days Not-Taking Eliquis 5 MG Tablet Oral 06/26/2023 Unknown Auvelity 45-105 MG Tablet Extended Release 1 tablet once a day for 7 days, 1 tablet 2 times a day for 23 days Orally SEE SIGN; Duration: 30 days 07/11/2024 Active Rexulti 0.5 MG Tablet Oral 06/26/2023 Unknown Aleve 220 MG Capsule Oral 06/26/2023 Unknown Amoxicillin 500 MG Capsule Oral 06/26/2023 Unknown Eucrisa 2 % Ointment External 06/26/2023 Unknown SUMAtriptan Succinate 100 MG Tablet Oral; Duration: 30 Days Active ProAir HFA 108 (90 Base) MCG/ACT Aerosol Solution Inhalation 06/26/2023 Unknown Breztri Aerosphere 160-9-4.8 MCG/ACT Aerosol Inhalation *Reorder from [employer] for eRx and Interaction Alerts* 06/26/2023 Unknown Stiolto Respimat 2.5-2.5 MCG/ACT Aerosol Solution INHALE 2 PUFFS BY MOUTH DAILY Inhalation; Duration: 90 Days Active Albuterol Sulfate 1.25 MG/3ML Nebulization Solution Inhalation 06/26/2023 Unknow n Ondansetron 8 MG Tablet Disintegrating Oral; Duration: 10 Days Active Doxycycline Hyclate 100 MG Capsule Oral 06/26/2023 Unknown Famotidine 20 MG Tablet Oral 06/26/2023 Unknown Auvelity 45-105 MG Tablet Extended Release Oral *Reorder from [facility] for eRx and Interaction Alerts* 06/26/2023 Unknown Megestrol Acetate 40 MG/ML Suspension Oral 06/26/2023 Unknown Amoxicillin-Pot Clavulanate 500-125 MG Tablet Oral 06/26/2023 Unknown Amoxicillin 500 MG Capsule Oral; Duration: 7 Days Active Alendronate Sodium 70 MG Tablet Oral 06/26/2023 Unknown Meloxicam 7.5 MG Tablet Oral 06/26/2023 Unknown Cefdinir 300 MG Capsule Oral; Duration: 7 Days Active SUMAtriptan Succinate 100 MG Tablet Oral 06/26/2023 Unknown Ondansetron 8 MG Tablet Disintegrating Oral 06/26/2023 Unknow n Vitamin D (Ergocalciferol) 1.25 MG (79013 UT) Capsule TAKE 1 CAPSULE BY MOUTH WEEKLY Oral; Duration: 84 Days Active Sotalol HCl 80 MG Tablet TAKE 1 TABLET BY MOUTH EVERY 12 HOURS Oral; Duration: 90 Days Active Immunizations Vaccine Route Administration Date Status Comme nts Hib (PRP-OMP), 3 dose schedule Unknown 02/06/2017 Admin istered Influenza virus vaccine, quadrivalent (IIV4), split virus, 0.25 mL dosage Unknown 12/31/2014 Administered Influenza virus vaccine, quadrivalent (IIV4), split virus, 0.25 mL dosage Unknown 12/28/2018 Administered Influenza, high dose seasonal Unknown 01/09/2017 Admini stered Influenza, high dose seasonal Unknown 12/28/2018 Admini stered Influenza, seasonal, injecta ble, preservative free, 3 yrs and above Unknown 02/29/2016 Administered Influenza, seasonal, injecta ble, preservative free, 3 yrs and above Unknown 01/30/2017 Administered Influenza, unspecified formulation Unknown 10/25/2017 A dministered Moderna Covid-19 Vaccine 1st dose Unknown 04/29/2020 Ad ministered Moderna Covid-19 Vaccine 1st dose Unknown 05/28/2020 Ad ministered Moderna Covid-19 Vaccine 1st dose Unknown 01/20/2021 Ad ministered Moderna Covid-19 Vaccine 1st dose Unknown 08/06/2021 Ad ministered Pneumococcal conjugate PCV 13 Unknown 12/06/2012 Admini stered Pneumococcal conjugate PCV 13 Unknown 02/06/2017 Admini stered Pneumococcal conjugate PCV 13 Unknown 02/19/2017 Admini stered Pneumococcal polysaccharide PPV23 Unknown 06/14/2016 Ad ministered Tdap Unknown 02/19/2017 Administered Social History Sex Assigned At : Social History Observation Description Sex Assigned At Female Social History Additional Details Category Social Info Options Details Migrated Social History Migrated Social History Alcohol Intake: None 01/31/2022,Tobacco Years: Former smoker 07/08/2021,Smoking Status: 0 01/05/2023 Problems Problem Type SNOMED Code ICD Code Onset Dates Problem Status W/U Status Risk Notes Problem Major depressive disorder, recurrent, mild (F33.0) 4 Active confirmed Problem Generalized anxiety disorder (99012452) Generalized anxiety disorder (F41.1) 4 Active confirmed Problem Age-related cognitive decline (952898785) Age-related cognitive decline (R41.81) Active confirmed Encounters Encounter Location Date Provider Diagnosis [facility] [address] [address] 07/11/2024 Joey Benavides Generalized anxiety disorder F41.1 ; Major depressive disorder, recurrent, mild F33.0 and Age-related cognitive decline R41.81 [facility] [address] [address] 08/29/2024 Joey Benavides Generalized anxiety disorder F41.1 [facility] [address] [address] 10/02/2024 Joey Benavides [facility] [place] [address] [address] 08/18/2024 Joey Benavides [facility] [address] [address] 08/23/2024 Joey Benavides Assessments Encounter Date Diagnosis (ICD Code) Assessment Notes Treatment Notes Treatment Clinical Notes Section Notes 08/29/2024 Generalized anxiety disorder (ICD-10 - F41.1) 07/11/2024 Generalized anxiety disorder (ICD-10 - F41.1) 07/11/2024 Major depressive disorder, recurrent, mild (ICD-10 - F33.0) 07/11/2024 Age-related cognitive decline (ICD-10 - R41.81) 07/11/2024 Other NOT CANDIDATE FOR TMS- HAS ANNUERYSM CLIP IN BRAIN Erika Raymond, 79-year-old female with history of depression, presenting with severe fatigue, respiratory issues, and concerns about cognitive decline. Major Depressive Disorder Assessment: Patient has a long-standing history of depression and is currently on escitalopram 20mg. She reports severe fatigue, which her primary care physician attributes to depression. However, the patient questions whether her fatigue could be due to multiple factors, including her other medical conditions. The interplay between depression and chronic fatigue from other illnesses is acknowledged, with depression potentially exacerbating fatigue and vice versa. Plan: - Initiate Auvelity (dextromethorphan/ bupropion combination) - Start with one tablet once daily for one week - Increase to one tablet twice daily after the first week - Informed patient about potential side effects, including feeling goofy or floaty for the first 1-2 weeks - Taper escitalopram: - Reduce to 10mg daily for one week - Discontinue after one week - Follow-up appointment scheduled in one month Cognitive Concerns Assessment: Patient expresses worry about dementia, citing genetic testing results indicating higher risk for late-onset Alzheimer's. She reports difficulty recalling names and has ceased driving. These symptoms warrant further evaluation to distinguish between normal aging, depression-related cognitive changes, and potential neurocognitive disorder. Plan: - Order computerized cognitive functioning test to assess for minimal cognitive impairment - Arrange transportation for cognitive testing appointment the note is transcribed using speech recognition software. It is a reflection of a visit with the patient. It might have some inaccuracy, including medication names and transcribing errors, though efforts have been made to correct them. Plan Of Treatment Future Test Test Name Order Date MCI Testing 07/11/2024 SLUMS Testing 07/11/2024 Insurance Providers Payer Name Payer Address Payer Phone Subscriber Number Group Number Insured Name Patient Relationship to Insured Coverage Start Date Coverage End Date [employer] [address] [place] [phone] [id number] JESSICA RAYMOND Self - patient is the insured Medical (General) History Medical History History ICD Code Problems: Generalized anxiety disorder Mild recurrent major depression Persistent insomnia , Imported from [place]: Th e patient has been under the care of Dr. Dat Johnson at [facility] and has had multiple interactions with health providers at [facility]. The patient has been dealing with chronic anemia, as noted during office visits on 11/10/2023 and 12/05/2023. An acute deep vein thrombosis of the right lower extremity was reported during a telephone check-up on 09/20/2023. The patient also had two hospital encounters on 08/23/2023 and 12/06/2023 for bronchiectasis. The patient received the first dose of the Moderna COVID-19 vaccine on 04/29/2020 and the second dose on 05/27/2020, administered by Jessie Caldwell LPN. The patient's medical data was frequently monitored and recorded through an external device, with the most recent data recorded on 05/14/2024. Surgical History Surgery Date(Month/Year) Tonsilectomy/adenoids 03/27/1953 Neurosurgery 03/28/2008 Other 08/07/2004 Cataract surgery (81880) 03/24/2020
--- OUTSIDE RECORDS SUMMARY | 2024-11-21 09:39 | XMS_ITS | Clinical Summary ---
Author Organization [facility] Address [address] [place] [address] Care Team Providers Care Glue Line Operator Name Role Phone Abhijeet Francisco DO Primary Care Provider [phone] Source Comments [facility] [facility],non-owned Affiliates and Associated Physician Practices is amultiple site organization consisting of ambulatory clinics and hospital sitesin [place], [place], [place] and [place]. This disclosure is being madepursuant to the Care Everywhere program and may not contain all information available regarding this patient. Last updated 17.[facility] Allergies Active Allergy Reactions Criticality Noted Date Comments Clarithromycin 01/09/2017 Ciprofloxacin 01/09/2017 Codeine Unknown 12/28/2018 Levofloxacin Other 12/28/2018 Joint pain Immunizations Immunization Administration Dates Next Due INFLUENZA VACCINE, HIGH-DOSE , QUADR. (FLUZONE HIGH-DOSE QUADRIVALENT; 65Y+), 0.7 ML (HD-IIV4) 12/28/2018,01/09/2017 Social History Tobacco Use Types Packs/Day Years Used Date Smoking Tobacco: Never Assessed Comments Unknown Sex and Gender Information Value Date Recorded Sex Assigned at Not on file Legal Sex Female 12:33 PM CDT Gender Identity Not on file [...] - 1-dose 75+ series) 2018 COVID-19 VACCINE (2023-25 season) 2023 DEPRESSION SCREENING 03/27/2024 INFLUENZA VACCINE (#1) 2024 9, 01/09/2017, 02/29/2016, Additional history exists HEPATITIS B VACCINE Aged Out No longe r eligible based on patient's age to complete this topic HIB VACCINE Aged Out No longer eligi ble based on patient's age to complete this topic HPV VACCINE Aged Out No longer eligi ble based on patient's age to complete this topic MENINGOCOCCAL (Group B) VACCINE SHARED DECISION-MAKING Aged Out No longer eligible based on patient's age to complete this topic MENINGOCOCCAL GROUPS A/C/Y/W VACCINE Aged Out No longer eligible based on patient's age to complete this topic Insurance [facility] MEDICARE ADV PPO Care Teams Glue Line Operator Relationship Specialty Start Date End Date Abhijeet Francisco DO PCP - General Internal Medicine 01/09/17
--- OUTSIDE RECORDS SUMMARY | 2024-11-21 09:40 | XMS_ITS | Clinical Summary ---
Author Organization [facility] Address [address] [place] [address] Care Team Providers Care Project Analyst Name Role Phone Laura Cobb MD Primary [...] Encounters Date Type Department Care Team Description 11/12/2024 External Device Data [facility]STRACTION Provider, Abstract 10/30/2024 External Device Data [facility] Provider, Abstract 10/09/2024 External Device Data [facility] Provider, Abstract 10/09/2024 External Device Data [facility] Provider, Abstract 10/09/2024 External Device Data [facility] Provider, Abstract 10/08/2024 External Device Data [facility] Provider, Abstract 09/11/2024 External Device Data [facility] [place] Provider, Abstract 09/10/2024 External Device Data [facility] Provider, Abstract [...] 10:55 AM CDT Height 165.1 cm (5' 5) 02/21/2023 2:28 PM [employer] Body Mass Index 18.4 02/21/2023 2:28 PM [employer] Plan of Treatment Health Maintenance Due Date Last Done Comments DTAP/TDAP/TD VACCINES (1 - Tdap) 1962 ZOSTER VACCINE (1 of 2) 1993 OSTEOPOROSIS SCREENING 2008 PNEUMOCOCCAL VACCINE 50+ YEA RS (2 of 2 - PCV) 12/06/2013 12/06/2012 RSV VACCINE (60+ or ) (1 - 1-dose 75+ series) 2018 COVID-19 Vaccine (3 - 2023-2 5 season) 2023 05/28/2020, 04/29/2020 INFLUENZA VACCINE (#1) 2024 9, 01/09/2017, 02/29/2016, Additional history exists Insurance [facility] PPO MCR Care Teams Project Analyst Relationship Specialty Start Date End Date Laura Cobb MD [address] [place] [phone] PCP - General Family Practice 02/21/23
[2024-11-21 14:31] LABS: Hematocrit 43.0 % (37.0-47.0); Hemoglobin 13.2 g/dL (12.0-15.0); Immature Granulocyte Percent A 1.0 % (0-0.5); Lymphocytes Absolute Auto 2.14 K/mm3 (0.9-3.2); Mean Corpuscular HGB Conc 30.7 g/dl (32-36); Mean Corpuscular Hemoglobin 29.6 pg (26-34); Mean Corpuscular Volume 96.4 fl (80-100); Nucleated Red Blood Cells Absolute Auto 0.000 K/mm3 (0.0-0.012); Nucleated Red Blood Cells Perc 0.0 % (0.0-0.2); Platelet Count Result 494 k/mm3 (150-375); Red Blood Count 4.46 M/mm3 (4.2-5.4); White Blood Count 9.8 K/mm3 (4.5-10.0)
[2024-11-21 14:48] LABS: Alanine Aminotransferase 21 U/L (6-35); Albumin Level 4.1 g/dL (3.5-5.1); Alkaline Phosphatase 110 U/L (38-126); Anion Gap 8 mmol/L (4-12); Aspartate Amino Transferase 46 U/L (14-36); Bilirubin,Total 0.3 mg/dL (0.2-1.3); Blood Urea Nitrogen 23 mg/dL (7-17); Calcium 9.4 mg/dL (8.4-10.2); Carbon Dioxide 32 mmol/L (22-30); Chloride 91 mmol/L (98-107); Estimated Glomerular Filt Rate > 60; Glucose 91 mg/dL (65-110); Magnesium 2.2 mg/dL (1.6-2.3); Potassium 4.6 mmol/L (3.4-5.0); Sodium 131 mmol/L (137-145); Total Protein 8.5 g/dL (6.3-8.2)
[2024-11-21 17:09] LABS: Thyroid Stimulating Hormone Reflex 1.940 uIU/mL (0.465-4.68)
[2024-11-21 18:55] LABS: Hemoglobin A1C 5.6 % (<5.7)
== END 2024-11-21 09:29 | disposition home or self-care (01) ==
LOC: ANHGOSHLAB 09:29
PROVIDERS: PCP Family Medicine; Visit Provider Nurse Practitioner Family
DX: R79.89 Other specified abnormal findings of blood chemistry (principal); R53.83 Other fatigue; E55.9 Vitamin D deficiency, unspecified
CPT/HCPCS: 36415; 80053; 82306; 83036; 83735; 84443; 85025

== ENCOUNTER 2024-12-19 09:53 | Emergency (ER) | payer OTHER, MEDICAID, SELFPAY ==
--- NOTE | ~2024-12-19 | CT_ITS ---
EXAMINATION: CT brain wo jun, 12/19/2024 11:56 CDT HISTORY: dizziness, lightheaded COMPARISON: No comparisons available. Technique: Axial images obtained of the brain without contrast. One or more of the following dose reduction techniques were used: automated exposure control, adjustment of the mA and/or kV according to patient size, use of iterative reconstruction technique. Findings: Moderate chronic periventricular ischemic changes with encephalomalacia noted in the left temporal lobe with associated craniotomy changes and sequelae of previous intervention. There is no acute infarct or hemorrhage identified. No midline shift or mass effect. No extra-axial fluid collections. Mastoid air cells unremarkable. Severe left maxillary sinusitis which appears chronic with underlying polyp formation suspected. No acute fracture. No significant facial or scalp soft tissue swelling evident. No radiopaque foreign body is seen. Impression: 1.No acute intracranial abnormality. Reviewed, dictated and finalized at location A. Impression: 1.No acute intracranial abnormality.
--- NOTE | ~2024-12-19 | CT_ITS ---
EXAMINATION: CTA chest PE protocol DATE: 12/19/2024 12:06 INDICATION: Left-sided chest pain, dizziness, weakness and cough TECHNIQUE: Computed tomography (CT) pulmonary angiogram of the chest was performed with 100 mL Omnipaque-350 intravenous contrast. Additional 3D reconstructions utilizing coronal maximum intensity projection (MIP) were performed. Automated exposure control and iterative reconstruction technique were employed. The dose-length product was 159.19 mGy-cm. COMPARISON: Chest CT dated 05/12/2023 and 10/14/2021 FINDINGS: No pulmonary embolism. Unchanged moderate biapical pleural-parenchymal scarring. Chronic bronchiectasis and mucous plugging involving the bilateral lower lobar bronchi and multiple segmental and subsegmental bronchi in the bilateral lower lobes. There is associated consolidation in the basilar segments of the bilateral lower lobes consistent with atelectasis and possible superimposed pneumonia. Additional small amount of consolidation in the lingula and patchy groundglass and tree-in-bud opacities in the right upper lobe and lingula consistent with tonsillitis and pneumonia with endobronchial spread of disease. No pulmonary edema or pleural effusion. Mild cardiomegaly with mild biatrial of atherosclerotic coronary artery calcific location. No pericardial effusion. Thoracic aorta is normal in caliber with no dissection. No pathologically enlarged thoracic lymphadenopathy. 2.5 cm hepatic cyst. Thoracolumbar dextroscoliosis with moderate to severe upper thoracic and upper lumbar spondylosis with mild spondylosis of the intervening mid to lower thoracic spine. IMPRESSION: 1. No pulmonary embolism. 2. Chronic bronchiectasis and mucous plugging in both lungs most prominent in the right middle and bilateral lower lobes with relatively stable appearance of associated chronic consolidation consistent with atelectasis possibly with superimposed pneumonia. 3. New less severe opacities in the lingula and right upper lobe consistent with bronchiolitis and additional developing pneumonia. 4. Mild cardiomegaly with biatrial enlargement. Reviewed, dictated and finalized at location A. IMPRESSION: 1. No pulmonary embolism. 2. Chronic bronchiectasis and mucous plugging in both lungs most prominent in t he right middle and bilateral lower lobes with relatively stable appearance of associated chronic consolidation consistent with atelectasis possibly with supe rimposed pneumonia. 3. New less severe opacities in the lingula and right upper lobe consistent wit h bronchiolitis and additional developing pneumonia. 4. Mild cardiomegaly with biatrial enlargement.
[2024-12-19 10:10] VITALS: BP 173/93; PULSE 86; RESP 18; TEMP 36.7; O2SAT 97
[2024-12-19 10:18] VITALS: PULSE 84
--- NOTE | 2024-12-19 10:39 | ED.GENADULT ---
HPI - General Adult General Chief complaint: Dizziness Stated complaint: INT LIGHTHEADEDNESS Time Seen by Provider: 12/19/24 10:12 History of Present Illness HPI narrative: 79-year-old female presents to the emergency department for evaluation for dizziness and lightheadedness. Patient reports she has had increased generalized weakness that is been ongoing for the last 2 years. Patient reports chronic decreased p.o. intake. Patient reports yesterday she was having some episodes of dizzy headedness and patient reports this was worsened this morning. Patient denies any sense of movement. Patient does not feel like she is going to black out. Patient reports she was started on antibiotics 2 days ago by her stage electrician. Patient reports she is on monthly antibiotics for her bronchiectasis. Related Data Home Medications ?Medication ?Instructions ?Recorded ?Confirmed ?Last Taken ?Type escitalopram oxalate 20 mg tablet 20 mg PO DAILY 11/14/19 12/05/24 05/27/24 History (Lexapro) acetaminophen 500 mg tablet 500 mg PO Q6H PRN Pain 08/04/20 12/05/24 Unknown History vit C 250 mg-vit E 200 unit-zinc 1 tablet PO Q12H 08/04/20 12/05/24 05/27/24 History 12.5 mg-steelscope operator 1 mg-lut-zeax chew tablet (ICaps AREDS2 (copper citrate)) cetirizine 10 mg tablet (Zyrtec) 10 mg PO HS 05/09/22 12/05/24 05/27/24 History tiotropium 2.5 mcg-olodaterol 2.5 2 inh inhalation DAILY 06/20/22 12/05/24 05/27/24 History mcg/actuation mist for inhalation (Stiolto Respimat) Tylenol PM Extra Strength 220 mg PO HS PRN Pain (Scale Score 10/21/22 12/05/24 Unknown History 1-3) ferrous sulfate 325 mg (65 mg 325 mg PO .every other day 03/31/23 12/05/24 05/27/24 History iron) tablet doxycycline hyclate 100 mg capsule 100 mg PO BID 02/19/24 12/05/24 Unknown History ketoconazole 2 % shampoo 1 applic topical 2XW 02/20/24 12/05/24 Unknown History ketoconazole 2 % topical cream 1 applic topical DAILY 02/20/24 12/05/24 Unknown History albuterol sulfate 1.25 mg/3 mL 1.25 mg inhalation TID 11/15/24 12/05/24 Unknown History solution for nebulization denosumab 60 mg/mL subcutaneous 60 mg subcut [id number] 11/15/24 12/05/24 Unknown History syringe (Prolia) albuterol sulfate 90 mcg/actuation 1 puff inhalation Q4H PRN 12/05/24 12/05/24 Unknown History aerosol inhaler (Ventolin HFA) amoxicillin 500 mg capsule 500 mg PO Q12H 12/05/24 12/05/24 Unknown History cefdinir 300 mg capsule 300 mg PO Q12H 12/05/24 12/05/24 Unknown History Allergies Allergy/AdvReac Type Severity Reaction Status Date / Time levofloxacin Allergy Mild Muscle Verified 12/19/24 10:17 Spasms ciprofloxacin Allergy Unknown Itching Verified 12/19/24 10:17 clarithromycin Allergy Unknown Itching Verified 12/19/24 10:17 codeine Allergy Unknown Hives Verified 12/19/24 10:17 celecoxib (From Celebrex) AdvReac Severe Diarrhea Verified 12/19/24 10:17 Review of Systems Review of Systems: All systems reviewed & are unremarkable except as noted in HPI and below PMFSH Past Medical History Medical History Chronic headache Colon cancer screening Seborrheic dermatitis Venous thromboembolism (~04/2023) Thrombosis of right peroneal vein (~04/2023) Pulmonary embolism on left (~04/2023) Anxiety Paroxysmal atrial tachycardia Pseudomonas aeruginosa colonization Obstructive lung disease Mild obstructive abnormality on PFTs. Ileus (09/2022) Stress incontinence in female Headache Eczema Chronic low back pain Fracture of distal end of left radius (07/2020) Multiple nodules of lung Liver cyst Cyst of left kidney Osteoarthritis Macular degeneration, age related (2016) Bronchiectasis Diagnosis at age 1; previously worked up and she was told she did not have cystic fibrosis. Iron deficiency Osteoporosis Depression Migraines Lumbar spondylosis Surgical History Surgical History History of surgery on right wrist (08/2003) Open reduction internal fixation with subsequent hardware removal. History of cerebral aneurysm repair (03/28/08) coiling History of cataract extraction History of ear surgery History of tonsillectomy Family History Family History Mother Acute myocardial infarction Cerebrovascular accident Hypertension Depression Anxiety Heart problem Grandparent Colon cancer Hypertension Social History Social History Social History: Surrogate medical decision maker: Deysi Flores, daughter. Code status: Do not resuscitate. Smoking packs per day: 1 Smoking cigarettes per day: 20.0 Years smoked: 5 Smoking pack-years: 5.00 Smoking status: Former smoker Second hand tobacco smoke exposure: Yes Alcohol intake: former Alcohol use details: rarely Substance use: never Substance use type: does not use Do You Feel Safe in your Home?: Yes Lack of Transportation: YES Lack of Food: Never True Current Housing: I Have Housing Concerned About Future Housing: No Difficulty Paying Gas/Electric Bills: YES Difficulty Paying for Meds: No Currently Unemployed: No Education: High School Diploma/GED Difficulty w/ Childcare or Family Care: No Living arrangements: alone Additional living arrangements comments: . Lives in her own home in [place]. She has 2 cats. Occupation/Education: retired Additional occupation/education comments: [employer]. Spiritual care concerns: No Agree to blood products: Yes Exam Narrative: APPEARANCE: Well appearing, no pain, no distress, well-nourished. HEAD: normocephalic, atraumatic. EYES: PERRLA/EOMI, conjunctivae clear. NOSE: Normal no drainage EARS:TMS clear with good light reflex. THROAT: Pharynx clear, no exudate. NECK: Supple. No adenopathy, no masses. RESPIRATORY: Airway patent, respirations nonlabored. Clear to auscultation bilaterally, no rales, rhonchi, wheezing. CARDIOVASCULAR: Regular rate and rhythm without murmurs rubs or gallops. ABDOMINAL: Soft, nontender, nondistended, normal bowel sounds MUSCULOSKELETAL: Moves all extremities. Strength/ROM intact, No edema, No calf tenderness. NEURO: Alert. Cranial nerves II through XII intact. Good gait. Good coordination SKIN: Warm, dry. Normal Color Course Vital Signs Vital signs: Vital Signs Temperature 98.1 F 12/19/24 10:10 Pulse Rate 86 12/19/24 10:10 Respiratory Rate 18 12/19/24 10:10 Blood Pressure 173/93 H 12/19/24 10:10 Pulse Oximetry 97 12/19/24 10:10 Oxygen Delivery Room Air 12/19/24 10:10 Temperature 97.7 F 12/19/24 14:07 Pulse Rate 82 12/19/24 14:07 Respiratory Rate 96 H 12/19/24 14:07 Blood Pressure 149/70 H 12/19/24 14:07 Pulse Oximetry 20 L 12/19/24 14:07 Oxygen Delivery Room Air 12/19/24 10:10 Medical Decision Making MDM Narrative Medical decision making narrative: 79-year-old female history of bronchiectasis presented to the emergency department for evaluation for worsening generalized weakness lightheaded dizziness. Patient has been on on antibiotic at home due to the symptoms but she feels safe worsens. Case was discussed with hospitalist patient was accepted for admission. After further discussion with the patient the patient states she prefers to be discharged home. Patient declined admission. Differential Diagnosis Differential Diagnosis: Pneumonia, pneumothorax, pulmonary embolism Vital Signs Vital Signs: Vital Signs Temperature 98.1 F 12/19/24 10:10 Pulse Rate 86 12/19/24 10:10 Respiratory Rate 18 12/19/24 10:10 Blood Pressure 173/93 H 12/19/24 10:10 Pulse Oximetry 97 12/19/24 10:10 Oxygen Delivery Room Air 12/19/24 10:10 Temperature 97.7 F 12/19/24 14:07 Pulse Rate 82 12/19/24 14:07 Respiratory Rate 96 H 12/19/24 14:07 Blood Pressure 149/70 H 12/19/24 14:07 Pulse Oximetry 20 L 12/19/24 14:07 Oxygen Delivery Room Air 12/19/24 10:10 Lab Data Lab results reviewed: Yes I reviewed the patient's lab results. 12/19/24 11:17 12/19/24 11:17 Labs: Lab Results 12/19/24 12/19/24 Range/Units 11:17 11:53 WBC 8.8 (4.5-10.0) K/mm3 RBC 4.06 L (4.2-5.4) M/mm3 Hgb 12.3 (12.0-15.0) g/dL Hct 37.9 (37.0-47.0) % MCV 93.3 (80-100) fl MCH 30.3 (26-34) pg MCHC 32.5 (32-36) g/dl RDW 12.2 (11.5-14.5) % Plt Count 362 (150-375) k/mm3 MPV 8.9 (7.4-10.4) fl Immature Gran % (Auto) 0.6 H (0-0.5) % Neut % (Auto) 67.8 (45.5-73.1) % Lymph % (Auto) 19.8 (18.3-44.2) % [place] % (Auto) 7.5 (2.6-8.5) % Eos % (Auto) 3.1 (0-4.4) % Baso % (Auto) 1.2 (0.2-1.2) % Lymph # (Auto) 1.74 (0.9-3.2) K/mm3 [place] # (Auto) 0.7 H (0.1-0.6) K/mm3 Eos # (Auto) 0.3 (0-0.3) K/mm3 Baso # (Auto) 0.1 (0.0-0.1) K/mm3 Abs Immat Gran (auto) 0.05 H (0.00-0.031) K/mm3 Absolute Neuts (auto) 6.0 (1.3-6.7) K/mm3 Absolute Nucleated RBC 0.000 (0.0-0.012) K/mm3 Nucleated RBC % 0.0 (0.0-0.2) % PT 13.7 (11.1-14.7) Seconds INR 1.0 APTT 28.0 (22.3-36.8) Seconds Sodium 133 L (137-145) mmol/L Potassium 4.1 (3.4-5.0) mmol/L Chloride 99 (98-107) mmol/L Carbon Dioxide 29 (22-30) mmol/L Anion Gap 5 (4-12) mmol/L BUN 17 (7-17) mg/dL Creatinine 0.62 L (0.7-1.0) mg/dL Estim Creat Clear Calc 48 ml/min Estimated GFR > 60 (59 - ) Glucose 104 (65-110) mg/dL Calcium 8.6 (8.4-10.2) mg/dL Total Bilirubin 0.4 (0.2-1.3) mg/dL AST 33 (14-36) U/L ALT 15 (6-35) U/L Alkaline Phosphatase 98 (38-126) U/L Total Protein 8.2 (6.3-8.2) g/dL Albumin 3.9 (3.5-5.1) g/dL Urine Color Yellow (Yellow) Urine Appearance Clear (Clear) Urine pH 7.5 (5.0-9.0) Ur Specific Thomson 1.011 (1.001-1.035) Urine Protein Negative (Negative) mg/dL Urine Glucose (UA) Negative (Negative) mg/dL Urine Ketones Negative (Negative) mg/dL Ur Blood (Man) Negative (Negative) Urine Nitrate Negative (Negative) Urine Bilirubin Negative (Negative) Urine Urobilinogen 0.2 (<2.0) mg/dL Leukocyte Esterase Rfl Negative (Negative) [place]/UL Influenza A (RT-PCR) Negative (Negative) Influenza B (RT-PCR) Negative (Negative) RSV (RT-PCR) Negative (Negative) SARS-CoV-2 RNA (RT-PCR) Negative (Negative) Imaging Data Radiologist's impression: Impressions Head CT 12/19/24 12:06 Impression: 1.No acute intracranial abnormality. Chest CTA 12/19/24 12:14 IMPRESSION: 1. No pulmonary embolism. 2. Chronic bronchiectasis and mucous plugging in both lungs most prominent in the right middle and bilateral lower lobes with relatively stable appearance of associated chronic consolidation consistent with atelectasis possibly with superimposed pneumonia. 3. New less severe opacities in the lingula and right upper lobe consistent with bronchiolitis and additional developing pneumonia. 4. Mild cardiomegaly with biatrial enlargement. Discharge Plan Discharge Clinical Impression: Pneumonia, Dizziness, Bronchiectasis Patient Disposition: Still a Patient Condition: Stable Instructions: Antibiotic Form, Bronchiectasis (ED), Pneumonia (ED) Additional Instructions: Head CT was negative for acute intracranial abnormality. Chest CT was concerning for pneumonia. You were offered admission for concern for underlying pneumonia and you preferred to be discharged home. Continue your cefdinir as directed. Have close follow-up with pulmonology. If you have any worsening symptoms then please call or return to the emergency department. Patient Language: Congolese Prescriptions: No Action escitalopram oxalate [Lexapro] 20 mg tablet 20 mg PO DAILY doxycycline hyclate 100 mg capsule 100 mg PO BID Patient Comments: for 1 week every 3 months ketoconazole 2 % cream 1 applic topical DAILY ketoconazole 2 % shampoo 1 applic topical 2XW amoxicillin 500 mg capsule 500 mg PO Q12H albuterol sulfate [Ventolin HFA] 90 mcg/actuation HFA aerosol inhaler 1 puff inhalation Q4H PRN cefdinir 300 mg capsule 300 mg PO Q12H Patient Comments: pt says she takes this medicine 2 times a day and rotates monthly for 7 days divalproex [Depakote ER] 250 mg tablet extended release 24 hr 250 mg PO DAILY Qty: 90 2RF Rx Instructions: 1 tablet at bedtime may increase to 2 tablets after 2 weeks sumatriptan succinate 50 mg tablet See Rx Instructions PO .COMPLEX Qty: 14 2RF Rx Instructions: take 1 tab at onset of headache; if no relief may repeat 1 tab after at least 2 hrs; max = 4 tabs/24 hr PO acetaminophen 500 mg tablet 500 mg PO Q6H PRN (Reason: Pain) ICaps AREDS2 (copper citrate) 250 mg-200 unit -12.5 mg-1 mg tablet,chewable 1 tablet PO Q12H Stiolto Respimat 2.5-2.5 mcg/actuation mist 2 inh inhalation DAILY albuterol sulfate 1.25 mg/3 mL solution for nebulization 1.25 mg inhalation TID Prolia 60 mg/mL syringe 60 mg subcut [id number] cetirizine [Zyrtec] 10 mg Tablet 10 mg PO HS ferrous sulfate 325 mg (65 mg iron) tablet 325 mg PO .every other day Tylenol PM Extra Strength 220 mg PO HS PRN (Reason: Pain (Scale Score 1-3)) ondansetron 8 mg tablet,disintegrating 8 mg PO Q8H PRN (Reason: nausea and vomiting) Qty: 30 3RF folic acid 1 mg tablet 1 mg PO DAILY Qty: 90 1RF cholecalciferol (vitamin D3) 50 mcg (2,000 unit) tablet 50 mcg PO DAILY Qty: 90 2RF sumatriptan succinate 100 mg tablet 100 mg PO DAILY PRN (Reason: migraine headache) Qty: 27 5RF triamcinolone acetonide [Nasacort Allergy] 55 mcg aerosol,spray 2 spray intranasal DAILY Qty: 16.9 0RF Rx Instructions: administer into each nostril mirtazapine 15 mg tablet 7.5 mg PO QHS Qty: 90 1RF sotalol 80 mg tablet See Rx Instructions .ROUTE .COMPLEX Qty: 180 2RF Dose Instruction: TAKE 1 TABLET BY MOUTH EVERY 12 HOURS Rx Instructions: TAKE 1 TABLET BY MOUTH EVERY 12 HOURS Follow-up/Referrals: Abril Cobb MD [Primary Care Provider, Family Practice]
--- OUTSIDE RECORDS SUMMARY | 2024-12-19 10:50 | XMS_ITS | Clinical Summary ---
Author Organization [facility] Address [address] [facility] [place] [address] Phone Care Team Providers Care Slice Cutting Machine Operator Name Role Phone Pedro Luis Andrews MD Primary Care Provider Allergies Active Allergy Reactions Criticality Noted Date Comments Acer Negundo Allergy Skin Test Unknown 04/11 Jakob Extract Allergy Skin Test Unknown 03/27 Aspergillus Allergy Skin Test Unknown 2016 Clarithromycin Unknown Nicardipine Unknown [place] Unknown 04/11/2016 Ciprofloxacin Hives,Itching,Rash Cladosporium Sphaerospermum Unknown 04/11/19 17 Cladosporium Sphaerospermum Unknown 04/11/19 17 Codeine Unknown Codeine Sulfate Unknown Horse Epithelium Unknown 04/11/2016 Kj Grass Allergy Skin Test Unknown 03/27 Mite (D. Farinae) Unknown 04/11/2016 Other Unknown Cipro Plantain Unknown 04/11/2016 Rumex Acetosella ([place]ep[place]) Unknown Sulfamethoxazole-Trimethoprim Unknown [place] Species Unknown 04/11/2016 Medications azelastine (ASTELIN) 0.1 [...] Base) MCG/ACT Aerosol SolutionIndicati ons:Simple chronic bronchitis take 2 Puffs by inhalation every 4 [...] 1-dose 75+ series) 2018 Influenza Immunization (#1) 11/25/202411/26, 12/28/2018, 12/28/2018, Additional history exists SARS-COV-2 Immunization (2024- season) 2024 08/06/2021, 01/20/2021, 05/28/2020, Additional history exists DTaP/Tdap/Td [...] topic Insurance MEDICARE C AETNA Care Teams Slice Cutting Machine Operator Relationship Specialty Start Date End Date Pedro Luis Andrews MD [address] [place] [address] PCP - General Family Medicine 10/09/17
--- OUTSIDE RECORDS SUMMARY | 2024-12-19 10:51 | XMS_ITS | Clinical Summary ---
Author Organization [facility] Address [address] [place] [address] Care Team Providers Care Diesel Trailer Mechanic Name Role Phone Laura Cobb MD Primary Care Provider Allergies Active Allergy Reactions Criticality Noted Date Comments Aspergillus Fumigatus Allerg enic Extract Unknown 04/11/2016 Ciprofloxacin Hives,Itching,Rash Medium 01/09/2017 Cladosporium Sphaerospermum Allergenic Extract Unknown 04/11/2016 Clarithromycin Unknown 01/09/2017 Codeine Unknown Codeine Sulfate Unknown Grass Pollen-Kj Unknown 04/11/2016 Nicardipine Unknown Plantain Unknown 04/11/2016 Sulfamethoxazole-Trimethoprim Unknown Tree Pollen-Black Jakob, Standard Unknown Tree Pollen-Burke Unknown 04/11/2016 Tree Pollen-Mountain [place] Unknown 7 [place] Pollen-Sheep [place] Unknown 04/11/2016 [place] Bark Unknown 04/11/2016 Medications naproxen sodium (ALEVE) [...] History Date Comments Depression Depression Chronic obstructive pulmonary disease copd; Comments: Chronic pseudomonas treated with antibiotics Primary fibromyalgia syndrome 1989 fi bromyalgia; Outcome: resolved Anemia anemia Chronic obstructive pulmonary disease COPD Hx Other Medical anerusym brain Tension [...] on file Legal Sex Female 9:04 AM CHILLING HOOD OPERATOR Gender Identity Female 07/03/2018 9:39 AM CDT Sexual Orientation Straight 07/03/2018 9: 39 AM CDT Obstetrics History Last Filed Vital Signs Vital Sign Reading Time Taken Comments Blood Pressure 134/74 08/01/2018 1:03 PM CDT Pulse 103 08/01/2018 1:03 PM CDT Temperature 36.1 C (96.9 F) 02/04/2021 1:32 PM CHILLING HOOD OPERATOR Respiratory Rate 19 06/26/2018 12:45 PM CDT Oxygen Saturation 96% 06/26/2018 12:45 PM CDT Inhaled Oxygen Concentration - - Weight 76.7 kg (169 lb 1.6 oz) 02/04/2021 1:32 P M CHILLING HOOD OPERATOR Height 165.1 cm (5' 5) 02/04/2021 1:32 PM CHILLING HOOD OPERATOR Body Mass Index 28.14 02/04/2021 1:32 PM CHILLING HOOD OPERATOR Plan of Treatment Health Maintenance Due Date Last Done Comments Depression Screening 1943 Fall Risk Assessment 1945 Osteoporosis Screening-Bone Density Scan 1943 Hepatitis B Screening 1961 Zoster Vaccine (1 of 2) 1993 Well Visit 65+ 2008 Covid-19 Vaccine (2024-2 6 season) 2024 01/20/2021, 05/28/2020, 04/29/2020 Influenza Vaccine (#1) 2024 , 12/21/2019, 12/28/2018, Additional history exists DTaP/Tdap/Td Vaccine (2 - Td or Tdap) 02/19/2027 02/19/2017 Pneumococcal vaccine 65+ Completed 017, 02/06/2017, 06/14/2016, Additional history exists Insurance MEDICARE AETNA [facility] [employer] PPO [employer] PPO IDPA Care Teams Diesel Trailer Mechanic Relationship Specialty Start Date End Date Laura Cobb MD PCP - General Family Practice 02/04/21
--- OUTSIDE RECORDS SUMMARY | 2024-12-19 10:51 | XMS_ITS | Patient Health Record ---
Author Organization [facility] Address [address] [place] [address] Care Team Providers Care Shipping And Receiving Assistant Name Role Phone Joey Benavides Unavailable [phone] Allergies Allergen (clinical drug ingredient) Drug/Non Drug [...] Duration) Notes Start Date End Date Status Paxlovid (300/100) 20 x 150 MG & 10 x 100MG Tablet Therapy Pack Oral *Reorder from [facility] for eRx and Interaction Alerts* 06/26/2023 Unknown Cefdinir 300 MG Capsule Oral 06/26/2023 Unknown Folic Acid 1 MG Tablet Oral; Duration: 90 Days Active Ketoconazole 2% Shampoo External 06/26/2023 Unknown Escitalopram Oxalate 20 MG Tablet TAKE 1 TABLET BY MOUTH DAILY; Duration: 90 Active predniSONE 20 MG Tablet Oral; Duration: 5 [...] Aerosphere 160-9-4.8 MCG/ACT Aerosol Inhalation *Reorder from [employer] for eRx and Interaction Alerts* 06/26/2023 Unknown [...] MG Tablet Extended Release Oral *Reorder from [facility] for eRx and Interaction Alerts* 06/26/2023 [...] Unknow n Vitamin D (Ergocalciferol) 1.25 MG (80851 UT) Capsule TAKE 1 CAPSULE BY MOUTH [...] Problem Status W/U Status Risk Notes Problem Mild recurrent major depression (63771576) Major depressive disorder, recurrent, mild (F33.0) 4 Active confirmed Problem Generalized anxiety disorder (23214966) Generalized anxiety disorder (F41.1) 4 Active confirmed Problem Age-related cognitive decline (294076450) Age-related cognitive decline (R41.81) Active confirmed Encounters Encounter Location Date Provider Diagnosis [facility] [employer] [address] [address] 07/11/2024 Joey Benavides Generalized anxiety disorder F41.1 ; Major depressive disorder, recurrent, mild F33.0 and Age-related cognitive decline R41.81 [facility] [employer] [address] [address] 08/29/2024 Joey Benavides Generalized anxiety disorder F41.1 [facility] [employer] [address] 10/02/2024 Joey Benavides [facility] [place] [address] [address] 08/18/2024 Joey Benavides [facility] [employer] [address] [address] 08/23/2024 Joey Benavides Assessments Encounter Date Diagnosis (ICD Code) Assessment Notes Treatment Notes Treatment Clinical Notes Section Notes 07/11/2024 Generalized anxiety disorder (ICD-10 - F41.1) 08/29/2024 Generalized anxiety disorder (ICD-10 - F41.1) [...] [facility] [employer] [address] [place] [address] [id number] JESSICA RAYMOND Self - patient is the insured Medical (General) History Medical History History ICD Code Problems: Generalized anxiety disorder Mild recurrent major depression Persistent insomnia , Imported from [employer]: Th e patient has been under the care of Dr. Dat Johnson at [facility] and has had multiple interactions with health providers at [facility]. The patient has been dealing with chronic [...] 03/27/1955 Neurosurgery 03/28/2008 Other 08/07/2004 Cataract surgery (62560) 03/24/2020
--- OUTSIDE RECORDS SUMMARY | 2024-12-19 10:51 | XMS_ITS | Clinical Summary ---
Author Organization [facility] Address [address] [place] [address] Care Team Providers Care Fur Dry Cleaner Hand Name Role Phone Laura Cobb MD Primary [...] Encounters Date Type Department Care Team Description 11/26/2024 External Device Data [facility] ABSTRACTION Provider, Abstract 11/12/2024 External Device Data [facility]STRACTION Provider, [...] 165.1 cm (5' 5) 02/21/2023 2:28 PM TECHNICAL ENGINEER Body Mass Index 18.4 02/21/2023 2:28 PM TECHNICAL ENGINEER Plan of Treatment Health Maintenance Due Date Last Done Comments DTAP/TDAP/TD VACCINES (1 - Tdap) 1962 ZOSTER VACCINE (1 of 2) 1993 OSTEOPOROSIS SCREENING 2008 PNEUMOCOCCAL VACCINE 50+ YEA RS (2 of 2 - PCV) 12/06/2013 12/06/2012 RSV VACCINE (60+ or ) (1 - 1-dose 75+ series) 2018 INFLUENZA VACCINE (#1) 2024 9, 01/09/2017, 02/29/2016, Additional history exists COVID-19 Vaccine (3 - 2024-2 6 season) 2024 05/28/2020, 04/29/2020 Insurance [facility] PPO MCR Care Teams Fur Dry Cleaner Hand Relationship Specialty Start Date End Date Laura Cobb MD [address] [place] [id number] PCP - General Family Practice 02/21/23
--- OUTSIDE RECORDS SUMMARY | 2024-12-19 10:51 | XMS_ITS | Clinical Summary ---
Author Organization [facility] [employer] [facility] Address [address] [place] [address] Care Team Providers Care Margarine Maker Name Role Phone Abhijeet Francisco DO Primary Care Provider [phone] Source Comments [facility] [employer],non-owned Affiliates and Associated Physician Practices is amultiple site organization consisting of ambulatory clinics and hospital sitesin [place], [place], [place] and [place]. This disclosure is being madepursuant to the Care Everywhere program and may not contain all information available regarding this patient. Last updated 17.[facility] [employer] Allergies Active Allergy Reactions Criticality Noted Date [...] yrs (1 - 1-dose 75+ series) 2018 DEPRESSION SCREENING 03/27/2024 COVID-19 VACCINE (2023-25 season) 2024 INFLUENZA VACCINE (#1) 2024 9, 01/09/2017, 02/29/2016, [...] patient's age to complete this topic Insurance [facility] MEDICARE ADV PPO Care Teams Margarine Maker Relationship Specialty Start Date End Date Abhijeet Francisco DO PCP - General Internal Medicine 01/09/17
[2024-12-19 11:16] VITALS: BP 155/70; PULSE 83; RESP 20; O2SAT 97
[2024-12-19 11:31] LABS: Hematocrit 37.9 % (37.0-47.0); Hemoglobin 12.3 g/dL (12.0-15.0); Immature Granulocyte Percent A 0.6 % (0-0.5); Lymphocytes Absolute Auto 1.74 K/mm3 (0.9-3.2); Mean Corpuscular HGB Conc 32.5 g/dl (32-36); Mean Corpuscular Hemoglobin 30.3 pg (26-34); Mean Corpuscular Volume 93.3 fl (80-100); Nucleated Red Blood Cells Absolute Auto 0.000 K/mm3 (0.0-0.012); Nucleated Red Blood Cells Perc 0.0 % (0.0-0.2); Platelet Count Result 362 k/mm3 (150-375); Red Blood Count 4.06 M/mm3 (4.2-5.4); White Blood Count 8.8 K/mm3 (4.5-10.0)
[2024-12-19 11:43] LABS: INR 1.0; Prothrombin Time 13.7 Seconds (11.1-14.7)
[2024-12-19 11:44] LABS: Partial Thromboplastin Time 28.0 Seconds (22.3-36.8)
[2024-12-19 11:46] LABS: Alanine Aminotransferase 15 U/L (6-35); Albumin Level 3.9 g/dL (3.5-5.1); Alkaline Phosphatase 98 U/L (38-126); Anion Gap 5 mmol/L (4-12); Aspartate Amino Transferase 33 U/L (14-36); Bilirubin,Total 0.4 mg/dL (0.2-1.3); Blood Urea Nitrogen 17 mg/dL (7-17); Calcium 8.6 mg/dL (8.4-10.2); Carbon Dioxide 29 mmol/L (22-30); Chloride 99 mmol/L (98-107); Estimated CRCL calculation 48 ml/min; Estimated Glomerular Filt Rate > 60; Glucose 104 mg/dL (65-110); Potassium 4.1 mmol/L (3.4-5.0); Sodium 133 mmol/L (137-145); Total Protein 8.2 g/dL (6.3-8.2)
[2024-12-19 11:59] LABS: Add Urine Microscopic? NO; Appearance Urine Clear (Clear); Glucose Urine UA Negative (Negative); Leukocyte Esterase Ur Negative LEU/UL (Negative); Nitrate Urine Negative (Negative); Specific Grav Ur 1.011 (1.001-1.035)
[2024-12-19 12:07] LABS: Influenza A QL RT-PCR Negative (Negative); Influenza B QL RT-PCR Negative (Negative); RSV RNA, RT-PCR Negative (Negative); SARS-CoV-2 RNA PCR Negative (Negative)
[2024-12-19] MEDS: CEFEPIME 2 GM in SODIUM CHLORIDE 0.9% IV 50 ML 100 ML IVPB (13:24)
[2024-12-19 14:07] VITALS: BP 149/70; PULSE 82; RESP 96; TEMP 36.5; O2SAT 20
== END 2024-12-19 14:09 | disposition home or self-care (01) ==
PROVIDERS: Emergency Provider Emergency Medicine; PCP Family Medicine
DX: J18.9 Pneumonia, unspecified organism (principal); R42 Dizziness and giddiness; J47.9 Bronchiectasis, uncomplicated; Z87.891 Personal history of nicotine dependence; I47.19 Other supraventricular tachycardia; Z79.899 Other long term (current) drug therapy; Z20.822 Contact with and (suspected) exposure to COVID-19
CPT/HCPCS: 36415; 70450; 71275; 80053; 81003; 85025; 85610; 85730; 87637; 96365; 99284; J0692; Q9967